=== PATIENT | male | born 1940 | race Caucasian/White ===

== ENCOUNTER 2017-02-27 08:29 | Emergency (ER) | payer OTHER ==
[~2017-02-27] VITALS: Ht 180.3 cm; Wt 74.8 kg
[~2017-02-27 08:29] MED LIST: MULT-658 PO; VIT1TABL34 PO
[2017-02-27 08:34] VITALS: BP 158/84
[2017-02-27] MEDS ORDERED: 0.9 % SODIUM CHLORIDE 10 ML DISP.SYRIN. IV PRN (08:45)
[2017-02-27] MEDS ORDERED: IV NORMAL SALINE 500ML BAG 500 ML IV ONE (08:45)
--- NOTE | 2017-02-27 08:53 | PHYS DOC ---
Adult General Chief Complaint Chief Complaint: ABDOMINAL PAIN HPI HPI Patient is a 77 year old white male presents emergency Department today with complaint of intermittent, ill-defined upper abdominal pain with episodes of nausea and vomiting that began approximately one week ago. Patient states that he saw his primary care doctor on Wednesday and diagnosed with diverticulitis. He states that he put him on a light diet including rice. Patient states that he threw up a Wednesday evening. Patient denies a history of diverticular disease. 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 He had a recent "cancer scanning "that showed metabolic lesions in his mesentery. This was done in October of this past year. Patient elected to try chemotherapy beginning in November. He states that he was not able to continue through the chemotherapy and elected to stop. Dr. Colvin is his oncologist. Other than his history of sigmoid cancer, he denies any other history of gastrointestinal problems. He denies any history of cardiac or pulmonary problems. He denies chest pain, palpitations, exertional dyspnea, orthopnea or PND. Patient states that the pain actually wakes him up often at various times. He states he is currently asymptomatic. He denies black, bloody or mucous-type stools. Review of Systems Review of Systems Constitutional: Denies fever or chills [] Eyes: Denies change in visual acuity, redness, or eye pain [] HENT: Denies nasal congestion or sore throat [] Respiratory: Denies cough or shortness of breath [] Cardiovascular: No additional information not addressed in HPI [] GI: Denies abdominal pain, nausea, vomiting, bloody stools or diarrhea [] : Denies dysuria or hematuria [] Musculoskeletal: Denies back pain or joint pain [] Integument: Denies rash or skin lesions [] Neurologic: Denies headache, focal weakness or sensory changes [] Endocrine: Denies polyuria or polydipsia [] Current Medications Current Medications Current Medications Medications (Trade) Dose Ordered Sig/Jovany Start Time Stop Time Status Last Admin Dose Admin Info (Do NOT chart on this entry -- for MONITORING) 1 each PRN DAILY PRN 02/27/17 09:00 03/01/17 08:59 Iohexol (Omnipaque 300 Mg/ml) 75 ml 1X ONCE 02/27/17 09:00 02/27/17 09:01 DC 02/27/17 09:39 75 ML Sodium Chloride (Iv Sodium Chloride 0.9% 500ml Bag) 500 ml @ 500 mls/hr 1X ONCE 02/27/17 08:45 02/27/17 09:44 DC 02/27/17 09:11 500 MLS/HR Sodium Chloride 10 ml 10 ml QSHIFT PRN 02/27/17 08:45 Allergies Allergies Allergies Coded Allergies Type Severity Reaction Last Updated Verified No Known Drug Allergies 03/03/16 No Physical Exam Physical Exam Constitutional: Well developed, well nourished, no acute distress, non-toxic appearance. Patient is lying comfortable in a low semi-Fowlers position no acute distress. HENT: Normocephalic, atraumatic, bilateral external ears normal, oropharynx moist, no oral exudates, nose normal. [] Eyes: PERRLA, EOMI, conjunctiva normal, no discharge. [] Neck: Normal range of motion, no tenderness, supple, no stridor. [] Cardiovascular:Heart rate regular rhythm, no murmur [] Lungs & Thorax: Bilateral breath sounds clear to auscultation Abdomen: Abdomen is soft and nondistended. There are normoactive bowel sounds in all 4 quadrants. There is no palpable defect to the abdominal wall or pulsatile mass. There is no rebound or guarding. Skin: Warm, dry, no erythema, no rash. [] Back: No tenderness, no CVA tenderness. [] Extremities: No tenderness, no cyanosis, no clubbing, ROM intact, no edema. [] Neurologic: Alert and oriented X 3, normal motor function, normal sensory function, no focal deficits noted. [] Psychologic: Affect normal, judgement normal, mood normal. [] Current Patient Data Vital Signs Vital Signs Date Time Temp Pulse Resp B/P Pulse Ox O2 Delivery O2 Flow Rate FiO2 02/27/17 08:34 97.8 78 18 158/84 98 Room Air 97.8 Lab Values Laboratory Tests Test 02/27/17 09:00 02/27/17 09:35 White Blood Count 8.4x10^3/uL (4.0-11.0) Red Blood Count 4.40x10^6/uL (4.30-5.70) Hemoglobin 13.0g/dL (13.0-17.5) Hematocrit 38.9% (39.0-53.0) L Mean Corpuscular Volume 88fL (79-100) Mean Corpuscular Hemoglobin 29pg (25-35) Mean Corpuscular Hemoglobin Concent 33g/dL (31-37) Red Cell Distribution Width 14.6% (11.5-14.5) H Platelet Count 290x10^3/uL (140-400) Neutrophils (%) (Auto) 56% (31-73) Lymphocytes (%) (Auto) 27% (24-48) Monocytes (%) (Auto) 12% (0-9) H Eosinophils (%) (Auto) 5% (0-3) H Basophils (%) (Auto) 1% (0-3) Neutrophils # (Auto) 4.7x10^3uL (1.8-7.7) Lymphocytes # (Auto) 2.3x10^3/uL (1.0-4.8) Monocytes # (Auto) 1.0x10^3/uL (0.0-1.1) Eosinophils # (Auto) 0.4x10^3/uL (0.0-0.7) Basophils # (Auto) 0.0x10^3/uL (0.0-0.2) Sodium Level 142mmol/L (136-145) Potassium Level 3.9mmol/L (3.5-5.1) Chloride Level 104mmol/L (98-107) Carbon Dioxide Level 27mmol/L (21-32) Anion Gap 11 (6-14) Blood Urea Nitrogen 16mg/dL (8-26) Creatinine 1.4mg/dL (0.7-1.3) H Estimated GFR (Cockcroft-Gault) 49.4 BUN/Creatinine Ratio 11 (6-20) Glucose Level 117mg/dL (70-99) H Calcium Level 9.1mg/dL (8.5-10.1) Total Bilirubin 0.4mg/dL (0.2-1.0) Aspartate Amino Transferase (AST) 47U/L (15-37) H Alanine Aminotransferase (ALT) 23U/L (16-63) Alkaline Phosphatase 98U/L (46-116) Troponin I Quantitative < 0.017ng/mL (0.000-0.055) Total Protein 6.7g/dL (6.4-8.2) Albumin 3.4g/dL (3.4-5.0) Albumin/Globulin Ratio 1.0 (1.0-1.7) Lipase 99U/L (73-393) Urine Collection Type Unknown Urine Color Yellow Urine Clarity Clear Urine pH 7.0 Urine Specific Josephine 1.015 Urine Protein Negativemg/dL (NEG-TRACE) Urine Glucose (UA) Negativemg/dL (NEG) Urine Ketones (Stick) Negativemg/dL (NEG) Urine Blood Moderate (NEG) Urine Nitrite Negative (NEG) Urine Bilirubin Negative (NEG) Urine Urobilinogen Dipstick 0.2mg/dL (0.2 mg/dL) Urine Leukocyte Esterase Small (NEG) Urine RBC 11-20/HPF (0-2) Urine WBC 11-20/HPF (0-4) Urine Squamous Epithelial Cells Few/LPF Urine Bacteria Few/HPF (0-FEW) Urine Mucus Slight/LPF Laboratory Tests 02/27/17 09:00 Laboratory Tests 02/27/17 09:00 EKG EKG Twelve-lead EKG was performed at [address] Berg. Patient has a sinus rhythm with a rate of 73 bpm.. I will was 204 ms with a QRS alevism of 70 ms and a QT duration of 470 ms. There is no evidence of pathologic ST elevation or depression suggestive of ischemia or infarction. Radiology/Procedures Radiology/Procedures [] [facility] [address] [place] [address] IMAGING REPORT Signed PATIENT: BERNIE DE LEON ACCOUNT: [id number] : 1940 LOCATION: ER AGE: 77 SEX: M EXAM STATUS: REG ER ORD. PHYSICIAN: ADI ROSE REASON: ill-defined, upper abdominal pain-hx of sigmoid Ca PROCEDURE: CT ABD PELV W/ IV CONTRST ONLY EXAM: CT abdomen and pelvis with contrast. HISTORY: Upper abdominal pain for one week, history of colon cancer status post resection one year ago. TECHNIQUE: Computed tomographic images of the abdomen and pelvis are obtained following the intravenous demonstration of 60 cc of Omni 300. Multiplanar reformatting was performed. One or more of the following individualized dose reduction techniques were utilized for this examination: 1. Automated exposure control 2. Adjustment of the mA and/or kV according to patient size 3. Use of iterative reconstruction technique COMPARISON: November 05, 2016 FINDINGS: Visualized lung bases appear clear. There has been interval development of multiple round, low attenuating masses within the liver, new from the previous exam. Portal vein appears patent. The spleen, pancreas and adrenal glands demonstrate no focal abnormality. A single small gallstone is present within the gallbladder, similar to the previous exam. There is redemonstration of calculi within the left kidney, overall nonobstructing. There is redemonstration of moderate right-sided hydronephrosis, mildly progressed from the previous exam and now with prominent right perinephric stranding present. Right hydroureter is present. A 5 mm calculus is present within the distal right ureter just proximal to the UVJ. This may correspond with the previously seen calculus within the more proximal ureter in October. A nonobstructing calculus is also seen within the distal left ureter, as seen on the previous exam. No dilated bowel loops are seen to suggest obstruction. The appendix remains normal in caliber in the right lower quadrant. Urinary bladder is decompressed and not well evaluated. Calcifications are present centrally within the prostate. Abdominal aorta remains normal in caliber with atherosclerotic calcifications present. Previously seen retroperitoneal adenopathy and mesenteric nodularity is redemonstrated, which appears progressed at the level of the kidneys. No significant intra-abdominal or pelvic free fluid or free air is seen. Overlying soft tissues and visualized osseous structures demonstrate no acute or suspicious interval change. Bilateral pars defects with mild anterolisthesis of L5 on S1 redemonstrated. IMPRESSION: 1. Interval development of liver masses, concerning for metastatic disease in this patient with history of colon cancer. 2. Obstructing distal right ureteral calculus measuring 5 mm, resulting in moderate hydronephrosis and hydroureter with perinephric stranding. Similar appearing, nonobstructing calculi are seen within the left kidney in distal left ureter. 3. Progression of retroperitoneal adenopathy, with redemonstration of mesenteric nodularity, concerning for metastatic carmen disease. 4. Other incidental findings appear stable. DICTATED and SIGNED BY: JESSIE HERNANDEZ MD DATE: 02/27/17 0955 CC: KAITLIN YO MD; ADI ROSE; NON,STAFF ~ Course & Med Decision Making Course & Med Decision Making Patient's had an uncomplicated stay here in the emergency department. He has not complained of pain, nausea or vomiting during his stay here. The CT scan does show an obstructing right stone in the distal ureter which is chronic and essentially unchanged from the CT scan in October. I spoke with Dr. Mckenna, Dr Colvin's partner and related CT scan findings. Dr. Mckenna states it is appropriate to call Wednesday to schedule follow-up appointment. I relayed this information to the patient and his family. He seemed to be satisfied with this plan and will call Wednesday for an appointment. Dragon Disclaimer Dragon Disclaimer This electronic medical record was generated, in whole or in part, using a voice recognition dictation system. 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 Be sure to call Dr. Colvin's office Wednesday morning for follow-up appointment. Dr Mckenna, Dr. Colvin's partner will be relaying information to him about today's visit. 2. Review the discharge instructions provided for self-care and reasons to return to the emergency department. 3. Take the medication as prescribed. Scripts Ondansetron (Zofran Odt)4 Mg Tab.rapdis4 Mg PO Q8HRS PRN NAUSEA/VOMITING #10 TAB Prov:ADI ROSE 02/27/17 Hydrocodone/Apap 5-325 (Preston 5-325 Tablet)1 Each Tablet1 Tab PO PRN Q6HRS PRN PAIN #15 TAB Prov:ADI ROSE 02/27/17 Problem Qualifiers ADI ROSE Feb 27, 2017 08:53
[2017-02-27] MEDS ORDERED: IOHEXOL 300 MG/ML 75 ML VIAL IV ONE (09:00)
[2017-02-27] MEDS ORDERED: CONTRAST GIVEN MC PRN (09:00)
[2017-02-27 09:21] LABS: BASO % 1 % (0-3); EOS % 5 % (0-3); HEMATOCRIT 38.9 % (39.0-53.0); LYMPH # 2.3 x10^3/uL (1.0-4.8); LYMPH % 27 % (24-48); MEAN CORPUSCULAR HEMOGLOBIN 29 pg (25-35); MEAN CORPUSCULAR HGB CONC 33 g/dL (31-37); MEAN CORPUSCULAR VOLUME 88 fL (79-100); MONO % 12 % (0-9); NEUT % 56 % (31-73); PLATELET COUNT 290 x10^3/uL (140-400); RED CELL DISTRIBUTION WIDTH 14.6 % (11.5-14.5); WHITE BLOOD COUNT 8.4 x10^3/uL (4.0-11.0)
[2017-02-27 09:24] LABS: CALCIUM 9.1 mg/dL (8.5-10.1); CREATININE 1.4 mg/dL (0.7-1.3); GFR 49.4; POTASSIUM 3.9 mmol/L (3.5-5.1)
[2017-02-27 09:30] LABS: ALBUMIN 3.4 g/dL (3.4-5.0); TOTAL BILIRUBIN 0.4 mg/dL (0.2-1.0); TOTAL PROTEIN 6.7 g/dL (6.4-8.2)
[2017-02-27 09:48] LABS: BILIRUBIN,URINE NEGATIVE (NEG); GLUCOSE,URINE NEGATIVE (NEG); NITRITE,URINE NEGATIVE (NEG); PROTEIN,URINE NEGATIVE (NEG-TRACE); UROBILINOGEN,URINE 0.2 mg/dL (0.2 mg/dL)
[2017-02-27 09:59] LABS: BACTERIA,URINE FEW /HPF (0-FEW); SQUAMOUS EPITHELIAL CELL,UR FEW /LPF
--- NOTE | 2017-02-27 10:21 | RAD ---
EXAM: CT abdomen and pelvis with contrast. HISTORY: Upper abdominal pain for one week, history of colon cancer status post resection one year ago. TECHNIQUE: Computed tomographic images of the abdomen and pelvis are obtained following the intravenous demonstration of 60 cc of Omni 300. Multiplanar reformatting was performed. One or more of the following individualized dose reduction techniques were utilized for this examination: 1. Automated exposure control 2. Adjustment of the mA and/or kV according to patient size 3. Use of iterative reconstruction technique COMPARISON: November 05, 2016 FINDINGS: Visualized lung bases appear clear. There has been interval development of multiple round, low attenuating masses within the liver, new from the previous exam. Portal vein appears patent. The spleen, pancreas and adrenal glands demonstrate no focal abnormality. A single small gallstone is present within the gallbladder, similar to the previous exam. There is redemonstration of calculi within the left kidney, overall nonobstructing. There is redemonstration of moderate right-sided hydronephrosis, mildly progressed from the previous exam and now with prominent right perinephric stranding present. Right hydroureter is present. A 5 mm calculus is present within the distal right ureter just proximal to the UVJ. This may correspond with the previously seen calculus within the more proximal ureter in October. A nonobstructing calculus is also seen within the distal left ureter, as seen on the previous exam. No dilated bowel loops are seen to suggest obstruction. The appendix remains normal in caliber in the right lower quadrant. Urinary bladder is decompressed and not well evaluated. Calcifications are present centrally within the prostate. Abdominal aorta remains normal in caliber with atherosclerotic calcifications present. Previously seen retroperitoneal adenopathy and mesenteric nodularity is redemonstrated, which appears progressed at the level of the kidneys. No significant intra-abdominal or pelvic free fluid or free air is seen. Overlying soft tissues and visualized osseous structures demonstrate no acute or suspicious interval change. Bilateral pars defects with mild anterolisthesis of L5 on S1 redemonstrated. IMPRESSION: 1. Interval development of liver masses, concerning for metastatic disease in this patient with history of colon cancer. 2. Obstructing distal right ureteral calculus measuring 5 mm, resulting in moderate hydronephrosis and hydroureter with perinephric stranding. Similar appearing, nonobstructing calculi are seen within the left kidney in distal left ureter. 3. Progression of retroperitoneal adenopathy, with redemonstration of mesenteric nodularity, concerning for metastatic carmen disease. 4. Other incidental findings appear stable.
[2017-02-27] MEDS ORDERED: HYDR-971 PO (11:02)
[2017-02-27] MEDS ORDERED: ONDA4TAB10 PO (11:02)
--- NOTE | 2017-02-27 12:02 | EKG ---
[facility] [address] [place] [address] Test Date: 2017-02-27 Test Time: 08:50:27 Pat Name: BERNIE DE LEON Department: Room: Gender: M Chief Analytics Officer: : 1940 Requested By: ADI ROSE Order Number: [id number] Reading MD: Measurements Intervals [place] Rate: 73 P: 52 NE: 204 QRS: 38 QRSD: 70 T: 31 QT: 366 QTc: 407 Interpretive Statements SINUS RHYTHM RI6.01 No previous ECG available for comparison
== END 2017-02-27 11:09 | disposition home or self-care (01) ==
LOC: ER 08:29
DX: C78.7 Secondary malignant neoplasm of liver and intrahepatic bile duct (principal); Z85.038 Personal history of other malignant neoplasm of large intestine; Z85.89 Personal history of malignant neoplasm of other organs and systems; N20.0 Calculus of kidney; N13.2 Hydronephrosis with renal and ureteral calculous obstruction
CPT/HCPCS: 36415; 74177; 80053; 81001; 83690; 84484; 85027; 87086; 93005; 99285; J7040; Q9967

== ENCOUNTER 2017-04-13 12:24 | Inpatient (IN) | payer OTHER ==
[~2017-04-13] VITALS: Ht 180.3 cm; Wt 64.4 kg
[~2017-04-13 12:24] MED LIST changes: +HYDR-971 PO; +ONDA4TAB10 PO
--- NOTE | 2017-04-13 12:46 | PHYS DOC ---
Past Medical History Past Medical History: Cancer, Kidney Stone Past Surgical History: Other Additional Past Surgical Histo: CANCER SX Alcohol Use: Rarely Drug Use: None Adult General Chief Complaint Chief Complaint: ABDOMINAL PAIN HPI HPI Patient is a 77 year old male who presents with who presents with abdominal pain that has worsened over the past couple days. Patient states he is unable to keep anything down and has had persistent nausea and vomiting. Patient has a history of colon cancer with metastases to the liver. Patient is currently not undergoing chemotherapy. Patient had an upper EGD done couple weeks ago that showed spots in the lining of the stomach. She complains of left lower quadrant pain. Patient denies any chest pain or shortness of breath. Patient denies any fevers. Patient denies any dysuria. Patient has no other complaints. Pertinent exam findings: Generalized tenderness to palpation of the abdomen with bowel sounds heard in all 4 quadrants and the abdomen was soft ED course: Patient was seen and evaluated upon arrival to emergency room CBC, CMP, lipase, lactic acid, UA, CT scan of the pelvis with contrast was ordered 1420: Discuss CT results with the patient and plan to admit for small bowel junction 1430: Paged hospitalist and surgeon 1434; Discussed CC/HP/PMH with Dr. Nrei and recommends admit and consult surgery 1444: Discussed CC/HP/PMH with Dr. Schaefer and recommends admit [] Pertinent findings: CT scan of abdomen and pelvis shows a high-grade small bowel obstruction with progression of the metastatic disease MDM: After reviewing the chart, CC/HPI/PMH, physical exam, [lab results], [ radiological results], the patient has a small bowel obstruction and will be admitted to the hospitalist with surgical consult and by mouth. An NG tube was not placed since the patient is not actively vomiting. Review of Systems Review of Systems GEN: Denies fevers, chills, sweats HEENT: Denies blurred vision, sore throat CV: Denies chest pain RESP: Denies shortness of air, cough GI: Howard pain with nausea and vomiting NEURO: Denies confusion, dizziness MSK: Denies weakness, joint pain/swelling Current Medications Current Medications Current Medications Medications (Trade) Dose Ordered Sig/Jovany Start Time Stop Time Status Last Admin Dose Admin Info (Do NOT chart on this entry -- for MONITORING) 1 each PRN DAILY PRN 04/13/17 13:15 04/15/17 13:14 Iohexol (Omnipaque 300 Mg/ml) 60 ml 1X ONCE 04/13/17 13:15 04/13/17 13:16 DC 04/13/17 13:20 60 ML Ondansetron HCl (Zofran) 4 mg 1X ONCE 04/13/17 13:00 04/13/17 13:01 DC 04/13/17 12:46 4 MG Sodium Chloride 1,000 ml @ 1,000 mls/hr 1X ONCE 04/13/17 13:00 04/13/17 13:59 DC 04/13/17 12:46 1,000 MLS/HR Allergies Allergies Allergies Coded Allergies Type Severity Reaction Last Updated Verified No Known Drug Allergies 03/03/16 No Physical Exam Physical Exam GEN.: No apparent distress. Alert and oriented. HEENT: Head is normocephalic, atraumatic NECK: Supple. LUNGS: CTAB. HEART: RRR, S1, S2 present. Peripheral pulses intact ABDOMEN: Soft, generalized abdominal tenderness with no rebound and no rigidity. Positive bowel sounds. EXTREMITIES: Without any cyanosis. NEUROLOGIC: Normal speech, normal tone PSYCHIATRIC: Normal affect, normal mood. SKIN: No ulcerations Current Patient Data Vital Signs Vital Signs Date Time Temp Pulse Resp B/P (MAP) Pulse Ox O2 Delivery O2 Flow Rate FiO2 04/13/17 13:05 68 20 134/72 (92) 99 04/13/17 12:41 98.1 Room Air 98.1 Lab Values Laboratory Tests Test 04/13/17 12:38 04/13/17 12:45 White Blood Count 11.6 x10^3/uL (4.0-11.0) H Red Blood Count 4.84 x10^6/uL (4.30-5.70) Hemoglobin 14.4 g/dL (13.0-17.5) Hematocrit 42.2 % (39.0-53.0) Mean Corpuscular Volume 87 fL (79-100) Mean Corpuscular Hemoglobin 30 pg (25-35) Mean Corpuscular Hemoglobin Concent 34 g/dL (31-37) Red Cell Distribution Width 12.9 % (11.5-14.5) Platelet Count 359 x10^3/uL (140-400) Neutrophils (%) (Auto) 70 % (31-73) Lymphocytes (%) (Auto) 21 % (24-48) L Monocytes (%) (Auto) 7 % (0-9) Eosinophils (%) (Auto) 1 % (0-3) Basophils (%) (Auto) 0 % (0-3) Neutrophils # (Auto) 8.2 x10^3uL (1.8-7.7) H Lymphocytes # (Auto) 2.5 x10^3/uL (1.0-4.8) Monocytes # (Auto) 0.9 x10^3/uL (0.0-1.1) Eosinophils # (Auto) 0.1 x10^3/uL (0.0-0.7) Basophils # (Auto) 0.0 x10^3/uL (0.0-0.2) Sodium Level 139 mmol/L (136-145) Potassium Level 4.0 mmol/L (3.5-5.1) Chloride Level 99 mmol/L (98-107) Carbon Dioxide Level 27 mmol/L (21-32) Anion Gap 13 (6-14) Blood Urea Nitrogen 22 mg/dL (8-26) Creatinine 1.2 mg/dL (0.7-1.3) Estimated GFR (Cockcroft-Gault) 59.0 BUN/Creatinine Ratio 18 (6-20) Glucose Level 116 mg/dL (70-99) H Calcium Level 10.3 mg/dL (8.5-10.1) H Total Bilirubin 0.6 mg/dL (0.2-1.0) Aspartate Amino Transferase (AST) 127 U/L (15-37) H Alanine Aminotransferase (ALT) 48 U/L (16-63) Alkaline Phosphatase 196 U/L (46-116) H Total Protein 8.3 g/dL (6.4-8.2) H Albumin 3.2 g/dL (3.4-5.0) L Albumin/Globulin Ratio 0.6 (1.0-1.7) L Lipase 108 U/L (73-393) Lactic Acid Level 2.0 mmol/L (0.4-2.0) Laboratory Tests 04/13/17 12:38 Laboratory Tests 04/13/17 12:38 EKG EKG [] Radiology/Procedures Radiology/Procedures CT abdomen and pelvis IMPRESSION: Progressive metastatic disease. Hepatic masses and retroperitoneal adenopathy are worse. Unchanged left renal calculi.. Calculi in both distal ureters persist but these calculi, on today's examination, are minimally or nonobstructing in nature. High-grade mechanical small bowel obstruction. The transition point is probably in the pelvis. The etiology is not clear[] Course & Med Decision Making Course & Med Decision Making Pertinent Labs and Imaging studies reviewed. (See chart for details) [] Dragon Disclaimer Dragon Disclaimer This electronic medical record was generated, in whole or in part, using a voice recognition dictation system. Departure Departure Impression: Primary Impression: Small bowel torsion Disposition: ADMITTED INPATIENT Admitting Physician: Monik Neri Condition: STABLE Referrals: KAITLIN YO MD (PCP) BRAD BACON DO April 13, 2017 12:46
[2017-04-13 12:50] LABS: BASO % 0 % (0-3); EOS % 1 % (0-3); HEMATOCRIT 42.2 % (39.0-53.0); HEMOGLOBIN 14.4 g/dL (13.0-17.5); LYMPH # 2.5 x10^3/uL (1.0-4.8); LYMPH % 21 % (24-48); MEAN CORPUSCULAR HEMOGLOBIN 30 pg (25-35); MEAN CORPUSCULAR HGB CONC 34 g/dL (31-37); MEAN CORPUSCULAR VOLUME 87 fL (79-100); MONO % 7 % (0-9); NEUT % 70 % (31-73); PLATELET COUNT 359 x10^3/uL (140-400); RED BLOOD COUNT 4.84 x10^6/uL (4.30-5.70); RED CELL DISTRIBUTION WIDTH 12.9 % (11.5-14.5); WHITE BLOOD COUNT 11.6 x10^3/uL (4.0-11.0)
[2017-04-13] MEDS ORDERED: OMEP20CA9 PO (12:51)
[2017-04-13] MEDS ORDERED: VIT1CAPS12 PO (12:52)
[2017-04-13] MEDS ORDERED: IV NORMAL SALINE 1000ML BAG 1,000 ML IV ONE (13:00)
[2017-04-13] MEDS ORDERED: ONDANSETRON PF 4 MG/2 ML VIAL. IV ONE (13:00)
[2017-04-13 13:04] LABS: CALCIUM 10.3 mg/dL (8.5-10.1); CREATININE 1.2 mg/dL (0.7-1.3)
[2017-04-13 13:11] LABS: ALBUMIN 3.2 g/dL (3.4-5.0); ALBUMIN/GLOBULIN RATIO 0.6 (1.0-1.7); TOTAL BILIRUBIN 0.6 mg/dL (0.2-1.0); TOTAL PROTEIN 8.3 g/dL (6.4-8.2)
[2017-04-13] MEDS ORDERED: CONTRAST GIVEN MC PRN (13:15)
[2017-04-13] MEDS ORDERED: IOHEXOL 300 MG/ML 75 ML VIAL IV ONE (13:15)
--- NOTE | 2017-04-13 13:51 | RAD ---
Indication abdominal pain. Axial images of the abdomen and pelvis were obtained. IV contrast, 60 cc of Omnipaque 300 was administered intravenously. No oral contrast was administered. Note is made of a previous examination 02/27/2017. The lung bases are clear. Numerous hepatic masses, compatible with metastatic disease, persist. Masses are larger compatible with progressive metastatic disease. Cholelithiasis is noted. The spleen appears unremarkable. No pancreatic abnormality is seen. Retroperitoneal adenopathy persists and has progressed relative to the previous study. This is likely on a metastatic basis. Calculus, seen previously, in the distal right ureter persists but the hydronephrosis and hydroureter, seen previously to level of the calculus has resolved. The calculus in the distal right ureter is now minimally or nonobstructing in nature. Left renal calculi are noted, similar. Nonobstructing calculus in the distal left ureter is again seen and unchanged in position. There are dilated loops of bowel. Dilated loops predominantly involve the jejunum. Distal small bowel loops are collapsed. The transition point appears to be in the right pelvis. The etiology is unclear. Degenerative changes are seen at L5-S1. There is mild spondylolisthesis at the same level. IMPRESSION: Progressive metastatic disease. Hepatic masses and retroperitoneal adenopathy are worse. Unchanged left renal calculi.. Calculi in both distal ureters persist but these calculi, on today's examination, are minimally or nonobstructing in nature. High-grade mechanical small bowel obstruction. The transition point is probably in the pelvis. The etiology is not clear
--- NOTE | 2017-04-13 14:18 | ACF ---
Admit Criteria Forms Admit Criteria Forms Admit Criteria Forms ABDOMINAL PAIN Clinical Indications for Admission to Inpatient Care (Place 'X' for any and all applicable criteria): Admission is indicated for ANY ONE of the following(1)(2)(3)(4)(5): [ ]I. Inpatient admission required rather than observation care (Also use Abdominal Pain: Observation Care, as appropriate) because of ANY ONE of the following: [ ]a) Severe pain requiring acute inpatient management [ ]b) Identification of etiology/finding that requires inpatient care (eg, aortic dissection, free air) [ ]c) Absent bowel sounds with complete ileus(6) [ ]d) Suspected toxic megacolon [ ]e) Severe electrolyte abnormalities requiring inpatient care [ ]f) High fever or infection requiring inpatient admission as indicated by ANY ONE of following(7)(8): [ ] i) Appropriate outpatient or observational care antimicrobial treatment unavailable, not effective, or not feasible [ ] ii) Documented bacteremia [ ] iii) Temperature > 104.9 degrees F (oral) [ ] iv) T >103.1 F (oral) or < 96.8 F(rectal) that does not respond to all emergency treatment measures [ ]g) Signs of intestinal obstruction [B] [ ]h) Hemodynamic instability [ ]i) IV fluid to replace significant ongoing losses (greater than 3 L/m2 per day) (12)(13) [ ]j) Percutaneous or open drainage (eg, abscess, biliary tract ) procedures [ ]k) Parenteral nutrition regimen that must be implemented on inpatient basis [ ]l) Other condition,treatment or monitoring requiring inpatient admission. [ ]II. Peritoneal signs present [ ]III. Surgery needed that cannot be performed on an ambulatory basis. [ ]IV. Evaluation requires patient to not eat or drink for extended period ( eg, more than 24 hours). []V. Contraindications and/or Inappropriate clinical situations for Observational Care in patients with abdominal pain, when ANY ONE of the following is required: [ ]a) Thorough evaluation is required to prevent catastrophic events due to delays in diagnosing (e.g.Mesenteric ischemia) 1,3 [ ]b) Patient with severe pathology or with chronic symptoms unlikely to improve in the ED stay (3) [X]. General contraindications and/or Inappropriate clinical situations for Observational Care in patients with abdominal pain, when ANY ONE of the following is required: [ ]a) Prediction of prolongation of LOS based on ANY ONE of the following may be considered as a contraindication for observational care 2, 3, 4, 5, 6, 7, 8, 9, 10, 11 [X]i) Age > 65 yrs. [ ]ii) Patient arriving by ambulance [ ]iii) Patient with high acuity [ ]iv) Patient requiring vital sign monitoring [ ]v) Patient on IV medication [ ]b) Systolic blood pressures 180mmHg 3,12 [ ]c) Patient with altered mental status including delirium and other alteration of consciousness, (3) [ ]d) Patient whose discharge disposition will be to a senior care home or rehabilitation home should not be managed in Emergency Department Observation Unit. CMS rule requires 3 days hospital stay before such placement.3,13 [ ]e) Patient with failure to thrive due to broad array of etiologies 3,16,17 [ ]f) Inability to ambulate 3,14 Extended stay beyond goal length of stay may be needed for(2)(3): [ ]a) Persistent abdominal pain with suspected intra-abdominal process [ ]b) Diagnosed condition requiring continued stay (e.g., pancreatitis, complicated diverticulitis) [ ]c) Surgery (e.g., colectomy) The original [facility] content created by [facility] has been revised. The portions of the content which have been revised are identified through the use of italic text or in bold, and [facility] has neither reviewed nor approved the modified material.All other unmodified content is copyright [employer]. Please see references footnoted in the original [employer] edition 2016 CHARITY DESAI April 13, 2017 14:18
[2017-04-13] MEDS ORDERED: ONDANSETRON PF 4 MG/2 ML VIAL. IV PRN (14:45)
[2017-04-13 15:05] VITALS: BP 149/87
[2017-04-13 15:27] LABS: BILIRUBIN,URINE MODERATE (NEG); GLUCOSE,URINE NEGATIVE (NEG); NITRITE,URINE NEGATIVE (NEG); PROTEIN,URINE 30 mg/dL (NEG-TRACE)
[2017-04-13] MEDS ORDERED: hydrALAZINE 20 MG/ML VIAL. IVP PRN (15:30)
[2017-04-13] MEDS ORDERED: DOCUSATE SODIUM 100 MG CAPSULE. PO PRN (15:30)
--- NOTE | 2017-04-13 15:30 | PDOC1 ---
History and Physical Date of Admission Date of Admission 04/13/17 Identification/Chief Complaint Chief Complaint abd pain, N/V Problems: Source Source: Chart review, Patient History of Present Illness History of Present Illness HPI Patient is a 77 year old male who presents with who presents with constant abdominal pain for 3 days. Pt did colostomy for colon Ca 02/2016, then was found liver mets in 10/2016, pt was on chemo for a short time, then could not tolerate it. Currently not on any treatment. Pt said he got a recent CT but i could not find it in the computer. Since last Oct, pt has been having low po intake, lost 10 pounds, has N/V sometimes, and intermittent abd pain. In the past 3 days, the abd pain has been constant, middle abd, 10/10, with Vomiting 2 times today wo blood. Pt still pass gas, last BM was 1 week ago, baseline BM every 4-5ds. CT today showed High level SBO, and advanced liver mets and abd adenopathy. no fever, chills, mild cough, no sob, dysuria. He said he got EGD by dr. Michael 2 weeks ago, but no result was informed yet, saying a bx was done. Past Medical History Cardiovascular: No pertinent hx Pulmonary: No pertinent hx GI: Hemorrhoids, Other Renal/: No pertinent hx Past Surgical History Past Surgical History: Tonsillectomy, Other Family History Family History: No Significant Social History Smoke: No ALCOHOL: occassional Current Problem List Problem List Problems Medical Problems: (1) Small bowel torsion Status: Acute Current Medications Current Medications Current Medications Medications (Trade) Dose Ordered Sig/Jovany Start Time Stop Time Status Last Admin Dose Admin Info (Do NOT chart on this entry -- for MONITORING) 1 each PRN DAILY PRN 04/13/17 13:15 04/15/17 13:14 Iohexol (Omnipaque 300 Mg/ml) 60 ml 1X ONCE 04/13/17 13:15 04/13/17 13:16 DC 04/13/17 13:20 60 ML Morphine Sulfate 4 mg PRN Q2HR PRN 04/13/17 14:45 04/14/17 14:44 Ondansetron HCl (Zofran) 4 mg PRN Q8HRS PRN 04/13/17 14:45 04/14/17 14:44 Sodium Chloride 1,000 ml @ 1,000 mls/hr 1X ONCE 04/13/17 13:00 04/13/17 13:59 DC 04/13/17 12:46 1,000 MLS/HR Allergies Allergies Allergies Coded Allergies Type Severity Reaction Last Updated Verified No Known Drug Allergies 03/03/16 No ROS Review of System CONSTITUTIONAL: No fever or chills EYES: No recent changes SKIN: No rash or itching CARDIOVASCULAR: No chest pain, syncope, palpitations, or edema RESPIRATORY: No SOB or cough GASTROINTESTINAL: No nausea, vomiting or abdominal pain NEUROLOGICAL: No headaches or weakness ENDOCRINE: No cold or heat intolerance GENITOURINARY: No urgency or frequency of urination MUSCULOSKELETAL: No back pain or joint pain LYMPHATICS: No enlarged lymph nodes PSYCHIATRIC: No anxiety or depression Physical Exam Physical Exam GEN.: No apparent distress. Alert and oriented. HEENT: Head is normocephalic, atraumatic NECK: Supple. LUNGS: Clear to auscultation. HEART: RRR, S1, S2 present. Peripheral pulses intact ABDOMEN: Soft, nontender. Positive bowel sounds. EXTREMITIES: Without any cyanosis. NEUROLOGIC: Normal speech, normal tone PSYCHIATRIC: Normal affect, normal mood. SKIN: No ulcerations Vitals Vitals Vital Signs Date Time Temp Pulse Resp B/P (MAP) Pulse Ox O2 Delivery O2 Flow Rate FiO2 04/13/17 15:00 72 20 145/68 (93) 98 04/13/17 12:41 98.1 Room Air 98.1 Labs Labs Laboratory Tests Test 04/13/17 12:38 04/13/17 12:45 White Blood Count 11.6 x10^3/uL (4.0-11.0) Red Blood Count 4.84 x10^6/uL (4.30-5.70) Hemoglobin 14.4 g/dL (13.0-17.5) Hematocrit 42.2 % (39.0-53.0) Mean Corpuscular Volume 87 fL (79-100) Mean Corpuscular Hemoglobin 30 pg (25-35) Mean Corpuscular Hemoglobin Concent 34 g/dL (31-37) Red Cell Distribution Width 12.9 % (11.5-14.5) Platelet Count 359 x10^3/uL (140-400) Neutrophils (%) (Auto) 70 % (31-73) Lymphocytes (%) (Auto) 21 % (24-48) Monocytes (%) (Auto) 7 % (0-9) Eosinophils (%) (Auto) 1 % (0-3) Basophils (%) (Auto) 0 % (0-3) Neutrophils # (Auto) 8.2 x10^3uL (1.8-7.7) Lymphocytes # (Auto) 2.5 x10^3/uL (1.0-4.8) Monocytes # (Auto) 0.9 x10^3/uL (0.0-1.1) Eosinophils # (Auto) 0.1 x10^3/uL (0.0-0.7) Basophils # (Auto) 0.0 x10^3/uL (0.0-0.2) Sodium Level 139 mmol/L (136-145) Potassium Level 4.0 mmol/L (3.5-5.1) Chloride Level 99 mmol/L (98-107) Carbon Dioxide Level 27 mmol/L (21-32) Anion Gap 13 (6-14) Blood Urea Nitrogen 22 mg/dL (8-26) Creatinine 1.2 mg/dL (0.7-1.3) Estimated GFR (Cockcroft-Gault) 59.0 BUN/Creatinine Ratio 18 (6-20) Glucose Level 116 mg/dL (70-99) Calcium Level 10.3 mg/dL (8.5-10.1) Total Bilirubin 0.6 mg/dL (0.2-1.0) Aspartate Amino Transf (AST/SGOT) 127 U/L (15-37) Alanine Aminotransferase (ALT/SGPT) 48 U/L (16-63) Alkaline Phosphatase 196 U/L (46-116) Total Protein 8.3 g/dL (6.4-8.2) Albumin 3.2 g/dL (3.4-5.0) Albumin/Globulin Ratio 0.6 (1.0-1.7) Lipase 108 U/L (73-393) Lactic Acid Level 2.0 mmol/L (0.4-2.0) Laboratory Tests Test 04/13/17 12:38 04/13/17 12:45 White Blood Count 11.6 x10^3/uL (4.0-11.0) Red Blood Count 4.84 x10^6/uL (4.30-5.70) Hemoglobin 14.4 g/dL (13.0-17.5) Hematocrit 42.2 % (39.0-53.0) Mean Corpuscular Volume 87 fL (79-100) Mean Corpuscular Hemoglobin 30 pg (25-35) Mean Corpuscular Hemoglobin Concent 34 g/dL (31-37) Red Cell Distribution Width 12.9 % (11.5-14.5) Platelet Count 359 x10^3/uL (140-400) Neutrophils (%) (Auto) 70 % (31-73) Lymphocytes (%) (Auto) 21 % (24-48) Monocytes (%) (Auto) 7 % (0-9) Eosinophils (%) (Auto) 1 % (0-3) Basophils (%) (Auto) 0 % (0-3) Neutrophils # (Auto) 8.2 x10^3uL (1.8-7.7) Lymphocytes # (Auto) 2.5 x10^3/uL (1.0-4.8) Monocytes # (Auto) 0.9 x10^3/uL (0.0-1.1) Eosinophils # (Auto) 0.1 x10^3/uL (0.0-0.7) Basophils # (Auto) 0.0 x10^3/uL (0.0-0.2) Sodium Level 139 mmol/L (136-145) Potassium Level 4.0 mmol/L (3.5-5.1) Chloride Level 99 mmol/L (98-107) Carbon Dioxide Level 27 mmol/L (21-32) Anion Gap 13 (6-14) Blood Urea Nitrogen 22 mg/dL (8-26) Creatinine 1.2 mg/dL (0.7-1.3) Estimated GFR (Cockcroft-Gault) 59.0 BUN/Creatinine Ratio 18 (6-20) Glucose Level 116 mg/dL (70-99) Calcium Level 10.3 mg/dL (8.5-10.1) Total Bilirubin 0.6 mg/dL (0.2-1.0) Aspartate Amino Transf (AST/SGOT) 127 U/L (15-37) Alanine Aminotransferase (ALT/SGPT) 48 U/L (16-63) Alkaline Phosphatase 196 U/L (46-116) Total Protein 8.3 g/dL (6.4-8.2) Albumin 3.2 g/dL (3.4-5.0) Albumin/Globulin Ratio 0.6 (1.0-1.7) Lipase 108 U/L (73-393) Lactic Acid Level 2.0 mmol/L (0.4-2.0) VTE Prophylaxis Ordered VTE Prophylaxis Devices: Yes VTE Pharmacological Prophylaxi: Yes Assessment/Plan Assessment/Plan 1. abd pain with N/V 2/2 SBO 2. metastatic colon Ca s/p sx, short term of chemo, mets to liver and retroperitoneal adenopathy 3. bl renal stones, non obstructive 4. 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 dvt, gi ppx number [phone] EVE LEACH MD April 13, 2017 15:30
[2017-04-13 15:34] LABS: BACTERIA,URINE 0 /HPF (0-FEW); RBC,URINE 0 /HPF (0-2); SQUAMOUS EPITHELIAL CELL,UR FEW /LPF
[2017-04-13] MEDS: AMINO AC 3%/ELECTROLYTE/GLYCER 1,000 ML IV SCH (15:38)
[2017-04-13] MEDS: MORPHINE SULFATE 4 MG/ML DISP.SYRIN. IV PRN ×2 (15:39→21:58)
[2017-04-13] MEDS: ENOXAPARIN 40 MG/0.4 ML SYRINGE. SQ SCH (15:39)
--- NOTE | 2017-04-13 16:15 | PDOC2 ---
GI CONSULT Reason For Consult: SBO, recent EGD w/ Dr. Michael HPI: HPI: 77 y/o male w/ metastatic colon cancer s/p sigmoidectomy 02/2016. Tried chemo previously but stopped, follows w/ Dr. Colvin about once monthly. Has had issues w/ abdominal pain and n/v for awhile, symptoms much worse for the past couple days (since eating dinner on Wednesday night). Pain is severe and constant (mid/ upper abdomen), can't keep anything down (tried a few sips of Ensure this morning). No BM x 5 days, has been passing gas today. believes has lost > 5 pounds over the past few days. Has also had issues w/ globus. Had an EGD w/ Dr. Michael on 04/02 visually w/ reflux esophagitis, chronic gastritis - pathology showed Hernandez's esophagus. Has been on PPI QD along w/ Zofran PRN and was scheduled for SBS as an outpt on 04/19. Surgery consult is pending. PMH: PMH: metastatic colon cancer, Hernandez's esophagus, skin cancer, right femur fracture , nephrolithiasis, sigmoidectomy, cystoscopy w/ left ureteral stent placement/ removal, lithotripsy, vasectomy, ORIF right femur FH: Family History: No pertinent hx Social History: Smoke: Quit ALCOHOL: occassional Drugs: None ROS: GEN: Denies fevers, chills, sweats HEENT: Denies blurred vision, sore throat CV: Denies chest pain RESP: Denies shortness of air, cough GI: Per HPI : Denies hematuria, dysuria ENDO: +weight loss NEURO: Denies confusion, dizziness MSK: +weakness SKIN: Denies jaundice, pruritus Vitals: Vitals: Vital Signs Date Time Temp Pulse Resp B/P (MAP) Pulse Ox O2 Delivery O2 Flow Rate FiO2 04/13/17 15:39 98 Room Air 04/13/17 15:00 72 20 145/68 (93) 04/13/17 12:41 98.1 98.1 Labs: Labs: Laboratory Tests Test 04/13/17 12:38 04/13/17 12:45 04/13/17 15:15 White Blood Count 11.6 x10^3/uL (4.0-11.0) Red Blood Count 4.84 x10^6/uL (4.30-5.70) Hemoglobin 14.4 g/dL (13.0-17.5) Hematocrit 42.2 % (39.0-53.0) Mean Corpuscular Volume 87 fL (79-100) Mean Corpuscular Hemoglobin 30 pg (25-35) Mean Corpuscular Hemoglobin Concent 34 g/dL (31-37) Red Cell Distribution Width 12.9 % (11.5-14.5) Platelet Count 359 x10^3/uL (140-400) Neutrophils (%) (Auto) 70 % (31-73) Lymphocytes (%) (Auto) 21 % (24-48) Monocytes (%) (Auto) 7 % (0-9) Eosinophils (%) (Auto) 1 % (0-3) Basophils (%) (Auto) 0 % (0-3) Neutrophils # (Auto) 8.2 x10^3uL (1.8-7.7) Lymphocytes # (Auto) 2.5 x10^3/uL (1.0-4.8) Monocytes # (Auto) 0.9 x10^3/uL (0.0-1.1) Eosinophils # (Auto) 0.1 x10^3/uL (0.0-0.7) Basophils # (Auto) 0.0 x10^3/uL (0.0-0.2) Sodium Level 139 mmol/L (136-145) Potassium Level 4.0 mmol/L (3.5-5.1) Chloride Level 99 mmol/L (98-107) Carbon Dioxide Level 27 mmol/L (21-32) Anion Gap 13 (6-14) Blood Urea Nitrogen 22 mg/dL (8-26) Creatinine 1.2 mg/dL (0.7-1.3) Estimated GFR (Cockcroft-Gault) 59.0 BUN/Creatinine Ratio 18 (6-20) Glucose Level 116 mg/dL (70-99) Calcium Level 10.3 mg/dL (8.5-10.1) Total Bilirubin 0.6 mg/dL (0.2-1.0) Aspartate Amino Transf (AST/SGOT) 127 U/L (15-37) Alanine Aminotransferase (ALT/SGPT) 48 U/L (16-63) Alkaline Phosphatase 196 U/L (46-116) Total Protein 8.3 g/dL (6.4-8.2) Albumin 3.2 g/dL (3.4-5.0) Albumin/Globulin Ratio 0.6 (1.0-1.7) Lipase 108 U/L (73-393) Lactic Acid Level 2.0 mmol/L (0.4-2.0) Urine Collection Type Unknown Urine Color Yellow Urine Clarity Clear Urine pH 6.0 Urine Specific [place] >=1.030 Urine Protein 30 mg/dL (NEG-TRACE) Urine Glucose (UA) Negative mg/dL (NEG) Urine Ketones (Stick) 40 mg/dL (NEG) Urine Blood Negative (NEG) Urine Nitrite Negative (NEG) Urine Bilirubin Moderate (NEG) Urine Urobilinogen Dipstick 1.0 mg/dL (0.2 mg/dL) Urine Leukocyte Esterase Trace (NEG) Urine RBC 0 /HPF (0-2) Urine WBC 11-20 /HPF (0-4) Urine Squamous Epithelial Cells Few /LPF Urine Bacteria 0 /HPF (0-FEW) Urine Hyaline Casts Few /HPF Urine Mucus Mod /LPF Allergies: Coded Allergies: No Known Drug Allergies (Unverified , 03/03/16) Medications: Current Medications Medications (Trade) Dose Ordered Sig/Jovany Route PRN Reason Start Time Stop Time Status Last Admin Dose Admin Sodium Chloride 1,000 ml @ 1,000 mls/hr 1X ONCE IV 04/13/17 13:00 04/13/17 13:59 DC 04/13/17 12:46 Ondansetron HCl (Zofran) 4 mg 1X ONCE IV 04/13/17 13:00 04/13/17 13:01 DC 04/13/17 12:46 Iohexol (Omnipaque 300 Mg/ml) 60 ml 1X ONCE IV 04/13/17 13:15 04/13/17 13:16 DC 04/13/17 13:20 Morphine Sulfate 4 mg PRN Q2HR PRN IV PAIN 04/13/17 14:45 04/14/17 14:44 04/13/17 15:39 Amino Acids/ Glycerin/ Electrolytes 1,000 ml @ 80 mls/hr [id number] IV 04/13/17 16:00 04/13/17 15:38 Enoxaparin Sodium (Lovenox 40mg Syringe) 40 mg Q24H SQ 04/13/17 16:00 04/13/17 15:39 Imaging: Imaging: CT A/P w/ IV contrast 04/13/17 The lung bases are clear. Numerous hepatic masses, compatible with metastatic disease, persist. Masses are larger compatible with progressive metastatic disease. Cholelithiasis is noted. The spleen appears unremarkable. No pancreatic abnormality is seen. Retroperitoneal adenopathy persists and has progressed relative to the previous study. This is likely on a metastatic basis. Calculus, seen previously, in the distal right ureter persists but the hydronephrosis and hydroureter, seen previously to level of the calculus has resolved. The calculus in the distal right ureter is now minimally or nonobstructing in nature. Left renal calculi are noted, similar. Nonobstructing calculus in the distal left ureter is again seen and unchanged in position. There are dilated loops of bowel. Dilated loops predominantly involve the jejunum. Distal small bowel loops are collapsed. The transition point appears to be in the right pelvis. The etiology is unclear. Degenerative changes are seen at L5-S1. There is mild spondylolisthesis at the same level. IMPRESSION: Progressive metastatic disease. Hepatic masses and retroperitoneal adenopathy are worse. Unchanged left renal calculi.. Calculi in both distal ureters persist but these calculi, on today's examination, are minimally or nonobstructing in nature. High-grade mechanical small bowel obstruction. The transition point is probably in the pelvis. The etiology is not clear. PE: GEN: occasionally winces with pain HEENT: Atraumatic, PERRL LUNGS: CTAB anteriorly HEART: RRR ABD: BS+, no guarding but diffuse discomfort EXTREMITY: No edema SKIN: No rashes, no jaundice NEURO/PSYCH: A & O 3 A/P: A/P: Metastatic colon cancer -stopped chemo, follows w/ Dr. Colvin -s/p sigmoidectomy 02/2016 SBO -CT as above Abd pain, n/v, weight loss -chronic, worse x 2 days Hernandez's esophagus/GERD, globus -EGD 04/02/17 -- Agree w/ NPO, NG tube, PPN. Surgery consulting as well. Continue PPI (already ordered IV). Poor prognosis. JOEY HURLEY April 13, 2017 16:15
--- NOTE | 2017-04-13 16:51 | RAD ---
Abdomen radiograph History: NG tube placement. Comparison: 05/12/2016. Findings: AP view of the abdomen. Esophagogastric tube is present with tip projecting at the proximal body of the stomach with the side port at the distal esophagus. Advancement is advised. Excreted intravenous contrast can be seen involving both renal collecting systems and ureters. A few dilated small bowel loops are seen. Impression: Esophagogastric tube tip projects the proximal body of the stomach with the side-port at the distal esophagus. Advancement is advised.
--- NOTE | 2017-04-13 17:43 | PDOC2 ---
CONSULT Date of Consult Date of Consult DATE: 04/13/17 TIME: 17:38 Reason for Consult Reason for Consult: small bowel obstruction Referring Physician Referring Physician: Dr Neri Identification/Chief Complaint Chief Complaint small bowel obstruction Source Source: Chart review, Patient History of Present Illness Reason for Visit: Mr Edwards is a 77 yo gentleman who I know from previous colon resection for carcinoma. He has metastatic disease and now has a SBO. We are asked to see for same Past Medical History Cardiovascular: No pertinent hx Pulmonary: No pertinent hx GI: Hemorrhoids, Other (sigmoid cancer s/p resection) Renal/: No pertinent hx Past Surgical History Past Surgical History: Tonsillectomy, Colon Resection, Other Family History Family History: No Significant Social History Quit ALCOHOL: occassional Drugs: None Current Problem List Problem List Problems Medical Problems: (1) Small bowel torsion Status: Acute Current Medications Current Medications Current Medications Sodium Chloride 1,000 ml @ 1,000 mls/hr 1X ONCE IV Last administered on 12:46; Start 04/13/17 at 13:00; Stop 04/13/17 at 13:59; Status DC Ondansetron HCl (Zofran) 4 mg 1X ONCE IV Last administered on 04/13/17 12:46 ; Start 04/13/17 at 13:00; Stop 04/13/17 at 13:01; Status DC Iohexol (Omnipaque 300 Mg/ml) 60 ml 1X ONCE IV Last administered on 04/13/17 13:20; Start 04/13/17 at 13:15; Stop 04/13/17 at 13:16; Status DC Info (Do NOT chart on this entry -- for MONITORING) 1 each PRN DAILY PRN MC SEE COMMENTS; Start 04/13/17 at 13:15; Stop 04/15/17 at 13:14 Ondansetron HCl (Zofran) 4 mg PRN Q8HRS PRN IV NAUSEA/VOMITING; Start 04/13/17 at 14:45; Stop 04/14/17 at 14:44 Morphine Sulfate 4 mg PRN Q2HR PRN IV PAIN Last administered on 04/13/17 15:39 ; Start 04/13/17 at 14:45; Stop 04/14/17 at 14:44 Acetaminophen (Tylenol) 650 mg PRN Q6HRS PRN PO FEVER; Start 04/13/17 at 15:30 Ondansetron HCl (Zofran) 4 mg PRN Q6HRS PRN IV NAUSEA/VOMITING; Start 04/13/17 at 15:30 Morphine Sulfate 2 mg PRN Q2HR PRN IV PAIN; Start 04/13/17 at 15:30 Tramadol HCl (Ultram) 50 mg PRN Q6HRS PRN PO PAIN; Start 04/13/17 at 15:30 Hydralazine HCl (Apresoline) 10 mg PRN Q4HRS PRN IVP ELEVATED BP, SEE COMMENTS ; Start 04/13/17 at 15:30 Docusate Sodium (Colace) 100 mg PRN DAILY PRN PO CONSTIPATION; Start 04/13/17 at 15:30 Amino Acids/ Glycerin/ Electrolytes 1,000 ml @ 80 mls/hr [id number] IV Last administered on 04/13/17t 15:38; Start 04/13/17 at 16:00 Morphine Sulfate 4 mg PRN Q2HR PRN IV PAIN; Start 04/13/17 at 15:30 Enoxaparin Sodium (Lovenox 40mg Syringe) 40 mg Q24H SQ Last administered on t 15:39; Start 04/13/17 at 16:00 Pantoprazole Sodium (Protonix Vial) 40 mg DAILYAC IVP ; Start 04/14/17 at 07:30 Active Scripts Active Zofran Odt (Ondansetron) 4 Mg Tab.rapdis 4 Mg PO Q8HRS PRN [place] 5-325 Tablet (Acetaminophen/Hydrocodone Bitart) 1 Each Tablet 1 Tab PO PRN Q6HRS PRN Reported Preservision Areds Softgel (Vit A/Vit C/Vit E/Zinc/Copper) 1 Each Capsule 2 Each PO DAILY Omeprazole 20 Mg Capsule.dr 1 Cap PO DAILY Centrum Silver Tablet (Multivits-Min/Fa/Lycopene/Lut) 1 Each Tablet 1 Each PO Preservision Areds Tablet (Vit A/Vit C/Vit E/Zinc/Copper) 1 Each Tablet 1 Each PO No Known Medications Prior To Admisstion (Info) Each 1 Each MC Allergies Allergies: Coded Allergies: No Known Drug Allergies (Unverified , 03/03/16) ROS General: YES: Other (weight loss) Gastrointestinal: Yes Nausea, Yes Vomiting, Yes Abdominal Pain Physical Exam General: Alert, Oriented X3, Cooperative, No acute distress, Other ( chronically ill appearing gentleman) HEENT: Atraumatic, Other (NG tube in place with bilious return) Lungs: Normal air movement Heart: Regular rate Abdomen: Soft, Other (slightly distended, well healed low midline incisional scar) Extremities: No clubbing Skin: No rashes Neuro: Normal speech Vitals VITALS Vital Signs Date Time Temp Pulse Resp B/P (MAP) Pulse Ox O2 Delivery O2 Flow Rate FiO2 04/13/17 16:10 98 04/13/17 15:39 Room Air 04/13/17 15:05 97.3 67 20 149/87 (107) 97.3 Labs Labs Laboratory Tests Test 04/13/17 12:38 04/13/17 12:45 04/13/17 15:15 White Blood Count 11.6 x10^3/uL (4.0-11.0) Red Blood Count 4.84 x10^6/uL (4.30-5.70) Hemoglobin 14.4 g/dL (13.0-17.5) Hematocrit 42.2 % (39.0-53.0) Mean Corpuscular Volume 87 fL (79-100) Mean Corpuscular Hemoglobin 30 pg (25-35) Mean Corpuscular Hemoglobin Concent 34 g/dL (31-37) Red Cell Distribution Width 12.9 % (11.5-14.5) Platelet Count 359 x10^3/uL (140-400) Neutrophils (%) (Auto) 70 % (31-73) Lymphocytes (%) (Auto) 21 % (24-48) Monocytes (%) (Auto) 7 % (0-9) Eosinophils (%) (Auto) 1 % (0-3) Basophils (%) (Auto) 0 % (0-3) Neutrophils # (Auto) 8.2 x10^3uL (1.8-7.7) Lymphocytes # (Auto) 2.5 x10^3/uL (1.0-4.8) Monocytes # (Auto) 0.9 x10^3/uL (0.0-1.1) Eosinophils # (Auto) 0.1 x10^3/uL (0.0-0.7) Basophils # (Auto) 0.0 x10^3/uL (0.0-0.2) Sodium Level 139 mmol/L (136-145) Potassium Level 4.0 mmol/L (3.5-5.1) Chloride Level 99 mmol/L (98-107) Carbon Dioxide Level 27 mmol/L (21-32) Anion Gap 13 (6-14) Blood Urea Nitrogen 22 mg/dL (8-26) Creatinine 1.2 mg/dL (0.7-1.3) Estimated GFR (Cockcroft-Gault) 59.0 BUN/Creatinine Ratio 18 (6-20) Glucose Level 116 mg/dL (70-99) Calcium Level 10.3 mg/dL (8.5-10.1) Total Bilirubin 0.6 mg/dL (0.2-1.0) Aspartate Amino Transf (AST/SGOT) 127 U/L (15-37) Alanine Aminotransferase (ALT/SGPT) 48 U/L (16-63) Alkaline Phosphatase 196 U/L (46-116) Total Protein 8.3 g/dL (6.4-8.2) Albumin 3.2 g/dL (3.4-5.0) Albumin/Globulin Ratio 0.6 (1.0-1.7) Lipase 108 U/L (73-393) Lactic Acid Level 2.0 mmol/L (0.4-2.0) Urine Collection Type Unknown Urine Color Yellow Urine Clarity Clear Urine pH 6.0 Urine Specific [place] >=1.030 Urine Protein 30 mg/dL (NEG-TRACE) Urine Glucose (UA) Negative mg/dL (NEG) Urine Ketones (Stick) 40 mg/dL (NEG) Urine Blood Negative (NEG) Urine Nitrite Negative (NEG) Urine Bilirubin Moderate (NEG) Urine Urobilinogen Dipstick 1.0 mg/dL (0.2 mg/dL) Urine Leukocyte Esterase Trace (NEG) Urine RBC 0 /HPF (0-2) Urine WBC 11-20 /HPF (0-4) Urine Squamous Epithelial Cells Few /LPF Urine Bacteria 0 /HPF (0-FEW) Urine Hyaline Casts Few /HPF Urine Mucus Mod /LPF Laboratory Tests Test 04/13/17 12:38 04/13/17 12:45 04/13/17 15:15 White Blood Count 11.6 x10^3/uL (4.0-11.0) Red Blood Count 4.84 x10^6/uL (4.30-5.70) Hemoglobin 14.4 g/dL (13.0-17.5) Hematocrit 42.2 % (39.0-53.0) Mean Corpuscular Volume 87 fL (79-100) Mean Corpuscular Hemoglobin 30 pg (25-35) Mean Corpuscular Hemoglobin Concent 34 g/dL (31-37) Red Cell Distribution Width 12.9 % (11.5-14.5) Platelet Count 359 x10^3/uL (140-400) Neutrophils (%) (Auto) 70 % (31-73) Lymphocytes (%) (Auto) 21 % (24-48) Monocytes (%) (Auto) 7 % (0-9) Eosinophils (%) (Auto) 1 % (0-3) Basophils (%) (Auto) 0 % (0-3) Neutrophils # (Auto) 8.2 x10^3uL (1.8-7.7) Lymphocytes # (Auto) 2.5 x10^3/uL (1.0-4.8) Monocytes # (Auto) 0.9 x10^3/uL (0.0-1.1) Eosinophils # (Auto) 0.1 x10^3/uL (0.0-0.7) Basophils # (Auto) 0.0 x10^3/uL (0.0-0.2) Sodium Level 139 mmol/L (136-145) Potassium Level 4.0 mmol/L (3.5-5.1) Chloride Level 99 mmol/L (98-107) Carbon Dioxide Level 27 mmol/L (21-32) Anion Gap 13 (6-14) Blood Urea Nitrogen 22 mg/dL (8-26) Creatinine 1.2 mg/dL (0.7-1.3) Estimated GFR (Cockcroft-Gault) 59.0 BUN/Creatinine Ratio 18 (6-20) Glucose Level 116 mg/dL (70-99) Calcium Level 10.3 mg/dL (8.5-10.1) Total Bilirubin 0.6 mg/dL (0.2-1.0) Aspartate Amino Transf (AST/SGOT) 127 U/L (15-37) Alanine Aminotransferase (ALT/SGPT) 48 U/L (16-63) Alkaline Phosphatase 196 U/L (46-116) Total Protein 8.3 g/dL (6.4-8.2) Albumin 3.2 g/dL (3.4-5.0) Albumin/Globulin Ratio 0.6 (1.0-1.7) Lipase 108 U/L (73-393) Lactic Acid Level 2.0 mmol/L (0.4-2.0) Urine Collection Type Unknown Urine Color Yellow Urine Clarity Clear Urine pH 6.0 Urine Specific [place] >=1.030 Urine Protein 30 mg/dL (NEG-TRACE) Urine Glucose (UA) Negative mg/dL (NEG) Urine Ketones (Stick) 40 mg/dL (NEG) Urine Blood Negative (NEG) Urine Nitrite Negative (NEG) Urine Bilirubin Moderate (NEG) Urine Urobilinogen Dipstick 1.0 mg/dL (0.2 mg/dL) Urine Leukocyte Esterase Trace (NEG) Urine RBC 0 /HPF (0-2) Urine WBC 11-20 /HPF (0-4) Urine Squamous Epithelial Cells Few /LPF Urine Bacteria 0 /HPF (0-FEW) Urine Hyaline Casts Few /HPF Urine Mucus Mod /LPF Images Images CT scan reviewed Assessment/Plan Assessment/Plan SBO hx of metastatic colon cancer weight loss NG, serial exams, hope to manage non operatively if possible Will follow with you. Thanks for consult CHELSY CADENA MD April 13, 2017 17:43
[2017-04-13] MEDS ORDERED: PHENOL ORAL SPRAY 177ML BOTTLE. PO PRN (17:45)
[2017-04-13] MEDS: BENZOCAINE/MENTHOL LOZENGE. PO PRN (18:47)
[2017-04-13 19:00] VITALS: BP 129/76
[2017-04-13 23:00] VITALS: BP 110/64
[2017-04-14 03:00] VITALS: BP 108/58
[2017-04-14] MEDS: MORPHINE SULFATE 4 MG/ML DISP.SYRIN. IV PRN ×5 (03:57→21:58)
[2017-04-14] MEDS: AMINO AC 3%/ELECTROLYTE/GLYCER 1,000 ML IV SCH ×2 (04:40→17:31)
[2017-04-14 06:57] LABS: BASO % 0 % (0-3); EOS % 3 % (0-3); HEMATOCRIT 36.7 % (39.0-53.0); LYMPH # 2.5 x10^3/uL (1.0-4.8); LYMPH % 28 % (24-48); MEAN CORPUSCULAR HEMOGLOBIN 29 pg (25-35); MEAN CORPUSCULAR HGB CONC 33 g/dL (31-37); MEAN CORPUSCULAR VOLUME 88 fL (79-100); MONO % 9 % (0-9); NEUT % 59 % (31-73); PLATELET COUNT 255 x10^3/uL (140-400); RED BLOOD COUNT 4.16 x10^6/uL (4.30-5.70); RED CELL DISTRIBUTION WIDTH 12.9 % (11.5-14.5); WHITE BLOOD COUNT 8.8 x10^3/uL (4.0-11.0)
[2017-04-14 07:00] VITALS: BP 113/62
[2017-04-14 07:14] LABS: CALCIUM 9.2 mg/dL (8.5-10.1); CREATININE 1.1 mg/dL (0.7-1.3); GFR 65.3; POTASSIUM 3.7 mmol/L (3.5-5.1)
[2017-04-14] MEDS: PANTOPRAZOLE IV PUSH 40 MG VIAL. IVP SCH (08:30)
--- NOTE | 2017-04-14 09:08 | ACF ---
Admission Forms Criteria INTESTINAL OBSTRUCTION Clinical Indications for Admission to Inpatient Care (Place 'X' for any and all applicable criteria): Admission is indicated for ANY ONE of the following (1)(2)(3)(4)(5): [X]I. Partial bowel obstruction [ ]II. Complete bowel obstruction Extended stay beyond goal length of stay may be needed for(1)(4)(12(: [ ]a) Identified etiology (eg, hernia, volvulus, cancer with obstruction) requiring intervention [ ]b) Gallstone ileus [ ]c) Surgical intervention [ ]d) Acute comorbid illness (eg, electrolyte imbalance, hypovolemia, renal failure) The original [employer] content created by [employer] has been revised. The portions of the content which have been revised are identified through the use of italic text or in bold, and [facility] [employer] has neither reviewed nor approved the modified material. All other unmodified content is copyright [employer]. Please see references footnoted in the original [employer] edition 2016 Admission Criteria Met?: Yes OLMAN FOLEY April 14, 2017 09:08
--- NOTE | 2017-04-14 09:19 | PDOC ---
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 0919: SURGICAL PROGRESS NOTE Subjective no flatus no pain Vital Signs Vital Signs Date Time Temp Pulse Resp B/P (MAP) Pulse Ox O2 Delivery O2 Flow Rate FiO2 04/14/17 07:00 98.1 71 18 113/62 (79) 98 Room Air 98.1 I&O Intake and Output 04/14/17 07:00 Output Total 1800 ml Balance -1800 ml Output Urine Total 500 ml Gastric Drainage Total 400 ml Drainage Total 900 ml # Voids 1 General: Alert, Oriented X3, Cooperative, No acute distress HEENT: Other (ng bilious ) Abdomen: Soft, Other (NT, mildly distended ) Labs Laboratory Tests Test 04/13/17 12:38 04/13/17 12:45 04/13/17 15:15 04/14/17 06:40 White Blood Count 11.6 x10^3/uL (4.0-11.0) 8.8 x10^3/uL (4.0-11.0) Red Blood Count 4.84 x10^6/uL (4.30-5.70) 4.16 x10^6/uL (4.30-5.70) Hemoglobin 14.4 g/dL (13.0-17.5) 12.0 g/dL (13.0-17.5) Hematocrit 42.2 % (39.0-53.0) 36.7 % (39.0-53.0) Mean Corpuscular Volume 87 fL (79-100) 88 fL (79-100) Mean Corpuscular Hemoglobin 30 pg (25-35) 29 pg (25-35) Mean Corpuscular Hemoglobin Concent 34 g/dL (31-37) 33 g/dL (31-37) Red Cell Distribution Width 12.9 % (11.5-14.5) 12.9 % (11.5-14.5) Platelet Count 359 x10^3/uL (140-400) 255 x10^3/uL (140-400) Neutrophils (%) (Auto) 70 % (31-73) 59 % (31-73) Lymphocytes (%) (Auto) 21 % (24-48) 28 % (24-48) Monocytes (%) (Auto) 7 % (0-9) 9 % (0-9) Eosinophils (%) (Auto) 1 % (0-3) 3 % (0-3) Basophils (%) (Auto) 0 % (0-3) 0 % (0-3) Neutrophils # (Auto) 8.2 x10^3uL (1.8-7.7) 5.2 x10^3uL (1.8-7.7) Lymphocytes # (Auto) 2.5 x10^3/uL (1.0-4.8) 2.5 x10^3/uL (1.0-4.8) Monocytes # (Auto) 0.9 x10^3/uL (0.0-1.1) 0.8 x10^3/uL (0.0-1.1) Eosinophils # (Auto) 0.1 x10^3/uL (0.0-0.7) 0.2 x10^3/uL (0.0-0.7) Basophils # (Auto) 0.0 x10^3/uL (0.0-0.2) 0.0 x10^3/uL (0.0-0.2) Sodium Level 139 mmol/L (136-145) 140 mmol/L (136-145) Potassium Level 4.0 mmol/L (3.5-5.1) 3.7 mmol/L (3.5-5.1) Chloride Level 99 mmol/L (98-107) 102 mmol/L (98-107) Carbon Dioxide Level 27 mmol/L (21-32) 30 mmol/L (21-32) Anion Gap 13 (6-14) 8 (6-14) Blood Urea Nitrogen 22 mg/dL (8-26) 19 mg/dL (8-26) Creatinine 1.2 mg/dL (0.7-1.3) 1.1 mg/dL (0.7-1.3) Estimated GFR (Cockcroft-Gault) 59.0 65.3 BUN/Creatinine Ratio 18 (6-20) Glucose Level 116 mg/dL (70-99) 107 mg/dL (70-99) Calcium Level 10.3 mg/dL (8.5-10.1) 9.2 mg/dL (8.5-10.1) Total Bilirubin 0.6 mg/dL (0.2-1.0) Aspartate Amino Transf (AST/SGOT) 127 U/L (15-37) Alanine Aminotransferase (ALT/SGPT) 48 U/L (16-63) Alkaline Phosphatase 196 U/L (46-116) Total Protein 8.3 g/dL (6.4-8.2) Albumin 3.2 g/dL (3.4-5.0) Albumin/Globulin Ratio 0.6 (1.0-1.7) Lipase 108 U/L (73-393) Lactic Acid Level 2.0 mmol/L (0.4-2.0) Urine Collection Type Unknown Urine Color Yellow Urine Clarity Clear Urine pH 6.0 Urine Specific [place] >=1.030 Urine Protein 30 mg/dL (NEG-TRACE) Urine Glucose (UA) Negative mg/dL (NEG) Urine Ketones (Stick) 40 mg/dL (NEG) Urine Blood Negative (NEG) Urine Nitrite Negative (NEG) Urine Bilirubin Moderate (NEG) Urine Urobilinogen Dipstick 1.0 mg/dL (0.2 mg/dL) Urine Leukocyte Esterase Trace (NEG) Urine RBC 0 /HPF (0-2) Urine WBC 11-20 /HPF (0-4) Urine Squamous Epithelial Cells Few /LPF Urine Bacteria 0 /HPF (0-FEW) Urine Hyaline Casts Few /HPF Urine Mucus Mod /LPF Laboratory Tests Test 04/13/17 12:38 04/13/17 12:45 04/13/17 15:15 04/14/17 06:40 White Blood Count 11.6 x10^3/uL (4.0-11.0) 8.8 x10^3/uL (4.0-11.0) Red Blood Count 4.84 x10^6/uL (4.30-5.70) 4.16 x10^6/uL (4.30-5.70) Hemoglobin 14.4 g/dL (13.0-17.5) 12.0 g/dL (13.0-17.5) Hematocrit 42.2 % (39.0-53.0) 36.7 % (39.0-53.0) Mean Corpuscular Volume 87 fL (79-100) 88 fL (79-100) Mean Corpuscular Hemoglobin 30 pg (25-35) 29 pg (25-35) Mean Corpuscular Hemoglobin Concent 34 g/dL (31-37) 33 g/dL (31-37) Red Cell Distribution Width 12.9 % (11.5-14.5) 12.9 % (11.5-14.5) Platelet Count 359 x10^3/uL (140-400) 255 x10^3/uL (140-400) Neutrophils (%) (Auto) 70 % (31-73) 59 % (31-73) Lymphocytes (%) (Auto) 21 % (24-48) 28 % (24-48) Monocytes (%) (Auto) 7 % (0-9) 9 % (0-9) Eosinophils (%) (Auto) 1 % (0-3) 3 % (0-3) Basophils (%) (Auto) 0 % (0-3) 0 % (0-3) Neutrophils # (Auto) 8.2 x10^3uL (1.8-7.7) 5.2 x10^3uL (1.8-7.7) Lymphocytes # (Auto) 2.5 x10^3/uL (1.0-4.8) 2.5 x10^3/uL (1.0-4.8) Monocytes # (Auto) 0.9 x10^3/uL (0.0-1.1) 0.8 x10^3/uL (0.0-1.1) Eosinophils # (Auto) 0.1 x10^3/uL (0.0-0.7) 0.2 x10^3/uL (0.0-0.7) Basophils # (Auto) 0.0 x10^3/uL (0.0-0.2) 0.0 x10^3/uL (0.0-0.2) Sodium Level 139 mmol/L (136-145) 140 mmol/L (136-145) Potassium Level 4.0 mmol/L (3.5-5.1) 3.7 mmol/L (3.5-5.1) Chloride Level 99 mmol/L (98-107) 102 mmol/L (98-107) Carbon Dioxide Level 27 mmol/L (21-32) 30 mmol/L (21-32) Anion Gap 13 (6-14) 8 (6-14) Blood Urea Nitrogen 22 mg/dL (8-26) 19 mg/dL (8-26) Creatinine 1.2 mg/dL (0.7-1.3) 1.1 mg/dL (0.7-1.3) Estimated GFR (Cockcroft-Gault) 59.0 65.3 BUN/Creatinine Ratio 18 (6-20) Glucose Level 116 mg/dL (70-99) 107 mg/dL (70-99) Calcium Level 10.3 mg/dL (8.5-10.1) 9.2 mg/dL (8.5-10.1) Total Bilirubin 0.6 mg/dL (0.2-1.0) Aspartate Amino Transf (AST/SGOT) 127 U/L (15-37) Alanine Aminotransferase (ALT/SGPT) 48 U/L (16-63) Alkaline Phosphatase 196 U/L (46-116) Total Protein 8.3 g/dL (6.4-8.2) Albumin 3.2 g/dL (3.4-5.0) Albumin/Globulin Ratio 0.6 (1.0-1.7) Lipase 108 U/L (73-393) Lactic Acid Level 2.0 mmol/L (0.4-2.0) Urine Collection Type Unknown Urine Color Yellow Urine Clarity Clear Urine pH 6.0 Urine Specific [place] >=1.030 Urine Protein 30 mg/dL (NEG-TRACE) Urine Glucose (UA) Negative mg/dL (NEG) Urine Ketones (Stick) 40 mg/dL (NEG) Urine Blood Negative (NEG) Urine Nitrite Negative (NEG) Urine Bilirubin Moderate (NEG) Urine Urobilinogen Dipstick 1.0 mg/dL (0.2 mg/dL) Urine Leukocyte Esterase Trace (NEG) Urine RBC 0 /HPF (0-2) Urine WBC 11-20 /HPF (0-4) Urine Squamous Epithelial Cells Few /LPF Urine Bacteria 0 /HPF (0-FEW) Urine Hyaline Casts Few /HPF Urine Mucus Mod /LPF Problem List Problems Medical Problems: (1) Small bowel torsion Status: Acute Assessment/Plan SBO continue NG, significant drainage Xrays pending Problems: CHELSY CADENA MD 04/14/17 1113: SURGICAL PROGRESS NOTE Assessment/Plan pt seen and examined appears slightly less distended pain controlled will try sesame seed oil per NG Problems: PIYUSH ECHEVERRIA [employer] C[employer] April 14, 2017 09:19 CHELSY CADENA MD April 14, 2017 11:13
[2017-04-14] MEDS: BENZOCAINE/MENTHOL LOZENGE. PO PRN (10:28)
[2017-04-14 11:00] VITALS: BP 109/58
--- NOTE | 2017-04-14 12:38 | PDOC ---
Subjective: Subjective: Feels about the same. Objective: Vital Signs: Vital Signs Date Time Temp Pulse Resp B/P (MAP) Pulse Ox O2 Delivery O2 Flow Rate FiO2 04/14/17 11:53 Room Air 04/14/17 11:00 98.3 62 18 109/58 (75) 96 98.3 PE: GEN: NAD LUNGS: CTAB HEART: RRR ABD: non-tender NEURO/PSYCH: A & O 3 NG canister w/ large output A/P: SBO -metastatic colon cancer s/p sigmoidectomy 02/2016 w/ chronic abd pain, n/v -significant NG output, surgery trying sesame oil Hernandez's esophagus/GERD, globus -s/p EGD 04/02/17, on IV PPI -- Continue same. JOEY HURLEY April 14, 2017 12:38
--- NOTE | 2017-04-14 12:42 | RAD ---
Abdomen radiograph History: Follow-up small bowel obstruction. Comparison: 04/13/2017. Findings: AP supine and upright views of the abdomen. Esophagogastric tube is present which has been advanced from previous study. Tip projects at the mid gastric body with side port projecting at the proximal gastric body. 2 large left nephroliths are seen measuring about 1.8 and 1.0 cm. No pneumoperitoneum is identified. There continues to be small bowel dilatation up to 4 cm in diameter. Overall bowel dilatation appears similar to previous study. Right femur demonstrates evidence of ORIF hardware. Impression: Persistent small bowel obstruction, likely with little interval change.
--- NOTE | 2017-04-14 12:50 | PDOC ---
PROGRESS NOTES Chief Complaint Chief Complaint 1. abd pain with N/V 2/2 SBO 2. metastatic colon Ca s/p sx, short term of chemo, mets to liver and retroperitoneal adenopathy 3. bl renal stones, non obstructive 4. leukocytosis, reactive History of Present Illness History of Present Illness discussed with gen surg. philip try sesame oil for catharsis NPO, cont the NGT ivf with procalamine hold home po meds pain control is good Vitals Vitals Vital Signs Date Time Temp Pulse Resp B/P (MAP) Pulse Ox O2 Delivery O2 Flow Rate FiO2 04/14/17 11:53 Room Air 04/14/17 11:00 98.3 62 18 109/58 (75) 96 98.3 Physical Exam General: Alert, Oriented X3, Cooperative, No acute distress Heart: Regular rate Abdomen: Soft, Other (NT, mildly distended ) Extremities: No clubbing Skin: No rashes Labs LABS Laboratory Tests Test 04/13/17 15:15 04/14/17 06:40 Urine Collection Type Unknown Urine Color Yellow Urine Clarity Clear Urine pH 6.0 Urine Specific [place] >=1.030 Urine Protein 30 mg/dL (NEG-TRACE) Urine Glucose (UA) Negative mg/dL (NEG) Urine Ketones (Stick) 40 mg/dL (NEG) Urine Blood Negative (NEG) Urine Nitrite Negative (NEG) Urine Bilirubin Moderate (NEG) Urine Urobilinogen Dipstick 1.0 mg/dL (0.2 mg/dL) Urine Leukocyte Esterase Trace (NEG) Urine RBC 0 /HPF (0-2) Urine WBC 11-20 /HPF (0-4) Urine Squamous Epithelial Cells Few /LPF Urine Bacteria 0 /HPF (0-FEW) Urine Hyaline Casts Few /HPF Urine Mucus Mod /LPF White Blood Count 8.8 x10^3/uL (4.0-11.0) Red Blood Count 4.16 x10^6/uL (4.30-5.70) Hemoglobin 12.0 g/dL (13.0-17.5) Hematocrit 36.7 % (39.0-53.0) Mean Corpuscular Volume 88 fL (79-100) Mean Corpuscular Hemoglobin 29 pg (25-35) Mean Corpuscular Hemoglobin Concent 33 g/dL (31-37) Red Cell Distribution Width 12.9 % (11.5-14.5) Platelet Count 255 x10^3/uL (140-400) Neutrophils (%) (Auto) 59 % (31-73) Lymphocytes (%) (Auto) 28 % (24-48) Monocytes (%) (Auto) 9 % (0-9) Eosinophils (%) (Auto) 3 % (0-3) Basophils (%) (Auto) 0 % (0-3) Neutrophils # (Auto) 5.2 x10^3uL (1.8-7.7) Lymphocytes # (Auto) 2.5 x10^3/uL (1.0-4.8) Monocytes # (Auto) 0.8 x10^3/uL (0.0-1.1) Eosinophils # (Auto) 0.2 x10^3/uL (0.0-0.7) Basophils # (Auto) 0.0 x10^3/uL (0.0-0.2) Sodium Level 140 mmol/L (136-145) Potassium Level 3.7 mmol/L (3.5-5.1) Chloride Level 102 mmol/L (98-107) Carbon Dioxide Level 30 mmol/L (21-32) Anion Gap 8 (6-14) Blood Urea Nitrogen 19 mg/dL (8-26) Creatinine 1.1 mg/dL (0.7-1.3) Estimated GFR (Cockcroft-Gault) 65.3 Glucose Level 107 mg/dL (70-99) Calcium Level 9.2 mg/dL (8.5-10.1) Review of Systems Review of Systems abd pain, better with morphine nausea, better with NG tube Assessment and Plan Assessmemt and Plan full code Problems Medical Problems: (1) Small bowel torsion Status: Acute Problems: Comment Review of Relevant I have reviewed the following items stephenie (where applicable) has been applied. Labs Laboratory Tests Test 04/13/17 12:38 04/13/17 12:45 04/13/17 15:15 04/14/17 06:40 White Blood Count 11.6 x10^3/uL (4.0-11.0) 8.8 x10^3/uL (4.0-11.0) Red Blood Count 4.84 x10^6/uL (4.30-5.70) 4.16 x10^6/uL (4.30-5.70) Hemoglobin 14.4 g/dL (13.0-17.5) 12.0 g/dL (13.0-17.5) Hematocrit 42.2 % (39.0-53.0) 36.7 % (39.0-53.0) Mean Corpuscular Volume 87 fL (79-100) 88 fL (79-100) Mean Corpuscular Hemoglobin 30 pg (25-35) 29 pg (25-35) Mean Corpuscular Hemoglobin Concent 34 g/dL (31-37) 33 g/dL (31-37) Red Cell Distribution Width 12.9 % (11.5-14.5) 12.9 % (11.5-14.5) Platelet Count 359 x10^3/uL (140-400) 255 x10^3/uL (140-400) Neutrophils (%) (Auto) 70 % (31-73) 59 % (31-73) Lymphocytes (%) (Auto) 21 % (24-48) 28 % (24-48) Monocytes (%) (Auto) 7 % (0-9) 9 % (0-9) Eosinophils (%) (Auto) 1 % (0-3) 3 % (0-3) Basophils (%) (Auto) 0 % (0-3) 0 % (0-3) Neutrophils # (Auto) 8.2 x10^3uL (1.8-7.7) 5.2 x10^3uL (1.8-7.7) Lymphocytes # (Auto) 2.5 x10^3/uL (1.0-4.8) 2.5 x10^3/uL (1.0-4.8) Monocytes # (Auto) 0.9 x10^3/uL (0.0-1.1) 0.8 x10^3/uL (0.0-1.1) Eosinophils # (Auto) 0.1 x10^3/uL (0.0-0.7) 0.2 x10^3/uL (0.0-0.7) Basophils # (Auto) 0.0 x10^3/uL (0.0-0.2) 0.0 x10^3/uL (0.0-0.2) Sodium Level 139 mmol/L (136-145) 140 mmol/L (136-145) Potassium Level 4.0 mmol/L (3.5-5.1) 3.7 mmol/L (3.5-5.1) Chloride Level 99 mmol/L (98-107) 102 mmol/L (98-107) Carbon Dioxide Level 27 mmol/L (21-32) 30 mmol/L (21-32) Anion Gap 13 (6-14) 8 (6-14) Blood Urea Nitrogen 22 mg/dL (8-26) 19 mg/dL (8-26) Creatinine 1.2 mg/dL (0.7-1.3) 1.1 mg/dL (0.7-1.3) Estimated GFR (Cockcroft-Gault) 59.0 65.3 BUN/Creatinine Ratio 18 (6-20) Glucose Level 116 mg/dL (70-99) 107 mg/dL (70-99) Calcium Level 10.3 mg/dL (8.5-10.1) 9.2 mg/dL (8.5-10.1) Total Bilirubin 0.6 mg/dL (0.2-1.0) Aspartate Amino Transf (AST/SGOT) 127 U/L (15-37) Alanine Aminotransferase (ALT/SGPT) 48 U/L (16-63) Alkaline Phosphatase 196 U/L (46-116) Total Protein 8.3 g/dL (6.4-8.2) Albumin 3.2 g/dL (3.4-5.0) Albumin/Globulin Ratio 0.6 (1.0-1.7) Lipase 108 U/L (73-393) Lactic Acid Level 2.0 mmol/L (0.4-2.0) Urine Collection Type Unknown Urine Color Yellow Urine Clarity Clear Urine pH 6.0 Urine Specific [place] >=1.030 Urine Protein 30 mg/dL (NEG-TRACE) Urine Glucose (UA) Negative mg/dL (NEG) Urine Ketones (Stick) 40 mg/dL (NEG) Urine Blood Negative (NEG) Urine Nitrite Negative (NEG) Urine Bilirubin Moderate (NEG) Urine Urobilinogen Dipstick 1.0 mg/dL (0.2 mg/dL) Urine Leukocyte Esterase Trace (NEG) Urine RBC 0 /HPF (0-2) Urine WBC 11-20 /HPF (0-4) Urine Squamous Epithelial Cells Few /LPF Urine Bacteria 0 /HPF (0-FEW) Urine Hyaline Casts Few /HPF Urine Mucus Mod /LPF Laboratory Tests Test 04/13/17 15:15 04/14/17 06:40 Urine Collection Type Unknown Urine Color Yellow Urine Clarity Clear Urine pH 6.0 Urine Specific [place] >=1.030 Urine Protein 30 mg/dL (NEG-TRACE) Urine Glucose (UA) Negative mg/dL (NEG) Urine Ketones (Stick) 40 mg/dL (NEG) Urine Blood Negative (NEG) Urine Nitrite Negative (NEG) Urine Bilirubin Moderate (NEG) Urine Urobilinogen Dipstick 1.0 mg/dL (0.2 mg/dL) Urine Leukocyte Esterase Trace (NEG) Urine RBC 0 /HPF (0-2) Urine WBC 11-20 /HPF (0-4) Urine Squamous Epithelial Cells Few /LPF Urine Bacteria 0 /HPF (0-FEW) Urine Hyaline Casts Few /HPF Urine Mucus Mod /LPF White Blood Count 8.8 x10^3/uL (4.0-11.0) Red Blood Count 4.16 x10^6/uL (4.30-5.70) Hemoglobin 12.0 g/dL (13.0-17.5) Hematocrit 36.7 % (39.0-53.0) Mean Corpuscular Volume 88 fL (79-100) Mean Corpuscular Hemoglobin 29 pg (25-35) Mean Corpuscular Hemoglobin Concent 33 g/dL (31-37) Red Cell Distribution Width 12.9 % (11.5-14.5) Platelet Count 255 x10^3/uL (140-400) Neutrophils (%) (Auto) 59 % (31-73) Lymphocytes (%) (Auto) 28 % (24-48) Monocytes (%) (Auto) 9 % (0-9) Eosinophils (%) (Auto) 3 % (0-3) Basophils (%) (Auto) 0 % (0-3) Neutrophils # (Auto) 5.2 x10^3uL (1.8-7.7) Lymphocytes # (Auto) 2.5 x10^3/uL (1.0-4.8) Monocytes # (Auto) 0.8 x10^3/uL (0.0-1.1) Eosinophils # (Auto) 0.2 x10^3/uL (0.0-0.7) Basophils # (Auto) 0.0 x10^3/uL (0.0-0.2) Sodium Level 140 mmol/L (136-145) Potassium Level 3.7 mmol/L (3.5-5.1) Chloride Level 102 mmol/L (98-107) Carbon Dioxide Level 30 mmol/L (21-32) Anion Gap 8 (6-14) Blood Urea Nitrogen 19 mg/dL (8-26) Creatinine 1.1 mg/dL (0.7-1.3) Estimated GFR (Cockcroft-Gault) 65.3 Glucose Level 107 mg/dL (70-99) Calcium Level 9.2 mg/dL (8.5-10.1) Medications Current Medications Sodium Chloride 1,000 ml @ 1,000 mls/hr 1X ONCE IV Last administered on 12:46; Start 04/13/17 at 13:00; Stop 04/13/17 at 13:59; Status DC Ondansetron HCl (Zofran) 4 mg 1X ONCE IV Last administered on 04/13/17 12:46 ; Start 04/13/17 at 13:00; Stop 04/13/17 at 13:01; Status DC Iohexol (Omnipaque 300 Mg/ml) 60 ml 1X ONCE IV Last administered on 04/13/17 13:20; Start 04/13/17 at 13:15; Stop 04/13/17 at 13:16; Status DC Info (Do NOT chart on this entry -- for MONITORING) 1 each PRN DAILY PRN MC SEE COMMENTS; Start 04/13/17 at 13:15; Stop 04/15/17 at 13:14 Ondansetron HCl (Zofran) 4 mg PRN Q8HRS PRN IV NAUSEA/VOMITING; Start 04/13/17 at 14:45; Stop 04/14/17 at 10:50; Status DC Morphine Sulfate 4 mg PRN Q2HR PRN IV PAIN Last administered on 04/14/17 03:57 ; Start 04/13/17 at 14:45; Stop 04/14/17 at 10:49; Status DC Acetaminophen (Tylenol) 650 mg PRN Q6HRS PRN PO FEVER; Start 04/13/17 at 15:30 Ondansetron HCl (Zofran) 4 mg PRN Q6HRS PRN IV NAUSEA/VOMITING; Start 04/13/17 at 15:30 Morphine Sulfate 2 mg PRN Q2HR PRN IV PAIN; Start 04/13/17 at 15:30 Tramadol HCl (Ultram) 50 mg PRN Q6HRS PRN PO PAIN; Start 04/13/17 at 15:30 Hydralazine HCl (Apresoline) 10 mg PRN Q4HRS PRN IVP ELEVATED BP, SEE COMMENTS ; Start 04/13/17 at 15:30 Docusate Sodium (Colace) 100 mg PRN DAILY PRN PO CONSTIPATION; Start 04/13/17 at 15:30 Amino Acids/ Glycerin/ Electrolytes 1,000 ml @ 80 mls/hr [id number] IV Last administered on 04/14/17 04:40; Start 04/13/17 at 16:00 Morphine Sulfate 4 mg PRN Q2HR PRN IV PAIN Last administered on 04/14/17 11:14 ; Start 04/13/17 at 15:30 Enoxaparin Sodium (Lovenox 40mg Syringe) 40 mg Q24H SQ Last administered on 15:39; Start 04/13/17 at 16:00 Pantoprazole Sodium (Protonix Vial) 40 mg DAILYAC IVP Last administered on 04/14 08:30; Start 04/14/17 at 07:30 Throat Lozenges (Chloraseptic) 1 spray PRN Q2HR PRN PO SORE THROAT; Start 04/13 at 17:45 Throat Lozenges (Cepacol Sore Throat Lozenge) 1 sheron PRN Q2HRS PRN PO SORE THROAT Last administered on 04/14/17 10:28; Start 04/13/17 at 17:45 Active Scripts Active Zofran Odt (Ondansetron) 4 Mg Tab.rapdis 4 Mg PO Q8HRS PRN [place] 5-325 Tablet (Acetaminophen/Hydrocodone Bitart) 1 Each Tablet 1 Tab PO PRN Q6HRS PRN Reported Preservision Areds Softgel (Vit A/Vit C/Vit E/Zinc/Copper) 1 Each Capsule 2 Each PO DAILY Omeprazole 20 Mg Capsule.dr 1 Cap PO DAILY Centrum Silver Tablet (Multivits-Min/Fa/Lycopene/Lut) 1 Each Tablet 1 Each PO Preservision Areds Tablet (Vit A/Vit C/Vit E/Zinc/Copper) 1 Each Tablet 1 Each PO No Known Medications Prior To Admisstion (Info) Each 1 Each Vitals/I & O Vital Sign - Last 24 Hours 04/13/17 04/13/17 04/13/17 04/13/17 13:05 15:00 15:05 15:05 Temp 97.3 97.3 97.3 97.3 Pulse 68 72 67 67 Resp 20 20 20 20 B/P (MAP) 134/72 (92) 145/68 (93) 149/87 (107) 149/87 (107) Pulse Ox 99 98 99 99 O2 Delivery Room Air Room Air 04/13/17 04/13/17 04/13/17 04/13/17 15:39 16:10 19:00 20:00 Temp 98.6 98.6 Pulse 62 Resp 16 B/P (MAP) 129/76 (93) Pulse Ox 98 96 O2 Delivery Room Air Room Air Room Air Room Air 04/13/17 04/13/17 04/14/17 04/14/17 21:58 23:00 03:00 03:57 Temp 97.9 97.9 97.9 97.9 Pulse 70 68 Resp 16 16 16 16 B/P (MAP) 110/64 (79) 108/58 (75) Pulse Ox 96 99 97 97 O2 Delivery Room Air Room Air Room Air Room Air 04/14/17 04/14/17 04/14/17 04/14/17 04:27 07:00 11:00 11:14 Temp 98.1 98.3 98.1 98.3 Pulse 71 62 Resp 16 18 18 B/P (MAP) 113/62 (79) 109/58 (75) Pulse Ox 97 98 96 O2 Delivery Room Air Room Air Room Air Room Air 04/14/17 11:53 O2 Delivery Room Air Intake and Output 04/13/17 04/13/17 04/14/17 15:00 23:00 07:00 Output Total 525 ml 1275 ml Balance -525 ml -1275 ml CIELO LEIGH MD April 14, 2017 12:50
[2017-04-14 15:00] VITALS: BP 109/65
[2017-04-14] MEDS: ENOXAPARIN 40 MG/0.4 ML SYRINGE. SQ SCH (17:33)
[2017-04-14] MEDS: ONDANSETRON PF 4 MG/2 ML VIAL. IV PRN (18:25)
[2017-04-14 19:00] VITALS: BP 101/54
[2017-04-14 23:10] VITALS: BP 114/62
[2017-04-15] MEDS: MORPHINE SULFATE 4 MG/ML DISP.SYRIN. IV PRN ×5 (02:56→20:56)
[2017-04-15 03:00] VITALS: BP 113/68
[2017-04-15] MEDS: AMINO AC 3%/ELECTROLYTE/GLYCER 1,000 ML IV SCH ×2 (06:15→19:56)
[2017-04-15 07:00] VITALS: BP 104/56
[2017-04-15] MEDS: PANTOPRAZOLE IV PUSH 40 MG VIAL. IVP SCH (08:01)
--- NOTE | 2017-04-15 09:03 | PDOC ---
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 OBSERVER 04/15/17 0903: SURGICAL PROGRESS NOTE Subjective last dose of sesame seed oil at 630 am no flatus did burp and have sharp RLQ pain x 1 Vital Signs Vital Signs Date Time Temp Pulse Resp B/P (MAP) Pulse Ox O2 Delivery O2 Flow Rate FiO2 04/15/17 07:00 97.5 78 22 104/56 (72) 98 Room Air 97.5 I&O Intake and Output 04/15/17 07:00 Output Total 975 ml Balance -975 ml Output Urine Total 975 ml General: Alert, Oriented X3, Cooperative, No acute distress HEENT: Other (ng bilious ) Abdomen: Soft, No tenderness Labs Laboratory Tests Test 04/13/17 12:38 04/13/17 12:45 04/13/17 15:15 04/14/17 06:40 White Blood Count 11.6 x10^3/uL (4.0-11.0) 8.8 x10^3/uL (4.0-11.0) Red Blood Count 4.84 x10^6/uL (4.30-5.70) 4.16 x10^6/uL (4.30-5.70) Hemoglobin 14.4 g/dL (13.0-17.5) 12.0 g/dL (13.0-17.5) Hematocrit 42.2 % (39.0-53.0) 36.7 % (39.0-53.0) Mean Corpuscular Volume 87 fL (79-100) 88 fL (79-100) Mean Corpuscular Hemoglobin 30 pg (25-35) 29 pg (25-35) Mean Corpuscular Hemoglobin Concent 34 g/dL (31-37) 33 g/dL (31-37) Red Cell Distribution Width 12.9 % (11.5-14.5) 12.9 % (11.5-14.5) Platelet Count 359 x10^3/uL (140-400) 255 x10^3/uL (140-400) Neutrophils (%) (Auto) 70 % (31-73) 59 % (31-73) Lymphocytes (%) (Auto) 21 % (24-48) 28 % (24-48) Monocytes (%) (Auto) 7 % (0-9) 9 % (0-9) Eosinophils (%) (Auto) 1 % (0-3) 3 % (0-3) Basophils (%) (Auto) 0 % (0-3) 0 % (0-3) Neutrophils # (Auto) 8.2 x10^3uL (1.8-7.7) 5.2 x10^3uL (1.8-7.7) Lymphocytes # (Auto) 2.5 x10^3/uL (1.0-4.8) 2.5 x10^3/uL (1.0-4.8) Monocytes # (Auto) 0.9 x10^3/uL (0.0-1.1) 0.8 x10^3/uL (0.0-1.1) Eosinophils # (Auto) 0.1 x10^3/uL (0.0-0.7) 0.2 x10^3/uL (0.0-0.7) Basophils # (Auto) 0.0 x10^3/uL (0.0-0.2) 0.0 x10^3/uL (0.0-0.2) Sodium Level 139 mmol/L (136-145) 140 mmol/L (136-145) Potassium Level 4.0 mmol/L (3.5-5.1) 3.7 mmol/L (3.5-5.1) Chloride Level 99 mmol/L (98-107) 102 mmol/L (98-107) Carbon Dioxide Level 27 mmol/L (21-32) 30 mmol/L (21-32) Anion Gap 13 (6-14) 8 (6-14) Blood Urea Nitrogen 22 mg/dL (8-26) 19 mg/dL (8-26) Creatinine 1.2 mg/dL (0.7-1.3) 1.1 mg/dL (0.7-1.3) Estimated GFR (Cockcroft-Gault) 59.0 65.3 BUN/Creatinine Ratio 18 (6-20) Glucose Level 116 mg/dL (70-99) 107 mg/dL (70-99) Calcium Level 10.3 mg/dL (8.5-10.1) 9.2 mg/dL (8.5-10.1) Total Bilirubin 0.6 mg/dL (0.2-1.0) Aspartate Amino Transf (AST/SGOT) 127 U/L (15-37) Alanine Aminotransferase (ALT/SGPT) 48 U/L (16-63) Alkaline Phosphatase 196 U/L (46-116) Total Protein 8.3 g/dL (6.4-8.2) Albumin 3.2 g/dL (3.4-5.0) Albumin/Globulin Ratio 0.6 (1.0-1.7) Lipase 108 U/L (73-393) Lactic Acid Level 2.0 mmol/L (0.4-2.0) Urine Collection Type Unknown Urine Color Yellow Urine Clarity Clear Urine pH 6.0 Urine Specific [place] >=1.030 Urine Protein 30 mg/dL (NEG-TRACE) Urine Glucose (UA) Negative mg/dL (NEG) Urine Ketones (Stick) 40 mg/dL (NEG) Urine Blood Negative (NEG) Urine Nitrite Negative (NEG) Urine Bilirubin Moderate (NEG) Urine Urobilinogen Dipstick 1.0 mg/dL (0.2 mg/dL) Urine Leukocyte Esterase Trace (NEG) Urine RBC 0 /HPF (0-2) Urine WBC 11-20 /HPF (0-4) Urine Squamous Epithelial Cells Few /LPF Urine Bacteria 0 /HPF (0-FEW) Urine Hyaline Casts Few /HPF Urine Mucus Mod /LPF Problem List Problems Medical Problems: (1) Small bowel torsion Status: Acute Assessment/Plan sbo will check xrays this Afternoon Problems: CHELSY CADENA MD 04/15/17 1114: SURGICAL PROGRESS NOTE Assessment/Plan pt seen and examined agree with above check plain films this afternoon Problems: PIYUSH ECHEVERRIA APRN Apr 15, 2017 09:03 CHELSY CADENA MD Apr 15, 2017 11:14
[2017-04-15 11:00] VITALS: BP 100/54
--- NOTE | 2017-04-15 11:52 | PDOC ---
Subjective: Subjective: Right-sided pain. Had a significant burp earlier. No flatus. Objective: Objective: Reviewed surg note - x-ray this afternoon. Per RN - has been up walking. Vital Signs: Vital Signs Date Time Temp Pulse Resp B/P (MAP) Pulse Ox O2 Delivery O2 Flow Rate FiO2 04/15/17 11:00 98.1 79 20 100/54 (69) 95 Room Air 98.1 PE: GEN: NAD LUNGS: CTAB HEART: RRR ABD: RUQ pain below ribs NEURO/PSYCH: A & O 3 OTHER: NG canister with ~100-200cc A/P: SBO -metastatic colon cancer s/p sigmoidectomy 02/2016 -NG output slowing, ongoing pain Hernandez's esophagus/GERD, globus -s/p EGD 04/02/17, on IV PPI -- Follow surgical recs, await x-rays. JOEY HURLEY Apr 15, 2017 11:52
[2017-04-15] MEDS ORDERED: SALIVA STIMULANT AGENT 44ML SPRAY BOTTLE. PO PRN (13:15)
--- NOTE | 2017-04-15 13:16 | PDOC ---
PROGRESS NOTES Chief Complaint Chief Complaint 1. abd pain with N/V 2/2 SBO 2. metastatic colon Ca s/p sx, short term of chemo, mets to liver and retroperitoneal adenopathy 3. bl renal stones, non obstructive 4. leukocytosis, reactive History of Present Illness History of Present Illness s/p sesame oil; pt feels improved, NPO, cont the NGT ivf with procalamine hold home po meds pain control is OK, 5/10 Vitals Vitals Vital Signs Date Time Temp Pulse Resp B/P (MAP) Pulse Ox O2 Delivery O2 Flow Rate FiO2 04/15/17 11:00 98.1 79 20 100/54 (69) 95 Room Air 98.1 Physical Exam General: Alert, Oriented X3, Cooperative, No acute distress Heart: Regular rate Abdomen: Soft, No tenderness Extremities: No clubbing Skin: No rashes Assessment and Plan Assessmemt and Plan cont NG tube pain control, pain 5/10 at rest start Biotene he has been getting PPI iv daily Problems Medical Problems: (1) Small bowel torsion Status: Acute Problems: Comment Review of Relevant I have reviewed the following items stephenie (where applicable) has been applied. Labs Laboratory Tests Test 04/13/17 15:15 04/14/17 06:40 Urine Collection Type Unknown Urine Color Yellow Urine Clarity Clear Urine pH 6.0 Urine Specific [place] >=1.030 Urine Protein 30 mg/dL (NEG-TRACE) Urine Glucose (UA) Negative mg/dL (NEG) Urine Ketones (Stick) 40 mg/dL (NEG) Urine Blood Negative (NEG) Urine Nitrite Negative (NEG) Urine Bilirubin Moderate (NEG) Urine Urobilinogen Dipstick 1.0 mg/dL (0.2 mg/dL) Urine Leukocyte Esterase Trace (NEG) Urine RBC 0 /HPF (0-2) Urine WBC 11-20 /HPF (0-4) Urine Squamous Epithelial Cells Few /LPF Urine Bacteria 0 /HPF (0-FEW) Urine Hyaline Casts Few /HPF Urine Mucus Mod /LPF White Blood Count 8.8 x10^3/uL (4.0-11.0) Red Blood Count 4.16 x10^6/uL (4.30-5.70) Hemoglobin 12.0 g/dL (13.0-17.5) Hematocrit 36.7 % (39.0-53.0) Mean Corpuscular Volume 88 fL (79-100) Mean Corpuscular Hemoglobin 29 pg (25-35) Mean Corpuscular Hemoglobin Concent 33 g/dL (31-37) Red Cell Distribution Width 12.9 % (11.5-14.5) Platelet Count 255 x10^3/uL (140-400) Neutrophils (%) (Auto) 59 % (31-73) Lymphocytes (%) (Auto) 28 % (24-48) Monocytes (%) (Auto) 9 % (0-9) Eosinophils (%) (Auto) 3 % (0-3) Basophils (%) (Auto) 0 % (0-3) Neutrophils # (Auto) 5.2 x10^3uL (1.8-7.7) Lymphocytes # (Auto) 2.5 x10^3/uL (1.0-4.8) Monocytes # (Auto) 0.8 x10^3/uL (0.0-1.1) Eosinophils # (Auto) 0.2 x10^3/uL (0.0-0.7) Basophils # (Auto) 0.0 x10^3/uL (0.0-0.2) Sodium Level 140 mmol/L (136-145) Potassium Level 3.7 mmol/L (3.5-5.1) Chloride Level 102 mmol/L (98-107) Carbon Dioxide Level 30 mmol/L (21-32) Anion Gap 8 (6-14) Blood Urea Nitrogen 19 mg/dL (8-26) Creatinine 1.1 mg/dL (0.7-1.3) Estimated GFR (Cockcroft-Gault) 65.3 Glucose Level 107 mg/dL (70-99) Calcium Level 9.2 mg/dL (8.5-10.1) Microbiology 04/13/17 Urine Culture - Preliminary, Resulted 04/13/17 Urine Culture Result 1 (RASHAWN) - Preliminary, Resulted Medications Current Medications Sodium Chloride 1,000 ml @ 1,000 mls/hr 1X ONCE IV Last administered on 12:46; Start 04/13/17 at 13:00; Stop 04/13/17 at 13:59; Status DC Ondansetron HCl (Zofran) 4 mg 1X ONCE IV Last administered on 04/13/17 12:46 ; Start 04/13/17 at 13:00; Stop 04/13/17 at 13:01; Status DC Iohexol (Omnipaque 300 Mg/ml) 60 ml 1X ONCE IV Last administered on 04/13/17 13:20; Start 04/13/17 at 13:15; Stop 04/13/17 at 13:16; Status DC Info (Do NOT chart on this entry -- for MONITORING) 1 each PRN DAILY PRN MC SEE COMMENTS; Start 04/13/17 at 13:15; Stop 04/15/17 at 13:14; Status DC Ondansetron HCl (Zofran) 4 mg PRN Q8HRS PRN IV NAUSEA/VOMITING; Start 04/13/17 at 14:45; Stop 04/14/17 at 10:50; Status DC Morphine Sulfate 4 mg PRN Q2HR PRN IV PAIN Last administered on 04/14/17 03:57 ; Start 04/13/17 at 14:45; Stop 04/14/17 at 10:49; Status DC Acetaminophen (Tylenol) 650 mg PRN Q6HRS PRN PO FEVER; Start 04/13/17 at 15:30 Ondansetron HCl (Zofran) 4 mg PRN Q6HRS PRN IV NAUSEA/VOMITING Last administered on 04/14/17 18:25; Start 04/13/17 at 15:30 Morphine Sulfate 2 mg PRN Q2HR PRN IV PAIN; Start 04/13/17 at 15:30 Tramadol HCl (Ultram) 50 mg PRN Q6HRS PRN PO PAIN; Start 04/13/17 at 15:30 Hydralazine HCl (Apresoline) 10 mg PRN Q4HRS PRN IVP ELEVATED BP, SEE COMMENTS ; Start 04/13/17 at 15:30 Docusate Sodium (Colace) 100 mg PRN DAILY PRN PO CONSTIPATION; Start 04/13/17 at 15:30 Amino Acids/ Glycerin/ Electrolytes 1,000 ml @ 80 mls/hr [id number] IV Last administered on 04/15/17 06:15; Start 04/13/17 at 16:00 Morphine Sulfate 4 mg PRN Q2HR PRN IV PAIN Last administered on 04/15/17 12:18 ; Start 04/13/17 at 15:30 Enoxaparin Sodium (Lovenox 40mg Syringe) 40 mg Q24H SQ Last administered on 17:33; Start 04/13/17 at 16:00 Pantoprazole Sodium (Protonix Vial) 40 mg DAILYAC IVP Last administered on 08:01; Start 04/14/17 at 07:30 Throat Lozenges (Chloraseptic) 1 spray PRN Q2HR PRN PO SORE THROAT; Start 04/13 at 17:45 Throat Lozenges (Cepacol Sore Throat Lozenge) 1 sheron PRN Q2HRS PRN PO SORE THROAT Last administered on 04/14/17 10:28; Start 04/13/17 at 17:45 Saliva Substitute (Biotene Moisturizing Mouth) 2 spray PRN Q15MIN PRN PO DRY MOUTH; Start 04/15/17 at 13:15; Status UNV Active Scripts Active Zofran Odt (Ondansetron) 4 Mg Tab.rapdis 4 Mg PO Q8HRS PRN [place] 5-325 Tablet (Acetaminophen/Hydrocodone Bitart) 1 Each Tablet 1 Tab PO PRN Q6HRS PRN Reported Preservision Areds Softgel (Vit A/Vit C/Vit E/Zinc/Copper) 1 Each Capsule 2 Each PO DAILY Omeprazole 20 Mg Capsule. 1 Cap PO DAILY Centrum Silver Tablet (Multivits-Min/Fa/Lycopene/Lut) 1 Each Tablet 1 Each PO Preservision Areds Tablet (Vit A/Vit C/Vit E/Zinc/Copper) 1 Each Tablet 1 Each PO No Known Medications Prior To Admisstion (Info) Each 1 Each Vitals/I & O Vital Sign - Last 24 Hours 04/14/17 04/14/17 04/14/17 04/14/17 15:00 15:09 18:18 19:00 Temp 98.2 97.6 98.2 97.6 Pulse 64 72 Resp 20 16 B/P (MAP) 109/65 (80) 101/54 (70) Pulse Ox 96 96 O2 Delivery Room Air Room Air Room Air Room Air 04/14/17 04/14/17 04/14/17 04/15/17 20:45 21:58 23:10 02:56 Temp 98.2 98.2 Pulse 70 Resp 16 16 B/P (MAP) 114/62 (79) Pulse Ox 96 97 97 O2 Delivery Room Air Room Air Room Air Room Air 04/15/17 04/15/17 04/15/17 04/15/17 03:00 06:14 06:44 07:00 Temp 98.5 97.5 98.5 97.5 Pulse 71 78 Resp 18 16 16 22 B/P (MAP) 113/68 (83) 104/56 (72) Pulse Ox 96 96 96 98 O2 Delivery Room Air Room Air Room Air Room Air 04/15/17 11:00 Temp 98.1 98.1 Pulse 79 Resp 20 B/P (MAP) 100/54 (69) Pulse Ox 95 O2 Delivery Room Air Intake and Output 04/14/17 04/14/17 04/15/17 15:00 23:00 07:00 Output Total 500 ml 475 ml Balance -500 ml -475 ml CIELO LEIGH MD Apr 15, 2017 13:16
[2017-04-15 15:00] VITALS: BP 111/62
[2017-04-15] MEDS: ENOXAPARIN 40 MG/0.4 ML SYRINGE. SQ SCH (15:42)
--- NOTE | 2017-04-15 15:43 | RAD ---
Indication small bowel obstruction. Abdominal pain. Single view of the chest was obtained as well as upright and supine films of the abdomen. The chest is compared to a study 03/06/2016. Imaging of the abdomen is compared to films obtained yesterday. There are probable chronic changes in the chest. The heart and pulmonary vessels are normal. An acute finding is not apparent. There is no pleural fluid or pneumothorax. Nasogastric tube has its tip in the distal body of the stomach. There is considerably less dilatation of small bowel loops than on the previous exam. Scattered air-fluid levels persist in small bowel loops on the upright film. No free air is seen. Known left renal calculi are reproduced. IMPRESSION: No acute finding in the chest. Significant interval improvement in dilatation of small bowel loops seen previously.
[2017-04-15] MEDS: MORPHINE SULFATE 2 MG/ML DISP.SYRIN. IV PRN (18:36)
[2017-04-15 19:00] VITALS: BP 135/63
[2017-04-15 23:00] VITALS: BP 108/61
[2017-04-16] MEDS: ONDANSETRON PF 4 MG/2 ML VIAL. IV PRN ×3 (01:33→21:02)
[2017-04-16] MEDS: MORPHINE SULFATE 4 MG/ML DISP.SYRIN. IV PRN ×2 (01:34→22:49)
[2017-04-16 03:00] VITALS: BP 103/60
[2017-04-16 05:10] LABS: BASO % 0 % (0-3); EOS % 2 % (0-3); HEMATOCRIT 35.4 % (39.0-53.0); HEMOGLOBIN 11.7 g/dL (13.0-17.5); LYMPH # 2.2 x10^3/uL (1.0-4.8); LYMPH % 26 % (24-48); MEAN CORPUSCULAR HEMOGLOBIN 29 pg (25-35); MEAN CORPUSCULAR HGB CONC 33 g/dL (31-37); MEAN CORPUSCULAR VOLUME 88 fL (79-100); MONO % 11 % (0-9); NEUT % 61 % (31-73); PLATELET COUNT 203 x10^3/uL (140-400); RED BLOOD COUNT 4.01 x10^6/uL (4.30-5.70); RED CELL DISTRIBUTION WIDTH 12.6 % (11.5-14.5); WHITE BLOOD COUNT 8.3 x10^3/uL (4.0-11.0)
[2017-04-16 05:30] LABS: ALBUMIN 2.2 g/dL (3.4-5.0); ALBUMIN/GLOBULIN RATIO 0.5 (1.0-1.7); CALCIUM 8.8 mg/dL (8.5-10.1); CREATININE 0.9 mg/dL (0.7-1.3); GFR 82.3; MAGNESIUM 1.8 mg/dL (1.8-2.4); PHOSPHORUS 2.8 mg/dL (2.6-4.7); POTASSIUM 4.3 mmol/L (3.5-5.1); TOTAL BILIRUBIN 0.4 mg/dL (0.2-1.0); TOTAL PROTEIN 6.5 g/dL (6.4-8.2)
[2017-04-16 07:00] VITALS: BP 110/82
[2017-04-16] MEDS: MORPHINE SULFATE 2 MG/ML DISP.SYRIN. IV PRN ×3 (08:28→20:34)
[2017-04-16] MEDS: PANTOPRAZOLE IV PUSH 40 MG VIAL. IVP SCH (08:28)
[2017-04-16] MEDS: AMINO AC 3%/ELECTROLYTE/GLYCER 1,000 ML IV SCH ×2 (08:36→21:02)
--- NOTE | 2017-04-16 09:10 | PDOC ---
PIYUSH ECHEVERRIA SYNCHRONIZER 04/16/17 0910: SURGICAL PROGRESS NOTE Subjective ng clamped no n/v some RLQ pain no flatus Vital Signs Vital Signs Date Time Temp Pulse Resp B/P (MAP) Pulse Ox O2 Delivery O2 Flow Rate FiO2 04/16/17 07:00 97.6 78 18 110/82 (91) 96 Room Air 97.6 I&O Intake and Output 04/16/17 07:00 Intake Total 300 ml Output Total 925 ml Balance -625 ml Intake Oral 300 ml Output Urine Total 225 ml Drainage Total 700 ml # Voids 1 General: Alert, Oriented X3, Cooperative, No acute distress Abdomen: Soft, No tenderness Labs Laboratory Tests Test 04/16/17 04:56 White Blood Count 8.3 x10^3/uL (4.0-11.0) Red Blood Count 4.01 x10^6/uL (4.30-5.70) Hemoglobin 11.7 g/dL (13.0-17.5) Hematocrit 35.4 % (39.0-53.0) Mean Corpuscular Volume 88 fL (79-100) Mean Corpuscular Hemoglobin 29 pg (25-35) Mean Corpuscular Hemoglobin Concent 33 g/dL (31-37) Red Cell Distribution Width 12.6 % (11.5-14.5) Platelet Count 203 x10^3/uL (140-400) Neutrophils (%) (Auto) 61 % (31-73) Lymphocytes (%) (Auto) 26 % (24-48) Monocytes (%) (Auto) 11 % (0-9) Eosinophils (%) (Auto) 2 % (0-3) Basophils (%) (Auto) 0 % (0-3) Neutrophils # (Auto) 5.0 x10^3uL (1.8-7.7) Lymphocytes # (Auto) 2.2 x10^3/uL (1.0-4.8) Monocytes # (Auto) 0.9 x10^3/uL (0.0-1.1) Eosinophils # (Auto) 0.2 x10^3/uL (0.0-0.7) Basophils # (Auto) 0.0 x10^3/uL (0.0-0.2) Sodium Level 136 mmol/L (136-145) Potassium Level 4.3 mmol/L (3.5-5.1) Chloride Level 99 mmol/L (98-107) Carbon Dioxide Level 30 mmol/L (21-32) Anion Gap 7 (6-14) Blood Urea Nitrogen 18 mg/dL (8-26) Creatinine 0.9 mg/dL (0.7-1.3) Estimated GFR (Cockcroft-Gault) 82.3 BUN/Creatinine Ratio 20 (6-20) Glucose Level 111 mg/dL (70-99) Calcium Level 8.8 mg/dL (8.5-10.1) Phosphorus Level 2.8 mg/dL (2.6-4.7) Magnesium Level 1.8 mg/dL (1.8-2.4) Total Bilirubin 0.4 mg/dL (0.2-1.0) Aspartate Amino Transf (AST/SGOT) 111 U/L (15-37) Alanine Aminotransferase (ALT/SGPT) 25 U/L (16-63) Alkaline Phosphatase 113 U/L (46-116) Total Protein 6.5 g/dL (6.4-8.2) Albumin 2.2 g/dL (3.4-5.0) Albumin/Globulin Ratio 0.5 (1.0-1.7) Laboratory Tests Test 04/16/17 04:56 White Blood Count 8.3 x10^3/uL (4.0-11.0) Red Blood Count 4.01 x10^6/uL (4.30-5.70) Hemoglobin 11.7 g/dL (13.0-17.5) Hematocrit 35.4 % (39.0-53.0) Mean Corpuscular Volume 88 fL (79-100) Mean Corpuscular Hemoglobin 29 pg (25-35) Mean Corpuscular Hemoglobin Concent 33 g/dL (31-37) Red Cell Distribution Width 12.6 % (11.5-14.5) Platelet Count 203 x10^3/uL (140-400) Neutrophils (%) (Auto) 61 % (31-73) Lymphocytes (%) (Auto) 26 % (24-48) Monocytes (%) (Auto) 11 % (0-9) Eosinophils (%) (Auto) 2 % (0-3) Basophils (%) (Auto) 0 % (0-3) Neutrophils # (Auto) 5.0 x10^3uL (1.8-7.7) Lymphocytes # (Auto) 2.2 x10^3/uL (1.0-4.8) Monocytes # (Auto) 0.9 x10^3/uL (0.0-1.1) Eosinophils # (Auto) 0.2 x10^3/uL (0.0-0.7) Basophils # (Auto) 0.0 x10^3/uL (0.0-0.2) Sodium Level 136 mmol/L (136-145) Potassium Level 4.3 mmol/L (3.5-5.1) Chloride Level 99 mmol/L (98-107) Carbon Dioxide Level 30 mmol/L (21-32) Anion Gap 7 (6-14) Blood Urea Nitrogen 18 mg/dL (8-26) Creatinine 0.9 mg/dL (0.7-1.3) Estimated GFR (Cockcroft-Gault) 82.3 BUN/Creatinine Ratio 20 (6-20) Glucose Level 111 mg/dL (70-99) Calcium Level 8.8 mg/dL (8.5-10.1) Phosphorus Level 2.8 mg/dL (2.6-4.7) Magnesium Level 1.8 mg/dL (1.8-2.4) Total Bilirubin 0.4 mg/dL (0.2-1.0) Aspartate Amino Transf (AST/SGOT) 111 U/L (15-37) Alanine Aminotransferase (ALT/SGPT) 25 U/L (16-63) Alkaline Phosphatase 113 U/L (46-116) Total Protein 6.5 g/dL (6.4-8.2) Albumin 2.2 g/dL (3.4-5.0) Albumin/Globulin Ratio 0.5 (1.0-1.7) Problem List Problems Medical Problems: (1) Small bowel torsion Status: Acute Assessment/Plan xrays improved yesterday ng clamped since 0600, will leave clamped until 12pm, if residual <200cc dc ng and start clears Problems: CHELSY CADENA MD 04/16/17 1155: SURGICAL PROGRESS NOTE Assessment/Plan pt seen and examined would like to get some sleep NG checked, some residual will leave off suction limit visitors in an attempt to make it easier for him to rest. Problems: PIYUSH ECHEVERRIA APRN Apr 16, 2017 09:10 CHELSY CADENA MD Apr 16, 2017 11:55
--- NOTE | 2017-04-16 10:41 | PDOC ---
Subjective: Subjective: Feels about the same. Still has pain, no flatus. Objective: Objective: Reviewed surg note. Vital Signs: Vital Signs Date Time Temp Pulse Resp B/P (MAP) Pulse Ox O2 Delivery O2 Flow Rate FiO2 04/16/17 07:00 97.6 78 18 110/82 (91) 96 Room Air 97.6 Labs: Laboratory Tests Test 04/16/17 04:56 White Blood Count 8.3 x10^3/uL Red Blood Count 4.01 x10^6/uL Hemoglobin 11.7 g/dL Hematocrit 35.4 % Mean Corpuscular Volume 88 fL Mean Corpuscular Hemoglobin 29 pg Mean Corpuscular Hemoglobin Concent 33 g/dL Red Cell Distribution Width 12.6 % Platelet Count 203 x10^3/uL Neutrophils (%) (Auto) 61 % Lymphocytes (%) (Auto) 26 % Monocytes (%) (Auto) 11 % Eosinophils (%) (Auto) 2 % Basophils (%) (Auto) 0 % Neutrophils # (Auto) 5.0 x10^3uL Lymphocytes # (Auto) 2.2 x10^3/uL Monocytes # (Auto) 0.9 x10^3/uL Eosinophils # (Auto) 0.2 x10^3/uL Basophils # (Auto) 0.0 x10^3/uL Sodium Level 136 mmol/L Potassium Level 4.3 mmol/L Chloride Level 99 mmol/L Carbon Dioxide Level 30 mmol/L Anion Gap 7 Blood Urea Nitrogen 18 mg/dL Creatinine 0.9 mg/dL Estimated GFR (Cockcroft-Gault) 82.3 BUN/Creatinine Ratio 20 Glucose Level 111 mg/dL Calcium Level 8.8 mg/dL Phosphorus Level 2.8 mg/dL Magnesium Level 1.8 mg/dL Total Bilirubin 0.4 mg/dL Aspartate Amino Transf (AST/SGOT) 111 U/L Alanine Aminotransferase (ALT/SGPT) 25 U/L Alkaline Phosphatase 113 U/L Total Protein 6.5 g/dL Albumin 2.2 g/dL Albumin/Globulin Ratio 0.5 Imaging: Acute Abd Series 04/15/17 IMPRESSION: No acute finding in the chest. Significant interval improvement in dilatation of small bowel loops seen previously. PE: GEN: NAD LUNGS: CTAB HEART: RRR ABD: mid/right tenderness NEURO/PSYCH: A & O 3, quiet today A/P: SBO -metastatic colon cancer s/p sigmoidectomy 02/2016 -abd films w/ improvement yesterday, NG clamped -- Possibly to try clears later per surgery. Once tolerating PO, can change to PO PPI. JOEY HURLEY Apr 16, 2017 10:41
[2017-04-16 11:00] VITALS: BP 104/62
[2017-04-16] MEDS: ENOXAPARIN 40 MG/0.4 ML SYRINGE. SQ SCH (14:44)
[2017-04-16 15:00] VITALS: BP 122/63
--- NOTE | 2017-04-16 17:14 | PDOC ---
PROGRESS NOTES Chief Complaint Chief Complaint 1. abd pain with N/V 2/2 SBO 2. metastatic colon Ca s/p sx, short term of chemo, mets to liver and retroperitoneal adenopathy 3. bl renal stones, non obstructive 4. leukocytosis, reactive History of Present Illness History of Present Illness Resting with NAD Has NG IV with procalamine pain control is OK Vitals Vitals Vital Signs Date Time Temp Pulse Resp B/P (MAP) Pulse Ox O2 Delivery O2 Flow Rate FiO2 04/16/17 15:00 98.2 77 18 122/63 (82) 97 Room Air 98.2 Physical Exam General: Alert, Oriented X3, Cooperative, No acute distress Heart: Regular rate Abdomen: Soft, No tenderness Extremities: No clubbing Skin: No rashes Labs LABS Laboratory Tests Test 04/16/17 04:56 White Blood Count 8.3 x10^3/uL (4.0-11.0) Red Blood Count 4.01 x10^6/uL (4.30-5.70) Hemoglobin 11.7 g/dL (13.0-17.5) Hematocrit 35.4 % (39.0-53.0) Mean Corpuscular Volume 88 fL (79-100) Mean Corpuscular Hemoglobin 29 pg (25-35) Mean Corpuscular Hemoglobin Concent 33 g/dL (31-37) Red Cell Distribution Width 12.6 % (11.5-14.5) Platelet Count 203 x10^3/uL (140-400) Neutrophils (%) (Auto) 61 % (31-73) Lymphocytes (%) (Auto) 26 % (24-48) Monocytes (%) (Auto) 11 % (0-9) Eosinophils (%) (Auto) 2 % (0-3) Basophils (%) (Auto) 0 % (0-3) Neutrophils # (Auto) 5.0 x10^3uL (1.8-7.7) Lymphocytes # (Auto) 2.2 x10^3/uL (1.0-4.8) Monocytes # (Auto) 0.9 x10^3/uL (0.0-1.1) Eosinophils # (Auto) 0.2 x10^3/uL (0.0-0.7) Basophils # (Auto) 0.0 x10^3/uL (0.0-0.2) Sodium Level 136 mmol/L (136-145) Potassium Level 4.3 mmol/L (3.5-5.1) Chloride Level 99 mmol/L (98-107) Carbon Dioxide Level 30 mmol/L (21-32) Anion Gap 7 (6-14) Blood Urea Nitrogen 18 mg/dL (8-26) Creatinine 0.9 mg/dL (0.7-1.3) Estimated GFR (Cockcroft-Gault) 82.3 BUN/Creatinine Ratio 20 (6-20) Glucose Level 111 mg/dL (70-99) Calcium Level 8.8 mg/dL (8.5-10.1) Phosphorus Level 2.8 mg/dL (2.6-4.7) Magnesium Level 1.8 mg/dL (1.8-2.4) Total Bilirubin 0.4 mg/dL (0.2-1.0) Aspartate Amino Transf (AST/SGOT) 111 U/L (15-37) Alanine Aminotransferase (ALT/SGPT) 25 U/L (16-63) Alkaline Phosphatase 113 U/L (46-116) Total Protein 6.5 g/dL (6.4-8.2) Albumin 2.2 g/dL (3.4-5.0) Albumin/Globulin Ratio 0.5 (1.0-1.7) Review of Systems Review of Systems Co weakness co pain Assessment and Plan Assessmemt and Plan Problems Medical Problems: (1) Small bowel torsion Status: Acute 1. abd pain with N/V 2/2 SBO 2. metastatic colon Ca s/p sx, short term of chemo, mets to liver and retroperitoneal adenopathy 3. bl renal stones, non obstructive 4. leukocytosis, reactive Plan NG suctioning Recheck labs Hold po meds PRN narcotics Appreciate subspecialist input Problems: Comment Review of Relevant I have reviewed the following items stephenie (where applicable) has been applied. Labs Laboratory Tests Test 04/16/17 04:56 White Blood Count 8.3 x10^3/uL (4.0-11.0) Red Blood Count 4.01 x10^6/uL (4.30-5.70) Hemoglobin 11.7 g/dL (13.0-17.5) Hematocrit 35.4 % (39.0-53.0) Mean Corpuscular Volume 88 fL (79-100) Mean Corpuscular Hemoglobin 29 pg (25-35) Mean Corpuscular Hemoglobin Concent 33 g/dL (31-37) Red Cell Distribution Width 12.6 % (11.5-14.5) Platelet Count 203 x10^3/uL (140-400) Neutrophils (%) (Auto) 61 % (31-73) Lymphocytes (%) (Auto) 26 % (24-48) Monocytes (%) (Auto) 11 % (0-9) Eosinophils (%) (Auto) 2 % (0-3) Basophils (%) (Auto) 0 % (0-3) Neutrophils # (Auto) 5.0 x10^3uL (1.8-7.7) Lymphocytes # (Auto) 2.2 x10^3/uL (1.0-4.8) Monocytes # (Auto) 0.9 x10^3/uL (0.0-1.1) Eosinophils # (Auto) 0.2 x10^3/uL (0.0-0.7) Basophils # (Auto) 0.0 x10^3/uL (0.0-0.2) Sodium Level 136 mmol/L (136-145) Potassium Level 4.3 mmol/L (3.5-5.1) Chloride Level 99 mmol/L (98-107) Carbon Dioxide Level 30 mmol/L (21-32) Anion Gap 7 (6-14) Blood Urea Nitrogen 18 mg/dL (8-26) Creatinine 0.9 mg/dL (0.7-1.3) Estimated GFR (Cockcroft-Gault) 82.3 BUN/Creatinine Ratio 20 (6-20) Glucose Level 111 mg/dL (70-99) Calcium Level 8.8 mg/dL (8.5-10.1) Phosphorus Level 2.8 mg/dL (2.6-4.7) Magnesium Level 1.8 mg/dL (1.8-2.4) Total Bilirubin 0.4 mg/dL (0.2-1.0) Aspartate Amino Transf (AST/SGOT) 111 U/L (15-37) Alanine Aminotransferase (ALT/SGPT) 25 U/L (16-63) Alkaline Phosphatase 113 U/L (46-116) Total Protein 6.5 g/dL (6.4-8.2) Albumin 2.2 g/dL (3.4-5.0) Albumin/Globulin Ratio 0.5 (1.0-1.7) Laboratory Tests Test 04/16/17 04:56 White Blood Count 8.3 x10^3/uL (4.0-11.0) Red Blood Count 4.01 x10^6/uL (4.30-5.70) Hemoglobin 11.7 g/dL (13.0-17.5) Hematocrit 35.4 % (39.0-53.0) Mean Corpuscular Volume 88 fL (79-100) Mean Corpuscular Hemoglobin 29 pg (25-35) Mean Corpuscular Hemoglobin Concent 33 g/dL (31-37) Red Cell Distribution Width 12.6 % (11.5-14.5) Platelet Count 203 x10^3/uL (140-400) Neutrophils (%) (Auto) 61 % (31-73) Lymphocytes (%) (Auto) 26 % (24-48) Monocytes (%) (Auto) 11 % (0-9) Eosinophils (%) (Auto) 2 % (0-3) Basophils (%) (Auto) 0 % (0-3) Neutrophils # (Auto) 5.0 x10^3uL (1.8-7.7) Lymphocytes # (Auto) 2.2 x10^3/uL (1.0-4.8) Monocytes # (Auto) 0.9 x10^3/uL (0.0-1.1) Eosinophils # (Auto) 0.2 x10^3/uL (0.0-0.7) Basophils # (Auto) 0.0 x10^3/uL (0.0-0.2) Sodium Level 136 mmol/L (136-145) Potassium Level 4.3 mmol/L (3.5-5.1) Chloride Level 99 mmol/L (98-107) Carbon Dioxide Level 30 mmol/L (21-32) Anion Gap 7 (6-14) Blood Urea Nitrogen 18 mg/dL (8-26) Creatinine 0.9 mg/dL (0.7-1.3) Estimated GFR (Cockcroft-Gault) 82.3 BUN/Creatinine Ratio 20 (6-20) Glucose Level 111 mg/dL (70-99) Calcium Level 8.8 mg/dL (8.5-10.1) Phosphorus Level 2.8 mg/dL (2.6-4.7) Magnesium Level 1.8 mg/dL (1.8-2.4) Total Bilirubin 0.4 mg/dL (0.2-1.0) Aspartate Amino Transf (AST/SGOT) 111 U/L (15-37) Alanine Aminotransferase (ALT/SGPT) 25 U/L (16-63) Alkaline Phosphatase 113 U/L (46-116) Total Protein 6.5 g/dL (6.4-8.2) Albumin 2.2 g/dL (3.4-5.0) Albumin/Globulin Ratio 0.5 (1.0-1.7) Microbiology 04/13/17 Urine Culture - Final, Complete 04/13/17 Urine Culture Result 1 (RASHAWN) - Final, Complete Medications Current Medications Sodium Chloride 1,000 ml @ 1,000 mls/hr 1X ONCE IV Last administered on 12:46; Start 04/13/17 at 13:00; Stop 04/13/17 at 13:59; Status DC Ondansetron HCl (Zofran) 4 mg 1X ONCE IV Last administered on 04/13/17 12:46 ; Start 04/13/17 at 13:00; Stop 04/13/17 at 13:01; Status DC Iohexol (Omnipaque 300 Mg/ml) 60 ml 1X ONCE IV Last administered on 04/13/17 13:20; Start 04/13/17 at 13:15; Stop 04/13/17 at 13:16; Status DC Info (Do NOT chart on this entry -- for MONITORING) 1 each PRN DAILY PRN MC SEE COMMENTS; Start 04/13/17 at 13:15; Stop 04/15/17 at 13:14; Status DC Ondansetron HCl (Zofran) 4 mg PRN Q8HRS PRN IV NAUSEA/VOMITING; Start 04/13/17 at 14:45; Stop 04/14/17 at 10:50; Status DC Morphine Sulfate 4 mg PRN Q2HR PRN IV PAIN Last administered on 04/14/17 03:57 ; Start 04/13/17 at 14:45; Stop 04/14/17 at 10:49; Status DC Acetaminophen (Tylenol) 650 mg PRN Q6HRS PRN PO FEVER; Start 04/13/17 at 15:30 Ondansetron HCl (Zofran) 4 mg PRN Q6HRS PRN IV NAUSEA/VOMITING Last administered on 04/16/17 14:45; Start 04/13/17 at 15:30 Morphine Sulfate 2 mg PRN Q2HR PRN IV PAIN Last administered on 04/16/17 14:45 ; Start 04/13/17 at 15:30 Tramadol HCl (Ultram) 50 mg PRN Q6HRS PRN PO PAIN; Start 04/13/17 at 15:30 Hydralazine HCl (Apresoline) 10 mg PRN Q4HRS PRN IVP ELEVATED BP, SEE COMMENTS ; Start 04/13/17 at 15:30 Docusate Sodium (Colace) 100 mg PRN DAILY PRN PO CONSTIPATION; Start 04/13/17 at 15:30 Amino Acids/ Glycerin/ Electrolytes 1,000 ml @ 80 mls/hr [id number] IV Last administered on 04/16/17 08:36; Start 04/13/17 at 16:00 Morphine Sulfate 4 mg PRN Q2HR PRN IV PAIN Last administered on 04/16/17 01:34 ; Start 04/13/17 at 15:30 Enoxaparin Sodium (Lovenox 40mg Syringe) 40 mg Q24H SQ Last administered on 04/16 14:44; Start 04/13/17 at 16:00 Pantoprazole Sodium (Protonix Vial) 40 mg DAILYAC IVP Last administered on 08:28; Start 04/14/17 at 07:30 Throat Lozenges (Chloraseptic) 1 spray PRN Q2HR PRN PO SORE THROAT; Start 04/13 at 17:45 Throat Lozenges (Cepacol Sore Throat Lozenge) 1 sheron PRN Q2HRS PRN PO SORE THROAT Last administered on 04/14/17 10:28; Start 04/13/17 at 17:45 Saliva Substitute (Biotene Moisturizing Mouth) 2 spray PRN Q15MIN PRN PO DRY MOUTH Last administered on 04/15/17 15:42; Start 04/15/17 at 13:15 Active Scripts Active Zofran Odt (Ondansetron) 4 Mg Tab.rapdis 4 Mg PO Q8HRS PRN [place] 5-325 Tablet (Acetaminophen/Hydrocodone Bitart) 1 Each Tablet 1 Tab PO PRN Q6HRS PRN Reported Preservision Areds Softgel (Vit A/Vit C/Vit E/Zinc/Copper) 1 Each Capsule 2 Each PO DAILY Omeprazole 20 Mg Capsule. 1 Cap PO DAILY Centrum Silver Tablet (Multivits-Min/Fa/Lycopene/Lut) 1 Each Tablet 1 Each PO Preservision Areds Tablet (Vit A/Vit C/Vit E/Zinc/Copper) 1 Each Tablet 1 Each PO No Known Medications Prior To Admisstion (Info) Each 1 Each Vitals/I & O Vital Sign - Last 24 Hours 04/15/17 04/15/17 04/15/17 04/15/17 18:36 19:00 19:06 20:00 Temp 98.0 98.0 Pulse 84 Resp 20 18 B/P (MAP) 135/63 (87) Pulse Ox 96 96 O2 Delivery Room Air Room Air Room Air Room Air 04/15/17 04/15/17 04/16/17 04/16/17 20:56 23:00 01:34 02:04 Temp 98.1 98.1 Pulse 79 Resp 18 20 20 B/P (MAP) 108/61 (77) Pulse Ox 96 96 96 96 O2 Delivery Room Air Room Air Room Air Room Air 04/16/17 04/16/17 04/16/17 04/16/17 03:00 07:00 11:00 15:00 Temp 97.9 97.6 97.9 98.2 97.9 97.6 97.9 98.2 Pulse 75 78 84 77 Resp 18 18 18 18 B/P (MAP) 103/60 (74) 110/82 (91) 104/62 (76) 122/63 (82) Pulse Ox 95 96 95 97 O2 Delivery Room Air Room Air Room Air Room Air Intake and Output 04/15/17 04/15/17 04/16/17 15:00 23:00 07:00 Intake Total 300 ml Output Total 700 ml 100 ml 125 ml Balance -400 ml -100 ml -125 ml DORA ALBA III DO Apr 16, 2017 17:13
[2017-04-16 19:00] VITALS: BP 114/68
[2017-04-16 23:00] VITALS: BP 103/66
[2017-04-17] VITALS (13 sets, daily range): BP systolic 83–133; BP diastolic 48–76
[2017-04-17] MEDS: MORPHINE SULFATE 2 MG/ML DISP.SYRIN. IV PRN ×3 (06:13→16:44)
[2017-04-17] MEDS: AMINO AC 3%/ELECTROLYTE/GLYCER 1,000 ML IV SCH (09:00)
[2017-04-17] MEDS: ONDANSETRON PF 4 MG/2 ML VIAL. IV PRN (09:00)
[2017-04-17] MEDS: PANTOPRAZOLE IV PUSH 40 MG VIAL. IVP SCH (09:00)
[2017-04-17] MEDS: MORPHINE SULFATE 4 MG/ML DISP.SYRIN. IV PRN (09:01)
[2017-04-17] MEDS ORDERED: VANCOMYCIN 1 GM in IV NORMAL SALINE 250ML 250 ML IV SCH (10:45)
--- NOTE | 2017-04-17 10:57 | PDOC ---
SURGICAL PROGRESS NOTE Subjective doesn't feel well belly pain Vital Signs Vital Signs Date Time Temp Pulse Resp B/P (MAP) Pulse Ox O2 Delivery O2 Flow Rate FiO2 04/17/17 10:44 97.6 84 20 83/48 (60) 91 Room Air 97.6 Tmax 99.8 I&O Intake and Output 04/17/17 07:00 Output Total 345 ml Balance -345 ml Output Urine Total 150 ml Gastric Drainage Total 195 ml # Voids 5 PATIENT HAS A CHAVEZ: No General: Other (lethargic, responds) Abdomen: Soft, Other (TTP right side) Labs Laboratory Tests Test 04/16/17 04:56 White Blood Count 8.3 x10^3/uL (4.0-11.0) Red Blood Count 4.01 x10^6/uL (4.30-5.70) Hemoglobin 11.7 g/dL (13.0-17.5) Hematocrit 35.4 % (39.0-53.0) Mean Corpuscular Volume 88 fL (79-100) Mean Corpuscular Hemoglobin 29 pg (25-35) Mean Corpuscular Hemoglobin Concent 33 g/dL (31-37) Red Cell Distribution Width 12.6 % (11.5-14.5) Platelet Count 203 x10^3/uL (140-400) Neutrophils (%) (Auto) 61 % (31-73) Lymphocytes (%) (Auto) 26 % (24-48) Monocytes (%) (Auto) 11 % (0-9) Eosinophils (%) (Auto) 2 % (0-3) Basophils (%) (Auto) 0 % (0-3) Neutrophils # (Auto) 5.0 x10^3uL (1.8-7.7) Lymphocytes # (Auto) 2.2 x10^3/uL (1.0-4.8) Monocytes # (Auto) 0.9 x10^3/uL (0.0-1.1) Eosinophils # (Auto) 0.2 x10^3/uL (0.0-0.7) Basophils # (Auto) 0.0 x10^3/uL (0.0-0.2) Sodium Level 136 mmol/L (136-145) Potassium Level 4.3 mmol/L (3.5-5.1) Chloride Level 99 mmol/L (98-107) Carbon Dioxide Level 30 mmol/L (21-32) Anion Gap 7 (6-14) Blood Urea Nitrogen 18 mg/dL (8-26) Creatinine 0.9 mg/dL (0.7-1.3) Estimated GFR (Cockcroft-Gault) 82.3 BUN/Creatinine Ratio 20 (6-20) Glucose Level 111 mg/dL (70-99) Calcium Level 8.8 mg/dL (8.5-10.1) Phosphorus Level 2.8 mg/dL (2.6-4.7) Magnesium Level 1.8 mg/dL (1.8-2.4) Total Bilirubin 0.4 mg/dL (0.2-1.0) Aspartate Amino Transf (AST/SGOT) 111 U/L (15-37) Alanine Aminotransferase (ALT/SGPT) 25 U/L (16-63) Alkaline Phosphatase 113 U/L (46-116) Total Protein 6.5 g/dL (6.4-8.2) Albumin 2.2 g/dL (3.4-5.0) Albumin/Globulin Ratio 0.5 (1.0-1.7) Problem List Problems Medical Problems: (1) Small bowel torsion Status: Acute Assessment/Plan SBO persistent sx despite NG and improved plain films will check lab repeat CT may need exploration Problems: CHELSY CADENA MD Apr 17, 2017 10:57
[2017-04-17] MEDS ORDERED: CONTRAST GIVEN MC PRN (11:00)
[2017-04-17] MEDS ORDERED: IV NORMAL SALINE 500ML BAG 500 ML IV ONE (11:00)
[2017-04-17] MEDS ORDERED: IOHEXOL 300 MG/ML 75 ML VIAL IV ONE (11:00)
[2017-04-17] MEDS ORDERED: VANCOMYCIN 1.5 GM in IV NORMAL SALINE 500ML BAG 500 ML IV ONE (11:30)
[2017-04-17 11:34] LABS: BASO % 0 % (0-3); EOS % 0 % (0-3); HEMATOCRIT 38.2 % (39.0-53.0); HEMOGLOBIN 12.6 g/dL (13.0-17.5); LYMPH # 1.1 x10^3/uL (1.0-4.8); LYMPH % 13 % (24-48); MEAN CORPUSCULAR HEMOGLOBIN 29 pg (25-35); MEAN CORPUSCULAR HGB CONC 33 g/dL (31-37); MEAN CORPUSCULAR VOLUME 88 fL (79-100); MONO % 9 % (0-9); NEUT % 78 % (31-73); PLATELET COUNT 232 x10^3/uL (140-400); RED BLOOD COUNT 4.37 x10^6/uL (4.30-5.70); RED CELL DISTRIBUTION WIDTH 12.6 % (11.5-14.5); WHITE BLOOD COUNT 8.3 x10^3/uL (4.0-11.0)
--- NOTE | 2017-04-17 12:17 | PDOC ---
PROGRESS NOTES Chief Complaint Chief Complaint 1. abd pain with N/V 2/2 SBO 2. metastatic colon Ca s/p sx, short term of chemo, mets to liver and retroperitoneal adenopathy 3. bl renal stones, non obstructive 4. leukocytosis, reactive History of Present Illness History of Present Illness Seems septic this am, fevers last pm BP down into the 80s DW RN extensively Also dw Started IV bolus and Zosyn and Jason Has NG back to suction IV with procalamine pain control is OK as long as he gets morphine Vitals Vitals Vital Signs Date Time Temp Pulse Resp B/P (MAP) Pulse Ox O2 Delivery O2 Flow Rate FiO2 04/17/17 10:44 97.6 84 20 83/48 (60) 91 Room Air 97.6 Physical Exam General: Other (lethargic, responds, co nausea) Heart: Regular rate Lungs: Clear Abdomen: Soft, Other (TTP right side) Extremities: No clubbing Skin: No rashes Labs LABS Laboratory Tests Test 04/17/17 11:21 White Blood Count 8.3 x10^3/uL (4.0-11.0) Red Blood Count 4.37 x10^6/uL (4.30-5.70) Hemoglobin 12.6 g/dL (13.0-17.5) Hematocrit 38.2 % (39.0-53.0) Mean Corpuscular Volume 88 fL (79-100) Mean Corpuscular Hemoglobin 29 pg (25-35) Mean Corpuscular Hemoglobin Concent 33 g/dL (31-37) Red Cell Distribution Width 12.6 % (11.5-14.5) Platelet Count 232 x10^3/uL (140-400) Neutrophils (%) (Auto) 78 % (31-73) Lymphocytes (%) (Auto) 13 % (24-48) Monocytes (%) (Auto) 9 % (0-9) Eosinophils (%) (Auto) 0 % (0-3) Basophils (%) (Auto) 0 % (0-3) Neutrophils # (Auto) 6.5 x10^3uL (1.8-7.7) Lymphocytes # (Auto) 1.1 x10^3/uL (1.0-4.8) Monocytes # (Auto) 0.7 x10^3/uL (0.0-1.1) Eosinophils # (Auto) 0.0 x10^3/uL (0.0-0.7) Basophils # (Auto) 0.0 x10^3/uL (0.0-0.2) Sodium Level 134 mmol/L (136-145) Potassium Level 4.7 mmol/L (3.5-5.1) Chloride Level 98 mmol/L (98-107) Carbon Dioxide Level 29 mmol/L (21-32) Anion Gap 7 (6-14) Blood Urea Nitrogen 21 mg/dL (8-26) Creatinine 1.1 mg/dL (0.7-1.3) Estimated GFR (Cockcroft-Gault) 65.3 Glucose Level 138 mg/dL (70-99) Lactic Acid Level 1.6 mmol/L (0.4-2.0) Calcium Level 8.7 mg/dL (8.5-10.1) Review of Systems Review of Systems co pain but morphine helps co severe nausea Assessment and Plan Assessmemt and Plan Problems Medical Problems: (1) Small bowel torsion Status: Acute 0. Early Sepsis? 1. abd pain with N/V 2/2 SBO 2. metastatic colon Ca s/p sx, short term of chemo, mets to liver and retroperitoneal adenopathy 3. bl renal stones, non obstructive 4. leukocytosis, reactive plan Added Zosyn and Vanco CBC BMP NG suctioning Agressive IV fluids May need surgery? Await Dr Schaefer further input Prog guarded Total time 32 minutes Problems: Comment Review of Relevant I have reviewed the following items stephenie (where applicable) has been applied. Labs Laboratory Tests Test 04/16/17 04:56 04/17/17 11:21 White Blood Count 8.3 x10^3/uL (4.0-11.0) 8.3 x10^3/uL (4.0-11.0) Red Blood Count 4.01 x10^6/uL (4.30-5.70) 4.37 x10^6/uL (4.30-5.70) Hemoglobin 11.7 g/dL (13.0-17.5) 12.6 g/dL (13.0-17.5) Hematocrit 35.4 % (39.0-53.0) 38.2 % (39.0-53.0) Mean Corpuscular Volume 88 fL (79-100) 88 fL (79-100) Mean Corpuscular Hemoglobin 29 pg (25-35) 29 pg (25-35) Mean Corpuscular Hemoglobin Concent 33 g/dL (31-37) 33 g/dL (31-37) Red Cell Distribution Width 12.6 % (11.5-14.5) 12.6 % (11.5-14.5) Platelet Count 203 x10^3/uL (140-400) 232 x10^3/uL (140-400) Neutrophils (%) (Auto) 61 % (31-73) 78 % (31-73) Lymphocytes (%) (Auto) 26 % (24-48) 13 % (24-48) Monocytes (%) (Auto) 11 % (0-9) 9 % (0-9) Eosinophils (%) (Auto) 2 % (0-3) 0 % (0-3) Basophils (%) (Auto) 0 % (0-3) 0 % (0-3) Neutrophils # (Auto) 5.0 x10^3uL (1.8-7.7) 6.5 x10^3uL (1.8-7.7) Lymphocytes # (Auto) 2.2 x10^3/uL (1.0-4.8) 1.1 x10^3/uL (1.0-4.8) Monocytes # (Auto) 0.9 x10^3/uL (0.0-1.1) 0.7 x10^3/uL (0.0-1.1) Eosinophils # (Auto) 0.2 x10^3/uL (0.0-0.7) 0.0 x10^3/uL (0.0-0.7) Basophils # (Auto) 0.0 x10^3/uL (0.0-0.2) 0.0 x10^3/uL (0.0-0.2) Sodium Level 136 mmol/L (136-145) 134 mmol/L (136-145) Potassium Level 4.3 mmol/L (3.5-5.1) 4.7 mmol/L (3.5-5.1) Chloride Level 99 mmol/L (98-107) 98 mmol/L (98-107) Carbon Dioxide Level 30 mmol/L (21-32) 29 mmol/L (21-32) Anion Gap 7 (6-14) 7 (6-14) Blood Urea Nitrogen 18 mg/dL (8-26) 21 mg/dL (8-26) Creatinine 0.9 mg/dL (0.7-1.3) 1.1 mg/dL (0.7-1.3) Estimated GFR (Cockcroft-Gault) 82.3 65.3 BUN/Creatinine Ratio 20 (6-20) Glucose Level 111 mg/dL (70-99) 138 mg/dL (70-99) Calcium Level 8.8 mg/dL (8.5-10.1) 8.7 mg/dL (8.5-10.1) Phosphorus Level 2.8 mg/dL (2.6-4.7) Magnesium Level 1.8 mg/dL (1.8-2.4) Total Bilirubin 0.4 mg/dL (0.2-1.0) Aspartate Amino Transf (AST/SGOT) 111 U/L (15-37) Alanine Aminotransferase (ALT/SGPT) 25 U/L (16-63) Alkaline Phosphatase 113 U/L (46-116) Total Protein 6.5 g/dL (6.4-8.2) Albumin 2.2 g/dL (3.4-5.0) Albumin/Globulin Ratio 0.5 (1.0-1.7) Lactic Acid Level 1.6 mmol/L (0.4-2.0) Laboratory Tests Test 04/17/17 11:21 White Blood Count 8.3 x10^3/uL (4.0-11.0) Red Blood Count 4.37 x10^6/uL (4.30-5.70) Hemoglobin 12.6 g/dL (13.0-17.5) Hematocrit 38.2 % (39.0-53.0) Mean Corpuscular Volume 88 fL (79-100) Mean Corpuscular Hemoglobin 29 pg (25-35) Mean Corpuscular Hemoglobin Concent 33 g/dL (31-37) Red Cell Distribution Width 12.6 % (11.5-14.5) Platelet Count 232 x10^3/uL (140-400) Neutrophils (%) (Auto) 78 % (31-73) Lymphocytes (%) (Auto) 13 % (24-48) Monocytes (%) (Auto) 9 % (0-9) Eosinophils (%) (Auto) 0 % (0-3) Basophils (%) (Auto) 0 % (0-3) Neutrophils # (Auto) 6.5 x10^3uL (1.8-7.7) Lymphocytes # (Auto) 1.1 x10^3/uL (1.0-4.8) Monocytes # (Auto) 0.7 x10^3/uL (0.0-1.1) Eosinophils # (Auto) 0.0 x10^3/uL (0.0-0.7) Basophils # (Auto) 0.0 x10^3/uL (0.0-0.2) Sodium Level 134 mmol/L (136-145) Potassium Level 4.7 mmol/L (3.5-5.1) Chloride Level 98 mmol/L (98-107) Carbon Dioxide Level 29 mmol/L (21-32) Anion Gap 7 (6-14) Blood Urea Nitrogen 21 mg/dL (8-26) Creatinine 1.1 mg/dL (0.7-1.3) Estimated GFR (Cockcroft-Gault) 65.3 Glucose Level 138 mg/dL (70-99) Lactic Acid Level 1.6 mmol/L (0.4-2.0) Calcium Level 8.7 mg/dL (8.5-10.1) Microbiology 04/13/17 Urine Culture - Final, Complete 04/13/17 Urine Culture Result 1 (RASHAWN) - Final, Complete Medications Current Medications Sodium Chloride 1,000 ml @ 1,000 mls/hr 1X ONCE IV Last administered on 12:46; Start 04/13/17 at 13:00; Stop 04/13/17 at 13:59; Status DC Ondansetron HCl (Zofran) 4 mg 1X ONCE IV Last administered on 04/13/17 12:46 ; Start 04/13/17 at 13:00; Stop 04/13/17 at 13:01; Status DC Iohexol (Omnipaque 300 Mg/ml) 60 ml 1X ONCE IV Last administered on 04/13/17 13:20; Start 04/13/17 at 13:15; Stop 04/13/17 at 13:16; Status DC Info (Do NOT chart on this entry -- for MONITORING) 1 each PRN DAILY PRN MC SEE COMMENTS; Start 04/13/17 at 13:15; Stop 04/15/17 at 13:14; Status DC Ondansetron HCl (Zofran) 4 mg PRN Q8HRS PRN IV NAUSEA/VOMITING; Start 04/13/17 at 14:45; Stop 04/14/17 at 10:50; Status DC Morphine Sulfate 4 mg PRN Q2HR PRN IV PAIN Last administered on 04/14/17 03:57 ; Start 04/13/17 at 14:45; Stop 04/14/17 at 10:49; Status DC Acetaminophen (Tylenol) 650 mg PRN Q6HRS PRN PO FEVER; Start 04/13/17 at 15:30 Ondansetron HCl (Zofran) 4 mg PRN Q6HRS PRN IV NAUSEA/VOMITING Last administered on 04/17/17 09:00; Start 04/13/17 at 15:30 Morphine Sulfate 2 mg PRN Q2HR PRN IV PAIN Last administered on 04/17/17 06:13 ; Start 04/13/17 at 15:30 Tramadol HCl (Ultram) 50 mg PRN Q6HRS PRN PO PAIN; Start 04/13/17 at 15:30 Hydralazine HCl (Apresoline) 10 mg PRN Q4HRS PRN IVP ELEVATED BP, SEE COMMENTS ; Start 04/13/17 at 15:30 Docusate Sodium (Colace) 100 mg PRN DAILY PRN PO CONSTIPATION; Start 04/13/17 at 15:30 Amino Acids/ Glycerin/ Electrolytes 1,000 ml @ 80 mls/hr [id number] IV Last administered on 04/17/17 09:00; Start 04/13/17 at 16:00 Morphine Sulfate 4 mg PRN Q2HR PRN IV PAIN Last administered on 04/17/17 09:01 ; Start 04/13/17 at 15:30 Enoxaparin Sodium (Lovenox 40mg Syringe) 40 mg Q24H SQ Last administered on 04/16 14:44; Start 04/13/17 at 16:00 Pantoprazole Sodium (Protonix Vial) 40 mg DAILYAC IVP Last administered on 09:00; Start 04/14/17 at 07:30 Throat Lozenges (Chloraseptic) 1 spray PRN Q2HR PRN PO SORE THROAT; Start 04/13 at 17:45 Throat Lozenges (Cepacol Sore Throat Lozenge) 1 sheron PRN Q2HRS PRN PO SORE THROAT Last administered on 04/14/17 10:28; Start 04/13/17 at 17:45 Saliva Substitute (Biotene Moisturizing Mouth) 2 spray PRN Q15MIN PRN PO DRY MOUTH Last administered on 04/15/17 15:42; Start 04/15/17 at 13:15 Sodium Chloride 500 ml @ 500 mls/hr 1X ONCE IV Last administered on 04/17/17 10:50; Start 04/17/17 at 11:00; Stop 04/17/17 at 11:59; Status DC Piperacillin Sod/ Tazobactam Sod 3.375 gm/Sodium Chloride 50 ml @ 100 mls/hr Q6HRS IV ; Start 04/17/17 at 11:30 Vancomycin HCl 1 gm/Sodium Chloride 250 ml @ 250 mls/hr Q12H IV ; Start at 10:45; Status UNV Vancomycin HCl 1.5 gm/Sodium Chloride 500 ml @ 250 mls/hr 1X ONCE IV ; Start 04/17/17 at 11:30; Stop 04/17/17 at 13:29 Vancomycin HCl (Vanco Per Pharmacy) 1 each PRN DAILY PRN MC SEE COMMENTS; Start 04/17/17 at 11:00 Iohexol (Omnipaque 300 Mg/ml) 75 ml 1X ONCE IV Last administered on 04/17/17 12:01; Start 04/17/17 at 11:00; Stop 04/17/17 at 11:01; Status DC Info (Do NOT chart on this entry -- for MONITORING) 1 each PRN DAILY PRN MC SEE COMMENTS; Start 04/17/17 at 11:00; Stop 04/19/17 at 10:59 Active Scripts Active Zofran Odt (Ondansetron) 4 Mg Tab.rapdis 4 Mg PO Q8HRS PRN [facility] 5-325 Tablet (Acetaminophen/Hydrocodone Bitart) 1 Each Tablet 1 Tab PO PRN Q6HRS PRN Reported Preservision Areds Softgel (Vit A/Vit C/Vit E/Zinc/Copper) 1 Each Capsule 2 Each PO DAILY Omeprazole 20 Mg Capsule. 1 Cap PO DAILY Centrum Silver Tablet (Multivits-Min/Fa/Lycopene/Lut) 1 Each Tablet 1 Each PO Preservision Areds Tablet (Vit A/Vit C/Vit E/Zinc/Copper) 1 Each Tablet 1 Each PO No Known Medications Prior To Admisstion (Info) Each 1 Each Vitals/I & O Vital Sign - Last 24 Hours 04/16/17 04/16/17 04/16/17 04/16/17 15:00 19:00 20:00 20:34 Temp 98.2 98.8 98.2 98.8 Pulse 77 80 Resp 18 20 20 B/P (MAP) 122/63 (82) 114/68 (83) Pulse Ox 97 97 97 O2 Delivery Room Air Room Air Room Air Room Air 04/16/17 04/16/17 04/16/17 04/17/17 22:49 23:00 23:30 03:00 Temp 98.1 99.6 98.1 99.6 Pulse 88 122 Resp 20 20 18 20 B/P (MAP) 103/66 (78) 120/76 (91) Pulse Ox 91 89 O2 Delivery Room Air Room Air Room Air 04/17/17 04/17/17 04/17/17 04/17/17 06:13 07:00 07:00 10:44 Temp 98.2 97.6 98.2 97.6 Pulse 89 84 Resp 20 20 20 B/P (MAP) 97/52 (67) 83/48 (60) Pulse Ox 89 92 91 O2 Delivery Room Air Room Air Room Air Room Air Intake and Output 04/16/17 04/16/17 04/17/17 15:00 23:00 07:00 Output Total 45 ml 150 ml 150 ml Balance -45 ml -150 ml -150 ml DORA ALBA III DO Apr 17, 2017 12:17
--- NOTE | 2017-04-17 12:55 | PDOC ---
Provider Note Provider Note SURG reviewed CT with radiologist SBO persists recommend exploration d/w Mr Edwards and his , including risks of bleeding, infection, possible need for bowel resection. They will proceed. CHELSY CADENA MD Apr 17, 2017 12:55
[2017-04-17 12:57] LABS: ALBUMIN 2.1 g/dL (3.4-5.0); ALBUMIN/GLOBULIN RATIO 0.5 (1.0-1.7); CALCIUM 8.9 mg/dL (8.5-10.1); CREATININE 1.1 mg/dL (0.7-1.3); GFR 65.3; POTASSIUM 4.7 mmol/L (3.5-5.1); TOTAL BILIRUBIN 0.8 mg/dL (0.2-1.0); TOTAL PROTEIN 6.6 g/dL (6.4-8.2)
--- NOTE | 2017-04-17 13:04 | RAD ---
Indication: Small bowel obstruction. Patient history of colon cancer and liver metastases. Axial imaging through the abdomen and pelvis was performed after the administration of intravenous contrast. Correlation is made with recent CT from 04/13/2017. Imaging through the lung bases do show areas of airspace infiltrate in bilateral lower lobes, new since the recent exam and consistent with pneumonia. There may be a small amount of pleural fluid on the right as well. Numerous hepatic low densities are again noted consistent with metastatic disease. Cholelithiasis is noted. The pancreas and spleen are unremarkable. No adrenal mass is identified. Large calculi in the lower pole left kidney and mid left kidney appears stable. The aorta is nonaneurysmal. Central retroperitoneal lymphadenopathy persists. Dilated and fluid-filled small bowel loops are again noted. There are normal caliber small bowel loops distally and findings are consistent with obstruction. This is likely at the level of the mid jejunum. There is a conglomerate of soft tissue in the left abdomen at the level of the aortic bifurcation which may represent site of the obstruction. The colon is decompressed. The bladder is unremarkable. Impression: 1. Dilated and fluid-filled small bowel loops with transition consistent with small bowel obstruction. Origin may be located in the left abdomen. No free air, pneumatosis or abscess formation is identified. 2. Development of bibasilar infiltrates and right pleural effusion.
[2017-04-17] MEDS: VANCOMYCIN PER PHARMACY MC PRN (13:12)
[2017-04-17] MEDS ORDERED: IV RINGERS,LACTATED 1000ML 1,000 ML IV SCH (13:47)
[2017-04-17] MEDS ORDERED: fentaNYL PF VIAL 250 MCG/5 ML VIAL ONE (13:49)
[2017-04-17] MEDS ORDERED: SUCCINYLCHOLINE 200 MG/10 ML VIAL. ONE (13:50)
[2017-04-17] MEDS ORDERED: ONDANSETRON PF 4 MG/2 ML VIAL. ONE (13:50)
[2017-04-17] MEDS ORDERED: DEXAMETHASONE SOD PHOS 20 MG/5 ML VIAL. ONE (13:50)
[2017-04-17] MEDS ORDERED: PROPOFOL 20 ML IV ONE (13:50)
[2017-04-17] MEDS ORDERED: ROCURONIUM 50 MG/5 ML VIAL. ONE (13:50)
[2017-04-17] MEDS ORDERED: DESFLURANE 61 TO 120 MINUTES IH ONE (13:50)
[2017-04-17] MEDS ORDERED: PHENYLEPHRINE in 0.9% NACL PF 1 MG/10 ML DISP.SYRIN. IV ONE (13:51)
[2017-04-17] MEDS ORDERED: LIDOCAINE 2% PF Vial for OR 5 ML VIAL. ONE (13:51)
[2017-04-17] MEDS ORDERED: ALBUMIN HUMAN 5% 500 ML IV ONE (13:57)
[2017-04-17] MEDS ORDERED: LIDOCAINE 1% 1 ML SYRINGE. ID PRN (14:00)
[2017-04-17] MEDS ORDERED: ONDANSETRON PF 4 MG/2 ML VIAL. IV PRN ×2 (14:00→16:15)
[2017-04-17] MEDS ORDERED: HYDROmorphone 2 MG/ML VIAL IV PRN (14:00)
[2017-04-17] MEDS ORDERED: fentaNYL PF VIAL 100 MCG/2 ML VIAL IV PRN (14:00)
[2017-04-17] MEDS ORDERED: PROCHLORPERAZINE 10 MG/2 ML VIAL. IV PRN (14:00)
[2017-04-17] MEDS: PIPERACILLIN/TAZOBACTAM 3.375 GM in IV NORMAL SALINE 50ML 50 ML IV SCH ×3 (14:05→23:34)
[2017-04-17] MEDS ORDERED: ESMOLOL 100 MG/10 ML VIAL. IV ONE (14:40)
[2017-04-17] MEDS: ENOXAPARIN 40 MG/0.4 ML SYRINGE. SQ SCH (14:54)
[2017-04-17] MEDS ORDERED: GLYCOPYRROLATE 1 MG/5 ML VIAL. ONE (15:12)
[2017-04-17] MEDS ORDERED: NEOSTIGMINE 10 MG/10 ML VIAL. ONE ×2 (15:12→15:14)
[2017-04-17] MEDS ORDERED: diphenhydrAMINE 50 MG/ML VIAL IV PRN (16:15)
[2017-04-17] MEDS ORDERED: 0.9 % SODIUM CHLORIDE 10 ML DISP.SYRIN. IV PRN (16:15)
--- NOTE | 2017-04-17 16:19 | PDOC ---
BRIEF OPERATIVE NOTE Date: Apr 17, 2017 Pre-Op Diagnosis SBO Post-Op Diagnosis same 2/2 tumor implant at base of small bowel mesentery Procedure Performed exploratory laparotomy, SBR with primary anastomosis Surgeon Silvano SANTOS Anesthesia Type: General Blood Loss 350cc IV Fluid 1700cc crystalloid 500cc albumin Urine Output 240cc Specimens Obtained mesenteric implant, segment of jejeunum Findings tumor in mesentery gnarling down the small bowel Complications none CHELSY CADENA MD Apr 17, 2017 16:19
[2017-04-17] MEDS: fentaNYL PF VIAL 100 MCG/2 ML VIAL IV PRN ×2 (16:41→16:59)
[2017-04-17] MEDS: IV 1/2 NORMAL SALINE 1,000 ML IV SCH (17:00)
--- NOTE | 2017-04-17 22:21 | OP ---
DATE OF SURGERY: 04/17/2017 PREOPERATIVE DIAGNOSIS: Small bowel obstruction. POSTOPERATIVE DIAGNOSIS: Small-bowel obstruction secondary to tumor implant at the base of the small bowel mesentery. PROCEDURE: Exploratory laparotomy, small bowel resection with primary anastomosis. SURGEON: Oleksandr Cadena MD [employer]ACHIN[employer] HELPER: TOM Shi ANESTHESIA: General endotracheal. ESTIMATED BLOOD LOSS: 350 mL. INTRAVENOUS FLUIDS: 1700 and 500 mL of albumin. URINE OUTPUT: 240 mL. INDICATIONS: The patient is a 77-year-old, little over a year out sigmoid resection for locally advanced carcinoma of the sigmoid. He now has liver metastasis and some peritoneal implants. He was admitted with a small-bowel obstruction, treated with gut rest, IV fluids, and NG decompression; however, the obstruction persisted and he is brought for exploration. OPERATIVE FINDINGS: There was extensive replacement of the liver with metastatic tumor, stomach was unremarkable with an NG tube in place. The proximal small bowel to mid jejunum was markedly dilated and bleeding down to a point of obstruction created by tumor implant at the base of the small bowel mesentery. The small bowel distal to the process was decompressed as was the colon. The appendix was unremarkable. DESCRIPTION OF PROCEDURE: The patient brought to the operating suite, given general endotracheal anesthetic. Tan catheter placement and drainage and the abdomen prepped and draped in usual sterile fashion. A midline incision from just above the umbilicus to just below it was made through the skin and subcutaneous tissue down the anterior sheath. Bleeders were cauterized or tied as identified. The fascia was opened in the midline. Peritoneum scored with cautery and we gained access into the abdominal cavity by taking the omentum off the abdominal wall. Abdomen explored with results as noted above. With the Omni self-retaining retractor for exposure we traced the area of obstruction and freed the bowel and adjacent tumor from the small bowel mesentery, taking care to avoid injury to the vessels. The bowel proximal and distal to the process was skeletonized and divided with a JESS stapler. The small bowel mesentery was serially clamped, divided and ligated with Vicryl ties and the specimen passed off. An end-to-end anastomosis was created with a posterior row of interrupted 3-0 Vicryl sutures. Bowel was occluded proximally and distally. Prior to resection an NG tube was passed retrograde into the proximal small bowel and approximately 600 mL of succus was evacuated to decompress the bowel prior to anastomosis. Staple lines excised. Mucosal anastomosis was created with a posterior row running lock stitch of 3-0 chromic. Anterior mucosal anastomosis was created in the same fashion. Anastomosis completed with an anterior row of interrupted 3-0 Vicryl pop offs. There was competency and patency of the anastomosis at completion. The mesenteric rent was carefully approximated with 2-0 chromic avoiding compromise of blood supply to the anastomosis. Gloves were changed and the abdomen was irrigated and evacuated and checked for adequate hemostasis. When present and a correct sponge count was obtained the incision was closed by running the posterior sheath peritoneum with 0 Vicryl. The anterior sheath was closed in a running fashion with looped 0 PDS tied in the middle. Subq was irrigated and checked for hemostasis. When present and a second sponge count was correct skin incision was closed loosely with michelle. Sterile dressing applied. Postop foreign body film was negative for unexplained foreign body. The patient was awakened from his anesthetic and taken to the recovery room in satisfactory condition. OLEKSANDR CADENA MD DR: CATHY/cr JOB#: [id number] / [id number]
[2017-04-17] MEDS: VANCOMYCIN 1 GM in IV NORMAL SALINE 250ML 250 ML IV SCH (23:37)
[2017-04-18] MEDS: AMINO AC 3%/ELECTROLYTE/GLYCER 1,000 ML IV SCH ×3 (01:52→23:53)
[2017-04-18 03:00] VITALS: BP 108/70
[2017-04-18] MEDS: PIPERACILLIN/TAZOBACTAM 3.375 GM in IV NORMAL SALINE 50ML 50 ML IV SCH ×4 (05:27→22:07)
[2017-04-18 07:00] VITALS: BP 110/63
--- NOTE | 2017-04-18 08:13 | RAD ---
Indication: Postop small bowel resection. Time of exam 1558 hours. An NG tube has the tip in the gastric body. Bowel gas pattern is nonobstructive. There is contrast within both renal collecting systems from recent CT. No unexpected radiopaque foreign objects are seen. Impression: Postop changes to the abdomen. No unexpected radiopaque foreign object identified.
[2017-04-18] MEDS: PANTOPRAZOLE IV PUSH 40 MG VIAL. IVP SCH (08:22)
[2017-04-18] MEDS ORDERED: ENOXAPARIN 40 MG/0.4 ML SYRINGE. SQ SCH (09:00)
--- NOTE | 2017-04-18 10:13 | PDOC ---
SURGICAL PROGRESS NOTE Subjective awake oriented after being a little confused post op last noc adequate pain control Vital Signs Vital Signs Date Time Temp Pulse Resp B/P (MAP) Pulse Ox O2 Delivery O2 Flow Rate FiO2 04/18/17 08:00 Nasal Cannula 2.0 04/18/17 07:00 97.7 98 20 110/63 (79) 96 97.7 I&O Intake and Output 04/18/17 07:00 Intake Total 1410 ml Output Total 1635 ml Balance -225 ml Intake Oral 100 ml IV Total 1310 ml Output Urine Total 1275 ml Gastric Drainage Total 10 ml Estimated Blood Loss 350 ml PATIENT HAS A CHAVEZ: Yes General: Alert, No acute distress Abdomen: Soft, Other (dressing intact) Labs Laboratory Tests Test 04/17/17 11:21 White Blood Count 8.3 x10^3/uL (4.0-11.0) Red Blood Count 4.37 x10^6/uL (4.30-5.70) Hemoglobin 12.6 g/dL (13.0-17.5) Hematocrit 38.2 % (39.0-53.0) Mean Corpuscular Volume 88 fL (79-100) Mean Corpuscular Hemoglobin 29 pg (25-35) Mean Corpuscular Hemoglobin Concent 33 g/dL (31-37) Red Cell Distribution Width 12.6 % (11.5-14.5) Platelet Count 232 x10^3/uL (140-400) Neutrophils (%) (Auto) 78 % (31-73) Lymphocytes (%) (Auto) 13 % (24-48) Monocytes (%) (Auto) 9 % (0-9) Eosinophils (%) (Auto) 0 % (0-3) Basophils (%) (Auto) 0 % (0-3) Neutrophils # (Auto) 6.5 x10^3uL (1.8-7.7) Lymphocytes # (Auto) 1.1 x10^3/uL (1.0-4.8) Monocytes # (Auto) 0.7 x10^3/uL (0.0-1.1) Eosinophils # (Auto) 0.0 x10^3/uL (0.0-0.7) Basophils # (Auto) 0.0 x10^3/uL (0.0-0.2) Sodium Level 133 mmol/L (136-145) Potassium Level 4.7 mmol/L (3.5-5.1) Chloride Level 97 mmol/L (98-107) Carbon Dioxide Level 28 mmol/L (21-32) Anion Gap 8 (6-14) Blood Urea Nitrogen 20 mg/dL (8-26) Creatinine 1.1 mg/dL (0.7-1.3) Estimated GFR (Cockcroft-Gault) 65.3 BUN/Creatinine Ratio 18 (6-20) Glucose Level 134 mg/dL (70-99) Lactic Acid Level 1.6 mmol/L (0.4-2.0) Calcium Level 8.9 mg/dL (8.5-10.1) Total Bilirubin 0.8 mg/dL (0.2-1.0) Aspartate Amino Transf (AST/SGOT) 94 U/L (15-37) Alanine Aminotransferase (ALT/SGPT) 24 U/L (16-63) Alkaline Phosphatase 146 U/L (46-116) Total Protein 6.6 g/dL (6.4-8.2) Albumin 2.1 g/dL (3.4-5.0) Albumin/Globulin Ratio 0.5 (1.0-1.7) Laboratory Tests Test 04/17/17 11:21 White Blood Count 8.3 x10^3/uL (4.0-11.0) Red Blood Count 4.37 x10^6/uL (4.30-5.70) Hemoglobin 12.6 g/dL (13.0-17.5) Hematocrit 38.2 % (39.0-53.0) Mean Corpuscular Volume 88 fL (79-100) Mean Corpuscular Hemoglobin 29 pg (25-35) Mean Corpuscular Hemoglobin Concent 33 g/dL (31-37) Red Cell Distribution Width 12.6 % (11.5-14.5) Platelet Count 232 x10^3/uL (140-400) Neutrophils (%) (Auto) 78 % (31-73) Lymphocytes (%) (Auto) 13 % (24-48) Monocytes (%) (Auto) 9 % (0-9) Eosinophils (%) (Auto) 0 % (0-3) Basophils (%) (Auto) 0 % (0-3) Neutrophils # (Auto) 6.5 x10^3uL (1.8-7.7) Lymphocytes # (Auto) 1.1 x10^3/uL (1.0-4.8) Monocytes # (Auto) 0.7 x10^3/uL (0.0-1.1) Eosinophils # (Auto) 0.0 x10^3/uL (0.0-0.7) Basophils # (Auto) 0.0 x10^3/uL (0.0-0.2) Sodium Level 133 mmol/L (136-145) Potassium Level 4.7 mmol/L (3.5-5.1) Chloride Level 97 mmol/L (98-107) Carbon Dioxide Level 28 mmol/L (21-32) Anion Gap 8 (6-14) Blood Urea Nitrogen 20 mg/dL (8-26) Creatinine 1.1 mg/dL (0.7-1.3) Estimated GFR (Cockcroft-Gault) 65.3 BUN/Creatinine Ratio 18 (6-20) Glucose Level 134 mg/dL (70-99) Lactic Acid Level 1.6 mmol/L (0.4-2.0) Calcium Level 8.9 mg/dL (8.5-10.1) Total Bilirubin 0.8 mg/dL (0.2-1.0) Aspartate Amino Transf (AST/SGOT) 94 U/L (15-37) Alanine Aminotransferase (ALT/SGPT) 24 U/L (16-63) Alkaline Phosphatase 146 U/L (46-116) Total Protein 6.6 g/dL (6.4-8.2) Albumin 2.1 g/dL (3.4-5.0) Albumin/Globulin Ratio 0.5 (1.0-1.7) Problem List Problems Medical Problems: (1) Small bowel torsion Status: Acute Assessment/Plan POD 1 SBR check labs in AM continue supportive care out of bed Problems: CHELSY CADENA MD Apr 18, 2017 10:13
[2017-04-18] MEDS ORDERED: ALBUMIN HUMAN 5% 500 ML IV ONE (10:30)
--- NOTE | 2017-04-18 10:40 | PDOC ---
Infectious Disease Note Vital Sign Vital Signs Vital Signs Date Time Temp Pulse Resp B/P (MAP) Pulse Ox O2 Delivery O2 Flow Rate FiO2 04/18/17 07:00 97.7 98 20 110/63 (79) 96 Nasal Cannula 3.0 97.7 Labs Lab Laboratory Tests Test 04/17/17 11:21 White Blood Count 8.3 x10^3/uL (4.0-11.0) Red Blood Count 4.37 x10^6/uL (4.30-5.70) Hemoglobin 12.6 g/dL (13.0-17.5) Hematocrit 38.2 % (39.0-53.0) Mean Corpuscular Volume 88 fL (79-100) Mean Corpuscular Hemoglobin 29 pg (25-35) Mean Corpuscular Hemoglobin Concent 33 g/dL (31-37) Red Cell Distribution Width 12.6 % (11.5-14.5) Platelet Count 232 x10^3/uL (140-400) Neutrophils (%) (Auto) 78 % (31-73) Lymphocytes (%) (Auto) 13 % (24-48) Monocytes (%) (Auto) 9 % (0-9) Eosinophils (%) (Auto) 0 % (0-3) Basophils (%) (Auto) 0 % (0-3) Neutrophils # (Auto) 6.5 x10^3uL (1.8-7.7) Lymphocytes # (Auto) 1.1 x10^3/uL (1.0-4.8) Monocytes # (Auto) 0.7 x10^3/uL (0.0-1.1) Eosinophils # (Auto) 0.0 x10^3/uL (0.0-0.7) Basophils # (Auto) 0.0 x10^3/uL (0.0-0.2) Sodium Level 133 mmol/L (136-145) Potassium Level 4.7 mmol/L (3.5-5.1) Chloride Level 97 mmol/L (98-107) Carbon Dioxide Level 28 mmol/L (21-32) Anion Gap 8 (6-14) Blood Urea Nitrogen 20 mg/dL (8-26) Creatinine 1.1 mg/dL (0.7-1.3) Estimated GFR (Cockcroft-Gault) 65.3 BUN/Creatinine Ratio 18 (6-20) Glucose Level 134 mg/dL (70-99) Lactic Acid Level 1.6 mmol/L (0.4-2.0) Calcium Level 8.9 mg/dL (8.5-10.1) Total Bilirubin 0.8 mg/dL (0.2-1.0) Aspartate Amino Transf (AST/SGOT) 94 U/L (15-37) Alanine Aminotransferase (ALT/SGPT) 24 U/L (16-63) Alkaline Phosphatase 146 U/L (46-116) Total Protein 6.6 g/dL (6.4-8.2) Albumin 2.1 g/dL (3.4-5.0) Albumin/Globulin Ratio 0.5 (1.0-1.7) Objective Assessment Fever Acute encephalopathy- improving Hypotension, responsive to IVF bolus. stable New pulmonary infiltrates with right pleural effusion SBO s/p exp lap, small bowel resection with primary anastomosis, 6/3 Metastatic colon cancer Plan Plan of Care vanc and zosyn f/u today's labs Incentive spirometry PT/OT Thank you [id number] Attending Co-Sign The patient was seen and interviewed as well as examined at the bedside. The chart was reviewed. The case was discussed. Agree with the plan of care. HARRIET YU APRN Apr 18, 2017 10:40 KELSY FATIMA MD Apr 18, 2017 14:18
[2017-04-18 11:00] VITALS: BP 106/63
[2017-04-18] MEDS: VANCOMYCIN 1 GM in IV NORMAL SALINE 250ML 250 ML IV SCH (12:00)
[2017-04-18 12:07] LABS: BASO % 0 % (0-3); EOS % 0 % (0-3); HEMATOCRIT 30.6 % (39.0-53.0); HEMOGLOBIN 10.3 g/dL (13.0-17.5); LYMPH # 1.2 x10^3/uL (1.0-4.8); LYMPH % 18 % (24-48); MEAN CORPUSCULAR HEMOGLOBIN 29 pg (25-35); MEAN CORPUSCULAR HGB CONC 34 g/dL (31-37); MEAN CORPUSCULAR VOLUME 87 fL (79-100); MONO % 7 % (0-9); NEUT % 75 % (31-73); PLATELET COUNT 219 x10^3/uL (140-400); RED BLOOD COUNT 3.52 x10^6/uL (4.30-5.70); RED CELL DISTRIBUTION WIDTH 12.6 % (11.5-14.5); WHITE BLOOD COUNT 6.7 x10^3/uL (4.0-11.0)
[2017-04-18] MEDS: VANCOMYCIN PER PHARMACY MC PRN ×2 (13:09→13:16)
[2017-04-18] MEDS: VANCOMYCIN 1.25 GM in IV NORMAL SALINE 250ML 250 ML IV SCH ×2 (14:43→23:51)
[2017-04-18 15:00] VITALS: BP 115/62
--- NOTE | 2017-04-18 15:48 | PDOC ---
PROGRESS NOTES Chief Complaint Chief Complaint 1. abd pain with N/V 2/2 SBO 2. metastatic colon Ca s/p sx, short term of chemo, mets to liver and retroperitoneal adenopathy 3. bl renal stones, non obstructive 4. 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 pain control is OK as long as he gets morphine Vitals Vitals Vital Signs Date Time Temp Pulse Resp B/P (MAP) Pulse Ox O2 Delivery O2 Flow Rate FiO2 04/18/17 11:00 97.9 94 20 106/63 (77) 92 Nasal Cannula 3.0 97.9 Physical Exam General: Alert, No acute distress Heart: Regular rate Lungs: Clear Abdomen: Soft, Other (dressing intact) Extremities: No clubbing Skin: No rashes Labs LABS Laboratory Tests Test 04/18/17 11:33 04/18/17 11:35 White Blood Count 6.7 x10^3/uL (4.0-11.0) Red Blood Count 3.52 x10^6/uL (4.30-5.70) Hemoglobin 10.3 g/dL (13.0-17.5) Hematocrit 30.6 % (39.0-53.0) Mean Corpuscular Volume 87 fL (79-100) Mean Corpuscular Hemoglobin 29 pg (25-35) Mean Corpuscular Hemoglobin Concent 34 g/dL (31-37) Red Cell Distribution Width 12.6 % (11.5-14.5) Platelet Count 219 x10^3/uL (140-400) Neutrophils (%) (Auto) 75 % (31-73) Lymphocytes (%) (Auto) 18 % (24-48) Monocytes (%) (Auto) 7 % (0-9) Eosinophils (%) (Auto) 0 % (0-3) Basophils (%) (Auto) 0 % (0-3) Neutrophils # (Auto) 5.1 x10^3uL (1.8-7.7) Lymphocytes # (Auto) 1.2 x10^3/uL (1.0-4.8) Monocytes # (Auto) 0.5 x10^3/uL (0.0-1.1) Eosinophils # (Auto) 0.0 x10^3/uL (0.0-0.7) Basophils # (Auto) 0.0 x10^3/uL (0.0-0.2) Vancomycin Level Trough 10.5 mcg/mL (10.0-20.0) Vancomycin Last Dose Date 04/17/17 Vancomycin Last Dose Time 7372 Review of Systems Review of Systems co weakness co nausea Assessment and Plan Assessmemt and Plan Problems Medical Problems: (1) Small bowel torsion Status: Acute 0. Probable sepsis 1. abd pain with N/V 2/2 SBO 2. metastatic colon Ca s/p sx, short term of chemo, mets to liver and retroperitoneal adenopathy 3. bl renal stones, non obstructive 4. leukocytosis, reactive Plan NG suctioning Recheck labs IV antibx Sepsis protocol Prog guarded Problems: Comment Review of Relevant I have reviewed the following items stephenie (where applicable) has been applied. Labs Laboratory Tests Test 04/17/17 11:21 04/18/17 11:33 04/18/17 11:35 White Blood Count 8.3 x10^3/uL (4.0-11.0) 6.7 x10^3/uL (4.0-11.0) Red Blood Count 4.37 x10^6/uL (4.30-5.70) 3.52 x10^6/uL (4.30-5.70) Hemoglobin 12.6 g/dL (13.0-17.5) 10.3 g/dL (13.0-17.5) Hematocrit 38.2 % (39.0-53.0) 30.6 % (39.0-53.0) Mean Corpuscular Volume 88 fL (79-100) 87 fL (79-100) Mean Corpuscular Hemoglobin 29 pg (25-35) 29 pg (25-35) Mean Corpuscular Hemoglobin Concent 33 g/dL (31-37) 34 g/dL (31-37) Red Cell Distribution Width 12.6 % (11.5-14.5) 12.6 % (11.5-14.5) Platelet Count 232 x10^3/uL (140-400) 219 x10^3/uL (140-400) Neutrophils (%) (Auto) 78 % (31-73) 75 % (31-73) Lymphocytes (%) (Auto) 13 % (24-48) 18 % (24-48) Monocytes (%) (Auto) 9 % (0-9) 7 % (0-9) Eosinophils (%) (Auto) 0 % (0-3) 0 % (0-3) Basophils (%) (Auto) 0 % (0-3) 0 % (0-3) Neutrophils # (Auto) 6.5 x10^3uL (1.8-7.7) 5.1 x10^3uL (1.8-7.7) Lymphocytes # (Auto) 1.1 x10^3/uL (1.0-4.8) 1.2 x10^3/uL (1.0-4.8) Monocytes # (Auto) 0.7 x10^3/uL (0.0-1.1) 0.5 x10^3/uL (0.0-1.1) Eosinophils # (Auto) 0.0 x10^3/uL (0.0-0.7) 0.0 x10^3/uL (0.0-0.7) Basophils # (Auto) 0.0 x10^3/uL (0.0-0.2) 0.0 x10^3/uL (0.0-0.2) Sodium Level 133 mmol/L (136-145) Potassium Level 4.7 mmol/L (3.5-5.1) Chloride Level 97 mmol/L (98-107) Carbon Dioxide Level 28 mmol/L (21-32) Anion Gap 8 (6-14) Blood Urea Nitrogen 20 mg/dL (8-26) Creatinine 1.1 mg/dL (0.7-1.3) Estimated GFR (Cockcroft-Gault) 65.3 BUN/Creatinine Ratio 18 (6-20) Glucose Level 134 mg/dL (70-99) Lactic Acid Level 1.6 mmol/L (0.4-2.0) Calcium Level 8.9 mg/dL (8.5-10.1) Total Bilirubin 0.8 mg/dL (0.2-1.0) Aspartate Amino Transf (AST/SGOT) 94 U/L (15-37) Alanine Aminotransferase (ALT/SGPT) 24 U/L (16-63) Alkaline Phosphatase 146 U/L (46-116) Total Protein 6.6 g/dL (6.4-8.2) Albumin 2.1 g/dL (3.4-5.0) Albumin/Globulin Ratio 0.5 (1.0-1.7) Vancomycin Level Trough 10.5 mcg/mL (10.0-20.0) Vancomycin Last Dose Date 04/17/17 Vancomycin Last Dose Time 2336 Laboratory Tests Test 04/18/17 11:33 04/18/17 11:35 White Blood Count 6.7 x10^3/uL (4.0-11.0) Red Blood Count 3.52 x10^6/uL (4.30-5.70) Hemoglobin 10.3 g/dL (13.0-17.5) Hematocrit 30.6 % (39.0-53.0) Mean Corpuscular Volume 87 fL (79-100) Mean Corpuscular Hemoglobin 29 pg (25-35) Mean Corpuscular Hemoglobin Concent 34 g/dL (31-37) Red Cell Distribution Width 12.6 % (11.5-14.5) Platelet Count 219 x10^3/uL (140-400) Neutrophils (%) (Auto) 75 % (31-73) Lymphocytes (%) (Auto) 18 % (24-48) Monocytes (%) (Auto) 7 % (0-9) Eosinophils (%) (Auto) 0 % (0-3) Basophils (%) (Auto) 0 % (0-3) Neutrophils # (Auto) 5.1 x10^3uL (1.8-7.7) Lymphocytes # (Auto) 1.2 x10^3/uL (1.0-4.8) Monocytes # (Auto) 0.5 x10^3/uL (0.0-1.1) Eosinophils # (Auto) 0.0 x10^3/uL (0.0-0.7) Basophils # (Auto) 0.0 x10^3/uL (0.0-0.2) Vancomycin Level Trough 10.5 mcg/mL (10.0-20.0) Vancomycin Last Dose Date 04/17/17 Vancomycin Last Dose Time 2336 Microbiology 04/13/17 Urine Culture - Final, Complete 04/13/17 Urine Culture Result 1 (RASHAWN) - Final, Complete Medications Current Medications Sodium Chloride 1,000 ml @ 1,000 mls/hr 1X ONCE IV Last administered on 12:46; Start 04/13/17 at 13:00; Stop 04/13/17 at 13:59; Status DC Ondansetron HCl (Zofran) 4 mg 1X ONCE IV Last administered on 04/13/17 12:46 ; Start 04/13/17 at 13:00; Stop 04/13/17 at 13:01; Status DC Iohexol (Omnipaque 300 Mg/ml) 60 ml 1X ONCE IV Last administered on 04/13/17 13:20; Start 04/13/17 at 13:15; Stop 04/13/17 at 13:16; Status DC Info (Do NOT chart on this entry -- for MONITORING) 1 each PRN DAILY PRN MC SEE COMMENTS; Start 04/13/17 at 13:15; Stop 04/15/17 at 13:14; Status DC Ondansetron HCl (Zofran) 4 mg PRN Q8HRS PRN IV NAUSEA/VOMITING; Start 04/13/17 at 14:45; Stop 04/14/17 at 10:50; Status DC Morphine Sulfate 4 mg PRN Q2HR PRN IV PAIN Last administered on 04/14/17 03:57 ; Start 04/13/17 at 14:45; Stop 04/14/17 at 10:49; Status DC Acetaminophen (Tylenol) 650 mg PRN Q6HRS PRN PO FEVER; Start 04/13/17 at 15:30 Ondansetron HCl (Zofran) 4 mg PRN Q6HRS PRN IV NAUSEA/VOMITING Last administered on 04/17/17 09:00; Start 04/13/17 at 15:30 Morphine Sulfate 2 mg PRN Q2HR PRN IV MILD PAIN Last administered on 04/17/17 06:13; Start 04/13/17 at 15:30 Tramadol HCl (Ultram) 50 mg PRN Q6HRS PRN PO PAIN; Start 04/13/17 at 15:30 Hydralazine HCl (Apresoline) 10 mg PRN Q4HRS PRN IVP ELEVATED BP, SEE COMMENTS ; Start 04/13/17 at 15:30 Docusate Sodium (Colace) 100 mg PRN DAILY PRN PO CONSTIPATION; Start 04/13/17 at 15:30 Amino Acids/ Glycerin/ Electrolytes 1,000 ml @ 80 mls/hr [id number] IV Last administered on 04/18/17 08:23; Start 04/13/17 at 16:00 Morphine Sulfate 4 mg PRN Q2HR PRN IV MOD - SEVERE PAIN Last administered on 09:01; Start 04/13/17 at 15:30 Enoxaparin Sodium (Lovenox 40mg Syringe) 40 mg Q24H SQ Last administered on 04/16 14:44; Start 04/13/17 at 16:00 Pantoprazole Sodium (Protonix Vial) 40 mg DAILYAC IVP Last administered on 08:22; Start 04/14/17 at 07:30 Throat Lozenges (Chloraseptic) 1 spray PRN Q2HR PRN PO SORE THROAT; Start 04/13 at 17:45 Throat Lozenges (Cepacol Sore Throat Lozenge) 1 sheron PRN Q2HRS PRN PO SORE THROAT Last administered on 04/14/17 10:28; Start 04/13/17 at 17:45 Saliva Substitute (Biotene Moisturizing Mouth) 2 spray PRN Q15MIN PRN PO DRY MOUTH Last administered on 04/15/17 15:42; Start 04/15/17 at 13:15 Sodium Chloride 500 ml @ 500 mls/hr 1X ONCE IV Last administered on 04/17/17 10:50; Start 04/17/17 at 11:00; Stop 04/17/17 at 11:59; Status DC Piperacillin Sod/ Tazobactam Sod 3.375 gm/Sodium Chloride 50 ml @ 100 mls/hr Q6HRS IV Last administered on 04/18/17 12:01; Start 04/17/17 at 11:30 Vancomycin HCl 1 gm/Sodium Chloride 250 ml @ 250 mls/hr Q12H IV ; Start at 10:45; Status UNV Vancomycin HCl 1.5 gm/Sodium Chloride 500 ml @ 250 mls/hr 1X ONCE IV Last administered on 04/17/17 12:26; Start 04/17/17 at 11:30; Stop 04/17/17 at 13:29; Status DC Vancomycin HCl (Vanco Per Pharmacy) 1 each PRN DAILY PRN MC SEE COMMENTS Last administered on 04/18/17 13:16; Start 04/17/17 at 11:00 Iohexol (Omnipaque 300 Mg/ml) 75 ml 1X ONCE IV Last administered on 04/17/17 12:01; Start 04/17/17 at 11:00; Stop 04/17/17 at 11:01; Status DC Info (Do NOT chart on this entry -- for MONITORING) 1 each PRN DAILY PRN MC SEE COMMENTS; Start 04/17/17 at 11:00; Stop 04/19/17 at 10:59 Metronidazole 100 ml @ 100 mls/hr 1X PREOP PRN IV prophylaxis; Start 04/18/17 at 06:00; Stop 04/18/17 at 18:00 Vancomycin HCl 1 gm/Sodium Chloride 250 ml @ 250 mls/hr Q12H IV Last administered on 04/17/17 23:37; Start 04/18/17 at 00:00; Stop 04/18/17 at 12:47; Status DC Vancomycin HCl 1 each 1X ONCE MC ; Start 04/20/17 at 00:30; Stop 04/20/17 at 00: 31 Ondansetron HCl (Zofran) 4 mg PRN Q6HRS PRN IV NAUSEA/VOMITING; Start 04/17/17 at 14:00; Stop 04/18/17 at 13:59; Status DC Fentanyl Citrate (Fentanyl 2ml Vial) 25 mcg PRN Q5MIN PRN IV MILD PAIN; Start 04/17/17 at 14:00; Stop 04/18/17 at 13:59; Status DC Fentanyl Citrate (Fentanyl 2ml Vial) 50 mcg PRN Q5MIN PRN IV MODERATE PAIN Last administered on 04/17/17 16:59; Start 04/17/17 at 14:00; Stop 04/18/17 at 13: 59; Status DC Morphine Sulfate 1 mg PRN Q10MIN PRN IV SEVERE PAIN Last administered on 16:44; Start 04/17/17 at 14:00; Stop 04/18/17 at 13:59; Status DC Ringer's Solution 1,000 ml @ 30 mls/hr Q24H IV ; Start 04/17/17 at 13:47; Stop 04/18/17 at 01:46; Status DC Lidocaine HCl 2 ml PRN 1X PRN ID PRIOR TO IV START; Start 04/17/17 at 14:00; Stop 04/18/17 at 13:59; Status DC Hydromorphone HCl (Dilaudid) 0.5 mg PRN Q10MIN PRN IV SEV PAIN, Second choice; Start 04/17/17 at 14:00; Stop 04/18/17 at 13:59; Status DC Prochlorperazine Edisylate (Compazine) 5 mg PACU PRN PRN IV NAUSEA, MRX1; Start 04/17/17 at 14:00; Stop 04/18/17 at 13:59; Status DC Fentanyl Citrate (Fentanyl 5ml Vial) 250 mcg STK-MED ONCE .ROUTE ; Start at 13:49; Stop 04/17/17 at 13:50; Status DC Succinylcholine Chloride (Anectine) 200 mg STK-MED ONCE .ROUTE ; Start 04/17/17 at 13:50; Stop 04/17/17 at 13:51; Status DC Rocuronium [place] (Zemuron) 50 mg STK-MED ONCE .ROUTE ; Start 04/17/17 at 13:50 ; Stop 04/17/17 at 13:51; Status DC Desflurane (Suprane) 60 ml STK-MED ONCE IH ; Start 04/17/17 at 13:50; Stop at 13:51; Status DC Dexamethasone Sodium Phosphate (Decadron) 20 mg STK-MED ONCE .ROUTE ; Start 04/17 at 13:50; Stop 04/17/17 at 13:51; Status DC Propofol 20 ml @ As Directed STK-MED ONCE IV ; Start 04/17/17 at 13:50; Stop 04/17 at 13:51; Status DC Ondansetron HCl (Zofran) 4 mg STK-MED ONCE .ROUTE ; Start 04/17/17 at 13:50; Stop 04/17/17 at 13:51; Status DC Phenylephrine HCl 1 mg STK-MED ONCE IV ; Start 04/17/17 at 13:51; Stop 04/17/17 at 13:52; Status DC Lidocaine HCl (Lidocaine Pf 2% Vial) 5 ml STK-MED ONCE .ROUTE ; Start 04/17/17 at 13:51; Stop 04/17/17 at 13:52; Status DC Albumin Human 500 ml @ As Directed STK-MED ONCE IV ; Start 04/17/17 at 13:57; Stop 04/17/17 at 13:58; Status DC Esmolol HCl (Brevibloc) 100 mg STK-MED ONCE IV ; Start 04/17/17 at 14:40; Stop at 14:41; Status DC Neostigmine Methylsulfate (Bloxiverz) 10 mg STK-MED ONCE .ROUTE ; Start 04/17/17 at 15:12; Stop 04/17/17 at 15:13; Status DC Glycopyrrolate (Robinul) 1 mg STK-MED ONCE .ROUTE ; Start 04/17/17 at 15:12; Stop 04/17/17 at 15:13; Status DC Neostigmine Methylsulfate (Bloxiverz) 10 mg STK-MED ONCE .ROUTE ; Start 04/17/17 at 15:14; Stop 04/17/17 at 15:15; Status DC Diphenhydramine HCl (Benadryl) 25 mg PRN Q6HRS PRN IV ITCHING; Start 04/17/17 at 16:15 Enoxaparin Sodium (Lovenox 40mg Syringe) 40 mg Q24H SQ ; Start 04/18/17 at 09:00 ; Status UNV Sodium Chloride (Normal Saline Flush) 3 ml QSHIFT PRN IV AFTER MEDS AND BLOOD DRAWS; Start 04/17/17 at 16:15 Sodium Chloride 1,000 ml @ 30 mls/hr Q24H IV ; Start 04/17/17 at 17:00 Hydromorphone HCl 30 ml @ 0 mls/hr CONT PRN PRN IV PROTOCOL Last administered on 04/17/17 16:51; Start 04/17/17 at 16:15 Ondansetron HCl (Zofran) 4 mg PRN Q6HRS PRN IV NAUESA, 1ST CHOICE; Start at 16:15; Status UNV Albumin Human 500 ml @ 50 mls/hr 1X ONCE IV Last administered on 04/18/17 10: 40; Start 04/18/17 at 10:30; Stop 04/18/17 at 20:29 Vancomycin HCl 1.25 gm/Sodium Chloride 250 ml @ 167 mls/hr Q12H IV Last administered on 04/18/17t 14:43; Start 04/18/17 at 13:00 Active Scripts Active Zofran Odt (Ondansetron) 4 Mg Tab.rapdis 4 Mg PO Q8HRS PRN [place] 5-325 Tablet (Acetaminophen/Hydrocodone Bitart) 1 Each Tablet 1 Tab PO PRN Q6HRS PRN Reported Preservision Areds Softgel (Vit A/Vit C/Vit E/Zinc/Copper) 1 Each Capsule 2 Each PO DAILY Omeprazole 20 Mg Capsule.dr 1 Cap PO DAILY Centrum Silver Tablet (Multivits-Min/Fa/Lycopene/Lut) 1 Each Tablet 1 Each PO Preservision Areds Tablet (Vit A/Vit C/Vit E/Zinc/Copper) 1 Each Tablet 1 Each PO No Known Medications Prior To Admisstion (Info) Each 1 Each Vitals/I & O Vital Sign - Last 24 Hours 04/17/17 04/17/17 04/17/17 04/17/17 16:15 16:15 16:26 16:30 Temp 100.6 100.6 Pulse 132 118 Resp 22 22 22 B/P (MAP) 160/78 148/76 Pulse Ox 97 91 92 O2 Delivery Simple Mask Mask Room Air Simple Mask O2 Flow Rate 10 10 10 04/17/17 04/17/17 04/17/17 04/17/17 16:41 16:44 16:45 16:51 Pulse 110 Resp 22 20 20 B/P (MAP) 133/66 Pulse Ox 91 91 93 94 O2 Delivery Simple Mask Nasal Cannula Simple Mask O2 Flow Rate 10.0 10.0 2 10.0 04/17/17 04/17/17 04/17/17 04/17/17 16:59 17:00 17:06 17:15 Temp 99.1 99.1 99.1 99.1 Pulse 110 104 Resp 21 18 B/P (MAP) 125/65 119/63 Pulse Ox 94 93 94 O2 Delivery Nasal Cannula Nasal Cannula Nasal Cannula O2 Flow Rate 10.0 4 4 3 04/17/17 04/17/17 04/17/17 04/17/17 17:30 17:45 18:00 18:15 Temp 97.9 98.2 97.9 98.2 Pulse 103 113 112 111 Resp 18 24 B/P (MAP) 119/66 133/73 (93) 114/66 (82) 124/73 (90) Pulse Ox 94 93 91 93 O2 Delivery Nasal Cannula Nasal Cannula Nasal Cannula Nasal Cannula O2 Flow Rate 3 3.0 3.0 3.0 04/17/17 04/17/17 04/17/17 04/17/17 18:30 18:45 19:15 19:45 Temp 97.8 97.8 Pulse 110 106 107 101 Resp 20 18 20 B/P (MAP) 117/65 (82) 110/67 (81) 133/75 (94) 110/67 (81) Pulse Ox 93 96 95 94 O2 Delivery Nasal Cannula Nasal Cannula Nasal Cannula Nasal Cannula O2 Flow Rate 3.0 3.0 3.0 3.0 04/17/17 04/17/17 04/17/17 04/17/17 20:00 20:24 21:45 23:00 Temp 98.1 98.1 Pulse 109 101 99 Resp 20 20 B/P (MAP) 114/68 (83) 110/63 (79) 105/65 (78) Pulse Ox 96 94 95 O2 Delivery Nasal Cannula Nasal Cannula Nasal Cannula Nasal Cannula O2 Flow Rate 3.0 3.0 3.0 3.0 04/18/17 04/18/17 04/18/17 04/18/17 03:00 07:00 08:00 11:00 Temp 97.8 97.7 97.9 97.8 97.7 97.9 Pulse 95 98 94 Resp 20 20 B/P (MAP) 108/70 (83) 110/63 (79) 106/63 (77) Pulse Ox 96 96 92 O2 Delivery Nasal Cannula Nasal Cannula Nasal Cannula Nasal Cannula O2 Flow Rate 3.0 3.0 2.0 3.0 Intake and Output 04/17/17 04/17/17 04/18/17 15:00 23:00 07:00 Intake Total 1410 ml Output Total 10 ml 900 ml 725 ml Balance -10 ml -900 ml 685 ml DIXON ALBAL K III DO Apr 18, 2017 15:48
[2017-04-18] MEDS: IV 1/2 NORMAL SALINE 1,000 ML IV SCH (17:00)
[2017-04-18] MEDS: ENOXAPARIN 40 MG/0.4 ML SYRINGE. SQ SCH (18:07)
[2017-04-18 19:00] VITALS: BP 139/64
[2017-04-18 23:00] VITALS: BP 153/66
--- NOTE | 2017-04-19 00:19 | CONS ---
DATE OF CONSULTATION: 04/17/2017 REQUESTING PHYSICIAN: Dr. Pressley. REASON FOR CONSULTATION: Possible early sepsis. HISTORY OF PRESENT ILLNESS: This patient is a pleasant 77-year-old male with a past medical history of locally advanced colon cancer, status post resection on 03/04/2016. He was on chemotherapy for a short period of time, but now off due to intolerance. He presented on April 13 with worsening abdominal pain, nausea and vomiting. A CT abdomen/pelvis revealed progressive metastatic disease, retroperitoneal adenopathy and a high-grade mechanical small-bowel obstruction. He was initially on conservative treatment consisting of bowel rest, IV fluids, and NG decompression. However, he later became confused, and hypotensive, responsive to IV fluid bolus. His white blood cell count remained normal. A repeat CT abdomen/pelvis showed persistent small-bowel obstruction as well as development of bibasilar infiltrates and right pleural effusion. On April 17, Dr. Schaefer performed an exploratory laparotomy, small bowel resection with primary anastomosis. . The patient is resting comfortably at the moment. He says his pain is controlled with PRACTICAL NURSE. Denies nausea or vomiting. He has not had a bowel movement yet. Denies cough, shortness of air or chest discomfort. He has a postop indwelling Tan still in place. PAST MEDICAL HISTORY: Colon cancer, gastroesophageal reflux disease, Hernandez's esophagus. PAST SURGICAL HISTORY: Previous bowel resection in 2016, cataract extraction, vasectomy, open reduction and internal fixation of right femur. SOCIAL HISTORY: The patient is . He lives at home. Nonsmoker. Drinks a glass of wine on occasion. 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 FAMILY HISTORY: His father had lymphoma. His sister had colon cancer. Paternal grandmother had diabetes. ALLERGIES: No known drug allergies. MEDICATIONS: Vancomycin, piperacillin/tazobactam, one-time dose of Decadron and metronidazole preop. Other medications are available and have been reviewed on the MAR. REVIEW OF SYSTEMS: Per HPI, otherwise all other review of systems are negative. PHYSICAL EXAMINATION: GENERAL: Pleasant male, propped up in bed, in no apparent distress. VITAL SIGNS: Temperature 97.7, T-max is 100.6, blood pressure 110/63, heart rate 98, respiratory rate 20, pulse oximetry is 96% on 3 liters nasal cannula. Weight is 142 pounds. BMI of 19.8. HEENT: Pupils equally round. Normal conjunctivae. Oral mucosa is pink and dry. No lesions seen. NG tube in place. LUNGS: Clear to auscultation. Nonlabored. HEART: Normal S1 and S2. ABDOMEN: Mildly distended. Bowel sounds are present, soft, nontender to light palpation. Midline dressing dry and intact. GENITOURINARY: Indwelling Tan in place. EXTREMITIES: Bilateral lower extremity trace edema. BHUPINDER hose and compression stockings on. No cyanosis. SKIN: Without rash. Warm to touch. Peripheral IV looks okay. NEUROLOGIC: Alert, somewhat confused, follows commands appropriately. Moves all extremities. LABORATORY DATA: Today's CBC is pending. Most recent WBC 8.3, hemoglobin 12.6, platelet count of 232,000. Sodium 133, potassium 4.7, creatinine 1.1, BUN 20, lactic acid 1.6. Total bilirubin 0.8, AST 94, ALT 24, albumin 2.1, lipase 108. Urinalysis for infection. Urine culture negative. Blood cultures pending. Abdominal/pelvis CT per HPI. IMPRESSION: 1. Fever. 2. Acute encephalopathy, slowly improving. 3. Hypotensive, responsive to IV fluid bolus, now stable. 4. New pulmonary infiltrates with right pleural effusion. 5. Small-bowel obstruction, status post exploratory laparotomy, small bowel resection with primary anastomosis on 04/17/2017. 6. Metastatic colon cancer. PLAN: Continue the vancomycin and Zosyn for now. We will follow up on today's labs. I expect WBCs to increase due to recent steroids. Encourage incentive spirometry and mobility. PT and OT. Thank you, Dr. Pressley, for asking us to participate in this patient's care. Should you have further questions or concerns, please call. KELSY FATIMA MD DR: OCTAVIO/cr JOB#: [id number] / [id number]
[2017-04-19 03:00] VITALS: BP 138/94
[2017-04-19] MEDS: PIPERACILLIN/TAZOBACTAM 3.375 GM in IV NORMAL SALINE 50ML 50 ML IV SCH ×3 (05:20→17:42)
[2017-04-19 05:41] LABS: BASO % 0 % (0-3); EOS % 0 % (0-3); HEMATOCRIT 29.8 % (39.0-53.0); HEMOGLOBIN 10.3 g/dL (13.0-17.5); LYMPH % 14 % (24-48); MEAN CORPUSCULAR HEMOGLOBIN 30 pg (25-35); MEAN CORPUSCULAR HGB CONC 34 g/dL (31-37); MEAN CORPUSCULAR VOLUME 86 fL (79-100); MONO % 7 % (0-9); NEUT % 80 % (31-73); PLATELET COUNT 236 x10^3/uL (140-400); RED BLOOD COUNT 3.48 x10^6/uL (4.30-5.70); RED CELL DISTRIBUTION WIDTH 12.5 % (11.5-14.5); WHITE BLOOD COUNT 7.3 x10^3/uL (4.0-11.0)
[2017-04-19 05:57] LABS: ALBUMIN 2.2 g/dL (3.4-5.0); CALCIUM 8.5 mg/dL (8.5-10.1); CREATININE 0.8 mg/dL (0.7-1.3); GFR 94.2; POTASSIUM 3.8 mmol/L (3.5-5.1)
[2017-04-19 07:00] VITALS: BP 137/69
--- NOTE | 2017-04-19 08:30 | PDOC ---
Infectious Disease Note Subjective Subjective feeling ok, NG in place ROS ROS GEN: Denies fevers, chills, sweats HEENT: Denies blurred vision, sore throat CV: Denies chest pain RESP: Denies shortness of air, cough GI: Denies n/v/d NEURO: Denies confusion, dizziness Vital Sign Vital Signs Vital Signs Date Time Temp Pulse Resp B/P (MAP) Pulse Ox O2 Delivery O2 Flow Rate FiO2 04/19/17 07:00 97.8 96 22 137/69 (91) 96 Nasal Cannula 2.0 97.8 Physical Exam PHYSICAL EXAM GENERAL: NAD, Alert NG in place HEENT: PERRL, OC/OP NECK: Supple, no JVD, no LN LUNGS: Clear HEART: S1S2, no gallop, no murmur ABD: Soft, NT, no organomegaly, no rebound,, incision good EXT: No edema, no cyanosis RUG SAMPLE BEVELER: Alert, oriented x 3, no focal neurologic deficit SKIN: No rash IV: ok Labs Lab Laboratory Tests Test 04/18/17 11:33 04/18/17 11:35 04/19/17 05:15 White Blood Count 6.7 x10^3/uL (4.0-11.0) 7.3 x10^3/uL (4.0-11.0) Red Blood Count 3.52 x10^6/uL (4.30-5.70) 3.48 x10^6/uL (4.30-5.70) Hemoglobin 10.3 g/dL (13.0-17.5) 10.3 g/dL (13.0-17.5) Hematocrit 30.6 % (39.0-53.0) 29.8 % (39.0-53.0) Mean Corpuscular Volume 87 fL (79-100) 86 fL (79-100) Mean Corpuscular Hemoglobin 29 pg (25-35) 30 pg (25-35) Mean Corpuscular Hemoglobin Concent 34 g/dL (31-37) 34 g/dL (31-37) Red Cell Distribution Width 12.6 % (11.5-14.5) 12.5 % (11.5-14.5) Platelet Count 219 x10^3/uL (140-400) 236 x10^3/uL (140-400) Neutrophils (%) (Auto) 75 % (31-73) 80 % (31-73) Lymphocytes (%) (Auto) 18 % (24-48) 14 % (24-48) Monocytes (%) (Auto) 7 % (0-9) 7 % (0-9) Eosinophils (%) (Auto) 0 % (0-3) 0 % (0-3) Basophils (%) (Auto) 0 % (0-3) 0 % (0-3) Neutrophils # (Auto) 5.1 x10^3uL (1.8-7.7) 5.8 x10^3uL (1.8-7.7) Lymphocytes # (Auto) 1.2 x10^3/uL (1.0-4.8) 1.0 x10^3/uL (1.0-4.8) Monocytes # (Auto) 0.5 x10^3/uL (0.0-1.1) 0.5 x10^3/uL (0.0-1.1) Eosinophils # (Auto) 0.0 x10^3/uL (0.0-0.7) 0.0 x10^3/uL (0.0-0.7) Basophils # (Auto) 0.0 x10^3/uL (0.0-0.2) 0.0 x10^3/uL (0.0-0.2) Vancomycin Level Trough 10.5 mcg/mL (10.0-20.0) Vancomycin Last Dose Date 04/17/17 Vancomycin Last Dose Time 2337 Sodium Level 135 mmol/L (136-145) Potassium Level 3.8 mmol/L (3.5-5.1) Chloride Level 100 mmol/L (98-107) Carbon Dioxide Level 29 mmol/L (21-32) Anion Gap 6 (6-14) Blood Urea Nitrogen 14 mg/dL (8-26) Creatinine 0.8 mg/dL (0.7-1.3) Estimated GFR (Cockcroft-Gault) 94.2 Glucose Level 100 mg/dL (70-99) Calcium Level 8.5 mg/dL (8.5-10.1) Albumin 2.2 g/dL (3.4-5.0) Objective Assessment Fever Acute encephalopathy- improving Hypotension, responsive to IVF bolus. stable New pulmonary infiltrates with right pleural effusion SBO s/p exp lap, small bowel resection with primary anastomosis, 6 Metastatic colon cancer Plan Plan of Care fina,, d/c vanc f/u today's labs Incentive spirometry PT/OT KELSY FATIMA MD Apr 19, 2017 08:30
[2017-04-19] MEDS: PANTOPRAZOLE IV PUSH 40 MG VIAL. IVP SCH (09:18)
--- NOTE | 2017-04-19 09:26 | PDOC ---
PIYUSH ECHEVERRIA MACHINE FANCY STITCHER 04/19/17 0926: SURGICAL PROGRESS NOTE Subjective feeling better, had a bed bath + flatus Vital Signs Vital Signs Date Time Temp Pulse Resp B/P (MAP) Pulse Ox O2 Delivery O2 Flow Rate FiO2 04/19/17 07:00 97.8 96 22 137/69 (91) 96 Nasal Cannula 2.0 97.8 I&O Intake and Output 04/19/17 07:00 Intake Total 50 ml Output Total 1555 ml Balance -1505 ml Intake Oral 50 ml Output Urine Total 1475 ml Gastric Drainage Total 80 ml General: Alert, Cooperative HEENT: Other (NG bilious ) Abdomen: Soft, Other (dressing dry ) Labs Laboratory Tests Test 04/17/17 11:21 04/18/17 11:33 04/18/17 11:35 04/19/17 05:15 White Blood Count 8.3 x10^3/uL (4.0-11.0) 6.7 x10^3/uL (4.0-11.0) 7.3 x10^3/uL (4.0-11.0) Red Blood Count 4.37 x10^6/uL (4.30-5.70) 3.52 x10^6/uL (4.30-5.70) 3.48 x10^6/uL (4.30-5.70) Hemoglobin 12.6 g/dL (13.0-17.5) 10.3 g/dL (13.0-17.5) 10.3 g/dL (13.0-17.5) Hematocrit 38.2 % (39.0-53.0) 30.6 % (39.0-53.0) 29.8 % (39.0-53.0) Mean Corpuscular Volume 88 fL (79-100) 87 fL (79-100) 86 fL (79-100) Mean Corpuscular Hemoglobin 29 pg (25-35) 29 pg (25-35) 30 pg (25-35) Mean Corpuscular Hemoglobin Concent 33 g/dL (31-37) 34 g/dL (31-37) 34 g/dL (31-37) Red Cell Distribution Width 12.6 % (11.5-14.5) 12.6 % (11.5-14.5) 12.5 % (11.5-14.5) Platelet Count 232 x10^3/uL (140-400) 219 x10^3/uL (140-400) 236 x10^3/uL (140-400) Neutrophils (%) (Auto) 78 % (31-73) 75 % (31-73) 80 % (31-73) Lymphocytes (%) (Auto) 13 % (24-48) 18 % (24-48) 14 % (24-48) Monocytes (%) (Auto) 9 % (0-9) 7 % (0-9) 7 % (0-9) Eosinophils (%) (Auto) 0 % (0-3) 0 % (0-3) 0 % (0-3) Basophils (%) (Auto) 0 % (0-3) 0 % (0-3) 0 % (0-3) Neutrophils # (Auto) 6.5 x10^3uL (1.8-7.7) 5.1 x10^3uL (1.8-7.7) 5.8 x10^3uL (1.8-7.7) Lymphocytes # (Auto) 1.1 x10^3/uL (1.0-4.8) 1.2 x10^3/uL (1.0-4.8) 1.0 x10^3/uL (1.0-4.8) Monocytes # (Auto) 0.7 x10^3/uL (0.0-1.1) 0.5 x10^3/uL (0.0-1.1) 0.5 x10^3/uL (0.0-1.1) Eosinophils # (Auto) 0.0 x10^3/uL (0.0-0.7) 0.0 x10^3/uL (0.0-0.7) 0.0 x10^3/uL (0.0-0.7) Basophils # (Auto) 0.0 x10^3/uL (0.0-0.2) 0.0 x10^3/uL (0.0-0.2) 0.0 x10^3/uL (0.0-0.2) Sodium Level 133 mmol/L (136-145) 135 mmol/L (136-145) Potassium Level 4.7 mmol/L (3.5-5.1) 3.8 mmol/L (3.5-5.1) Chloride Level 97 mmol/L (98-107) 100 mmol/L (98-107) Carbon Dioxide Level 28 mmol/L (21-32) 29 mmol/L (21-32) Anion Gap 8 (6-14) 6 (6-14) Blood Urea Nitrogen 20 mg/dL (8-26) 14 mg/dL (8-26) Creatinine 1.1 mg/dL (0.7-1.3) 0.8 mg/dL (0.7-1.3) Estimated GFR (Cockcroft-Gault) 65.3 94.2 BUN/Creatinine Ratio 18 (6-20) Glucose Level 134 mg/dL (70-99) 100 mg/dL (70-99) Lactic Acid Level 1.6 mmol/L (0.4-2.0) Calcium Level 8.9 mg/dL (8.5-10.1) 8.5 mg/dL (8.5-10.1) Total Bilirubin 0.8 mg/dL (0.2-1.0) Aspartate Amino Transf (AST/SGOT) 94 U/L (15-37) Alanine Aminotransferase (ALT/SGPT) 24 U/L (16-63) Alkaline Phosphatase 146 U/L (46-116) Total Protein 6.6 g/dL (6.4-8.2) Albumin 2.1 g/dL (3.4-5.0) 2.2 g/dL (3.4-5.0) Albumin/Globulin Ratio 0.5 (1.0-1.7) Vancomycin Level Trough 10.5 mcg/mL (10.0-20.0) Vancomycin Last Dose Date 04/17/17 Vancomycin Last Dose Time 2336 Laboratory Tests Test 04/18/17 11:33 04/18/17 11:35 04/19/17 05:15 White Blood Count 6.7 x10^3/uL (4.0-11.0) 7.3 x10^3/uL (4.0-11.0) Red Blood Count 3.52 x10^6/uL (4.30-5.70) 3.48 x10^6/uL (4.30-5.70) Hemoglobin 10.3 g/dL (13.0-17.5) 10.3 g/dL (13.0-17.5) Hematocrit 30.6 % (39.0-53.0) 29.8 % (39.0-53.0) Mean Corpuscular Volume 87 fL (79-100) 86 fL (79-100) Mean Corpuscular Hemoglobin 29 pg (25-35) 30 pg (25-35) Mean Corpuscular Hemoglobin Concent 34 g/dL (31-37) 34 g/dL (31-37) Red Cell Distribution Width 12.6 % (11.5-14.5) 12.5 % (11.5-14.5) Platelet Count 219 x10^3/uL (140-400) 236 x10^3/uL (140-400) Neutrophils (%) (Auto) 75 % (31-73) 80 % (31-73) Lymphocytes (%) (Auto) 18 % (24-48) 14 % (24-48) Monocytes (%) (Auto) 7 % (0-9) 7 % (0-9) Eosinophils (%) (Auto) 0 % (0-3) 0 % (0-3) Basophils (%) (Auto) 0 % (0-3) 0 % (0-3) Neutrophils # (Auto) 5.1 x10^3uL (1.8-7.7) 5.8 x10^3uL (1.8-7.7) Lymphocytes # (Auto) 1.2 x10^3/uL (1.0-4.8) 1.0 x10^3/uL (1.0-4.8) Monocytes # (Auto) 0.5 x10^3/uL (0.0-1.1) 0.5 x10^3/uL (0.0-1.1) Eosinophils # (Auto) 0.0 x10^3/uL (0.0-0.7) 0.0 x10^3/uL (0.0-0.7) Basophils # (Auto) 0.0 x10^3/uL (0.0-0.2) 0.0 x10^3/uL (0.0-0.2) Vancomycin Level Trough 10.5 mcg/mL (10.0-20.0) Vancomycin Last Dose Date 04/17/17 Vancomycin Last Dose Time 7810 Sodium Level 135 mmol/L (136-145) Potassium Level 3.8 mmol/L (3.5-5.1) Chloride Level 100 mmol/L (98-107) Carbon Dioxide Level 29 mmol/L (21-32) Anion Gap 6 (6-14) Blood Urea Nitrogen 14 mg/dL (8-26) Creatinine 0.8 mg/dL (0.7-1.3) Estimated GFR (Cockcroft-Gault) 94.2 Glucose Level 100 mg/dL (70-99) Calcium Level 8.5 mg/dL (8.5-10.1) Albumin 2.2 g/dL (3.4-5.0) Problem List Problems Medical Problems: (1) Small bowel torsion Status: Acute Assessment/Plan POD#2 xlap, sbr ng in place, lis today, trial clamp in AM if output low Problems: CHELSY CADENA MD 04/19/17 1409: SURGICAL PROGRESS NOTE Assessment/Plan pt seen and examined at bedside he is a little confused will keep NG today, trial in AM keep pen[place] for now Problems: PIYUSH ECHEVERRIA APRN Apr 19, 2017 09:26 CHELSY CADENA MD Apr 19, 2017 14:09
[2017-04-19 10:46] VITALS: BP 125/68
--- NOTE | 2017-04-19 11:18 | PDOC ---
Subjective: Subjective: Pain managed. +flatus +BM has concerns re: weakness, worried he hasn't eaten in so long. Also asks about removing catheter. Objective: Vital Signs: Vital Signs Date Time Temp Pulse Resp B/P (MAP) Pulse Ox O2 Delivery O2 Flow Rate FiO2 04/19/17 10:46 97.6 110 20 125/68 (87) 95 Nasal Cannula 2.0 97.6 Labs: Laboratory Tests Test 04/18/17 11:33 04/18/17 11:35 04/19/17 05:15 White Blood Count 6.7 x10^3/uL 7.3 x10^3/uL Red Blood Count 3.52 x10^6/uL 3.48 x10^6/uL Hemoglobin 10.3 g/dL 10.3 g/dL Hematocrit 30.6 % 29.8 % Mean Corpuscular Volume 87 fL 86 fL Mean Corpuscular Hemoglobin 29 pg 30 pg Mean Corpuscular Hemoglobin Concent 34 g/dL 34 g/dL Red Cell Distribution Width 12.6 % 12.5 % Platelet Count 219 x10^3/uL 236 x10^3/uL Neutrophils (%) (Auto) 75 % 80 % Lymphocytes (%) (Auto) 18 % 14 % Monocytes (%) (Auto) 7 % 7 % Eosinophils (%) (Auto) 0 % 0 % Basophils (%) (Auto) 0 % 0 % Neutrophils # (Auto) 5.1 x10^3uL 5.8 x10^3uL Lymphocytes # (Auto) 1.2 x10^3/uL 1.0 x10^3/uL Monocytes # (Auto) 0.5 x10^3/uL 0.5 x10^3/uL Eosinophils # (Auto) 0.0 x10^3/uL 0.0 x10^3/uL Basophils # (Auto) 0.0 x10^3/uL 0.0 x10^3/uL Vancomycin Level Trough 10.5 mcg/mL Vancomycin Last Dose Date 04/17/17 Vancomycin Last Dose Time 2337 Sodium Level 135 mmol/L Potassium Level 3.8 mmol/L Chloride Level 100 mmol/L Carbon Dioxide Level 29 mmol/L Anion Gap 6 Blood Urea Nitrogen 14 mg/dL Creatinine 0.8 mg/dL Estimated GFR (Cockcroft-Gault) 94.2 Glucose Level 100 mg/dL Calcium Level 8.5 mg/dL Albumin 2.2 g/dL PE: GEN: NAD LUNGS: clear anteriorly HEART: RRR ABD: some tenderness, NG NEURO/PSYCH: A & O 3, drowsy OTHER: present A/P: SBO s/p resection 04/17/17 -metastatic colon cancer -on PPN -- NG/diet per surgery. JOEY HURLEY Apr 19, 2017 11:18
[2017-04-19 14:52] VITALS: BP 112/58
[2017-04-19] MEDS: AMINO AC 3%/ELECTROLYTE/GLYCER 1,000 ML IV SCH (17:42)
[2017-04-19] MEDS: ENOXAPARIN 40 MG/0.4 ML SYRINGE. SQ SCH (17:43)
--- NOTE | 2017-04-19 18:06 | PDOC ---
PROGRESS NOTES Chief Complaint Chief Complaint malignant SBO ASSESSMENT AND PLAN: 1. SBO: s/p ex lap with tumor resection and end-to-end SB anastomosis on 04/[address] Schaefer. recovering appropriately. NGT remains in place, management as per surg service 2. Colon CA: mets to liver and retroperitoneal adenopathy 3. B renal stones: non obstructive 4. Leukocytosis: reactive History of Present Illness History of Present Illness resting, responding to verbal input. abd painful. increasing confusion as per tax staff accountant Vitals Vitals Vital Signs Date Time Temp Pulse Resp B/P (MAP) Pulse Ox O2 Delivery O2 Flow Rate FiO2 04/19/17 14:52 98.8 103 20 112/58 (76) 91 Nasal Cannula 2.0 98.8 Physical Exam General: Cooperative, Other (resting with eyes closed, responding appropriately) Heart: Regular rate Lungs: Clear Abdomen: Other (abd tender, anticipatory flinching with exam. sl distended. dressing dry) Extremities: No clubbing, No edema Skin: No rashes Labs LABS Laboratory Tests Test 04/19/17 05:15 White Blood Count 7.3 x10^3/uL (4.0-11.0) Red Blood Count 3.48 x10^6/uL (4.30-5.70) Hemoglobin 10.3 g/dL (13.0-17.5) Hematocrit 29.8 % (39.0-53.0) Mean Corpuscular Volume 86 fL (79-100) Mean Corpuscular Hemoglobin 30 pg (25-35) Mean Corpuscular Hemoglobin Concent 34 g/dL (31-37) Red Cell Distribution Width 12.5 % (11.5-14.5) Platelet Count 236 x10^3/uL (140-400) Neutrophils (%) (Auto) 80 % (31-73) Lymphocytes (%) (Auto) 14 % (24-48) Monocytes (%) (Auto) 7 % (0-9) Eosinophils (%) (Auto) 0 % (0-3) Basophils (%) (Auto) 0 % (0-3) Neutrophils # (Auto) 5.8 x10^3uL (1.8-7.7) Lymphocytes # (Auto) 1.0 x10^3/uL (1.0-4.8) Monocytes # (Auto) 0.5 x10^3/uL (0.0-1.1) Eosinophils # (Auto) 0.0 x10^3/uL (0.0-0.7) Basophils # (Auto) 0.0 x10^3/uL (0.0-0.2) Sodium Level 135 mmol/L (136-145) Potassium Level 3.8 mmol/L (3.5-5.1) Chloride Level 100 mmol/L (98-107) Carbon Dioxide Level 29 mmol/L (21-32) Anion Gap 6 (6-14) Blood Urea Nitrogen 14 mg/dL (8-26) Creatinine 0.8 mg/dL (0.7-1.3) Estimated GFR (Cockcroft-Gault) 94.2 Glucose Level 100 mg/dL (70-99) Calcium Level 8.5 mg/dL (8.5-10.1) Albumin 2.2 g/dL (3.4-5.0) SHANT VILLAREAL MD Apr 19, 2017 18:06
[2017-04-19 19:12] VITALS: BP 121/64
[2017-04-19 23:12] VITALS: BP 123/63
[2017-04-20] MEDS: PIPERACILLIN/TAZOBACTAM 3.375 GM in IV NORMAL SALINE 50ML 50 ML IV SCH ×4 (00:32→17:36)
[2017-04-20 03:15] VITALS: BP 91/64
[2017-04-20 04:09] LABS: BASO % 0 % (0-3); EOS % 0 % (0-3); HEMATOCRIT 29.6 % (39.0-53.0); HEMOGLOBIN 9.8 g/dL (13.0-17.5); LYMPH % 10 % (24-48); MEAN CORPUSCULAR HEMOGLOBIN 29 pg (25-35); MEAN CORPUSCULAR HGB CONC 33 g/dL (31-37); MEAN CORPUSCULAR VOLUME 87 fL (79-100); MONO % 7 % (0-9); NEUT % 83 % (31-73); PLATELET COUNT 252 x10^3/uL (140-400); RED BLOOD COUNT 3.41 x10^6/uL (4.30-5.70); RED CELL DISTRIBUTION WIDTH 12.5 % (11.5-14.5); WHITE BLOOD COUNT 10.3 x10^3/uL (4.0-11.0)
[2017-04-20 07:00] VITALS: BP 140/74
[2017-04-20] MEDS: AMINO AC 3%/ELECTROLYTE/GLYCER 1,000 ML IV SCH ×3 (07:09→21:06)
[2017-04-20] MEDS: PANTOPRAZOLE IV PUSH 40 MG VIAL. IVP SCH (07:49)
[2017-04-20] MEDS: BENZOCAINE/MENTHOL LOZENGE. PO PRN (07:55)
--- NOTE | 2017-04-20 08:34 | PDOC ---
Infectious Disease Note Subjective Subjective feeling ok, NG in place ROS ROS GEN: Denies fevers, chills, sweats HEENT: Denies blurred vision, sore throat CV: Denies chest pain RESP: Denies shortness of air, cough GI: Denies n/v/d NEURO: Denies confusion, dizziness MSK: Denies weakness, joint pain/swelling Vital Sign Vital Signs Vital Signs Date Time Temp Pulse Resp B/P (MAP) Pulse Ox O2 Delivery O2 Flow Rate FiO2 04/20/17 07:00 98.0 98 20 140/74 (96) 94 Nasal Cannula 2.0 98.0 Physical Exam PHYSICAL EXAM GENERAL: NAD, Alert HEENT: PERRL, OC/OP NECK: Supple, no JVD, no LN LUNGS: Clear HEART: S1S2, no gallop, no murmur ABD: Soft, NT, no organomegaly, no rebound EXT: No edema, no cyanosis FIRE CONTROLMAN: Alert, oriented x 3, no focal neurologic deficit SKIN: No rash,, incision good, IV: ok Labs Lab Laboratory Tests Test 04/20/17 03:40 White Blood Count 10.3 x10^3/uL (4.0-11.0) Red Blood Count 3.41 x10^6/uL (4.30-5.70) Hemoglobin 9.8 g/dL (13.0-17.5) Hematocrit 29.6 % (39.0-53.0) Mean Corpuscular Volume 87 fL (79-100) Mean Corpuscular Hemoglobin 29 pg (25-35) Mean Corpuscular Hemoglobin Concent 33 g/dL (31-37) Red Cell Distribution Width 12.5 % (11.5-14.5) Platelet Count 252 x10^3/uL (140-400) Neutrophils (%) (Auto) 83 % (31-73) Lymphocytes (%) (Auto) 10 % (24-48) Monocytes (%) (Auto) 7 % (0-9) Eosinophils (%) (Auto) 0 % (0-3) Basophils (%) (Auto) 0 % (0-3) Neutrophils # (Auto) 8.5 x10^3uL (1.8-7.7) Lymphocytes # (Auto) 1.0 x10^3/uL (1.0-4.8) Monocytes # (Auto) 0.7 x10^3/uL (0.0-1.1) Eosinophils # (Auto) 0.0 x10^3/uL (0.0-0.7) Basophils # (Auto) 0.0 x10^3/uL (0.0-0.2) Objective Assessment Fever improved Acute encephalopathy- improving Hypotension, responsive to IVF bolus. stable New pulmonary infiltrates with right pleural effusion SBO s/p exp lap, small bowel resection with primary anastomosis, 6/ Metastatic colon cancer Plan Plan of Care maryamn,, soon to d/c , once NG goes out f/u today's labs Incentive spirometry PT/OT KELSY FATIMA MD Apr 20, 2017 08:33
--- NOTE | 2017-04-20 09:44 | PDOC ---
SURGICAL PROGRESS NOTE Subjective feeling better no flatus d/w nursing appears not accurate I&O on NG output in computer--250cc already this AM Vital Signs Vital Signs Date Time Temp Pulse Resp B/P (MAP) Pulse Ox O2 Delivery O2 Flow Rate FiO2 04/20/17 07:00 98.0 98 20 140/74 (96) 94 Nasal Cannula 2.0 98.0 I&O Intake and Output 04/20/17 07:00 Intake Total 4786 ml Output Total 2500 ml Balance 2286 ml Intake Oral 0 ml IV Total 4786 ml Output Urine Total 2150 ml Gastric Drainage Total 350 ml General: Alert, Oriented X3, Cooperative, No acute distress HEENT: Other (ng bilious) Abdomen: Soft, Other (dressing dry ) Labs Laboratory Tests Test 04/18/17 11:33 04/18/17 11:35 04/19/17 05:15 04/20/17 03:40 White Blood Count 6.7 x10^3/uL (4.0-11.0) 7.3 x10^3/uL (4.0-11.0) 10.3 x10^3/uL (4.0-11.0) Red Blood Count 3.52 x10^6/uL (4.30-5.70) 3.48 x10^6/uL (4.30-5.70) 3.41 x10^6/uL (4.30-5.70) Hemoglobin 10.3 g/dL (13.0-17.5) 10.3 g/dL (13.0-17.5) 9.8 g/dL (13.0-17.5) Hematocrit 30.6 % (39.0-53.0) 29.8 % (39.0-53.0) 29.6 % (39.0-53.0) Mean Corpuscular Volume 87 fL (79-100) 86 fL (79-100) 87 fL (79-100) Mean Corpuscular Hemoglobin 29 pg (25-35) 30 pg (25-35) 29 pg (25-35) Mean Corpuscular Hemoglobin Concent 34 g/dL (31-37) 34 g/dL (31-37) 33 g/dL (31-37) Red Cell Distribution Width 12.6 % (11.5-14.5) 12.5 % (11.5-14.5) 12.5 % (11.5-14.5) Platelet Count 219 x10^3/uL (140-400) 236 x10^3/uL (140-400) 252 x10^3/uL (140-400) Neutrophils (%) (Auto) 75 % (31-73) 80 % (31-73) 83 % (31-73) Lymphocytes (%) (Auto) 18 % (24-48) 14 % (24-48) 10 % (24-48) Monocytes (%) (Auto) 7 % (0-9) 7 % (0-9) 7 % (0-9) Eosinophils (%) (Auto) 0 % (0-3) 0 % (0-3) 0 % (0-3) Basophils (%) (Auto) 0 % (0-3) 0 % (0-3) 0 % (0-3) Neutrophils # (Auto) 5.1 x10^3uL (1.8-7.7) 5.8 x10^3uL (1.8-7.7) 8.5 x10^3uL (1.8-7.7) Lymphocytes # (Auto) 1.2 x10^3/uL (1.0-4.8) 1.0 x10^3/uL (1.0-4.8) 1.0 x10^3/uL (1.0-4.8) Monocytes # (Auto) 0.5 x10^3/uL (0.0-1.1) 0.5 x10^3/uL (0.0-1.1) 0.7 x10^3/uL (0.0-1.1) Eosinophils # (Auto) 0.0 x10^3/uL (0.0-0.7) 0.0 x10^3/uL (0.0-0.7) 0.0 x10^3/uL (0.0-0.7) Basophils # (Auto) 0.0 x10^3/uL (0.0-0.2) 0.0 x10^3/uL (0.0-0.2) 0.0 x10^3/uL (0.0-0.2) Vancomycin Level Trough 10.5 mcg/mL (10.0-20.0) Vancomycin Last Dose Date 04/17/17 Vancomycin Last Dose Time 2337 Sodium Level 135 mmol/L (136-145) Potassium Level 3.8 mmol/L (3.5-5.1) Chloride Level 100 mmol/L (98-107) Carbon Dioxide Level 29 mmol/L (21-32) Anion Gap 6 (6-14) Blood Urea Nitrogen 14 mg/dL (8-26) Creatinine 0.8 mg/dL (0.7-1.3) Estimated GFR (Cockcroft-Gault) 94.2 Glucose Level 100 mg/dL (70-99) Calcium Level 8.5 mg/dL (8.5-10.1) Albumin 2.2 g/dL (3.4-5.0) Laboratory Tests Test 04/20/17 03:40 White Blood Count 10.3 x10^3/uL (4.0-11.0) Red Blood Count 3.41 x10^6/uL (4.30-5.70) Hemoglobin 9.8 g/dL (13.0-17.5) Hematocrit 29.6 % (39.0-53.0) Mean Corpuscular Volume 87 fL (79-100) Mean Corpuscular Hemoglobin 29 pg (25-35) Mean Corpuscular Hemoglobin Concent 33 g/dL (31-37) Red Cell Distribution Width 12.5 % (11.5-14.5) Platelet Count 252 x10^3/uL (140-400) Neutrophils (%) (Auto) 83 % (31-73) Lymphocytes (%) (Auto) 10 % (24-48) Monocytes (%) (Auto) 7 % (0-9) Eosinophils (%) (Auto) 0 % (0-3) Basophils (%) (Auto) 0 % (0-3) Neutrophils # (Auto) 8.5 x10^3uL (1.8-7.7) Lymphocytes # (Auto) 1.0 x10^3/uL (1.0-4.8) Monocytes # (Auto) 0.7 x10^3/uL (0.0-1.1) Eosinophils # (Auto) 0.0 x10^3/uL (0.0-0.7) Basophils # (Auto) 0.0 x10^3/uL (0.0-0.2) Problem List Problems Medical Problems: (1) Small bowel torsion Status: Acute Assessment/Plan s/p xlap dc penning[place] will leave ng in place in to LIS today--accurate I&O ambulate more with PT Problems: PIYUSH ECHEVERRIA APRN Apr 20, 2017 09:43
[2017-04-20 11:00] VITALS: BP 100/58
--- NOTE | 2017-04-20 11:11 | PDOC ---
Subjective: Subjective: Abd pain. No flatus. Objective: Objective: Reviewed surgery note. Vital Signs: Vital Signs Date Time Temp Pulse Resp B/P (MAP) Pulse Ox O2 Delivery O2 Flow Rate FiO2 04/20/17 07:00 98.0 98 20 140/74 (96) 94 Nasal Cannula 2.0 98.0 Labs: Laboratory Tests Test 04/20/17 03:40 White Blood Count 10.3 x10^3/uL Red Blood Count 3.41 x10^6/uL Hemoglobin 9.8 g/dL Hematocrit 29.6 % Mean Corpuscular Volume 87 fL Mean Corpuscular Hemoglobin 29 pg Mean Corpuscular Hemoglobin Concent 33 g/dL Red Cell Distribution Width 12.5 % Platelet Count 252 x10^3/uL Neutrophils (%) (Auto) 83 % Lymphocytes (%) (Auto) 10 % Monocytes (%) (Auto) 7 % Eosinophils (%) (Auto) 0 % Basophils (%) (Auto) 0 % Neutrophils # (Auto) 8.5 x10^3uL Lymphocytes # (Auto) 1.0 x10^3/uL Monocytes # (Auto) 0.7 x10^3/uL Eosinophils # (Auto) 0.0 x10^3/uL Basophils # (Auto) 0.0 x10^3/uL PE: GEN: NAD, sitting on edge of bed, working w/ PT, moves slowly and requires help , NG NEURO/PSYCH: A & O 3 A/P: SBO s/p resection 04/17/17 -metastatic colon cancer -on PPN, still w/ NG -- Plans for NG one more day, continue per surgery. JOEY HURLEY Apr 20, 2017 11:11
--- NOTE | 2017-04-20 13:27 | PDOC ---
PROGRESS NOTES Chief Complaint Chief Complaint malignant SBO ASSESSMENT AND PLAN: 1. SBO: s/p ex lap with tumor resection and end-to-end SB anastomosis on 04/[address] Schaefer. NGT remains in place with copious drainage persisting. management as per surg service 2. Pain control: not optimal. has LUMBER CARRIER OPERATOR with low dose dilaudid. increase to 0.1 q15 min (had been decreased due to increasing confusion) 3. Encephalopathy: toxic (2/2 narcotics); tolerate to some degree in favor of better pain control 4. Colon CA: mets to liver and retroperitoneal adenopathy. F/U with onc post D/C 5. B renal stones: non obstructive 6. Leukocytosis: reactive borderline high; monitor 7. Anemia: chronic dz and inflammation, min component of acute blood loss. stable, monitor 8. Prognosis: poor History of Present Illness History of Present Illness resting, responding to verbal input. abd painful. increasing confusion as per engineer technical staff Vitals Vitals Vital Signs Date Time Temp Pulse Resp B/P (MAP) Pulse Ox O2 Delivery O2 Flow Rate FiO2 04/20/17 11:00 97.4 99 20 100/58 (72) 89 Nasal Cannula 2.0 97.4 Physical Exam General: Alert, Oriented X3, Cooperative, No acute distress Heart: Regular rate Lungs: Clear Abdomen: Soft, Other (dressing dry ) Extremities: No clubbing, No edema Skin: No rashes Labs LABS Laboratory Tests Test 04/20/17 03:40 White Blood Count 10.3 x10^3/uL (4.0-11.0) Red Blood Count 3.41 x10^6/uL (4.30-5.70) Hemoglobin 9.8 g/dL (13.0-17.5) Hematocrit 29.6 % (39.0-53.0) Mean Corpuscular Volume 87 fL (79-100) Mean Corpuscular Hemoglobin 29 pg (25-35) Mean Corpuscular Hemoglobin Concent 33 g/dL (31-37) Red Cell Distribution Width 12.5 % (11.5-14.5) Platelet Count 252 x10^3/uL (140-400) Neutrophils (%) (Auto) 83 % (31-73) Lymphocytes (%) (Auto) 10 % (24-48) Monocytes (%) (Auto) 7 % (0-9) Eosinophils (%) (Auto) 0 % (0-3) Basophils (%) (Auto) 0 % (0-3) Neutrophils # (Auto) 8.5 x10^3uL (1.8-7.7) Lymphocytes # (Auto) 1.0 x10^3/uL (1.0-4.8) Monocytes # (Auto) 0.7 x10^3/uL (0.0-1.1) Eosinophils # (Auto) 0.0 x10^3/uL (0.0-0.7) Basophils # (Auto) 0.0 x10^3/uL (0.0-0.2) SHANT VILLAREAL MD Apr 20, 2017 13:27
[2017-04-20 14:43] VITALS: BP 120/69
[2017-04-20] MEDS: ENOXAPARIN 40 MG/0.4 ML SYRINGE. SQ SCH (17:37)
[2017-04-20 19:15] VITALS: BP 120/63
[2017-04-20 23:32] VITALS: BP_SYST 46
[2017-04-21] MEDS: PIPERACILLIN/TAZOBACTAM 3.375 GM in IV NORMAL SALINE 50ML 50 ML IV SCH ×2 (00:09→06:11)
[2017-04-21 03:12] VITALS: BP 129/78
[2017-04-21 06:22] LABS: BASO % 0 % (0-3); EOS % 1 % (0-3); HEMATOCRIT 31.6 % (39.0-53.0); HEMOGLOBIN 10.5 g/dL (13.0-17.5); LYMPH # 0.8 x10^3/uL (1.0-4.8); LYMPH % 7 % (24-48); MEAN CORPUSCULAR HEMOGLOBIN 29 pg (25-35); MEAN CORPUSCULAR HGB CONC 33 g/dL (31-37); MEAN CORPUSCULAR VOLUME 87 fL (79-100); MONO % 8 % (0-9); NEUT % 83 % (31-73); PLATELET COUNT 336 x10^3/uL (140-400); RED BLOOD COUNT 3.63 x10^6/uL (4.30-5.70); RED CELL DISTRIBUTION WIDTH 12.6 % (11.5-14.5); WHITE BLOOD COUNT 10.3 x10^3/uL (4.0-11.0)
[2017-04-21 06:48] LABS: ALBUMIN/GLOBULIN RATIO 0.6 (1.0-1.7); CREATININE 0.8 mg/dL (0.7-1.3); GFR 94.2; POTASSIUM 3.4 mmol/L (3.5-5.1); TOTAL BILIRUBIN 1.1 mg/dL (0.2-1.0); TOTAL PROTEIN 5.4 g/dL (6.4-8.2)
[2017-04-21 07:00] VITALS: BP 116/71
--- NOTE | 2017-04-21 08:12 | PDOC ---
Infectious Disease Note Subjective Subjective feeling good, NG was pulled out by pt LE LUJAN GEN: Denies fevers, chills, sweats HEENT: Denies blurred vision, sore throat CV: Denies chest pain RESP: Denies shortness of air, cough GI: Denies n/v/d NEURO: Denies confusion, dizziness MSK: Denies weakness, joint pain/swelling Vital Sign Vital Signs Vital Signs Date Time Temp Pulse Resp B/P (MAP) Pulse Ox O2 Delivery O2 Flow Rate FiO2 04/21/17 03:12 98.6 100 18 129/78 (95) 95 Room Air 98.6 04/20/17 14:43 2.0 Physical Exam PHYSICAL EXAM GENERAL: NAD, Alert HEENT: PERRL, OC/OP NECK: Supple, no JVD, no LN LUNGS: Clear HEART: S1S2, no gallop, no murmur ABD: Soft, NT, no organomegaly, no rebound EXT: No edema, no cyanosis SOAKER HIDES: Alert, oriented x 3, no focal neurologic deficit SKIN: No rash IV: ok Labs Lab Laboratory Tests Test 04/21/17 05:40 White Blood Count 10.3 x10^3/uL (4.0-11.0) Red Blood Count 3.63 x10^6/uL (4.30-5.70) Hemoglobin 10.5 g/dL (13.0-17.5) Hematocrit 31.6 % (39.0-53.0) Mean Corpuscular Volume 87 fL (79-100) Mean Corpuscular Hemoglobin 29 pg (25-35) Mean Corpuscular Hemoglobin Concent 33 g/dL (31-37) Red Cell Distribution Width 12.6 % (11.5-14.5) Platelet Count 336 x10^3/uL (140-400) Neutrophils (%) (Auto) 83 % (31-73) Lymphocytes (%) (Auto) 7 % (24-48) Monocytes (%) (Auto) 8 % (0-9) Eosinophils (%) (Auto) 1 % (0-3) Basophils (%) (Auto) 0 % (0-3) Neutrophils # (Auto) 8.6 x10^3uL (1.8-7.7) Lymphocytes # (Auto) 0.8 x10^3/uL (1.0-4.8) Monocytes # (Auto) 0.9 x10^3/uL (0.0-1.1) Eosinophils # (Auto) 0.1 x10^3/uL (0.0-0.7) Basophils # (Auto) 0.0 x10^3/uL (0.0-0.2) Sodium Level 135 mmol/L (136-145) Potassium Level 3.4 mmol/L (3.5-5.1) Chloride Level 97 mmol/L (98-107) Carbon Dioxide Level 26 mmol/L (21-32) Anion Gap 12 (6-14) Blood Urea Nitrogen 16 mg/dL (8-26) Creatinine 0.8 mg/dL (0.7-1.3) Estimated GFR (Cockcroft-Gault) 94.2 BUN/Creatinine Ratio 20 (6-20) Glucose Level 106 mg/dL (70-99) Calcium Level 8.0 mg/dL (8.5-10.1) Total Bilirubin 1.1 mg/dL (0.2-1.0) Aspartate Amino Transf (AST/SGOT) 57 U/L (15-37) Alanine Aminotransferase (ALT/SGPT) 20 U/L (16-63) Alkaline Phosphatase 107 U/L (46-116) Total Protein 5.4 g/dL (6.4-8.2) Albumin 2.0 g/dL (3.4-5.0) Albumin/Globulin Ratio 0.6 (1.0-1.7) Objective Assessment Fever improved Acute encephalopathy- improving Hypotension, responsive to IVF bolus. stable pulmonary infiltrates with right pleural effusion SBO s/p exp lap, small bowel resection with primary anastomosis, 6/ Metastatic colon cancer Plan Plan of Care d/c zosyn f/u today's labs Incentive spirometry PT/OT diet soon KELSY FATIMA MD Apr 21, 2017 08:12
[2017-04-21] MEDS: PANTOPRAZOLE IV PUSH 40 MG VIAL. IVP SCH (08:16)
[2017-04-21] MEDS: AMINO AC 3%/ELECTROLYTE/GLYCER 1,000 ML IV SCH ×2 (08:17→21:03)
--- NOTE | 2017-04-21 09:52 | PDOC ---
Subjective: Subjective: No pain, +flatus. Objective: Objective: Per RN - pt pulled NG yesterday afternoon. Vital Signs: Vital Signs Date Time Temp Pulse Resp B/P (MAP) Pulse Ox O2 Delivery O2 Flow Rate FiO2 04/21/17 07:00 98.0 88 22 116/71 (86) 92 Room Air 98.0 04/20/17 14:43 2.0 Labs: Laboratory Tests Test 04/21/17 05:40 White Blood Count 10.3 x10^3/uL Red Blood Count 3.63 x10^6/uL Hemoglobin 10.5 g/dL Hematocrit 31.6 % Mean Corpuscular Volume 87 fL Mean Corpuscular Hemoglobin 29 pg Mean Corpuscular Hemoglobin Concent 33 g/dL Red Cell Distribution Width 12.6 % Platelet Count 336 x10^3/uL Neutrophils (%) (Auto) 83 % Lymphocytes (%) (Auto) 7 % Monocytes (%) (Auto) 8 % Eosinophils (%) (Auto) 1 % Basophils (%) (Auto) 0 % Neutrophils # (Auto) 8.6 x10^3uL Lymphocytes # (Auto) 0.8 x10^3/uL Monocytes # (Auto) 0.9 x10^3/uL Eosinophils # (Auto) 0.1 x10^3/uL Basophils # (Auto) 0.0 x10^3/uL Sodium Level 135 mmol/L Potassium Level 3.4 mmol/L Chloride Level 97 mmol/L Carbon Dioxide Level 26 mmol/L Anion Gap 12 Blood Urea Nitrogen 16 mg/dL Creatinine 0.8 mg/dL Estimated GFR (Cockcroft-Gault) 94.2 BUN/Creatinine Ratio 20 Glucose Level 106 mg/dL Calcium Level 8.0 mg/dL Total Bilirubin 1.1 mg/dL Aspartate Amino Transf (AST/SGOT) 57 U/L Alanine Aminotransferase (ALT/SGPT) 20 U/L Alkaline Phosphatase 107 U/L Total Protein 5.4 g/dL Albumin 2.0 g/dL Albumin/Globulin Ratio 0.6 PE: GEN: NAD, up to chair LUNGS: clear HEART: RRR ABD: non-tender NEURO/PSYCH: A & O 3 A/P: SBO s/p resection 04/17/17 -metastatic colon cancer -on PPN, removed NG yesterday -- Diet per surgery. JOEY HURLEY Apr 21, 2017 09:52
[2017-04-21 11:00] VITALS: BP 116/76
--- NOTE | 2017-04-21 13:00 | PDOC ---
SURGICAL PROGRESS NOTE Subjective pleasantly confused states his bowels are working Vital Signs Vital Signs Date Time Temp Pulse Resp B/P (MAP) Pulse Ox O2 Delivery O2 Flow Rate FiO2 04/21/17 11:00 97.9 91 22 116/76 (89) 93 Room Air 97.9 04/20/17 14:43 2.0 I&O Intake and Output 04/21/17 07:00 Intake Total 1871.53 ml Output Total 1600 ml Balance 271.53 ml IV Total 1871.53 ml Output Urine Total 875 ml Gastric Drainage Total 725 ml # Voids 8 PATIENT HAS A CHAVEZ: No General: Alert, No acute distress Abdomen: Soft Labs Laboratory Tests Test 04/20/17 03:40 04/21/17 05:40 White Blood Count 10.3 x10^3/uL (4.0-11.0) 10.3 x10^3/uL (4.0-11.0) Red Blood Count 3.41 x10^6/uL (4.30-5.70) 3.63 x10^6/uL (4.30-5.70) Hemoglobin 9.8 g/dL (13.0-17.5) 10.5 g/dL (13.0-17.5) Hematocrit 29.6 % (39.0-53.0) 31.6 % (39.0-53.0) Mean Corpuscular Volume 87 fL (79-100) 87 fL (79-100) Mean Corpuscular Hemoglobin 29 pg (25-35) 29 pg (25-35) Mean Corpuscular Hemoglobin Concent 33 g/dL (31-37) 33 g/dL (31-37) Red Cell Distribution Width 12.5 % (11.5-14.5) 12.6 % (11.5-14.5) Platelet Count 252 x10^3/uL (140-400) 336 x10^3/uL (140-400) Neutrophils (%) (Auto) 83 % (31-73) 83 % (31-73) Lymphocytes (%) (Auto) 10 % (24-48) 7 % (24-48) Monocytes (%) (Auto) 7 % (0-9) 8 % (0-9) Eosinophils (%) (Auto) 0 % (0-3) 1 % (0-3) Basophils (%) (Auto) 0 % (0-3) 0 % (0-3) Neutrophils # (Auto) 8.5 x10^3uL (1.8-7.7) 8.6 x10^3uL (1.8-7.7) Lymphocytes # (Auto) 1.0 x10^3/uL (1.0-4.8) 0.8 x10^3/uL (1.0-4.8) Monocytes # (Auto) 0.7 x10^3/uL (0.0-1.1) 0.9 x10^3/uL (0.0-1.1) Eosinophils # (Auto) 0.0 x10^3/uL (0.0-0.7) 0.1 x10^3/uL (0.0-0.7) Basophils # (Auto) 0.0 x10^3/uL (0.0-0.2) 0.0 x10^3/uL (0.0-0.2) Sodium Level 135 mmol/L (136-145) Potassium Level 3.4 mmol/L (3.5-5.1) Chloride Level 97 mmol/L (98-107) Carbon Dioxide Level 26 mmol/L (21-32) Anion Gap 12 (6-14) Blood Urea Nitrogen 16 mg/dL (8-26) Creatinine 0.8 mg/dL (0.7-1.3) Estimated GFR (Cockcroft-Gault) 94.2 BUN/Creatinine Ratio 20 (6-20) Glucose Level 106 mg/dL (70-99) Calcium Level 8.0 mg/dL (8.5-10.1) Total Bilirubin 1.1 mg/dL (0.2-1.0) Aspartate Amino Transf (AST/SGOT) 57 U/L (15-37) Alanine Aminotransferase (ALT/SGPT) 20 U/L (16-63) Alkaline Phosphatase 107 U/L (46-116) Total Protein 5.4 g/dL (6.4-8.2) Albumin 2.0 g/dL (3.4-5.0) Albumin/Globulin Ratio 0.6 (1.0-1.7) Laboratory Tests Test 04/21/17 05:40 White Blood Count 10.3 x10^3/uL (4.0-11.0) Red Blood Count 3.63 x10^6/uL (4.30-5.70) Hemoglobin 10.5 g/dL (13.0-17.5) Hematocrit 31.6 % (39.0-53.0) Mean Corpuscular Volume 87 fL (79-100) Mean Corpuscular Hemoglobin 29 pg (25-35) Mean Corpuscular Hemoglobin Concent 33 g/dL (31-37) Red Cell Distribution Width 12.6 % (11.5-14.5) Platelet Count 336 x10^3/uL (140-400) Neutrophils (%) (Auto) 83 % (31-73) Lymphocytes (%) (Auto) 7 % (24-48) Monocytes (%) (Auto) 8 % (0-9) Eosinophils (%) (Auto) 1 % (0-3) Basophils (%) (Auto) 0 % (0-3) Neutrophils # (Auto) 8.6 x10^3uL (1.8-7.7) Lymphocytes # (Auto) 0.8 x10^3/uL (1.0-4.8) Monocytes # (Auto) 0.9 x10^3/uL (0.0-1.1) Eosinophils # (Auto) 0.1 x10^3/uL (0.0-0.7) Basophils # (Auto) 0.0 x10^3/uL (0.0-0.2) Sodium Level 135 mmol/L (136-145) Potassium Level 3.4 mmol/L (3.5-5.1) Chloride Level 97 mmol/L (98-107) Carbon Dioxide Level 26 mmol/L (21-32) Anion Gap 12 (6-14) Blood Urea Nitrogen 16 mg/dL (8-26) Creatinine 0.8 mg/dL (0.7-1.3) Estimated GFR (Cockcroft-Gault) 94.2 BUN/Creatinine Ratio 20 (6-20) Glucose Level 106 mg/dL (70-99) Calcium Level 8.0 mg/dL (8.5-10.1) Total Bilirubin 1.1 mg/dL (0.2-1.0) Aspartate Amino Transf (AST/SGOT) 57 U/L (15-37) Alanine Aminotransferase (ALT/SGPT) 20 U/L (16-63) Alkaline Phosphatase 107 U/L (46-116) Total Protein 5.4 g/dL (6.4-8.2) Albumin 2.0 g/dL (3.4-5.0) Albumin/Globulin Ratio 0.6 (1.0-1.7) Problem List Problems Medical Problems: (1) Small bowel torsion Status: Acute Assessment/Plan s/p SBR start clears stop PRINT JOURNALIST Problems: CHELSY CADENA MD Apr 21, 2017 13:00
--- NOTE | 2017-04-21 14:43 | PDOC ---
PROGRESS NOTES Chief Complaint Chief Complaint malignant SBO ASSESSMENT AND PLAN: 1. SBO: s/p ex lap with tumor resection and end-to-end SB anastomosis on 04/[address] Schaefer. NGT removed by pt; no resultant N/V. + flatus! 2. Pain control: much improved. d/c Dilaudid gtt, PRN morphine 3. Encephalopathy: toxic (2/2 narcotics): improving, but still needs close obs 4. Nutrition: start clear liquids. cont PPN for now 5. Colon CA: mets to liver and retroperitoneal adenopathy. F/U with onc post D/C 6. B renal stones: non obstructive 7. Leukocytosis: reactive borderline high, but stable. monitor 8. Anemia: chronic dz and inflammation, min component of acute blood loss. stable, monitor 9. Prophylaxis: PPI, lovenox History of Present Illness History of Present Illness responding to verbal input, albeit not consistently sensical. pain improved Vitals Vitals Vital Signs Date Time Temp Pulse Resp B/P (MAP) Pulse Ox O2 Delivery O2 Flow Rate FiO2 04/21/17 11:00 97.9 91 22 116/76 (89) 93 Room Air 97.9 04/20/17 14:43 2.0 Physical Exam General: Alert, No acute distress Heart: Regular rate Lungs: Clear Abdomen: Soft, Other (TTP, although more anticipatory than actual. incision covered w/gauze) Extremities: No clubbing, No edema Skin: No rashes Labs LABS Laboratory Tests Test 04/21/17 05:40 White Blood Count 10.3 x10^3/uL (4.0-11.0) Red Blood Count 3.63 x10^6/uL (4.30-5.70) Hemoglobin 10.5 g/dL (13.0-17.5) Hematocrit 31.6 % (39.0-53.0) Mean Corpuscular Volume 87 fL (79-100) Mean Corpuscular Hemoglobin 29 pg (25-35) Mean Corpuscular Hemoglobin Concent 33 g/dL (31-37) Red Cell Distribution Width 12.6 % (11.5-14.5) Platelet Count 336 x10^3/uL (140-400) Neutrophils (%) (Auto) 83 % (31-73) Lymphocytes (%) (Auto) 7 % (24-48) Monocytes (%) (Auto) 8 % (0-9) Eosinophils (%) (Auto) 1 % (0-3) Basophils (%) (Auto) 0 % (0-3) Neutrophils # (Auto) 8.6 x10^3uL (1.8-7.7) Lymphocytes # (Auto) 0.8 x10^3/uL (1.0-4.8) Monocytes # (Auto) 0.9 x10^3/uL (0.0-1.1) Eosinophils # (Auto) 0.1 x10^3/uL (0.0-0.7) Basophils # (Auto) 0.0 x10^3/uL (0.0-0.2) Sodium Level 135 mmol/L (136-145) Potassium Level 3.4 mmol/L (3.5-5.1) Chloride Level 97 mmol/L (98-107) Carbon Dioxide Level 26 mmol/L (21-32) Anion Gap 12 (6-14) Blood Urea Nitrogen 16 mg/dL (8-26) Creatinine 0.8 mg/dL (0.7-1.3) Estimated GFR (Cockcroft-Gault) 94.2 BUN/Creatinine Ratio 20 (6-20) Glucose Level 106 mg/dL (70-99) Calcium Level 8.0 mg/dL (8.5-10.1) Total Bilirubin 1.1 mg/dL (0.2-1.0) Aspartate Amino Transf (AST/SGOT) 57 U/L (15-37) Alanine Aminotransferase (ALT/SGPT) 20 U/L (16-63) Alkaline Phosphatase 107 U/L (46-116) Total Protein 5.4 g/dL (6.4-8.2) Albumin 2.0 g/dL (3.4-5.0) Albumin/Globulin Ratio 0.6 (1.0-1.7) SHANT VILLAREAL MD Apr 21, 2017 14:43
[2017-04-21 15:00] VITALS: BP 117/58
[2017-04-21] MEDS: ENOXAPARIN 40 MG/0.4 ML SYRINGE. SQ SCH (17:28)
[2017-04-21 19:00] VITALS: BP 108/58
[2017-04-21] MEDS: MORPHINE SULFATE 2 MG/ML DISP.SYRIN. IV PRN (20:59)
[2017-04-21 23:00] VITALS: BP 117/65
[2017-04-22 03:22] VITALS: BP 118/65
[2017-04-22 07:00] VITALS: BP 126/70
--- NOTE | 2017-04-22 08:11 | PDOC ---
Infectious Disease Note Subjective Subjective feeling ok, a bit confused, had BM no fever, ROS ROS GEN: Denies fevers, chills, sweats HEENT: Denies blurred vision, sore throat CV: Denies chest pain RESP: Denies shortness of air, cough GI: Denies n/v/d MSK: Denies weakness, joint pain/swelling Vital Sign Vital Signs Vital Signs Date Time Temp Pulse Resp B/P (MAP) Pulse Ox O2 Delivery O2 Flow Rate FiO2 04/22/17 07:00 97.7 78 26 126/70 (88) 95 Room Air 97.7 Physical Exam PHYSICAL EXAM GENERAL: NAD, Alert HEENT: PERRL, OC/OP NECK: Supple, no JVD, no LN LUNGS: Clear HEART: S1S2, no gallop, no murmur ABD: Soft, NT, no organomegaly, no rebound EXT: No edema, no cyanosis 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 stable pulmonary infiltrates with right pleural effusion SBO s/p exp lap, small bowel resection with primary anastomosis, 6/ Metastatic colon cancer Plan Plan of Care f/u today's labs Incentive spirometry PT/OT KELSY FATIMA MD Apr 22, 2017 08:11
[2017-04-22 08:21] LABS: BASO % 0 % (0-3); EOS % 2 % (0-3); HEMATOCRIT 30.9 % (39.0-53.0); HEMOGLOBIN 10.6 g/dL (13.0-17.5); LYMPH # 0.9 x10^3/uL (1.0-4.8); LYMPH % 9 % (24-48); MEAN CORPUSCULAR HEMOGLOBIN 29 pg (25-35); MEAN CORPUSCULAR HGB CONC 34 g/dL (31-37); MEAN CORPUSCULAR VOLUME 85 fL (79-100); MONO % 10 % (0-9); NEUT % 79 % (31-73); PLATELET COUNT 455 x10^3/uL (140-400); RED BLOOD COUNT 3.63 x10^6/uL (4.30-5.70); RED CELL DISTRIBUTION WIDTH 12.9 % (11.5-14.5); WHITE BLOOD COUNT 10.3 x10^3/uL (4.0-11.0)
[2017-04-22] MEDS: PANTOPRAZOLE IV PUSH 40 MG VIAL. IVP SCH (08:52)
[2017-04-22] MEDS: AMINO AC 3%/ELECTROLYTE/GLYCER 1,000 ML IV SCH (08:52)
[2017-04-22 08:58] LABS: % EOS 4 % (0-5)
[2017-04-22 09:00] LABS: PLT ESTIMATE ADEQUATE (ADEQUATE)
[2017-04-22 11:00] VITALS: BP 100/63
--- NOTE | 2017-04-22 12:01 | PDOC ---
Subjective: Subjective: Asks me for vinegar and stamps. Objective: Objective: Per RN - confused, advancing to full liquids. Vital Signs: Vital Signs Date Time Temp Pulse Resp B/P (MAP) Pulse Ox O2 Delivery O2 Flow Rate FiO2 04/22/17 08:30 Room Air 04/22/17 07:00 97.7 78 26 126/70 (88) 95 97.7 Labs: Laboratory Tests Test 04/22/17 07:40 White Blood Count 10.3 x10^3/uL Red Blood Count 3.63 x10^6/uL Hemoglobin 10.6 g/dL Hematocrit 30.9 % Mean Corpuscular Volume 85 fL Mean Corpuscular Hemoglobin 29 pg Mean Corpuscular Hemoglobin Concent 34 g/dL Red Cell Distribution Width 12.9 % Platelet Count 455 x10^3/uL Neutrophils (%) (Auto) 79 % Lymphocytes (%) (Auto) 9 % Monocytes (%) (Auto) 10 % Eosinophils (%) (Auto) 2 % Basophils (%) (Auto) 0 % Neutrophils # (Auto) 8.1 x10^3uL Lymphocytes # (Auto) 0.9 x10^3/uL Monocytes # (Auto) 1.0 x10^3/uL Eosinophils # (Auto) 0.2 x10^3/uL Basophils # (Auto) 0.0 x10^3/uL Segmented Neutrophils % 75 % Band Neutrophils % 8 % Lymphocytes % 6 % Monocytes % 7 % Eosinophils % 4 % Platelet Estimate Adequate PE: GEN: NAD ABD: non-tender, BS+ NEURO/PSYCH: confused A/P: SBO s/p resection 04/17/17 -metastatic colon cancer -tolerating PO Confusion -- Diet per surgery. JOEY HURLEY Apr 22, 2017 12:01
--- NOTE | 2017-04-22 13:39 | PDOC ---
PROGRESS NOTES Chief Complaint Chief Complaint malignant SBO ASSESSMENT AND PLAN: 1. SBO: s/p ex lap with tumor resection and end-to-end SB anastomosis on 04/[address] Schaefer. NGT removed by pt; no resultant N/V. + flatus! 2. Pain control: adequate. PRN morphine 3. Encephalopathy: toxic (2/2 narcotics): improving, but still needs close obs. 4. Nutrition: start clear liquids. cont PPN for now 5. Colon CA: mets to liver and retroperitoneal adenopathy. F/U with onc post D/C 6. B renal stones: non obstructive 7. Leukocytosis: reactive borderline high, but stable. monitor 8. Anemia: chronic dz and inflammation, min component of acute blood loss. stable, monitor 9. Transaminitis: mild; suspect 2/2 liver mets. monitor 10. Hypokalemia: borderline. monitor, replete as indicated 11. Prophylaxis: PPI, lovenox History of Present Illness History of Present Illness wake alert, but confusion persisting. walking w/ PT w/o difficulties Vitals Vitals Vital Signs Date Time Temp Pulse Resp B/P (MAP) Pulse Ox O2 Delivery O2 Flow Rate FiO2 04/22/17 11:00 97.5 75 28 100/63 (75) 86 Room Air 97.5 Physical Exam General: Alert, No acute distress Heart: Regular rate Lungs: Clear Abdomen: Soft, Other (TTP, although more anticipatory than actual. incision covered w/gauze) Extremities: No clubbing, No edema Skin: No rashes Labs LABS Laboratory Tests Test 04/22/17 07:40 White Blood Count 10.3 x10^3/uL (4.0-11.0) Red Blood Count 3.63 x10^6/uL (4.30-5.70) Hemoglobin 10.6 g/dL (13.0-17.5) Hematocrit 30.9 % (39.0-53.0) Mean Corpuscular Volume 85 fL (79-100) Mean Corpuscular Hemoglobin 29 pg (25-35) Mean Corpuscular Hemoglobin Concent 34 g/dL (31-37) Red Cell Distribution Width 12.9 % (11.5-14.5) Platelet Count 455 x10^3/uL (140-400) Neutrophils (%) (Auto) 79 % (31-73) Lymphocytes (%) (Auto) 9 % (24-48) Monocytes (%) (Auto) 10 % (0-9) Eosinophils (%) (Auto) 2 % (0-3) Basophils (%) (Auto) 0 % (0-3) Neutrophils # (Auto) 8.1 x10^3uL (1.8-7.7) Lymphocytes # (Auto) 0.9 x10^3/uL (1.0-4.8) Monocytes # (Auto) 1.0 x10^3/uL (0.0-1.1) Eosinophils # (Auto) 0.2 x10^3/uL (0.0-0.7) Basophils # (Auto) 0.0 x10^3/uL (0.0-0.2) Segmented Neutrophils % 75 % (35-66) Band Neutrophils % 8 % (0-9) Lymphocytes % 6 % (24-48) Monocytes % 7 % (0-10) Eosinophils % 4 % (0-5) Platelet Estimate Adequate (ADEQUATE) SHANT VILLAREAL MD Apr 22, 2017 13:39
--- NOTE | 2017-04-22 13:46 | PATHOLOGY ---
PATHOLOGY REPORT * * * * * * * * FINAL DIAGNOSIS: A. Fibroadipose tissue, mesenteric implant: - METASTATIC ADENOCARCINOMA, MODERATELY DIFFERENTIATED. B. Segment of small bowel and attached mesentery, jejunum segmental resection: - METASTATIC ADENOCARCINOMA, MODERATELY DIFFERENTIATED, INVOLVING SEROSA/MESENTERY AND FULL THICKNESS OF SMALL BOWEL WALL, PRODUCING FOCAL STRICTURE AND OBSTRUCTION OF JEJUNUM. - FOCAL PERINEURAL AND LARGE VESSEL TUMOR INVASION IN AREA OF TUMOR STRICTURE AND OBSTRUCTION. - METASTATIC ADENOCARCINOMA INVOLVING NINE OF ELEVEN MESENTERIC LYMPH NODES (9/11). - MESENTERIC TUMOR IMPLANTS, MULTIPLE, WITH- FOCAL LARGE VESSEL TUMOR INVASION AND PERINEURAL TUMOR INVASION OF MESENTERY. - Proximal and distal margins of resection negative for tumor. - Dilatation of jejunum proximal to tumor obstruction with focal mucosal ischemic changes. C. Segment of small bowel and attached mesentery: - Serosal fibrosis-negative for tumor. - Three mesenteric lymph nodes negative for tumor (0/3). COMMENT: Sections of the mesenteric implant and jejunum reveal a metastatic moderately differentiated colorectal adenocarcinoma appearing similar to the invasive colorectal adenocarcinoma originally identified in the sigmoid colon resection ([id number]). (JPM:; d/t: 04/22/17) REPORT ELECTRONICALLY SIGNED BY: oCrby Villalta M.D. DATE/TIME: 04/22/2017 13:45 * * * * * * * * GROSS PATHOLOGY: A. Received in formalin, labeled "Nadeem Edwards-mesenteric implant" is a 1.6 x 0.9 x 0.9 cm brown-yellow rubbery tissue fragment. The specimen is sectioned to reveal a pale yellow, firm cut surface. The specimen is submitted entirely in cassette A1. B. Received in formalin, labeled "Nadeem Edwards-segment of jejunum" is a 20.5 cm segment of apparent small bowel, ranging in diameter from approximately 1.7 cm up to approximately 4.5 cm. The specimen displays an area of transmural disruption with associated adhesions and stricture, located approximately 6 cm from the closest resection margin. The specimen is opened along the antimesenteric aspect and sectioned to reveal a firm, white-ornelas cut surface adjacent to the aforementioned area of perforation, grossly suggestive of tumor. The apparent tumor does not grossly appear to originate in the mucosa or submucosa. The remaining mucosa is green-brown, glistening, undulating and grossly unremarkable. The attached mesenteric tissue is palpated to reveal multiple possible lymph nodes, most of which appear grossly involved by tumor. Director Of Occupational Health sections are submitted as follows: [id number]-notevpey resection margins [id number]-[id number] sections of area of transmural perforation and apparent tumor described above B7-1 possible lymph node (inked green) and member service representative section of 2 additional possible lymph nodes B8-member service representative sections of 4 possible lymph nodes B9-member service representative sections of 5 possible lymph nodes D34-usflivsfqimemw sections of multiple apparent matted lymph nodes W50-nupkbofbbuhowl section of 2 apparent lymph nodes C46-lsmjhumnzj member service representative section of apparent mesenteric tumor C. Received in formalin, labeled "Nadeem Edwards-jejunum proximal" is a 23 cm segment of apparent small bowel, measuring 3.1 cm in average diameter. The specimen displays areas of indurated serosa and a slight stricture. The specimen is opened along the antimesenteric aspect to reveal a glistening, undulating brown-green mucosa. No discrete masses are grossly identified. The attached mesenteric tissue is palpated to reveal 3 possible lymph nodes. Director Of Occupational Health sections are submitted as follows: [id number]-bbyomcmu resection margins C3-member service representative section of aforementioned strictured area H1-V4-xnvwzitoia member service representative sections of the specimen C6-3 possible lymph nodes (KRISTIN; 04/21/2017) INITIAL CPT CODE(S): B; 33489, 57581, 64702 Professional services performed by [facility] at [address] [address] Technical services performed by [facility] at [address] [place] [address], [facility] [address] [address]. SPECIMEN(S) RECEIVED: A.Mesenteric implant B.Segment of jejunum C.Jejunum proximal CLINICAL HISTORY: Small bowel obstruction PATIENT: NADEEM EDWARDS /AGE: 2 1940 (Age: 77) PATIENT #: [id number] ALT CASE #: SPECIMEN COLLECTION DATE: 04/17/2017 SPECIMEN RECEIVED DATE: 04/19/2017 [facility] - [id number] [place] [address] - PHONE: [phone] * * * END OF REPORT * * *
[2017-04-22 15:08] VITALS: BP 122/73
[2017-04-22 15:38] LABS: ALBUMIN 2.1 g/dL (3.4-5.0); ALBUMIN/GLOBULIN RATIO 0.6 (1.0-1.7); CALCIUM 8.5 mg/dL (8.5-10.1); CREATININE 0.8 mg/dL (0.7-1.3); GFR 94.2; POTASSIUM 3.2 mmol/L (3.5-5.1); TOTAL BILIRUBIN 0.8 mg/dL (0.2-1.0); TOTAL PROTEIN 5.8 g/dL (6.4-8.2)
[2017-04-22] MEDS: ENOXAPARIN 40 MG/0.4 ML SYRINGE. SQ SCH (16:21)
--- NOTE | 2017-04-22 16:25 | PDOC ---
SURGICAL PROGRESS NOTE Subjective pt seen earlier this AM still pleasantly confused, perhaps a little less reports having a bowel movement Vital Signs Vital Signs Date Time Temp Pulse Resp B/P (MAP) Pulse Ox O2 Delivery O2 Flow Rate FiO2 04/22/17 15:08 97.9 81 18 122/73 (89) 93 Room Air 97.9 I&O Intake and Output 04/22/17 07:00 Intake Total 1921 ml Output Total 850 ml Balance 1071 ml IV Total 1921 ml Output Urine Total 850 ml # Bowel Movements 2 PATIENT HAS A CHAVEZ: No General: No acute distress HEENT: Atraumatic Abdomen: Soft Labs Laboratory Tests Test 04/21/17 05:40 04/22/17 07:40 White Blood Count 10.3 x10^3/uL (4.0-11.0) 10.3 x10^3/uL (4.0-11.0) Red Blood Count 3.63 x10^6/uL (4.30-5.70) 3.63 x10^6/uL (4.30-5.70) Hemoglobin 10.5 g/dL (13.0-17.5) 10.6 g/dL (13.0-17.5) Hematocrit 31.6 % (39.0-53.0) 30.9 % (39.0-53.0) Mean Corpuscular Volume 87 fL (79-100) 85 fL (79-100) Mean Corpuscular Hemoglobin 29 pg (25-35) 29 pg (25-35) Mean Corpuscular Hemoglobin Concent 33 g/dL (31-37) 34 g/dL (31-37) Red Cell Distribution Width 12.6 % (11.5-14.5) 12.9 % (11.5-14.5) Platelet Count 336 x10^3/uL (140-400) 455 x10^3/uL (140-400) Neutrophils (%) (Auto) 83 % (31-73) 79 % (31-73) Lymphocytes (%) (Auto) 7 % (24-48) 9 % (24-48) Monocytes (%) (Auto) 8 % (0-9) 10 % (0-9) Eosinophils (%) (Auto) 1 % (0-3) 2 % (0-3) Basophils (%) (Auto) 0 % (0-3) 0 % (0-3) Neutrophils # (Auto) 8.6 x10^3uL (1.8-7.7) 8.1 x10^3uL (1.8-7.7) Lymphocytes # (Auto) 0.8 x10^3/uL (1.0-4.8) 0.9 x10^3/uL (1.0-4.8) Monocytes # (Auto) 0.9 x10^3/uL (0.0-1.1) 1.0 x10^3/uL (0.0-1.1) Eosinophils # (Auto) 0.1 x10^3/uL (0.0-0.7) 0.2 x10^3/uL (0.0-0.7) Basophils # (Auto) 0.0 x10^3/uL (0.0-0.2) 0.0 x10^3/uL (0.0-0.2) Sodium Level 135 mmol/L (136-145) 135 mmol/L (136-145) Potassium Level 3.4 mmol/L (3.5-5.1) 3.2 mmol/L (3.5-5.1) Chloride Level 97 mmol/L (98-107) 98 mmol/L (98-107) Carbon Dioxide Level 26 mmol/L (21-32) 28 mmol/L (21-32) Anion Gap 12 (6-14) 9 (6-14) Blood Urea Nitrogen 16 mg/dL (8-26) 15 mg/dL (8-26) Creatinine 0.8 mg/dL (0.7-1.3) 0.8 mg/dL (0.7-1.3) Estimated GFR (Cockcroft-Gault) 94.2 94.2 BUN/Creatinine Ratio 20 (6-20) 19 (6-20) Glucose Level 106 mg/dL (70-99) 108 mg/dL (70-99) Calcium Level 8.0 mg/dL (8.5-10.1) 8.5 mg/dL (8.5-10.1) Total Bilirubin 1.1 mg/dL (0.2-1.0) 0.8 mg/dL (0.2-1.0) Aspartate Amino Transf (AST/SGOT) 57 U/L (15-37) 60 U/L (15-37) Alanine Aminotransferase (ALT/SGPT) 20 U/L (16-63) 28 U/L (16-63) Alkaline Phosphatase 107 U/L (46-116) 143 U/L (46-116) Total Protein 5.4 g/dL (6.4-8.2) 5.8 g/dL (6.4-8.2) Albumin 2.0 g/dL (3.4-5.0) 2.1 g/dL (3.4-5.0) Albumin/Globulin Ratio 0.6 (1.0-1.7) 0.6 (1.0-1.7) Segmented Neutrophils % 75 % (35-66) Band Neutrophils % 8 % (0-9) Lymphocytes % 6 % (24-48) Monocytes % 7 % (0-10) Eosinophils % 4 % (0-5) Platelet Estimate Adequate (ADEQUATE) Laboratory Tests Test 04/22/17 07:40 White Blood Count 10.3 x10^3/uL (4.0-11.0) Red Blood Count 3.63 x10^6/uL (4.30-5.70) Hemoglobin 10.6 g/dL (13.0-17.5) Hematocrit 30.9 % (39.0-53.0) Mean Corpuscular Volume 85 fL (79-100) Mean Corpuscular Hemoglobin 29 pg (25-35) Mean Corpuscular Hemoglobin Concent 34 g/dL (31-37) Red Cell Distribution Width 12.9 % (11.5-14.5) Platelet Count 455 x10^3/uL (140-400) Neutrophils (%) (Auto) 79 % (31-73) Lymphocytes (%) (Auto) 9 % (24-48) Monocytes (%) (Auto) 10 % (0-9) Eosinophils (%) (Auto) 2 % (0-3) Basophils (%) (Auto) 0 % (0-3) Neutrophils # (Auto) 8.1 x10^3uL (1.8-7.7) Lymphocytes # (Auto) 0.9 x10^3/uL (1.0-4.8) Monocytes # (Auto) 1.0 x10^3/uL (0.0-1.1) Eosinophils # (Auto) 0.2 x10^3/uL (0.0-0.7) Basophils # (Auto) 0.0 x10^3/uL (0.0-0.2) Segmented Neutrophils % 75 % (35-66) Band Neutrophils % 8 % (0-9) Lymphocytes % 6 % (24-48) Monocytes % 7 % (0-10) Eosinophils % 4 % (0-5) Platelet Estimate Adequate (ADEQUATE) Sodium Level 135 mmol/L (136-145) Potassium Level 3.2 mmol/L (3.5-5.1) Chloride Level 98 mmol/L (98-107) Carbon Dioxide Level 28 mmol/L (21-32) Anion Gap 9 (6-14) Blood Urea Nitrogen 15 mg/dL (8-26) Creatinine 0.8 mg/dL (0.7-1.3) Estimated GFR (Cockcroft-Gault) 94.2 BUN/Creatinine Ratio 19 (6-20) Glucose Level 108 mg/dL (70-99) Calcium Level 8.5 mg/dL (8.5-10.1) Total Bilirubin 0.8 mg/dL (0.2-1.0) Aspartate Amino Transf (AST/SGOT) 60 U/L (15-37) Alanine Aminotransferase (ALT/SGPT) 28 U/L (16-63) Alkaline Phosphatase 143 U/L (46-116) Total Protein 5.8 g/dL (6.4-8.2) Albumin 2.1 g/dL (3.4-5.0) Albumin/Globulin Ratio 0.6 (1.0-1.7) Problem List Problems Medical Problems: (1) Small bowel torsion Status: Acute Assessment/Plan POD 5, SBR advance diet, continue to gradually increase activities Problems: CHELSY CADENA MD Apr 22, 2017 16:25
[2017-04-22 19:00] VITALS: BP 122/66
[2017-04-22 23:00] VITALS: BP 130/57
[2017-04-23] MEDS: AMINO AC 3%/ELECTROLYTE/GLYCER 1,000 ML IV SCH ×2 (01:00→14:00)
[2017-04-23 03:00] VITALS: BP 123/73
[2017-04-23 05:04] LABS: BASO % 0 % (0-3); EOS % 3 % (0-3); HEMATOCRIT 29.7 % (39.0-53.0); HEMOGLOBIN 9.9 g/dL (13.0-17.5); LYMPH % 9 % (24-48); MEAN CORPUSCULAR HEMOGLOBIN 29 pg (25-35); MEAN CORPUSCULAR HGB CONC 33 g/dL (31-37); MEAN CORPUSCULAR VOLUME 86 fL (79-100); MONO % 8 % (0-9); NEUT % 79 % (31-73); PLATELET COUNT 450 x10^3/uL (140-400); RED BLOOD COUNT 3.46 x10^6/uL (4.30-5.70); RED CELL DISTRIBUTION WIDTH 12.9 % (11.5-14.5); WHITE BLOOD COUNT 11.3 x10^3/uL (4.0-11.0)
[2017-04-23 07:00] VITALS: BP 135/62
--- NOTE | 2017-04-23 07:18 | PDOC ---
Infectious Disease Note Subjective Subjective feeling ok, a bit confused, had BM no fever, ROS ROS GEN: Denies fevers, chills, sweats HEENT: Denies blurred vision, sore throat CV: Denies chest pain RESP: Denies shortness of air, cough GI: Denies n/v/d NEURO: Denies confusion, dizziness MSK: Denies weakness, joint pain/swelling Vital Sign Vital Signs Vital Signs Date Time Temp Pulse Resp B/P (MAP) Pulse Ox O2 Delivery O2 Flow Rate FiO2 04/23/17 03:00 97.5 79 18 123/73 (90) 92 Room Air 97.5 Physical Exam PHYSICAL EXAM GENERAL: NAD, Alert HEENT: PERRL, OC/OP NECK: Supple, no JVD, no LN LUNGS: Clear HEART: S1S2, no gallop, no murmur ABD: Soft, NT, no organomegaly, no rebound EXT: No edema, no cyanosis CORPORATE FINANCIAL ANALYST: Alert, oriented x 3, no focal neurologic deficit SKIN: No rash IV: ok Labs Lab Laboratory Tests Test 04/22/17 07:40 04/23/17 04:45 White Blood Count 10.3 x10^3/uL (4.0-11.0) 11.3 x10^3/uL (4.0-11.0) Red Blood Count 3.63 x10^6/uL (4.30-5.70) 3.46 x10^6/uL (4.30-5.70) Hemoglobin 10.6 g/dL (13.0-17.5) 9.9 g/dL (13.0-17.5) Hematocrit 30.9 % (39.0-53.0) 29.7 % (39.0-53.0) Mean Corpuscular Volume 85 fL (79-100) 86 fL (79-100) Mean Corpuscular Hemoglobin 29 pg (25-35) 29 pg (25-35) Mean Corpuscular Hemoglobin Concent 34 g/dL (31-37) 33 g/dL (31-37) Red Cell Distribution Width 12.9 % (11.5-14.5) 12.9 % (11.5-14.5) Platelet Count 455 x10^3/uL (140-400) 450 x10^3/uL (140-400) Neutrophils (%) (Auto) 79 % (31-73) 79 % (31-73) Lymphocytes (%) (Auto) 9 % (24-48) 9 % (24-48) Monocytes (%) (Auto) 10 % (0-9) 8 % (0-9) Eosinophils (%) (Auto) 2 % (0-3) 3 % (0-3) Basophils (%) (Auto) 0 % (0-3) 0 % (0-3) Neutrophils # (Auto) 8.1 x10^3uL (1.8-7.7) 8.9 x10^3uL (1.8-7.7) Lymphocytes # (Auto) 0.9 x10^3/uL (1.0-4.8) 1.0 x10^3/uL (1.0-4.8) Monocytes # (Auto) 1.0 x10^3/uL (0.0-1.1) 0.9 x10^3/uL (0.0-1.1) Eosinophils # (Auto) 0.2 x10^3/uL (0.0-0.7) 0.4 x10^3/uL (0.0-0.7) Basophils # (Auto) 0.0 x10^3/uL (0.0-0.2) 0.0 x10^3/uL (0.0-0.2) Segmented Neutrophils % 75 % (35-66) Band Neutrophils % 8 % (0-9) Lymphocytes % 6 % (24-48) Monocytes % 7 % (0-10) Eosinophils % 4 % (0-5) Platelet Estimate Adequate (ADEQUATE) Sodium Level 135 mmol/L (136-145) Potassium Level 3.2 mmol/L (3.5-5.1) Chloride Level 98 mmol/L (98-107) Carbon Dioxide Level 28 mmol/L (21-32) Anion Gap 9 (6-14) Blood Urea Nitrogen 15 mg/dL (8-26) Creatinine 0.8 mg/dL (0.7-1.3) Estimated GFR (Cockcroft-Gault) 94.2 BUN/Creatinine Ratio 19 (6-20) Glucose Level 108 mg/dL (70-99) Calcium Level 8.5 mg/dL (8.5-10.1) Total Bilirubin 0.8 mg/dL (0.2-1.0) Aspartate Amino Transf (AST/SGOT) 60 U/L (15-37) Alanine Aminotransferase (ALT/SGPT) 28 U/L (16-63) Alkaline Phosphatase 143 U/L (46-116) Total Protein 5.8 g/dL (6.4-8.2) Albumin 2.1 g/dL (3.4-5.0) Albumin/Globulin Ratio 0.6 (1.0-1.7) Objective Assessment Fever improved Acute encephalopathy- improving Hypotension, responsive to IVF bolus. stable pulmonary infiltrates with right pleural effusion SBO s/p exp lap, small bowel resection with primary anastomosis, 6/ Metastatic colon cancer Plan Plan of Care f/u today's labs Incentive spirometry PT/OT KELSY FATIMA MD Apr 23, 2017 07:18
[2017-04-23] MEDS: PANTOPRAZOLE IV PUSH 40 MG VIAL. IVP SCH (08:10)
--- NOTE | 2017-04-23 09:54 | PDOC ---
PIYUSH ECHEVERRIA TRAFFIC SIGNAL MECHANIC 04/23/17 0954: SURGICAL PROGRESS NOTE Subjective confusion persists not present appears not eating much Vital Signs Vital Signs Date Time Temp Pulse Resp B/P (MAP) Pulse Ox O2 Delivery O2 Flow Rate FiO2 04/23/17 07:00 97.9 79 20 135/62 (86) 93 Room Air 97.9 I&O Intake and Output 04/23/17 07:00 Intake Total 300 ml Output Total 571 ml Balance -271 ml Intake Oral 300 ml Output Urine Total 571 ml # Voids 2 # Bowel Movements 2 General: Cooperative, No acute distress Abdomen: Soft, Other (ND, incision c/d/i, no erythema ) Labs Laboratory Tests Test 04/22/17 07:40 04/23/17 04:45 White Blood Count 10.3 x10^3/uL (4.0-11.0) 11.3 x10^3/uL (4.0-11.0) Red Blood Count 3.63 x10^6/uL (4.30-5.70) 3.46 x10^6/uL (4.30-5.70) Hemoglobin 10.6 g/dL (13.0-17.5) 9.9 g/dL (13.0-17.5) Hematocrit 30.9 % (39.0-53.0) 29.7 % (39.0-53.0) Mean Corpuscular Volume 85 fL (79-100) 86 fL (79-100) Mean Corpuscular Hemoglobin 29 pg (25-35) 29 pg (25-35) Mean Corpuscular Hemoglobin Concent 34 g/dL (31-37) 33 g/dL (31-37) Red Cell Distribution Width 12.9 % (11.5-14.5) 12.9 % (11.5-14.5) Platelet Count 455 x10^3/uL (140-400) 450 x10^3/uL (140-400) Neutrophils (%) (Auto) 79 % (31-73) 79 % (31-73) Lymphocytes (%) (Auto) 9 % (24-48) 9 % (24-48) Monocytes (%) (Auto) 10 % (0-9) 8 % (0-9) Eosinophils (%) (Auto) 2 % (0-3) 3 % (0-3) Basophils (%) (Auto) 0 % (0-3) 0 % (0-3) Neutrophils # (Auto) 8.1 x10^3uL (1.8-7.7) 8.9 x10^3uL (1.8-7.7) Lymphocytes # (Auto) 0.9 x10^3/uL (1.0-4.8) 1.0 x10^3/uL (1.0-4.8) Monocytes # (Auto) 1.0 x10^3/uL (0.0-1.1) 0.9 x10^3/uL (0.0-1.1) Eosinophils # (Auto) 0.2 x10^3/uL (0.0-0.7) 0.4 x10^3/uL (0.0-0.7) Basophils # (Auto) 0.0 x10^3/uL (0.0-0.2) 0.0 x10^3/uL (0.0-0.2) Segmented Neutrophils % 75 % (35-66) Band Neutrophils % 8 % (0-9) Lymphocytes % 6 % (24-48) Monocytes % 7 % (0-10) Eosinophils % 4 % (0-5) Platelet Estimate Adequate (ADEQUATE) Sodium Level 135 mmol/L (136-145) Potassium Level 3.2 mmol/L (3.5-5.1) Chloride Level 98 mmol/L (98-107) Carbon Dioxide Level 28 mmol/L (21-32) Anion Gap 9 (6-14) Blood Urea Nitrogen 15 mg/dL (8-26) Creatinine 0.8 mg/dL (0.7-1.3) Estimated GFR (Cockcroft-Gault) 94.2 BUN/Creatinine Ratio 19 (6-20) Glucose Level 108 mg/dL (70-99) Calcium Level 8.5 mg/dL (8.5-10.1) Total Bilirubin 0.8 mg/dL (0.2-1.0) Aspartate Amino Transf (AST/SGOT) 60 U/L (15-37) Alanine Aminotransferase (ALT/SGPT) 28 U/L (16-63) Alkaline Phosphatase 143 U/L (46-116) Total Protein 5.8 g/dL (6.4-8.2) Albumin 2.1 g/dL (3.4-5.0) Albumin/Globulin Ratio 0.6 (1.0-1.7) Laboratory Tests Test 04/23/17 04:45 White Blood Count 11.3 x10^3/uL (4.0-11.0) Red Blood Count 3.46 x10^6/uL (4.30-5.70) Hemoglobin 9.9 g/dL (13.0-17.5) Hematocrit 29.7 % (39.0-53.0) Mean Corpuscular Volume 86 fL (79-100) Mean Corpuscular Hemoglobin 29 pg (25-35) Mean Corpuscular Hemoglobin Concent 33 g/dL (31-37) Red Cell Distribution Width 12.9 % (11.5-14.5) Platelet Count 450 x10^3/uL (140-400) Neutrophils (%) (Auto) 79 % (31-73) Lymphocytes (%) (Auto) 9 % (24-48) Monocytes (%) (Auto) 8 % (0-9) Eosinophils (%) (Auto) 3 % (0-3) Basophils (%) (Auto) 0 % (0-3) Neutrophils # (Auto) 8.9 x10^3uL (1.8-7.7) Lymphocytes # (Auto) 1.0 x10^3/uL (1.0-4.8) Monocytes # (Auto) 0.9 x10^3/uL (0.0-1.1) Eosinophils # (Auto) 0.4 x10^3/uL (0.0-0.7) Basophils # (Auto) 0.0 x10^3/uL (0.0-0.2) Problem List Problems Medical Problems: (1) Small bowel torsion Status: Acute Assessment/Plan s/p xlap supportive care increase activity confusion ongoing Problems: CHELSY CADENA MD 04/23/17 1225: SURGICAL PROGRESS NOTE Assessment/Plan pt seen and examined as above to SNF soon Problems: PIYUSH ECHEVERRIA APRN Apr 23, 2017 09:54 CHELSY CADENA MD Apr 23, 2017 12:25
[2017-04-23 11:47] VITALS: BP 127/64
--- NOTE | 2017-04-23 12:30 | PDOC ---
Subjective: Subjective: Denies pain. Objective: Objective: Per RN - small stools, not eating much, still confused. Also d/w PT - concern that although activity is better (walking today), cognitive status continues to decline. Used to be able to say he was at [facility] in [place], [place], also knew year, etc - no longer can answer these questions... ?image head Vital Signs: Vital Signs Date Time Temp Pulse Resp B/P (MAP) Pulse Ox O2 Delivery O2 Flow Rate FiO2 04/23/17 11:47 99.1 83 20 127/64 (85) 96 Room Air 99.1 Labs: Laboratory Tests Test 04/23/17 04:45 White Blood Count 11.3 x10^3/uL Red Blood Count 3.46 x10^6/uL Hemoglobin 9.9 g/dL Hematocrit 29.7 % Mean Corpuscular Volume 86 fL Mean Corpuscular Hemoglobin 29 pg Mean Corpuscular Hemoglobin Concent 33 g/dL Red Cell Distribution Width 12.9 % Platelet Count 450 x10^3/uL Neutrophils (%) (Auto) 79 % Lymphocytes (%) (Auto) 9 % Monocytes (%) (Auto) 8 % Eosinophils (%) (Auto) 3 % Basophils (%) (Auto) 0 % Neutrophils # (Auto) 8.9 x10^3uL Lymphocytes # (Auto) 1.0 x10^3/uL Monocytes # (Auto) 0.9 x10^3/uL Eosinophils # (Auto) 0.4 x10^3/uL Basophils # (Auto) 0.0 x10^3/uL PE: GEN: NAD, walking halls w/ PT ABD: soft, non-tender NEURO/PSYCH: probably confused A/P: SBO s/p resection 04/17/17 -metastatic colon cancer Confusion -- Doing better activity-[place]; however, still significant confusion as d/w PT above. JOEY HURLEY Apr 23, 2017 12:30
--- NOTE | 2017-04-23 13:41 | PDOC ---
PROGRESS NOTES Chief Complaint Chief Complaint malignant SBO ASSESSMENT AND PLAN: 1. SBO: s/p ex lap with tumor resection and end-to-end SB anastomosis on 04/[address] Schaefer. recovering fairly well physically 2. Pain control: adequate. PRN morphine 3. Encephalopathy: toxic (2/2 narcotics): improving, but still needs close obs. 4. Nutrition: tolerating clear liquids, but poor PO intake. advance to soft mechanical. cont PPN for now 5. Hypokalemia: borderline. monitor, replete as indicated 6. Leukocytosis: reactive borderline high, but stable. monitor 7. Anemia: chronic dz and inflammation, min component of acute blood loss. stable, monitor 8. Transaminitis: mild; suspect 2/2 liver mets. monitor 9. Protein malnutrition: moderate. supplements 10. Colon CA: mets to liver and retroperitoneal adenopathy. F/U with onc post D/C 11. B renal stones: non obstructive 12. Prophylaxis: PPI, lovenox History of Present Illness History of Present Illness awake alert, but confusion persisting. po intake poor Vitals Vitals Vital Signs Date Time Temp Pulse Resp B/P (MAP) Pulse Ox O2 Delivery O2 Flow Rate FiO2 04/23/17 11:47 99.1 83 20 127/64 (85) 96 Room Air 99.1 Physical Exam General: Alert, Cooperative, No acute distress Heart: Regular rate Lungs: Clear Abdomen: Soft, Other (midline incision well healing) Extremities: No clubbing, No edema Skin: No rashes Labs LABS Laboratory Tests Test 04/23/17 04:45 White Blood Count 11.3 x10^3/uL (4.0-11.0) Red Blood Count 3.46 x10^6/uL (4.30-5.70) Hemoglobin 9.9 g/dL (13.0-17.5) Hematocrit 29.7 % (39.0-53.0) Mean Corpuscular Volume 86 fL (79-100) Mean Corpuscular Hemoglobin 29 pg (25-35) Mean Corpuscular Hemoglobin Concent 33 g/dL (31-37) Red Cell Distribution Width 12.9 % (11.5-14.5) Platelet Count 450 x10^3/uL (140-400) Neutrophils (%) (Auto) 79 % (31-73) Lymphocytes (%) (Auto) 9 % (24-48) Monocytes (%) (Auto) 8 % (0-9) Eosinophils (%) (Auto) 3 % (0-3) Basophils (%) (Auto) 0 % (0-3) Neutrophils # (Auto) 8.9 x10^3uL (1.8-7.7) Lymphocytes # (Auto) 1.0 x10^3/uL (1.0-4.8) Monocytes # (Auto) 0.9 x10^3/uL (0.0-1.1) Eosinophils # (Auto) 0.4 x10^3/uL (0.0-0.7) Basophils # (Auto) 0.0 x10^3/uL (0.0-0.2) SHANT VILLAREAL MD Apr 23, 2017 13:41
[2017-04-23] MEDS: POTASSIUM CHLORIDE 10MEQ 100 ML IV SCH ×4 (14:01→17:33)
[2017-04-23 15:47] VITALS: BP 115/63
[2017-04-23] MEDS: ENOXAPARIN 40 MG/0.4 ML SYRINGE. SQ SCH (16:27)
[2017-04-23 19:20] VITALS: BP 130/68
[2017-04-23 23:20] VITALS: BP 127/66
[2017-04-24] MEDS: HYDROcodone/APAP 5/325MG 1 TAB TABLET PO PRN ×3 (00:22→13:24)
[2017-04-24] MEDS: AMINO AC 3%/ELECTROLYTE/GLYCER 1,000 ML IV SCH ×2 (01:38→13:49)
[2017-04-24 03:15] VITALS: BP 125/57
[2017-04-24 04:49] LABS: BASO % 0 % (0-3); EOS % 6 % (0-3); HEMATOCRIT 27.8 % (39.0-53.0); HEMOGLOBIN 9.4 g/dL (13.0-17.5); LYMPH # 1.3 x10^3/uL (1.0-4.8); LYMPH % 11 % (24-48); MEAN CORPUSCULAR HEMOGLOBIN 29 pg (25-35); MEAN CORPUSCULAR HGB CONC 34 g/dL (31-37); MEAN CORPUSCULAR VOLUME 86 fL (79-100); MONO % 8 % (0-9); NEUT % 76 % (31-73); PLATELET COUNT 441 x10^3/uL (140-400); RED BLOOD COUNT 3.24 x10^6/uL (4.30-5.70); RED CELL DISTRIBUTION WIDTH 12.8 % (11.5-14.5); WHITE BLOOD COUNT 11.7 x10^3/uL (4.0-11.0)
[2017-04-24 07:00] VITALS: BP 134/71
[2017-04-24] MEDS: PANTOPRAZOLE IV PUSH 40 MG VIAL. IVP SCH (08:43)
--- NOTE | 2017-04-24 09:36 | PDOC ---
PIYUSH ECHEVERRIA BENCH MECHANIC 04/24/17 0936: SURGICAL PROGRESS NOTE Subjective some incisional/lower abdomen pain not eating present confusion continues + stools Vital Signs Vital Signs Date Time Temp Pulse Resp B/P (MAP) Pulse Ox O2 Delivery O2 Flow Rate FiO2 04/24/17 08:44 95 Room Air 2.0 04/24/17 07:00 98.1 92 20 134/71 (92) 98.1 I&O Intake and Output 04/24/17 07:00 Intake Total 50 ml Output Total 975 ml Balance -925 ml Intake Oral 50 ml Output Urine Total 975 ml # Voids 1 # Bowel Movements 3 General: Cooperative, No acute distress Abdomen: Soft, Other (incision c/d/i, no erythema, mild tenderness to incision ) Labs Laboratory Tests Test 04/23/17 04:45 04/24/17 04:10 White Blood Count 11.3 x10^3/uL (4.0-11.0) 11.7 x10^3/uL (4.0-11.0) Red Blood Count 3.46 x10^6/uL (4.30-5.70) 3.24 x10^6/uL (4.30-5.70) Hemoglobin 9.9 g/dL (13.0-17.5) 9.4 g/dL (13.0-17.5) Hematocrit 29.7 % (39.0-53.0) 27.8 % (39.0-53.0) Mean Corpuscular Volume 86 fL (79-100) 86 fL (79-100) Mean Corpuscular Hemoglobin 29 pg (25-35) 29 pg (25-35) Mean Corpuscular Hemoglobin Concent 33 g/dL (31-37) 34 g/dL (31-37) Red Cell Distribution Width 12.9 % (11.5-14.5) 12.8 % (11.5-14.5) Platelet Count 450 x10^3/uL (140-400) 441 x10^3/uL (140-400) Neutrophils (%) (Auto) 79 % (31-73) 76 % (31-73) Lymphocytes (%) (Auto) 9 % (24-48) 11 % (24-48) Monocytes (%) (Auto) 8 % (0-9) 8 % (0-9) Eosinophils (%) (Auto) 3 % (0-3) 6 % (0-3) Basophils (%) (Auto) 0 % (0-3) 0 % (0-3) Neutrophils # (Auto) 8.9 x10^3uL (1.8-7.7) 8.8 x10^3uL (1.8-7.7) Lymphocytes # (Auto) 1.0 x10^3/uL (1.0-4.8) 1.3 x10^3/uL (1.0-4.8) Monocytes # (Auto) 0.9 x10^3/uL (0.0-1.1) 0.9 x10^3/uL (0.0-1.1) Eosinophils # (Auto) 0.4 x10^3/uL (0.0-0.7) 0.7 x10^3/uL (0.0-0.7) Basophils # (Auto) 0.0 x10^3/uL (0.0-0.2) 0.0 x10^3/uL (0.0-0.2) Laboratory Tests Test 04/24/17 04:10 White Blood Count 11.7 x10^3/uL (4.0-11.0) Red Blood Count 3.24 x10^6/uL (4.30-5.70) Hemoglobin 9.4 g/dL (13.0-17.5) Hematocrit 27.8 % (39.0-53.0) Mean Corpuscular Volume 86 fL (79-100) Mean Corpuscular Hemoglobin 29 pg (25-35) Mean Corpuscular Hemoglobin Concent 34 g/dL (31-37) Red Cell Distribution Width 12.8 % (11.5-14.5) Platelet Count 441 x10^3/uL (140-400) Neutrophils (%) (Auto) 76 % (31-73) Lymphocytes (%) (Auto) 11 % (24-48) Monocytes (%) (Auto) 8 % (0-9) Eosinophils (%) (Auto) 6 % (0-3) Basophils (%) (Auto) 0 % (0-3) Neutrophils # (Auto) 8.8 x10^3uL (1.8-7.7) Lymphocytes # (Auto) 1.3 x10^3/uL (1.0-4.8) Monocytes # (Auto) 0.9 x10^3/uL (0.0-1.1) Eosinophils # (Auto) 0.7 x10^3/uL (0.0-0.7) Basophils # (Auto) 0.0 x10^3/uL (0.0-0.2) Problem List Problems Medical Problems: (1) Small bowel torsion Status: Acute Assessment/Plan s/p xlap supportive care SNU when medically ready Problems: DONALD FELTON MD 04/24/17 1422: SURGICAL PROGRESS NOTE Assessment/Plan Agree with above Problems: PIYUSH ECHEVERRIA APRN Apr 24, 2017 09:36 DONALD FELTON MD Apr 24, 2017 14:22
[2017-04-24 11:00] VITALS: BP 117/52
--- NOTE | 2017-04-24 13:29 | PDOC ---
G I PROGRESS NOTE Reason for Follow-up Abd pain/SBO Subjective Tolerating liquids Physical Exam Lungs clear CV S1 S2 ABD incision intact, +BS, soft Review of Relevant I have reviewed the following items stephenie (where applicable) has been applied. Labs Laboratory Tests Test 04/23/17 04:45 04/24/17 04:10 White Blood Count 11.3 x10^3/uL (4.0-11.0) 11.7 x10^3/uL (4.0-11.0) Red Blood Count 3.46 x10^6/uL (4.30-5.70) 3.24 x10^6/uL (4.30-5.70) Hemoglobin 9.9 g/dL (13.0-17.5) 9.4 g/dL (13.0-17.5) Hematocrit 29.7 % (39.0-53.0) 27.8 % (39.0-53.0) Mean Corpuscular Volume 86 fL (79-100) 86 fL (79-100) Mean Corpuscular Hemoglobin 29 pg (25-35) 29 pg (25-35) Mean Corpuscular Hemoglobin Concent 33 g/dL (31-37) 34 g/dL (31-37) Red Cell Distribution Width 12.9 % (11.5-14.5) 12.8 % (11.5-14.5) Platelet Count 450 x10^3/uL (140-400) 441 x10^3/uL (140-400) Neutrophils (%) (Auto) 79 % (31-73) 76 % (31-73) Lymphocytes (%) (Auto) 9 % (24-48) 11 % (24-48) Monocytes (%) (Auto) 8 % (0-9) 8 % (0-9) Eosinophils (%) (Auto) 3 % (0-3) 6 % (0-3) Basophils (%) (Auto) 0 % (0-3) 0 % (0-3) Neutrophils # (Auto) 8.9 x10^3uL (1.8-7.7) 8.8 x10^3uL (1.8-7.7) Lymphocytes # (Auto) 1.0 x10^3/uL (1.0-4.8) 1.3 x10^3/uL (1.0-4.8) Monocytes # (Auto) 0.9 x10^3/uL (0.0-1.1) 0.9 x10^3/uL (0.0-1.1) Eosinophils # (Auto) 0.4 x10^3/uL (0.0-0.7) 0.7 x10^3/uL (0.0-0.7) Basophils # (Auto) 0.0 x10^3/uL (0.0-0.2) 0.0 x10^3/uL (0.0-0.2) Laboratory Tests Test 04/24/17 04:10 White Blood Count 11.7 x10^3/uL (4.0-11.0) Red Blood Count 3.24 x10^6/uL (4.30-5.70) Hemoglobin 9.4 g/dL (13.0-17.5) Hematocrit 27.8 % (39.0-53.0) Mean Corpuscular Volume 86 fL (79-100) Mean Corpuscular Hemoglobin 29 pg (25-35) Mean Corpuscular Hemoglobin Concent 34 g/dL (31-37) Red Cell Distribution Width 12.8 % (11.5-14.5) Platelet Count 441 x10^3/uL (140-400) Neutrophils (%) (Auto) 76 % (31-73) Lymphocytes (%) (Auto) 11 % (24-48) Monocytes (%) (Auto) 8 % (0-9) Eosinophils (%) (Auto) 6 % (0-3) Basophils (%) (Auto) 0 % (0-3) Neutrophils # (Auto) 8.8 x10^3uL (1.8-7.7) Lymphocytes # (Auto) 1.3 x10^3/uL (1.0-4.8) Monocytes # (Auto) 0.9 x10^3/uL (0.0-1.1) Eosinophils # (Auto) 0.7 x10^3/uL (0.0-0.7) Basophils # (Auto) 0.0 x10^3/uL (0.0-0.2) Microbiology 04/13/17 Urine Culture - Final, Complete 04/13/17 Urine Culture Result 1 (RASHAWN) - Final, Complete Medications Current Medications Sodium Chloride 1,000 ml @ 1,000 mls/hr 1X ONCE IV Last administered on 12:46; Start 04/13/17 at 13:00; Stop 04/13/17 at 13:59; Status DC Ondansetron HCl (Zofran) 4 mg 1X ONCE IV Last administered on 04/13/17 12:46 ; Start 04/13/17 at 13:00; Stop 04/13/17 at 13:01; Status DC Iohexol (Omnipaque 300 Mg/ml) 60 ml 1X ONCE IV Last administered on 04/13/17 13:20; Start 04/13/17 at 13:15; Stop 04/13/17 at 13:16; Status DC Info (Do NOT chart on this entry -- for MONITORING) 1 each PRN DAILY PRN MC SEE COMMENTS; Start 04/13/17 at 13:15; Stop 04/15/17 at 13:14; Status DC Ondansetron HCl (Zofran) 4 mg PRN Q8HRS PRN IV NAUSEA/VOMITING; Start 04/13/17 at 14:45; Stop 04/14/17 at 10:50; Status DC Morphine Sulfate 4 mg PRN Q2HR PRN IV PAIN Last administered on 04/14/17 03:57 ; Start 04/13/17 at 14:45; Stop 04/14/17 at 10:49; Status DC Acetaminophen (Tylenol) 650 mg PRN Q6HRS PRN PO FEVER; Start 04/13/17 at 15:30 Ondansetron HCl (Zofran) 4 mg PRN Q6HRS PRN IV NAUSEA/VOMITING Last administered on 04/17/17 09:00; Start 04/13/17 at 15:30 Morphine Sulfate 2 mg PRN Q2HR PRN IV MILD PAIN Last administered on 04/21/17 20:59; Start 04/13/17 at 15:30; Stop 04/23/17 at 13:39; Status DC Tramadol HCl (Ultram) 50 mg PRN Q6HRS PRN PO PAIN; Start 04/13/17 at 15:30 Hydralazine HCl (Apresoline) 10 mg PRN Q4HRS PRN IVP ELEVATED BP, SEE COMMENTS ; Start 04/13/17 at 15:30 Docusate Sodium (Colace) 100 mg PRN DAILY PRN PO CONSTIPATION; Start 04/13/17 at 15:30 Amino Acids/ Glycerin/ Electrolytes 1,000 ml @ 80 mls/hr [id number] IV Last administered on 04/24/17 01:38; Start 04/13/17 at 16:00 Morphine Sulfate 4 mg PRN Q2HR PRN IV MOD - SEVERE PAIN Last administered on 09:01; Start 04/13/17 at 15:30; Stop 04/21/17 at 14:41; Status DC Enoxaparin Sodium (Lovenox 40mg Syringe) 40 mg Q24H SQ Last administered on 04/23 16:27; Start 04/13/17 at 16:00 Pantoprazole Sodium (Protonix Vial) 40 mg DAILYAC IVP Last administered on 04/24 08:43; Start 04/14/17 at 07:30 Throat Lozenges (Chloraseptic) 1 spray PRN Q2HR PRN PO SORE THROAT Last administered on 04/19/17 17:41; Start 04/13/17 at 17:45 Throat Lozenges (Cepacol Sore Throat Lozenge) 1 sheron PRN Q2HRS PRN PO SORE THROAT Last administered on 04/20/17 07:55; Start 04/13/17 at 17:45 Saliva Substitute (Biotene Moisturizing Mouth) 2 spray PRN Q15MIN PRN PO DRY MOUTH Last administered on 04/15/17 15:42; Start 04/15/17 at 13:15 Sodium Chloride 500 ml @ 500 mls/hr 1X ONCE IV Last administered on 04/17/17 10:50; Start 04/17/17 at 11:00; Stop 04/17/17 at 11:59; Status DC Piperacillin Sod/ Tazobactam Sod 3.375 gm/Sodium Chloride 50 ml @ 100 mls/hr Q6HRS IV Last administered on 04/21/17 06:11; Start 04/17/17 at 11:30; Stop 04/21 at 08:12; Status DC Vancomycin HCl 1 gm/Sodium Chloride 250 ml @ 250 mls/hr Q12H IV ; Start at 10:45; Status UNV Vancomycin HCl 1.5 gm/Sodium Chloride 500 ml @ 250 mls/hr 1X ONCE IV Last administered on 04/17/17 12:26; Start 04/17/17 at 11:30; Stop 04/17/17 at 13:29; Status DC Vancomycin HCl (Vanco Per Pharmacy) 1 each PRN DAILY PRN MC SEE COMMENTS Last administered on 04/18/17 13:16; Start 04/17/17 at 11:00; Stop 04/19/17 at 08:32; Status DC Iohexol (Omnipaque 300 Mg/ml) 75 ml 1X ONCE IV Last administered on 04/17/17 12:01; Start 04/17/17 at 11:00; Stop 04/17/17 at 11:01; Status DC Info (Do NOT chart on this entry -- for MONITORING) 1 each PRN DAILY PRN MC SEE COMMENTS; Start 04/17/17 at 11:00; Stop 04/19/17 at 10:59; Status DC Metronidazole 100 ml @ 100 mls/hr 1X PREOP PRN IV prophylaxis; Start 04/18/17 at 06:00; Stop 04/18/17 at 18:00; Status DC Vancomycin HCl 1 gm/Sodium Chloride 250 ml @ 250 mls/hr Q12H IV Last administered on 04/17/17 23:37; Start 04/18/17 at 00:00; Stop 04/18/17 at 12:47; Status DC Vancomycin HCl 1 each 1X ONCE MC ; Start 04/20/17 at 00:30; Stop 04/20/17 at 00: 31; Status Cancel Ondansetron HCl (Zofran) 4 mg PRN Q6HRS PRN IV NAUSEA/VOMITING; Start 04/17/17 at 14:00; Stop 04/18/17 at 13:59; Status DC Fentanyl Citrate (Fentanyl 2ml Vial) 25 mcg PRN Q5MIN PRN IV MILD PAIN; Start 04/17/17 at 14:00; Stop 04/18/17 at 13:59; Status DC Fentanyl Citrate (Fentanyl 2ml Vial) 50 mcg PRN Q5MIN PRN IV MODERATE PAIN Last administered on 04/17/17 16:59; Start 04/17/17 at 14:00; Stop 04/18/17 at 13: 59; Status DC Morphine Sulfate 1 mg PRN Q10MIN PRN IV SEVERE PAIN Last administered on t 16:44; Start 04/17/17 at 14:00; Stop 04/18/17 at 13:59; Status DC Ringer's Solution 1,000 ml @ 30 mls/hr Q24H IV ; Start 04/17/17 at 13:47; Stop 04/18/17 at 01:46; Status DC Lidocaine HCl 2 ml PRN 1X PRN ID PRIOR TO IV START; Start 04/17/17 at 14:00; Stop 04/18/17 at 13:59; Status DC Hydromorphone HCl (Dilaudid) 0.5 mg PRN Q10MIN PRN IV SEV PAIN, Second choice; Start 04/17/17 at 14:00; Stop 04/18/17 at 13:59; Status DC Prochlorperazine Edisylate (Compazine) 5 mg PACU PRN PRN IV NAUSEA, MRX1; Start 04/17/17 at 14:00; Stop 04/18/17 at 13:59; Status DC Fentanyl Citrate (Fentanyl 5ml Vial) 250 mcg STK-MED ONCE .ROUTE ; Start at 13:49; Stop 04/17/17 at 13:50; Status DC Succinylcholine Chloride (Anectine) 200 mg STK-MED ONCE .ROUTE ; Start 04/17/17 at 13:50; Stop 04/17/17 at 13:51; Status DC Rocuronium Clint (Zemuron) 50 mg STK-MED ONCE .ROUTE ; Start 04/17/17 at 13:50 ; Stop 04/17/17 at 13:51; Status DC Desflurane (Suprane) 60 ml STK-MED ONCE IH ; Start 04/17/17 at 13:50; Stop at 13:51; Status DC Dexamethasone Sodium Phosphate (Decadron) 20 mg STK-MED ONCE .ROUTE ; Start 04/17 at 13:50; Stop 04/17/17 at 13:51; Status DC Propofol 20 ml @ As Directed STK-MED ONCE IV ; Start 04/17/17 at 13:50; Stop 04/17 at 13:51; Status DC Ondansetron HCl (Zofran) 4 mg STK-MED ONCE .ROUTE ; Start 04/17/17 at 13:50; Stop 04/17/17 at 13:51; Status DC Phenylephrine HCl 1 mg STK-MED ONCE IV ; Start 04/17/17 at 13:51; Stop 04/17/17 at 13:52; Status DC Lidocaine HCl (Lidocaine Pf 2% Vial) 5 ml STK-MED ONCE .ROUTE ; Start 04/17/17 at 13:51; Stop 04/17/17 at 13:52; Status DC Albumin Human 500 ml @ As Directed STK-MED ONCE IV ; Start 04/17/17 at 13:57; Stop 04/17/17 at 13:58; Status DC Esmolol HCl (Brevibloc) 100 mg STK-MED ONCE IV ; Start 04/17/17 at 14:40; Stop at 14:41; Status DC Neostigmine Methylsulfate (Bloxiverz) 10 mg STK-MED ONCE .ROUTE ; Start 04/17/17 at 15:12; Stop 04/17/17 at 15:13; Status DC Glycopyrrolate (Robinul) 1 mg STK-MED ONCE .ROUTE ; Start 04/17/17 at 15:12; Stop 04/17/17 at 15:13; Status DC Neostigmine Methylsulfate (Bloxiverz) 10 mg STK-MED ONCE .ROUTE ; Start 04/17/17 at 15:14; Stop 04/17/17 at 15:15; Status DC Diphenhydramine HCl (Benadryl) 25 mg PRN Q6HRS PRN IV ITCHING Last administered on 04/23/17 00:37; Start 04/17/17 at 16:15 Enoxaparin Sodium (Lovenox 40mg Syringe) 40 mg Q24H SQ ; Start 04/18/17 at 09:00 ; Status UNV Sodium Chloride (Normal Saline Flush) 3 ml QSHIFT PRN IV AFTER MEDS AND BLOOD DRAWS; Start 04/17/17 at 16:15 Sodium Chloride 1,000 ml @ 30 mls/hr Q24H IV ; Start 04/17/17 at 17:00; Stop 04/18/17 at 17:35; Status DC Hydromorphone HCl 30 ml @ 0 mls/hr CONT PRN PRN IV PROTOCOL Last administered on 04/19/17 06:17; Start 04/17/17 at 16:15; Stop 04/19/17 at 19:13; Status DC Ondansetron HCl (Zofran) 4 mg PRN Q6HRS PRN IV NAUESA, 1ST CHOICE; Start at 16:15; Status UNV Albumin Human 500 ml @ 50 mls/hr 1X ONCE IV Last administered on 04/18/17 10: 40; Start 04/18/17 at 10:30; Stop 04/18/17 at 20:29; Status DC Vancomycin HCl 1.25 gm/Sodium Chloride 250 ml @ 167 mls/hr Q12H IV Last administered on 04/18/17 23:51; Start 04/18/17 at 13:00; Stop 04/19/17 at 08:31; Status DC Hydromorphone HCl 30 ml @ 0 mls/hr CONT PRN PRN IV PROTOCOL; Start 04/19/17 at 19:15; Stop 04/21/17 at 14:41; Status DC Potassium Chloride 100 ml @ 100 mls/hr Q1H IV Last administered on 04/23/17 17 :33; Start 04/23/17 at 14:00; Stop 04/23/17 at 17:59; Status DC Acetaminophen/ Hydrocodone Bitart (Lortab 5/325) 1 tab PRN Q4HRS PRN PO PAIN Last administered on 04/24/17 13:24; Start 04/23/17 at 13:45 Active Scripts Active Zofran Odt (Ondansetron) 4 Mg Tab.rapdis 4 Mg PO Q8HRS PRN [place] 5-325 Tablet (Acetaminophen/Hydrocodone Bitart) 1 Each Tablet 1 Tab PO PRN Q6HRS PRN Reported Preservision Areds Softgel (Vit A/Vit C/Vit E/Zinc/Copper) 1 Each Capsule 2 Each PO DAILY Omeprazole 20 Mg Capsule.dr 1 Cap PO DAILY Centrum Silver Tablet (Multivits-Min/Fa/Lycopene/Lut) 1 Each Tablet 1 Each PO Preservision Areds Tablet (Vit A/Vit C/Vit E/Zinc/Copper) 1 Each Tablet 1 Each PO No Known Medications Prior To Admisstion (Info) Each 1 Each Vitals/I & O Vital Sign - Last 24 Hours 04/23/17 04/23/17 04/23/17 04/23/17 15:47 19:20 20:00 23:20 Temp 99.9 97.9 97.7 99.9 97.9 97.7 Pulse 77 81 71 Resp 20 16 16 B/P (MAP) 115/63 (80) 130/68 (88) 127/66 (86) Pulse Ox 93 95 95 O2 Delivery Room Air Room Air Room Air Room Air 04/24/17 04/24/17 04/24/17 04/24/17 00:22 01:20 03:15 07:00 Temp 97.7 98.1 97.7 98.1 Pulse 78 92 Resp 16 17 16 20 B/P (MAP) 125/57 (79) 134/71 (92) Pulse Ox 95 93 O2 Delivery Room Air Room Air Room Air 04/24/17 04/24/17 04/24/17 04/24/17 08:00 08:44 09:48 11:00 Temp 97.9 97.9 Pulse 84 Resp 20 B/P (MAP) 117/52 (73) Pulse Ox 95 93 O2 Delivery Room Air Room Air Room Air Room Air O2 Flow Rate 2.0 2.0 04/24/17 13:24 Pulse Ox 93 O2 Delivery Room Air Intake and Output 04/23/17 04/23/17 04/24/17 15:00 23:00 07:00 Intake Total 50 ml Output Total 400 ml 450 ml 125 ml Balance -400 ml -400 ml -125 ml Problem List Problems Medical Problems: (1) Small bowel torsion Status: Acute Assessment SBO- s/p lysis of adhesions/resection, post-op confusion persists, cpm DONALD PAN MD Apr 24, 2017 13:29
[2017-04-24 15:00] VITALS: BP 115/61
--- NOTE | 2017-04-24 16:15 | PDOC ---
PROGRESS NOTES Chief Complaint Chief Complaint malignant SBO ASSESSMENT AND PLAN: 1. SBO: s/p ex lap with tumor resection and end-to-end SB anastomosis on 04/[address] Schaefer. recovering fairly well physically 2. Pain control: adequate. avoid narcotics 3. Encephalopathy: toxic (2/2 narcotics): improving, but still needs close obs; some visual hallucinations. unlikely to be met dz, but obtain CT to assuage family 4. Nutrition: advanced to soft mechanical. cont PPN for now, stop when PO intake sufficient 5. Hypokalemia: borderline. monitor, replete as indicated 6. Leukocytosis: reactive borderline high, but stable. monitor 7. Anemia: chronic dz and inflammation, min component of acute blood loss. stable, monitor 8. Transaminitis: mild; suspect 2/2 liver mets. monitor 9. Protein malnutrition: moderate. supplements 10. Colon CA: mets to liver and retroperitoneal adenopathy. F/U with onc post D/C 11. B renal stones: non obstructive 12. Prophylaxis: PPI, lovenox History of Present Illness History of Present Illness awake alert. feels ok confusion, visual hallucinations per RN Vitals Vitals Vital Signs Date Time Temp Pulse Resp B/P (MAP) Pulse Ox O2 Delivery O2 Flow Rate FiO2 04/24/17 14:20 93 Room Air 04/24/17 11:00 97.9 84 20 117/52 (73) 97.9 04/24/17 08:44 2.0 Physical Exam General: Cooperative, No acute distress Heart: Regular rate Lungs: Clear Abdomen: Normal bowel sounds, Soft, Other (incision c/d/i, no erythema, mild tenderness to incision ) Extremities: No clubbing, No edema Skin: No rashes Labs LABS Laboratory Tests Test 04/24/17 04:10 White Blood Count 11.7 x10^3/uL (4.0-11.0) Red Blood Count 3.24 x10^6/uL (4.30-5.70) Hemoglobin 9.4 g/dL (13.0-17.5) Hematocrit 27.8 % (39.0-53.0) Mean Corpuscular Volume 86 fL (79-100) Mean Corpuscular Hemoglobin 29 pg (25-35) Mean Corpuscular Hemoglobin Concent 34 g/dL (31-37) Red Cell Distribution Width 12.8 % (11.5-14.5) Platelet Count 441 x10^3/uL (140-400) Neutrophils (%) (Auto) 76 % (31-73) Lymphocytes (%) (Auto) 11 % (24-48) Monocytes (%) (Auto) 8 % (0-9) Eosinophils (%) (Auto) 6 % (0-3) Basophils (%) (Auto) 0 % (0-3) Neutrophils # (Auto) 8.8 x10^3uL (1.8-7.7) Lymphocytes # (Auto) 1.3 x10^3/uL (1.0-4.8) Monocytes # (Auto) 0.9 x10^3/uL (0.0-1.1) Eosinophils # (Auto) 0.7 x10^3/uL (0.0-0.7) Basophils # (Auto) 0.0 x10^3/uL (0.0-0.2) SHANT VILLAREAL MD Apr 24, 2017 16:14
[2017-04-24] MEDS: ENOXAPARIN 40 MG/0.4 ML SYRINGE. SQ SCH (16:36)
[2017-04-24] MEDS: POTASSIUM CHLORIDE 20 MEQ TABLET.ER. PO SCH ×2 (16:37→16:38)
[2017-04-24] MEDS: SENNOSIDES/DOCUSATE 8.6/50MG TABLET. PO SCH (16:37)
[2017-04-24 19:47] VITALS: BP 117/64
[2017-04-24] MEDS: traMADol 50 MG TABLET PO PRN (22:57)
[2017-04-24 23:07] VITALS: BP 137/69
[2017-04-25] MEDS: ACETAMINOPHEN 325 MG TABLET. PO PRN ×2 (01:43→09:24)
[2017-04-25] MEDS: AMINO AC 3%/ELECTROLYTE/GLYCER 1,000 ML IV SCH ×2 (01:48→16:04)
[2017-04-25 03:59] VITALS: BP 128/69
[2017-04-25 05:58] LABS: BASO % 0 % (0-3); EOS % 2 % (0-3); HEMATOCRIT 30.1 % (39.0-53.0); HEMOGLOBIN 10.2 g/dL (13.0-17.5); LYMPH # 1.1 x10^3/uL (1.0-4.8); LYMPH % 8 % (24-48); MEAN CORPUSCULAR HEMOGLOBIN 29 pg (25-35); MEAN CORPUSCULAR HGB CONC 34 g/dL (31-37); MEAN CORPUSCULAR VOLUME 85 fL (79-100); MONO % 7 % (0-9); NEUT % 82 % (31-73); PLATELET COUNT 541 x10^3/uL (140-400); RED BLOOD COUNT 3.56 x10^6/uL (4.30-5.70); RED CELL DISTRIBUTION WIDTH 13.3 % (11.5-14.5); WHITE BLOOD COUNT 12.9 x10^3/uL (4.0-11.0)
[2017-04-25] MEDS: traMADol 50 MG TABLET PO PRN (06:06)
[2017-04-25] MEDS: PANTOPRAZOLE IV PUSH 40 MG VIAL. IVP SCH ×3 (06:09→09:23)
[2017-04-25 06:33] LABS: ALBUMIN 2.1 g/dL (3.4-5.0); ALBUMIN/GLOBULIN RATIO 0.5 (1.0-1.7); CREATININE 1.4 mg/dL (0.7-1.3); GFR 49.4; TOTAL BILIRUBIN 0.6 mg/dL (0.2-1.0); TOTAL PROTEIN 6.4 g/dL (6.4-8.2)
[2017-04-25 07:00] VITALS: BP 139/77
[2017-04-25] MEDS ORDERED: IBUPROFEN 400 MG TABLET. PO PRN (09:15)
[2017-04-25] MEDS ORDERED: IV NORMAL SALINE 1000ML BAG 1,000 ML IV ONE (09:15)
--- NOTE | 2017-04-25 09:17 | PDOC ---
PIYUSH ECHEVERRIA TELECOMMUNICATIONS MANAGER 04/25/17 0917: SURGICAL PROGRESS NOTE Subjective continued confusion poor intake family not present Vital Signs Vital Signs Date Time Temp Pulse Resp B/P (MAP) Pulse Ox O2 Delivery O2 Flow Rate FiO2 04/25/17 07:00 97.3 77 16 139/77 (97) 96 Room Air 97.3 04/24/17 08:44 2.0 I&O Intake and Output 04/25/17 07:00 Intake Total 1872 ml Output Total 300 ml Balance 1572 ml Intake Oral 40 ml IV Total 920 ml Other 912 ml Output Urine Total 300 ml # Voids 4 # Bowel Movements 3 General: Alert, Oriented X3, Cooperative, No acute distress Abdomen: Soft, Other (incision c/d/i, no erythema ) Labs Laboratory Tests Test 04/24/17 04:10 04/25/17 05:45 White Blood Count 11.7 x10^3/uL (4.0-11.0) 12.9 x10^3/uL (4.0-11.0) Red Blood Count 3.24 x10^6/uL (4.30-5.70) 3.56 x10^6/uL (4.30-5.70) Hemoglobin 9.4 g/dL (13.0-17.5) 10.2 g/dL (13.0-17.5) Hematocrit 27.8 % (39.0-53.0) 30.1 % (39.0-53.0) Mean Corpuscular Volume 86 fL (79-100) 85 fL (79-100) Mean Corpuscular Hemoglobin 29 pg (25-35) 29 pg (25-35) Mean Corpuscular Hemoglobin Concent 34 g/dL (31-37) 34 g/dL (31-37) Red Cell Distribution Width 12.8 % (11.5-14.5) 13.3 % (11.5-14.5) Platelet Count 441 x10^3/uL (140-400) 541 x10^3/uL (140-400) Neutrophils (%) (Auto) 76 % (31-73) 82 % (31-73) Lymphocytes (%) (Auto) 11 % (24-48) 8 % (24-48) Monocytes (%) (Auto) 8 % (0-9) 7 % (0-9) Eosinophils (%) (Auto) 6 % (0-3) 2 % (0-3) Basophils (%) (Auto) 0 % (0-3) 0 % (0-3) Neutrophils # (Auto) 8.8 x10^3uL (1.8-7.7) 10.6 x10^3uL (1.8-7.7) Lymphocytes # (Auto) 1.3 x10^3/uL (1.0-4.8) 1.1 x10^3/uL (1.0-4.8) Monocytes # (Auto) 0.9 x10^3/uL (0.0-1.1) 0.9 x10^3/uL (0.0-1.1) Eosinophils # (Auto) 0.7 x10^3/uL (0.0-0.7) 0.3 x10^3/uL (0.0-0.7) Basophils # (Auto) 0.0 x10^3/uL (0.0-0.2) 0.0 x10^3/uL (0.0-0.2) Sodium Level 136 mmol/L (136-145) Potassium Level 4.0 mmol/L (3.5-5.1) Chloride Level 102 mmol/L (98-107) Carbon Dioxide Level 25 mmol/L (21-32) Anion Gap 9 (6-14) Blood Urea Nitrogen 24 mg/dL (8-26) Creatinine 1.4 mg/dL (0.7-1.3) Estimated GFR (Cockcroft-Gault) 49.4 BUN/Creatinine Ratio 17 (6-20) Glucose Level 116 mg/dL (70-99) Calcium Level 9.0 mg/dL (8.5-10.1) Total Bilirubin 0.6 mg/dL (0.2-1.0) Aspartate Amino Transf (AST/SGOT) 63 U/L (15-37) Alanine Aminotransferase (ALT/SGPT) 40 U/L (16-63) Alkaline Phosphatase 172 U/L (46-116) Total Protein 6.4 g/dL (6.4-8.2) Albumin 2.1 g/dL (3.4-5.0) Albumin/Globulin Ratio 0.5 (1.0-1.7) Laboratory Tests Test 6/11/17 05:45 White Blood Count 12.9 x10^3/uL (4.0-11.0) Red Blood Count 3.56 x10^6/uL (4.30-5.70) Hemoglobin 10.2 g/dL (13.0-17.5) Hematocrit 30.1 % (39.0-53.0) Mean Corpuscular Volume 85 fL (79-100) Mean Corpuscular Hemoglobin 29 pg (25-35) Mean Corpuscular Hemoglobin Concent 34 g/dL (31-37) Red Cell Distribution Width 13.3 % (11.5-14.5) Platelet Count 541 x10^3/uL (140-400) Neutrophils (%) (Auto) 82 % (31-73) Lymphocytes (%) (Auto) 8 % (24-48) Monocytes (%) (Auto) 7 % (0-9) Eosinophils (%) (Auto) 2 % (0-3) Basophils (%) (Auto) 0 % (0-3) Neutrophils # (Auto) 10.6 x10^3uL (1.8-7.7) Lymphocytes # (Auto) 1.1 x10^3/uL (1.0-4.8) Monocytes # (Auto) 0.9 x10^3/uL (0.0-1.1) Eosinophils # (Auto) 0.3 x10^3/uL (0.0-0.7) Basophils # (Auto) 0.0 x10^3/uL (0.0-0.2) Sodium Level 136 mmol/L (136-145) Potassium Level 4.0 mmol/L (3.5-5.1) Chloride Level 102 mmol/L (98-107) Carbon Dioxide Level 25 mmol/L (21-32) Anion Gap 9 (6-14) Blood Urea Nitrogen 24 mg/dL (8-26) Creatinine 1.4 mg/dL (0.7-1.3) Estimated GFR (Cockcroft-Gault) 49.4 BUN/Creatinine Ratio 17 (6-20) Glucose Level 116 mg/dL (70-99) Calcium Level 9.0 mg/dL (8.5-10.1) Total Bilirubin 0.6 mg/dL (0.2-1.0) Aspartate Amino Transf (AST/SGOT) 63 U/L (15-37) Alanine Aminotransferase (ALT/SGPT) 40 U/L (16-63) Alkaline Phosphatase 172 U/L (46-116) Total Protein 6.4 g/dL (6.4-8.2) Albumin 2.1 g/dL (3.4-5.0) Albumin/Globulin Ratio 0.5 (1.0-1.7) Problem List Problems Medical Problems: (1) Small bowel torsion Status: Acute Assessment/Plan s/p xlap supportive care Problems: DONALD FELTON MD 04/26/17 0708: SURGICAL PROGRESS NOTE Assessment/Plan Agree with above Problems: PIYUSH ECHEVERRIA APRN Apr 25, 2017 09:17 DONALD FELTON MD Apr 26, 2017 07:08
--- NOTE | 2017-04-25 09:21 | PDOC ---
PROGRESS NOTES Chief Complaint Chief Complaint malignant SBO ASSESSMENT AND PLAN: 1. SBO: s/p ex lap with tumor resection and end-to-end SB anastomosis on 04/[address] Schaefer. recovering fairly well physically 2. Pain control: good. tylenol PRN. stop narcotics 3. Encephalopathy: toxic (2/2 narcotics): persisting with some visual hallucinations. redirectable, frustrating him. unlikely to be met dz, but obtain CT to assuage family. check NH3 4. Nutrition: advanced to soft mechanical. cont PPN for now, stop when PO intake sufficient 5. JUNO: new. poss 2/2 dehydration. NS bolus 6. Hypokalemia: borderline. monitor, replete as indicated 7. Leukocytosis: reactive borderline high, but stable. monitor 8. Anemia: chronic dz and inflammation, min component of acute blood loss. PO iron daily. stable, monitor 9. Transaminitis: mild; suspect 2/2 liver mets. monitor 10. Protein malnutrition: moderate. supplements 11. Colon CA: mets to liver and retroperitoneal adenopathy. F/U with onc post D/C 12. B renal stones: non obstructive 13. Prophylaxis: PPI, lovenox 14. Dispo: awaiting OT/PT notes, anticipate rehab placement History of Present Illness History of Present Illness awake alert. feels ok confusion, visual hallucinations per RN Vitals Vitals Vital Signs Date Time Temp Pulse Resp B/P (MAP) Pulse Ox O2 Delivery O2 Flow Rate FiO2 04/25/17 07:00 97.3 77 16 139/77 (97) 96 Room Air 97.3 04/24/17 08:44 2.0 Physical Exam General: Cooperative, No acute distress, Other (confused to time and place) Heart: Regular rate Lungs: Clear Abdomen: Normal bowel sounds, Soft, Other (incision well healing. no TTP) Extremities: No clubbing, No edema Skin: No rashes Labs LABS Laboratory Tests Test 04/25/17 05:45 White Blood Count 12.9 x10^3/uL (4.0-11.0) Red Blood Count 3.56 x10^6/uL (4.30-5.70) Hemoglobin 10.2 g/dL (13.0-17.5) Hematocrit 30.1 % (39.0-53.0) Mean Corpuscular Volume 85 fL (79-100) Mean Corpuscular Hemoglobin 29 pg (25-35) Mean Corpuscular Hemoglobin Concent 34 g/dL (31-37) Red Cell Distribution Width 13.3 % (11.5-14.5) Platelet Count 541 x10^3/uL (140-400) Neutrophils (%) (Auto) 82 % (31-73) Lymphocytes (%) (Auto) 8 % (24-48) Monocytes (%) (Auto) 7 % (0-9) Eosinophils (%) (Auto) 2 % (0-3) Basophils (%) (Auto) 0 % (0-3) Neutrophils # (Auto) 10.6 x10^3uL (1.8-7.7) Lymphocytes # (Auto) 1.1 x10^3/uL (1.0-4.8) Monocytes # (Auto) 0.9 x10^3/uL (0.0-1.1) Eosinophils # (Auto) 0.3 x10^3/uL (0.0-0.7) Basophils # (Auto) 0.0 x10^3/uL (0.0-0.2) Sodium Level 136 mmol/L (136-145) Potassium Level 4.0 mmol/L (3.5-5.1) Chloride Level 102 mmol/L (98-107) Carbon Dioxide Level 25 mmol/L (21-32) Anion Gap 9 (6-14) Blood Urea Nitrogen 24 mg/dL (8-26) Creatinine 1.4 mg/dL (0.7-1.3) Estimated GFR (Cockcroft-Gault) 49.4 BUN/Creatinine Ratio 17 (6-20) Glucose Level 116 mg/dL (70-99) Calcium Level 9.0 mg/dL (8.5-10.1) Total Bilirubin 0.6 mg/dL (0.2-1.0) Aspartate Amino Transf (AST/SGOT) 63 U/L (15-37) Alanine Aminotransferase (ALT/SGPT) 40 U/L (16-63) Alkaline Phosphatase 172 U/L (46-116) Total Protein 6.4 g/dL (6.4-8.2) Albumin 2.1 g/dL (3.4-5.0) Albumin/Globulin Ratio 0.5 (1.0-1.7) SHANT VILLAREAL MD Apr 25, 2017 09:20
[2017-04-25] MEDS: SENNOSIDES/DOCUSATE 8.6/50MG TABLET. PO SCH (09:24)
[2017-04-25] MEDS: POTASSIUM CHLORIDE 20 MEQ TABLET.ER. PO SCH ×2 (09:25→17:17)
[2017-04-25 11:00] VITALS: BP 137/68
--- NOTE | 2017-04-25 13:23 | PDOC ---
G I PROGRESS NOTE Reason for Follow-up SBO/hx colon cancer Subjective Delirium persists Physical Exam Lungs clear CV S1 S2 ABD +BS, soft, nontender Review of Relevant I have reviewed the following items stephenie (where applicable) has been applied. Labs Laboratory Tests Test 04/24/17 04:10 04/25/17 05:45 White Blood Count 11.7 x10^3/uL (4.0-11.0) 12.9 x10^3/uL (4.0-11.0) Red Blood Count 3.24 x10^6/uL (4.30-5.70) 3.56 x10^6/uL (4.30-5.70) Hemoglobin 9.4 g/dL (13.0-17.5) 10.2 g/dL (13.0-17.5) Hematocrit 27.8 % (39.0-53.0) 30.1 % (39.0-53.0) Mean Corpuscular Volume 86 fL (79-100) 85 fL (79-100) Mean Corpuscular Hemoglobin 29 pg (25-35) 29 pg (25-35) Mean Corpuscular Hemoglobin Concent 34 g/dL (31-37) 34 g/dL (31-37) Red Cell Distribution Width 12.8 % (11.5-14.5) 13.3 % (11.5-14.5) Platelet Count 441 x10^3/uL (140-400) 541 x10^3/uL (140-400) Neutrophils (%) (Auto) 76 % (31-73) 82 % (31-73) Lymphocytes (%) (Auto) 11 % (24-48) 8 % (24-48) Monocytes (%) (Auto) 8 % (0-9) 7 % (0-9) Eosinophils (%) (Auto) 6 % (0-3) 2 % (0-3) Basophils (%) (Auto) 0 % (0-3) 0 % (0-3) Neutrophils # (Auto) 8.8 x10^3uL (1.8-7.7) 10.6 x10^3uL (1.8-7.7) Lymphocytes # (Auto) 1.3 x10^3/uL (1.0-4.8) 1.1 x10^3/uL (1.0-4.8) Monocytes # (Auto) 0.9 x10^3/uL (0.0-1.1) 0.9 x10^3/uL (0.0-1.1) Eosinophils # (Auto) 0.7 x10^3/uL (0.0-0.7) 0.3 x10^3/uL (0.0-0.7) Basophils # (Auto) 0.0 x10^3/uL (0.0-0.2) 0.0 x10^3/uL (0.0-0.2) Sodium Level 136 mmol/L (136-145) Potassium Level 4.0 mmol/L (3.5-5.1) Chloride Level 102 mmol/L (98-107) Carbon Dioxide Level 25 mmol/L (21-32) Anion Gap 9 (6-14) Blood Urea Nitrogen 24 mg/dL (8-26) Creatinine 1.4 mg/dL (0.7-1.3) Estimated GFR (Cockcroft-Gault) 49.4 BUN/Creatinine Ratio 17 (6-20) Glucose Level 116 mg/dL (70-99) Calcium Level 9.0 mg/dL (8.5-10.1) Total Bilirubin 0.6 mg/dL (0.2-1.0) Aspartate Amino Transf (AST/SGOT) 63 U/L (15-37) Alanine Aminotransferase (ALT/SGPT) 40 U/L (16-63) Alkaline Phosphatase 172 U/L (46-116) Total Protein 6.4 g/dL (6.4-8.2) Albumin 2.1 g/dL (3.4-5.0) Albumin/Globulin Ratio 0.5 (1.0-1.7) Laboratory Tests Test 04/25/17 05:45 White Blood Count 12.9 x10^3/uL (4.0-11.0) Red Blood Count 3.56 x10^6/uL (4.30-5.70) Hemoglobin 10.2 g/dL (13.0-17.5) Hematocrit 30.1 % (39.0-53.0) Mean Corpuscular Volume 85 fL (79-100) Mean Corpuscular Hemoglobin 29 pg (25-35) Mean Corpuscular Hemoglobin Concent 34 g/dL (31-37) Red Cell Distribution Width 13.3 % (11.5-14.5) Platelet Count 541 x10^3/uL (140-400) Neutrophils (%) (Auto) 82 % (31-73) Lymphocytes (%) (Auto) 8 % (24-48) Monocytes (%) (Auto) 7 % (0-9) Eosinophils (%) (Auto) 2 % (0-3) Basophils (%) (Auto) 0 % (0-3) Neutrophils # (Auto) 10.6 x10^3uL (1.8-7.7) Lymphocytes # (Auto) 1.1 x10^3/uL (1.0-4.8) Monocytes # (Auto) 0.9 x10^3/uL (0.0-1.1) Eosinophils # (Auto) 0.3 x10^3/uL (0.0-0.7) Basophils # (Auto) 0.0 x10^3/uL (0.0-0.2) Sodium Level 136 mmol/L (136-145) Potassium Level 4.0 mmol/L (3.5-5.1) Chloride Level 102 mmol/L (98-107) Carbon Dioxide Level 25 mmol/L (21-32) Anion Gap 9 (6-14) Blood Urea Nitrogen 24 mg/dL (8-26) Creatinine 1.4 mg/dL (0.7-1.3) Estimated GFR (Cockcroft-Gault) 49.4 BUN/Creatinine Ratio 17 (6-20) Glucose Level 116 mg/dL (70-99) Calcium Level 9.0 mg/dL (8.5-10.1) Total Bilirubin 0.6 mg/dL (0.2-1.0) Aspartate Amino Transf (AST/SGOT) 63 U/L (15-37) Alanine Aminotransferase (ALT/SGPT) 40 U/L (16-63) Alkaline Phosphatase 172 U/L (46-116) Total Protein 6.4 g/dL (6.4-8.2) Albumin 2.1 g/dL (3.4-5.0) Albumin/Globulin Ratio 0.5 (1.0-1.7) Microbiology 04/13/17 Urine Culture - Final, Complete 04/13/17 Urine Culture Result 1 (RASHAWN) - Final, Complete Medications Current Medications Sodium Chloride 1,000 ml @ 1,000 mls/hr 1X ONCE IV Last administered on 12:46; Start 04/13/17 at 13:00; Stop 04/13/17 at 13:59; Status DC Ondansetron HCl (Zofran) 4 mg 1X ONCE IV Last administered on 04/13/17 12:46 ; Start 04/13/17 at 13:00; Stop 04/13/17 at 13:01; Status DC Iohexol (Omnipaque 300 Mg/ml) 60 ml 1X ONCE IV Last administered on 04/13/17 13:20; Start 04/13/17 at 13:15; Stop 04/13/17 at 13:16; Status DC Info (Do NOT chart on this entry -- for MONITORING) 1 each PRN DAILY PRN MC SEE COMMENTS; Start 04/13/17 at 13:15; Stop 04/15/17 at 13:14; Status DC Ondansetron HCl (Zofran) 4 mg PRN Q8HRS PRN IV NAUSEA/VOMITING; Start 04/13/17 at 14:45; Stop 04/14/17 at 10:50; Status DC Morphine Sulfate 4 mg PRN Q2HR PRN IV PAIN Last administered on 04/14/17 03:57 ; Start 04/13/17 at 14:45; Stop 04/14/17 at 10:49; Status DC Acetaminophen (Tylenol) 650 mg PRN Q6HRS PRN PO FEVER, pain Last administered on 04/25/17 09:24; Start 04/13/17 at 15:30 Ondansetron HCl (Zofran) 4 mg PRN Q6HRS PRN IV NAUSEA/VOMITING Last administered on 04/17/17 09:00; Start 04/13/17 at 15:30 Morphine Sulfate 2 mg PRN Q2HR PRN IV MILD PAIN Last administered on 04/21/17 20:59; Start 04/13/17 at 15:30; Stop 04/23/17 at 13:39; Status DC Tramadol HCl (Ultram) 50 mg PRN Q6HRS PRN PO PAIN Last administered on 06:06; Start 04/13/17 at 15:30; Stop 04/25/17 at 09:03; Status DC Hydralazine HCl (Apresoline) 10 mg PRN Q4HRS PRN IVP ELEVATED BP, SEE COMMENTS ; Start 04/13/17 at 15:30 Docusate Sodium (Colace) 100 mg PRN DAILY PRN PO CONSTIPATION; Start 04/13/17 at 15:30; Stop 04/24/17 at 16:11; Status DC Amino Acids/ Glycerin/ Electrolytes 1,000 ml @ 80 mls/hr [id number] IV Last administered on 04/25/17 01:48; Start 04/13/17 at 16:00 Morphine Sulfate 4 mg PRN Q2HR PRN IV MOD - SEVERE PAIN Last administered on 09:01; Start 04/13/17 at 15:30; Stop 04/21/17 at 14:41; Status DC Enoxaparin Sodium (Lovenox 40mg Syringe) 40 mg Q24H SQ Last administered on 16:36; Start 04/13/17 at 16:00 Pantoprazole Sodium (Protonix Vial) 40 mg DAILYAC IVP Last administered on 04/25 09:23; Start 04/14/17 at 07:30 Throat Lozenges (Chloraseptic) 1 spray PRN Q2HR PRN PO SORE THROAT Last administered on 04/19/17 17:41; Start 04/13/17 at 17:45 Throat Lozenges (Cepacol Sore Throat Lozenge) 1 sheron PRN Q2HRS PRN PO SORE THROAT Last administered on 04/20/17 07:55; Start 04/13/17 at 17:45 Saliva Substitute (Biotene Moisturizing Mouth) 2 spray PRN Q15MIN PRN PO DRY MOUTH Last administered on 04/15/17 15:42; Start 04/15/17 at 13:15 Sodium Chloride 500 ml @ 500 mls/hr 1X ONCE IV Last administered on 04/17/17 10:50; Start 04/17/17 at 11:00; Stop 04/17/17 at 11:59; Status DC Piperacillin Sod/ Tazobactam Sod 3.375 gm/Sodium Chloride 50 ml @ 100 mls/hr Q6HRS IV Last administered on 6/7/17at 06:11; Start 04/17/17 at 11:30; Stop 04/21 at 08:12; Status DC Vancomycin HCl 1 gm/Sodium Chloride 250 ml @ 250 mls/hr Q12H IV ; Start at 10:45; Status UNV Vancomycin HCl 1.5 gm/Sodium Chloride 500 ml @ 250 mls/hr 1X ONCE IV Last administered on 04/17/17 12:26; Start 04/17/17 at 11:30; Stop 04/17/17 at 13:29; Status DC Vancomycin HCl (Vanco Per Pharmacy) 1 each PRN DAILY PRN MC SEE COMMENTS Last administered on 04/18/17 13:16; Start 04/17/17 at 11:00; Stop 04/19/17 at 08:32; Status DC Iohexol (Omnipaque 300 Mg/ml) 75 ml 1X ONCE IV Last administered on 04/17/17 12:01; Start 04/17/17 at 11:00; Stop 04/17/17 at 11:01; Status DC Info (Do NOT chart on this entry -- for MONITORING) 1 each PRN DAILY PRN MC SEE COMMENTS; Start 04/17/17 at 11:00; Stop 04/19/17 at 10:59; Status DC Metronidazole 100 ml @ 100 mls/hr 1X PREOP PRN IV prophylaxis; Start 04/18/17 at 06:00; Stop 04/18/17 at 18:00; Status DC Vancomycin HCl 1 gm/Sodium Chloride 250 ml @ 250 mls/hr Q12H IV Last administered on 04/17/17 23:37; Start 04/18/17 at 00:00; Stop 04/18/17 at 12:47; Status DC Vancomycin HCl 1 each 1X ONCE MC ; Start 04/20/17 at 00:30; Stop 04/20/17 at 00: 31; Status Cancel Ondansetron HCl (Zofran) 4 mg PRN Q6HRS PRN IV NAUSEA/VOMITING; Start 04/17/17 at 14:00; Stop 04/18/17 at 13:59; Status DC Fentanyl Citrate (Fentanyl 2ml Vial) 25 mcg PRN Q5MIN PRN IV MILD PAIN; Start 04/17/17 at 14:00; Stop 04/18/17 at 13:59; Status DC Fentanyl Citrate (Fentanyl 2ml Vial) 50 mcg PRN Q5MIN PRN IV MODERATE PAIN Last administered on 04/17/17 16:59; Start 04/17/17 at 14:00; Stop 04/18/17 at 13: 59; Status DC Morphine Sulfate 1 mg PRN Q10MIN PRN IV SEVERE PAIN Last administered on 16:44; Start 04/17/17 at 14:00; Stop 04/18/17 at 13:59; Status DC Ringer's Solution 1,000 ml @ 30 mls/hr Q24H IV ; Start 04/17/17 at 13:47; Stop 04/18/17 at 01:46; Status DC Lidocaine HCl 2 ml PRN 1X PRN ID PRIOR TO IV START; Start 04/17/17 at 14:00; Stop 04/18/17 at 13:59; Status DC Hydromorphone HCl (Dilaudid) 0.5 mg PRN Q10MIN PRN IV SEV PAIN, Second choice; Start 04/17/17 at 14:00; Stop 04/18/17 at 13:59; Status DC Prochlorperazine Edisylate (Compazine) 5 mg PACU PRN PRN IV NAUSEA, MRX1; Start 04/17/17 at 14:00; Stop 04/18/17 at 13:59; Status DC Fentanyl Citrate (Fentanyl 5ml Vial) 250 mcg STK-MED ONCE .ROUTE ; Start at 13:49; Stop 04/17/17 at 13:50; Status DC Succinylcholine Chloride (Anectine) 200 mg STK-MED ONCE .ROUTE ; Start 04/17/17 at 13:50; Stop 04/17/17 at 13:51; Status DC Rocuronium [place] (Zemuron) 50 mg STK-MED ONCE .ROUTE ; Start 04/17/17 at 13:50 ; Stop 04/17/17 at 13:51; Status DC Desflurane (Suprane) 60 ml STK-MED ONCE IH ; Start 04/17/17 at 13:50; Stop at 13:51; Status DC Dexamethasone Sodium Phosphate (Decadron) 20 mg STK-MED ONCE .ROUTE ; Start 04/17 at 13:50; Stop 04/17/17 at 13:51; Status DC Propofol 20 ml @ As Directed STK-MED ONCE IV ; Start 04/17/17 at 13:50; Stop 04/17 at 13:51; Status DC Ondansetron HCl (Zofran) 4 mg STK-MED ONCE .ROUTE ; Start 04/17/17 at 13:50; Stop 04/17/17 at 13:51; Status DC Phenylephrine HCl 1 mg STK-MED ONCE IV ; Start 04/17/17 at 13:51; Stop 04/17/17 at 13:52; Status DC Lidocaine HCl (Lidocaine Pf 2% Vial) 5 ml STK-MED ONCE .ROUTE ; Start 04/17/17 at 13:51; Stop 04/17/17 at 13:52; Status DC Albumin Human 500 ml @ As Directed STK-MED ONCE IV ; Start 04/17/17 at 13:57; Stop 04/17/17 at 13:58; Status DC Esmolol HCl (Brevibloc) 100 mg STK-MED ONCE IV ; Start 04/17/17 at 14:40; Stop at 14:41; Status DC Neostigmine Methylsulfate (Bloxiverz) 10 mg STK-MED ONCE .ROUTE ; Start 04/17/17 at 15:12; Stop 04/17/17 at 15:13; Status DC Glycopyrrolate (Robinul) 1 mg STK-MED ONCE .ROUTE ; Start 04/17/17 at 15:12; Stop 04/17/17 at 15:13; Status DC Neostigmine Methylsulfate (Bloxiverz) 10 mg STK-MED ONCE .ROUTE ; Start 04/17/17 at 15:14; Stop 04/17/17 at 15:15; Status DC Diphenhydramine HCl (Benadryl) 25 mg PRN Q6HRS PRN IV ITCHING Last administered on 04/23/17t 00:37; Start 04/17/17 at 16:15; Stop 04/24/17 at 16:11; Status DC Enoxaparin Sodium (Lovenox 40mg Syringe) 40 mg Q24H SQ ; Start 04/18/17 at 09:00 ; Status UNV Sodium Chloride (Normal Saline Flush) 3 ml QSHIFT PRN IV AFTER MEDS AND BLOOD DRAWS; Start 04/17/17 at 16:15 Sodium Chloride 1,000 ml @ 30 mls/hr Q24H IV ; Start 04/17/17 at 17:00; Stop 04/18/17 at 17:35; Status DC Hydromorphone HCl 30 ml @ 0 mls/hr CONT PRN PRN IV PROTOCOL Last administered on 04/19/17 06:17; Start 04/17/17 at 16:15; Stop 04/19/17 at 19:13; Status DC Ondansetron HCl (Zofran) 4 mg PRN Q6HRS PRN IV NAUESA, 1ST CHOICE; Start at 16:15; Status UNV Albumin Human 500 ml @ 50 mls/hr 1X ONCE IV Last administered on 04/18/17 10: 40; Start 04/18/17 at 10:30; Stop 04/18/17 at 20:29; Status DC Vancomycin HCl 1.25 gm/Sodium Chloride 250 ml @ 167 mls/hr Q12H IV Last administered on 04/18/17 23:51; Start 04/18/17 at 13:00; Stop 04/19/17 at 08:31; Status DC Hydromorphone HCl 30 ml @ 0 mls/hr CONT PRN PRN IV PROTOCOL; Start 04/19/17 at 19:15; Stop 04/21/17 at 14:41; Status DC Potassium Chloride 100 ml @ 100 mls/hr Q1H IV Last administered on 04/23/17 17 :33; Start 04/23/17 at 14:00; Stop 04/23/17 at 17:59; Status DC Acetaminophen/ Hydrocodone Bitart (Lortab 5/325) 1 tab PRN Q4HRS PRN PO PAIN Last administered on 04/24/17 13:24; Start 04/23/17 at 13:45; Stop 04/24/17 at 16:11; Status DC Senna/Docusate Sodium (Senna Plus) 1 tab DAILY PO Last administered on 09:24; Start 04/24/17 at 16:30 Potassium Chloride (Klor-Con) 40 meq BIDWMEALS PO Last administered on 09:25; Start 04/24/17 at 16:30 Ibuprofen (Motrin) 400 mg PRN Q8HRS PRN PO INFLAMMATION; Start 04/25/17 at 09: 15; Stop 04/25/17 at 09:15; Status DC Sodium Chloride 1,000 ml @ 1,000 mls/hr 1X ONCE IV Last administered on t 09:23; Start 04/25/17 at 09:15; Stop 04/25/17 at 10:14; Status DC Ferrous Sulfate (Feosol) 325 mg QHS PO ; Start 04/25/17 at 21:00 Active Scripts Active Zofran Odt (Ondansetron) 4 Mg Tab.rapdis 4 Mg PO Q8HRS PRN [place] 5-325 Tablet (Acetaminophen/Hydrocodone Bitart) 1 Each Tablet 1 Tab PO PRN Q6HRS PRN Reported Preservision Areds Softgel (Vit A/Vit C/Vit E/Zinc/Copper) 1 Each Capsule 2 Each PO DAILY Omeprazole 20 Mg Capsule.dr 1 Cap PO DAILY Centrum Silver Tablet (Multivits-Min/Fa/Lycopene/Lut) 1 Each Tablet 1 Each PO Preservision Areds Tablet (Vit A/Vit C/Vit E/Zinc/Copper) 1 Each Tablet 1 Each PO No Known Medications Prior To Admisstion (Info) Each 1 Each Vitals/I & O Vital Sign - Last 24 Hours 04/24/17 04/24/17 04/24/17 04/24/17 13:24 14:20 15:00 19:41 Temp 97.5 97.5 Pulse 85 Resp 20 B/P (MAP) 115/61 (79) Pulse Ox 93 93 93 O2 Delivery Room Air Room Air Room Air Room Air 04/24/17 04/24/17 04/24/17 04/25/17 19:47 22:57 23:07 00:00 Temp 97.7 98.3 97.7 98.3 Pulse 84 93 Resp 18 16 18 16 B/P (MAP) 117/64 (81) 137/69 (91) Pulse Ox 95 93 O2 Delivery Room Air Room Air Room Air Room Air 04/25/17 04/25/17 04/25/17 04/25/17 03:59 06:06 07:00 11:00 Temp 97.6 97.3 97.4 97.6 97.3 97.4 Pulse 75 77 73 Resp 18 16 16 16 B/P (MAP) 128/69 (88) 139/77 (97) 137/68 (91) Pulse Ox 95 96 96 O2 Delivery Room Air Room Air Room Air Room Air Intake and Output 04/24/17 04/24/17 04/25/17 15:00 23:00 07:00 Intake Total 920 ml 952 ml Output Total 200 ml 100 ml Balance 720 ml 852 ml Problem List Problems Medical Problems: (1) Small bowel torsion Status: Acute Assessment SBO- s/p lysis adhesion, tolerating po, delirium problematic, await disposition plans DONALD PAN MD Apr 25, 2017 13:23
[2017-04-25 15:00] VITALS: BP 127/71
[2017-04-25] MEDS: ENOXAPARIN 40 MG/0.4 ML SYRINGE. SQ SCH (16:08)
[2017-04-25 19:00] VITALS: BP 133/68
[2017-04-25] MEDS: FERROUS SULFATE 325 MG TABLET. PO SCH (21:15)
[2017-04-25 23:00] VITALS: BP 134/67
[2017-04-26 03:22] VITALS: BP 124/68
[2017-04-26] MEDS: AMINO AC 3%/ELECTROLYTE/GLYCER 1,000 ML IV SCH ×2 (05:11→17:20)
[2017-04-26 05:12] LABS: BASO # 0.1 x10^3/uL (0.0-0.2); BASO % 0 % (0-3); EOS % 1 % (0-3); HEMATOCRIT 29.5 % (39.0-53.0); HEMOGLOBIN 9.8 g/dL (13.0-17.5); LYMPH % 8 % (24-48); MEAN CORPUSCULAR HEMOGLOBIN 29 pg (25-35); MEAN CORPUSCULAR HGB CONC 33 g/dL (31-37); MEAN CORPUSCULAR VOLUME 86 fL (79-100); MONO % 5 % (0-9); NEUT % 86 % (31-73); PLATELET COUNT 500 x10^3/uL (140-400); RED BLOOD COUNT 3.43 x10^6/uL (4.30-5.70); WHITE BLOOD COUNT 12.7 x10^3/uL (4.0-11.0)
[2017-04-26 05:15] LABS: ALBUMIN 2.1 g/dL (3.4-5.0); ALBUMIN/GLOBULIN RATIO 0.5 (1.0-1.7); CALCIUM 9.5 mg/dL (8.5-10.1); GFR 72.8; POTASSIUM 4.5 mmol/L (3.5-5.1); TOTAL BILIRUBIN 0.4 mg/dL (0.2-1.0); TOTAL PROTEIN 6.3 g/dL (6.4-8.2)
[2017-04-26 07:00] VITALS: BP 154/70
[2017-04-26] MEDS: PANTOPRAZOLE IV PUSH 40 MG VIAL. IVP SCH (08:54)
[2017-04-26] MEDS: ACETAMINOPHEN 325 MG TABLET. PO PRN (08:55)
--- NOTE | 2017-04-26 08:55 | PDOC ---
Infectious Disease Note Subjective Subjective feeling ok, a bit confused, had BM. No Pain no fever, ROS ROS GEN: Denies fevers, chills, sweats HEENT: Denies blurred vision, sore throat CV: Denies chest pain RESP: Denies shortness of air, cough GI: Denies n/v/d NEURO: Denies confusion, dizziness MSK: Denies weakness, joint pain/swelling Vital Sign Vital Signs Vital Signs Date Time Temp Pulse Resp B/P (MAP) Pulse Ox O2 Delivery O2 Flow Rate FiO2 04/26/17 07:00 97.9 84 20 154/70 (98) 92 Room Air 97.9 04/25/17 08:00 2.0 Physical Exam PHYSICAL EXAM GENERAL: NAD, Alert, some confused HEENT: PERRL, OC/OP dentures -thrush NECK: Supple, no JVD, no LN LUNGS: Clear HEART: S1S2, no gallop, no murmur ABD: Soft, NT, no organomegaly, no rebound. wound is clean with michelle EXT: No edema, no cyanosis ACID ADJUSTER: Alert, oriented to person, no focal neurologic deficit SKIN: No rash IV: ok Labs Lab Laboratory Tests Test 04/26/17 04:37 White Blood Count 12.7 x10^3/uL (4.0-11.0) Red Blood Count 3.43 x10^6/uL (4.30-5.70) Hemoglobin 9.8 g/dL (13.0-17.5) Hematocrit 29.5 % (39.0-53.0) Mean Corpuscular Volume 86 fL (79-100) Mean Corpuscular Hemoglobin 29 pg (25-35) Mean Corpuscular Hemoglobin Concent 33 g/dL (31-37) Red Cell Distribution Width 13.0 % (11.5-14.5) Platelet Count 500 x10^3/uL (140-400) Neutrophils (%) (Auto) 86 % (31-73) Lymphocytes (%) (Auto) 8 % (24-48) Monocytes (%) (Auto) 5 % (0-9) Eosinophils (%) (Auto) 1 % (0-3) Basophils (%) (Auto) 0 % (0-3) Neutrophils # (Auto) 11.0 x10^3uL (1.8-7.7) Lymphocytes # (Auto) 1.0 x10^3/uL (1.0-4.8) Monocytes # (Auto) 0.6 x10^3/uL (0.0-1.1) Eosinophils # (Auto) 0.1 x10^3/uL (0.0-0.7) Basophils # (Auto) 0.1 x10^3/uL (0.0-0.2) Sodium Level 138 mmol/L (136-145) Potassium Level 4.5 mmol/L (3.5-5.1) Chloride Level 106 mmol/L (98-107) Carbon Dioxide Level 22 mmol/L (21-32) Anion Gap 10 (6-14) Blood Urea Nitrogen 22 mg/dL (8-26) Creatinine 1.0 mg/dL (0.7-1.3) Estimated GFR (Cockcroft-Gault) 72.8 BUN/Creatinine Ratio 22 (6-20) Glucose Level 120 mg/dL (70-99) Calcium Level 9.5 mg/dL (8.5-10.1) Total Bilirubin 0.4 mg/dL (0.2-1.0) Aspartate Amino Transf (AST/SGOT) 52 U/L (15-37) Alanine Aminotransferase (ALT/SGPT) 35 U/L (16-63) Alkaline Phosphatase 172 U/L (46-116) Ammonia 21 mcmol/L (11-34) Total Protein 6.3 g/dL (6.4-8.2) Albumin 2.1 g/dL (3.4-5.0) Albumin/Globulin Ratio 0.5 (1.0-1.7) Objective Assessment Acute Encephalopathy -? in part to lack of sleep Thrush Leukocytosis - ? reactive Fever resolved Hypotension, responsive to IVF bolus. stable pulmonary infiltrates with right pleural effusion SBO s/p exp lap, small bowel resection with primary anastomosis, 6/3 Metastatic colon cancer Plan Plan of Care Add Nystatin F/u labs Incentive spirometry PT/OT D/w INOCENCIO ORTIZ MD Apr 26, 2017 08:55
[2017-04-26] MEDS: POTASSIUM CHLORIDE 20 MEQ TABLET.ER. PO SCH ×2 (08:56→17:00)
[2017-04-26] MEDS: SENNOSIDES/DOCUSATE 8.6/50MG TABLET. PO SCH (09:00)
--- NOTE | 2017-04-26 09:17 | PDOC ---
Subjective: Subjective: Per - confused, not eating. Objective: Objective: Per RN, still confused, ?primary ordering head imaging. Vital Signs: Vital Signs Date Time Temp Pulse Resp B/P (MAP) Pulse Ox O2 Delivery O2 Flow Rate FiO2 04/26/17 07:00 97.9 84 20 154/70 (98) 92 Room Air 97.9 04/25/17 08:00 2.0 Labs: Laboratory Tests Test 04/26/17 04:37 White Blood Count 12.7 x10^3/uL Red Blood Count 3.43 x10^6/uL Hemoglobin 9.8 g/dL Hematocrit 29.5 % Mean Corpuscular Volume 86 fL Mean Corpuscular Hemoglobin 29 pg Mean Corpuscular Hemoglobin Concent 33 g/dL Red Cell Distribution Width 13.0 % Platelet Count 500 x10^3/uL Neutrophils (%) (Auto) 86 % Lymphocytes (%) (Auto) 8 % Monocytes (%) (Auto) 5 % Eosinophils (%) (Auto) 1 % Basophils (%) (Auto) 0 % Neutrophils # (Auto) 11.0 x10^3uL Lymphocytes # (Auto) 1.0 x10^3/uL Monocytes # (Auto) 0.6 x10^3/uL Eosinophils # (Auto) 0.1 x10^3/uL Basophils # (Auto) 0.1 x10^3/uL Sodium Level 138 mmol/L Potassium Level 4.5 mmol/L Chloride Level 106 mmol/L Carbon Dioxide Level 22 mmol/L Anion Gap 10 Blood Urea Nitrogen 22 mg/dL Creatinine 1.0 mg/dL Estimated GFR (Cockcroft-Gault) 72.8 BUN/Creatinine Ratio 22 Glucose Level 120 mg/dL Calcium Level 9.5 mg/dL Total Bilirubin 0.4 mg/dL Aspartate Amino Transf (AST/SGOT) 52 U/L Alanine Aminotransferase (ALT/SGPT) 35 U/L Alkaline Phosphatase 172 U/L Ammonia 21 mcmol/L Total Protein 6.3 g/dL Albumin 2.1 g/dL Albumin/Globulin Ratio 0.5 PE: GEN: NAD, laying in bed NEURO/PSYCH: mumbles OTHER: present A/P: SBO s/p resection 04/17/17 -metastatic colon cancer Confusion -- Mental status worse. JOEY HURLEY Apr 26, 2017 09:17
[2017-04-26 11:00] VITALS: BP 116/67
[2017-04-26] MEDS: NYSTATIN 100,000 UNITS/ML 5 ML ORAL.SUSP. SWSW SCH ×4 (11:47→21:00)
--- NOTE | 2017-04-26 13:54 | PDOC ---
PROGRESS NOTES Chief Complaint Chief Complaint malignant SBO ASSESSMENT AND PLAN: 1. SBO: s/p ex lap with tumor resection and end-to-end SB anastomosis on 04/[address] Schaefer. recovering fairly well physically 2. Pain control: good. tylenol PRN. stop narcotics 3. Encephalopathy: persisting with some visual hallucinations. need to rule out mets and possible 2/2 malignancy 4. Nutrition: advanced to soft mechanical. cont PPN for now, stop when PO intake sufficient 5. JUNO: new. poss 2/2 dehydration. NS bolus 6. Hypokalemia: borderline. monitor, replete as indicated 7. Leukocytosis: reactive borderline high, but stable. monitor 8. Anemia: chronic dz and inflammation, min component of acute blood loss. PO iron daily. stable, monitor 9. Transaminitis: mild; suspect 2/2 liver mets. monitor 10. Protein malnutrition: moderate. supplements 11. Colon CA: mets to liver and retroperitoneal adenopathy. F/U with onc post D/C 12. B renal stones: non obstructive 13. Prophylaxis: PPI, lovenox 14. Dispo: awaiting OT/PT notes, anticipate rehab placement talked to pt's insurance, pt should be able to befefits from SNF given his encephalopathy, however, his insurance refused him and said he can walk with help. talked to for 10min at bedside, is upset about the encephalopathy for the past 10days, however, refused PAT consult, refused onco consult, and refused head CT/MRI , saying his insurance might not approve for MRI image. She eventually ok after SW told her that the insurance likely would approved MRI. i will get mri brain, neurologist consult. DC pt tmr with HH if no intervention will be done. will get PAT consult as well. History of Present Illness History of Present Illness awake alert. feels ok confusion, visual hallucinations per RN Vitals Vitals Vital Signs Date Time Temp Pulse Resp B/P (MAP) Pulse Ox O2 Delivery O2 Flow Rate FiO2 04/26/17 11:00 97.4 85 20 116/67 (83) 95 Room Air 97.4 04/25/17 08:00 2.0 Physical Exam General: Cooperative, No acute distress, Other (confused to time and place) Heart: Regular rate Lungs: Clear Abdomen: Normal bowel sounds, Soft, Other (incision well healing. no TTP) Extremities: No clubbing, No edema Skin: No rashes Labs LABS Laboratory Tests Test 04/26/17 04:37 White Blood Count 12.7 x10^3/uL (4.0-11.0) Red Blood Count 3.43 x10^6/uL (4.30-5.70) Hemoglobin 9.8 g/dL (13.0-17.5) Hematocrit 29.5 % (39.0-53.0) Mean Corpuscular Volume 86 fL (79-100) Mean Corpuscular Hemoglobin 29 pg (25-35) Mean Corpuscular Hemoglobin Concent 33 g/dL (31-37) Red Cell Distribution Width 13.0 % (11.5-14.5) Platelet Count 500 x10^3/uL (140-400) Neutrophils (%) (Auto) 86 % (31-73) Lymphocytes (%) (Auto) 8 % (24-48) Monocytes (%) (Auto) 5 % (0-9) Eosinophils (%) (Auto) 1 % (0-3) Basophils (%) (Auto) 0 % (0-3) Neutrophils # (Auto) 11.0 x10^3uL (1.8-7.7) Lymphocytes # (Auto) 1.0 x10^3/uL (1.0-4.8) Monocytes # (Auto) 0.6 x10^3/uL (0.0-1.1) Eosinophils # (Auto) 0.1 x10^3/uL (0.0-0.7) Basophils # (Auto) 0.1 x10^3/uL (0.0-0.2) Sodium Level 138 mmol/L (136-145) Potassium Level 4.5 mmol/L (3.5-5.1) Chloride Level 106 mmol/L (98-107) Carbon Dioxide Level 22 mmol/L (21-32) Anion Gap 10 (6-14) Blood Urea Nitrogen 22 mg/dL (8-26) Creatinine 1.0 mg/dL (0.7-1.3) Estimated GFR (Cockcroft-Gault) 72.8 BUN/Creatinine Ratio 22 (6-20) Glucose Level 120 mg/dL (70-99) Calcium Level 9.5 mg/dL (8.5-10.1) Total Bilirubin 0.4 mg/dL (0.2-1.0) Aspartate Amino Transf (AST/SGOT) 52 U/L (15-37) Alanine Aminotransferase (ALT/SGPT) 35 U/L (16-63) Alkaline Phosphatase 172 U/L (46-116) Ammonia 21 mcmol/L (11-34) Total Protein 6.3 g/dL (6.4-8.2) Albumin 2.1 g/dL (3.4-5.0) Albumin/Globulin Ratio 0.5 (1.0-1.7) Review of Systems Review of Systems no fever, chills, sob or chest pain Assessment and Plan Assessmemt and Plan Problems Medical Problems: (1) Small bowel torsion Status: Acute Problems: Comment Review of Relevant I have reviewed the following items stephenie (where applicable) has been applied. Labs Laboratory Tests Test 04/25/17 05:45 04/26/17 04:37 White Blood Count 12.9 x10^3/uL (4.0-11.0) 12.7 x10^3/uL (4.0-11.0) Red Blood Count 3.56 x10^6/uL (4.30-5.70) 3.43 x10^6/uL (4.30-5.70) Hemoglobin 10.2 g/dL (13.0-17.5) 9.8 g/dL (13.0-17.5) Hematocrit 30.1 % (39.0-53.0) 29.5 % (39.0-53.0) Mean Corpuscular Volume 85 fL (79-100) 86 fL (79-100) Mean Corpuscular Hemoglobin 29 pg (25-35) 29 pg (25-35) Mean Corpuscular Hemoglobin Concent 34 g/dL (31-37) 33 g/dL (31-37) Red Cell Distribution Width 13.3 % (11.5-14.5) 13.0 % (11.5-14.5) Platelet Count 541 x10^3/uL (140-400) 500 x10^3/uL (140-400) Neutrophils (%) (Auto) 82 % (31-73) 86 % (31-73) Lymphocytes (%) (Auto) 8 % (24-48) 8 % (24-48) Monocytes (%) (Auto) 7 % (0-9) 5 % (0-9) Eosinophils (%) (Auto) 2 % (0-3) 1 % (0-3) Basophils (%) (Auto) 0 % (0-3) 0 % (0-3) Neutrophils # (Auto) 10.6 x10^3uL (1.8-7.7) 11.0 x10^3uL (1.8-7.7) Lymphocytes # (Auto) 1.1 x10^3/uL (1.0-4.8) 1.0 x10^3/uL (1.0-4.8) Monocytes # (Auto) 0.9 x10^3/uL (0.0-1.1) 0.6 x10^3/uL (0.0-1.1) Eosinophils # (Auto) 0.3 x10^3/uL (0.0-0.7) 0.1 x10^3/uL (0.0-0.7) Basophils # (Auto) 0.0 x10^3/uL (0.0-0.2) 0.1 x10^3/uL (0.0-0.2) Sodium Level 136 mmol/L (136-145) 138 mmol/L (136-145) Potassium Level 4.0 mmol/L (3.5-5.1) 4.5 mmol/L (3.5-5.1) Chloride Level 102 mmol/L (98-107) 106 mmol/L (98-107) Carbon Dioxide Level 25 mmol/L (21-32) 22 mmol/L (21-32) Anion Gap 9 (6-14) 10 (6-14) Blood Urea Nitrogen 24 mg/dL (8-26) 22 mg/dL (8-26) Creatinine 1.4 mg/dL (0.7-1.3) 1.0 mg/dL (0.7-1.3) Estimated GFR (Cockcroft-Gault) 49.4 72.8 BUN/Creatinine Ratio 17 (6-20) 22 (6-20) Glucose Level 116 mg/dL (70-99) 120 mg/dL (70-99) Calcium Level 9.0 mg/dL (8.5-10.1) 9.5 mg/dL (8.5-10.1) Total Bilirubin 0.6 mg/dL (0.2-1.0) 0.4 mg/dL (0.2-1.0) Aspartate Amino Transf (AST/SGOT) 63 U/L (15-37) 52 U/L (15-37) Alanine Aminotransferase (ALT/SGPT) 40 U/L (16-63) 35 U/L (16-63) Alkaline Phosphatase 172 U/L (46-116) 172 U/L (46-116) Total Protein 6.4 g/dL (6.4-8.2) 6.3 g/dL (6.4-8.2) Albumin 2.1 g/dL (3.4-5.0) 2.1 g/dL (3.4-5.0) Albumin/Globulin Ratio 0.5 (1.0-1.7) 0.5 (1.0-1.7) Ammonia 21 mcmol/L (11-34) Laboratory Tests Test 04/26/17 04:37 White Blood Count 12.7 x10^3/uL (4.0-11.0) Red Blood Count 3.43 x10^6/uL (4.30-5.70) Hemoglobin 9.8 g/dL (13.0-17.5) Hematocrit 29.5 % (39.0-53.0) Mean Corpuscular Volume 86 fL (79-100) Mean Corpuscular Hemoglobin 29 pg (25-35) Mean Corpuscular Hemoglobin Concent 33 g/dL (31-37) Red Cell Distribution Width 13.0 % (11.5-14.5) Platelet Count 500 x10^3/uL (140-400) Neutrophils (%) (Auto) 86 % (31-73) Lymphocytes (%) (Auto) 8 % (24-48) Monocytes (%) (Auto) 5 % (0-9) Eosinophils (%) (Auto) 1 % (0-3) Basophils (%) (Auto) 0 % (0-3) Neutrophils # (Auto) 11.0 x10^3uL (1.8-7.7) Lymphocytes # (Auto) 1.0 x10^3/uL (1.0-4.8) Monocytes # (Auto) 0.6 x10^3/uL (0.0-1.1) Eosinophils # (Auto) 0.1 x10^3/uL (0.0-0.7) Basophils # (Auto) 0.1 x10^3/uL (0.0-0.2) Sodium Level 138 mmol/L (136-145) Potassium Level 4.5 mmol/L (3.5-5.1) Chloride Level 106 mmol/L (98-107) Carbon Dioxide Level 22 mmol/L (21-32) Anion Gap 10 (6-14) Blood Urea Nitrogen 22 mg/dL (8-26) Creatinine 1.0 mg/dL (0.7-1.3) Estimated GFR (Cockcroft-Gault) 72.8 BUN/Creatinine Ratio 22 (6-20) Glucose Level 120 mg/dL (70-99) Calcium Level 9.5 mg/dL (8.5-10.1) Total Bilirubin 0.4 mg/dL (0.2-1.0) Aspartate Amino Transf (AST/SGOT) 52 U/L (15-37) Alanine Aminotransferase (ALT/SGPT) 35 U/L (16-63) Alkaline Phosphatase 172 U/L (46-116) Ammonia 21 mcmol/L (11-34) Total Protein 6.3 g/dL (6.4-8.2) Albumin 2.1 g/dL (3.4-5.0) Albumin/Globulin Ratio 0.5 (1.0-1.7) Microbiology 04/13/17 Urine Culture - Final, Complete 04/13/17 Urine Culture Result 1 (RASHAWN) - Final, Complete Medications Current Medications Sodium Chloride 1,000 ml @ 1,000 mls/hr 1X ONCE IV Last administered on 12:46; Start 04/13/17 at 13:00; Stop 04/13/17 at 13:59; Status DC Ondansetron HCl (Zofran) 4 mg 1X ONCE IV Last administered on 04/13/17 12:46 ; Start 04/13/17 at 13:00; Stop 04/13/17 at 13:01; Status DC Iohexol (Omnipaque 300 Mg/ml) 60 ml 1X ONCE IV Last administered on 04/13/17 13:20; Start 04/13/17 at 13:15; Stop 04/13/17 at 13:16; Status DC Info (Do NOT chart on this entry -- for MONITORING) 1 each PRN DAILY PRN MC SEE COMMENTS; Start 04/13/17 at 13:15; Stop 04/15/17 at 13:14; Status DC Ondansetron HCl (Zofran) 4 mg PRN Q8HRS PRN IV NAUSEA/VOMITING; Start 04/13/17 at 14:45; Stop 04/14/17 at 10:50; Status DC Morphine Sulfate 4 mg PRN Q2HR PRN IV PAIN Last administered on 04/14/17 03:57 ; Start 04/13/17 at 14:45; Stop 04/14/17 at 10:49; Status DC Acetaminophen (Tylenol) 650 mg PRN Q6HRS PRN PO FEVER, pain Last administered on 04/26/17 08:55; Start 04/13/17 at 15:30 Ondansetron HCl (Zofran) 4 mg PRN Q6HRS PRN IV NAUSEA/VOMITING Last administered on 04/17/17 09:00; Start 04/13/17 at 15:30 Morphine Sulfate 2 mg PRN Q2HR PRN IV MILD PAIN Last administered on 04/21/17 20:59; Start 04/13/17 at 15:30; Stop 04/23/17 at 13:39; Status DC Tramadol HCl (Ultram) 50 mg PRN Q6HRS PRN PO PAIN Last administered on 06:06; Start 04/13/17 at 15:30; Stop 04/25/17 at 09:03; Status DC Hydralazine HCl (Apresoline) 10 mg PRN Q4HRS PRN IVP ELEVATED BP, SEE COMMENTS ; Start 04/13/17 at 15:30 Docusate Sodium (Colace) 100 mg PRN DAILY PRN PO CONSTIPATION; Start 04/13/17 at 15:30; Stop 04/24/17 at 16:11; Status DC Amino Acids/ Glycerin/ Electrolytes 1,000 ml @ 80 mls/hr [id number] IV Last administered on 04/26/17 05:11; Start 04/13/17 at 16:00 Morphine Sulfate 4 mg PRN Q2HR PRN IV MOD - SEVERE PAIN Last administered on 09:01; Start 04/13/17 at 15:30; Stop 04/21/17 at 14:41; Status DC Enoxaparin Sodium (Lovenox 40mg Syringe) 40 mg Q24H SQ Last administered on 16:08; Start 04/13/17 at 16:00 Pantoprazole Sodium (Protonix Vial) 40 mg DAILYAC IVP Last administered on 04/26 08:54; Start 04/14/17 at 07:30 Throat Lozenges (Chloraseptic) 1 spray PRN Q2HR PRN PO SORE THROAT Last administered on 04/19/17 17:41; Start 04/13/17 at 17:45 Throat Lozenges (Cepacol Sore Throat Lozenge) 1 sheron PRN Q2HRS PRN PO SORE THROAT Last administered on 04/20/17 07:55; Start 04/13/17 at 17:45 Saliva Substitute (Biotene Moisturizing Mouth) 2 spray PRN Q15MIN PRN PO DRY MOUTH Last administered on 04/15/17 15:42; Start 04/15/17 at 13:15 Sodium Chloride 500 ml @ 500 mls/hr 1X ONCE IV Last administered on 04/17/17 10:50; Start 04/17/17 at 11:00; Stop 04/17/17 at 11:59; Status DC Piperacillin Sod/ Tazobactam Sod 3.375 gm/Sodium Chloride 50 ml @ 100 mls/hr Q6HRS IV Last administered on 04/21/17 06:11; Start 04/17/17 at 11:30; Stop 04/21 at 08:12; Status DC Vancomycin HCl 1 gm/Sodium Chloride 250 ml @ 250 mls/hr Q12H IV ; Start at 10:45; Status UNV Vancomycin HCl 1.5 gm/Sodium Chloride 500 ml @ 250 mls/hr 1X ONCE IV Last administered on 04/17/17 12:26; Start 04/17/17 at 11:30; Stop 04/17/17 at 13:29; Status DC Vancomycin HCl (Vanco Per Pharmacy) 1 each PRN DAILY PRN MC SEE COMMENTS Last administered on 04/18/17 13:16; Start 04/17/17 at 11:00; Stop 04/19/17 at 08:32; Status DC Iohexol (Omnipaque 300 Mg/ml) 75 ml 1X ONCE IV Last administered on 04/17/17 12:01; Start 04/17/17 at 11:00; Stop 04/17/17 at 11:01; Status DC Info (Do NOT chart on this entry -- for MONITORING) 1 each PRN DAILY PRN MC SEE COMMENTS; Start 04/17/17 at 11:00; Stop 04/19/17 at 10:59; Status DC Metronidazole 100 ml @ 100 mls/hr 1X PREOP PRN IV prophylaxis; Start 04/18/17 at 06:00; Stop 04/18/17 at 18:00; Status DC Vancomycin HCl 1 gm/Sodium Chloride 250 ml @ 250 mls/hr Q12H IV Last administered on 04/17/17 23:37; Start 04/18/17 at 00:00; Stop 04/18/17 at 12:47; Status DC Vancomycin HCl 1 each 1X ONCE MC ; Start 04/20/17 at 00:30; Stop 04/20/17 at 00: 31; Status Cancel Ondansetron HCl (Zofran) 4 mg PRN Q6HRS PRN IV NAUSEA/VOMITING; Start 04/17/17 at 14:00; Stop 04/18/17 at 13:59; Status DC Fentanyl Citrate (Fentanyl 2ml Vial) 25 mcg PRN Q5MIN PRN IV MILD PAIN; Start 04/17/17 at 14:00; Stop 04/18/17 at 13:59; Status DC Fentanyl Citrate (Fentanyl 2ml Vial) 50 mcg PRN Q5MIN PRN IV MODERATE PAIN Last administered on 04/17/17 16:59; Start 04/17/17 at 14:00; Stop 04/18/17 at 13: 59; Status DC Morphine Sulfate 1 mg PRN Q10MIN PRN IV SEVERE PAIN Last administered on 16:44; Start 04/17/17 at 14:00; Stop 04/18/17 at 13:59; Status DC Ringer's Solution 1,000 ml @ 30 mls/hr Q24H IV ; Start 04/17/17 at 13:47; Stop 04/18/17 at 01:46; Status DC Lidocaine HCl 2 ml PRN 1X PRN ID PRIOR TO IV START; Start 04/17/17 at 14:00; Stop 04/18/17 at 13:59; Status DC Hydromorphone HCl (Dilaudid) 0.5 mg PRN Q10MIN PRN IV SEV PAIN, Second choice; Start 04/17/17 at 14:00; Stop 04/18/17 at 13:59; Status DC Prochlorperazine Edisylate (Compazine) 5 mg PACU PRN PRN IV NAUSEA, MRX1; Start 04/17/17 at 14:00; Stop 04/18/17 at 13:59; Status DC Fentanyl Citrate (Fentanyl 5ml Vial) 250 mcg STK-MED ONCE .ROUTE ; Start at 13:49; Stop 04/17/17 at 13:50; Status DC Succinylcholine Chloride (Anectine) 200 mg STK-MED ONCE .ROUTE ; Start 04/17/17 at 13:50; Stop 04/17/17 at 13:51; Status DC Rocuronium [place] (Zemuron) 50 mg STK-MED ONCE .ROUTE ; Start 04/17/17 at 13:50 ; Stop 04/17/17 at 13:51; Status DC Desflurane (Suprane) 60 ml STK-MED ONCE IH ; Start 04/17/17 at 13:50; Stop at 13:51; Status DC Dexamethasone Sodium Phosphate (Decadron) 20 mg STK-MED ONCE .ROUTE ; Start 04/17 at 13:50; Stop 04/17/17 at 13:51; Status DC Propofol 20 ml @ As Directed STK-MED ONCE IV ; Start 04/17/17 at 13:50; Stop 04/17 at 13:51; Status DC Ondansetron HCl (Zofran) 4 mg STK-MED ONCE .ROUTE ; Start 04/17/17 at 13:50; Stop 04/17/17 at 13:51; Status DC Phenylephrine HCl 1 mg STK-MED ONCE IV ; Start 04/17/17 at 13:51; Stop 04/17/17 at 13:52; Status DC Lidocaine HCl (Lidocaine Pf 2% Vial) 5 ml STK-MED ONCE .ROUTE ; Start 04/17/17 at 13:51; Stop 04/17/17 at 13:52; Status DC Albumin Human 500 ml @ As Directed STK-MED ONCE IV ; Start 04/17/17 at 13:57; Stop 04/17/17 at 13:58; Status DC Esmolol HCl (Brevibloc) 100 mg STK-MED ONCE IV ; Start 04/17/17 at 14:40; Stop at 14:41; Status DC Neostigmine Methylsulfate (Bloxiverz) 10 mg STK-MED ONCE .ROUTE ; Start 04/17/17 at 15:12; Stop 04/17/17 at 15:13; Status DC Glycopyrrolate (Robinul) 1 mg STK-MED ONCE .ROUTE ; Start 04/17/17 at 15:12; Stop 04/17/17 at 15:13; Status DC Neostigmine Methylsulfate (Bloxiverz) 10 mg STK-MED ONCE .ROUTE ; Start 04/17/17 at 15:14; Stop 04/17/17 at 15:15; Status DC Diphenhydramine HCl (Benadryl) 25 mg PRN Q6HRS PRN IV ITCHING Last administered on 04/23/17 00:37; Start 04/17/17 at 16:15; Stop 04/24/17 at 16:11; Status DC Enoxaparin Sodium (Lovenox 40mg Syringe) 40 mg Q24H SQ ; Start 04/18/17 at 09:00 ; Status UNV Sodium Chloride (Normal Saline Flush) 3 ml QSHIFT PRN IV AFTER MEDS AND BLOOD DRAWS; Start 04/17/17 at 16:15 Sodium Chloride 1,000 ml @ 30 mls/hr Q24H IV ; Start 04/17/17 at 17:00; Stop 04/18/17 at 17:35; Status DC Hydromorphone HCl 30 ml @ 0 mls/hr CONT PRN PRN IV PROTOCOL Last administered on 04/19/17 06:17; Start 04/17/17 at 16:15; Stop 04/19/17 at 19:13; Status DC Ondansetron HCl (Zofran) 4 mg PRN Q6HRS PRN IV NAUESA, 1ST CHOICE; Start at 16:15; Status UNV Albumin Human 500 ml @ 50 mls/hr 1X ONCE IV Last administered on 04/18/17 10: 40; Start 04/18/17 at 10:30; Stop 04/18/17 at 20:29; Status DC Vancomycin HCl 1.25 gm/Sodium Chloride 250 ml @ 167 mls/hr Q12H IV Last administered on 04/18/17 23:51; Start 04/18/17 at 13:00; Stop 04/19/17 at 08:31; Status DC Hydromorphone HCl 30 ml @ 0 mls/hr CONT PRN PRN IV PROTOCOL; Start 04/19/17 at 19:15; Stop 04/21/17 at 14:41; Status DC Potassium Chloride 100 ml @ 100 mls/hr Q1H IV Last administered on 04/23/17 17 :33; Start 04/23/17 at 14:00; Stop 04/23/17 at 17:59; Status DC Acetaminophen/ Hydrocodone Bitart (Lortab 5/325) 1 tab PRN Q4HRS PRN PO PAIN Last administered on 04/24/17 13:24; Start 04/23/17 at 13:45; Stop 04/24/17 at 16:11; Status DC Senna/Docusate Sodium (Senna Plus) 1 tab DAILY PO Last administered on 09:24; Start 04/24/17 at 16:30 Potassium Chloride (Klor-Con) 40 meq BIDWMEALS PO Last administered on 08:56; Start 04/24/17 at 16:30 Ibuprofen (Motrin) 400 mg PRN Q8HRS PRN PO INFLAMMATION; Start 04/25/17 at 09: 15; Stop 04/25/17 at 09:15; Status DC Sodium Chloride 1,000 ml @ 1,000 mls/hr 1X ONCE IV Last administered on 09:23; Start 04/25/17 at 09:15; Stop 04/25/17 at 10:14; Status DC Ferrous Sulfate (Feosol) 325 mg QHS PO Last administered on 04/25/17 21:15; Start 04/25/17 at 21:00 Nystatin 5 ml [id number] Last administered on 04/26/17 11:47; Start at 09:00 Lorazepam (Ativan) 0.5 mg 1X ONCE IV ; Start 04/26/17 at 12:00; Stop 04/26/17 at 12:01; Status DC Active Scripts Active Zofran Odt (Ondansetron) 4 Mg Tab.rapdis 4 Mg PO Q8HRS PRN [place] 5-325 Tablet (Acetaminophen/Hydrocodone Bitart) 1 Each Tablet 1 Tab PO PRN Q6HRS PRN Reported Preservision Areds Softgel (Vit A/Vit C/Vit E/Zinc/Copper) 1 Each Capsule 2 Each PO DAILY Omeprazole 20 Mg Capsule. 1 Cap PO DAILY Centrum Silver Tablet (Multivits-Min/Fa/Lycopene/Lut) 1 Each Tablet 1 Each PO Preservision Areds Tablet (Vit A/Vit C/Vit E/Zinc/Copper) 1 Each Tablet 1 Each PO No Known Medications Prior To Admisstion (Info) Each 1 Each Vitals/I & O Vital Sign - Last 24 Hours 04/25/17 04/25/17 04/25/17 04/25/17 15:00 19:00 20:00 23:00 Temp 97.4 97.6 97.6 97.4 97.6 97.6 Pulse 69 70 71 Resp 16 18 18 B/P (MAP) 127/71 (89) 133/68 (89) 134/67 (89) Pulse Ox 96 92 93 O2 Delivery Room Air Room Air Room Air Room Air 04/26/17 04/26/17 04/26/17 04/26/17 03:22 07:00 07:48 11:00 Temp 97.7 97.9 97.4 97.7 97.9 97.4 Pulse 69 84 85 Resp 18 20 20 B/P (MAP) 124/68 (86) 154/70 (98) 116/67 (83) Pulse Ox 93 92 95 O2 Delivery Room Air Room Air Room Air Room Air Intake and Output 04/25/17 04/25/17 04/26/17 14:59 22:59 06:59 Intake Total 250 ml 912 ml Output Total 3900 ml 850 ml Balance -3650 ml 62 ml EVE LEACH MD Apr 26, 2017 13:54
[2017-04-26 15:00] VITALS: BP 129/82
[2017-04-26] MEDS ORDERED: GADOBUTROL 7.5 MMOL/7.5 ML VIAL IV ONE (15:00)
--- NOTE | 2017-04-26 15:35 | RAD ---
MRI Brain with and without contrast History: Altered mental status, stomach cancer Technique: Axial diffusion, axial gradient echo T2, axial T2, axial FLAIR, sagittal and axial T1, and postcontrast axial, sagittal, and coronal T1-weighted images were acquired of the brain. Contrast: 6 cc Gadavist Comparison: None Findings: There is motion degradation variably for all image sequences. There is no evidence of recent infarct or cytotoxic edema. Ventricular size is within normal limits. There is generalized mild supratentorial atrophy.There is no significant midline shift, intraaxial mass effect, or focal abnormal extra-axial fluid collection. There is moderate T2 and FLAIR hyperintense signal abnormality of the supratentorial white matter bilaterally. There is no significant hemosiderin deposition of the brain parenchyma. There is no nodular parenchymal or leptomeningeal enhancement. There is preservation of the major intracranial flow-voids at the skull base. The cerebellar tonsils are normal in location. There is no significant abnormality of the pineal gland or pituitary gland. There has been lens surgery bilaterally. There is a small right maxillary sinus mucous retention cyst. Mastoid air cells are mostly aerated, small focus of fluid on the right. There is preserved marrow signal of the clivus. Impression: 1. There is no evidence of recent infarct or abnormal intracranial enhancement. Moderate T2 and FLAIR hyperintense signal abnormality of the supratentorial white matter is probably due to chronic microvascular ischemic disease in a patient this age. There is generalized supratentorial atrophy. Electronically signed by: Janes Vera MD (04/26/2017 3:32 PM)
--- NOTE | 2017-04-26 17:02 | PDOC ---
Provider Note Provider Note SURG went by to see patient he was sleeping soundly I did not wake him per RN he is still confused MRI brain negative no new recs consider palliative care consult? CHELSY CADENA MD Apr 26, 2017 17:02
--- NOTE | 2017-04-26 17:08 | PDOC2 ---
NEUROLOGY CONSULT Date of Admission Date of Admission DATE: 04/26/17 TIME: 16:30 Reason for Consult Reason for Consult: IMPRESSION: Metabolic encephalopathy. Confusion. Leukocytosis. Thrombocytosis. Fever. Colon cancer with metastatic disease to the liver. Small bowel obstruction s/p partial small bowel resection. Hypotension. Pulmonary infiltrate. Right pleural effusion. RECOMMENDATIONS/PLAN: EEG Suggested brain MRI w/wo contrast, but his did not want this study at the present time due to insurance concerns. Lab: see orders. Please consult Dr. Phillips. Continue medical and surgical treatment.Consulted tax services specialist. Discussed with his at bedside. His was upset with restricted medical insurance limitations. HISTORY OF THE PRESENT ILLNESS: 76-y-old male patient with Hx of colon cancer and has been treated by Dr. Phillips. He had small bowel obstruction and received surgery this time. Post surgery, he has bben having mental status changes, and decline of cognitive function and confusion. His was upset with limited insurance coverage and did not want to further evaluations at the present time. PAST MEDICAL HISTORY: Please see above. PAST SURGERY HISTORY: Small bowel resection this time. ALLERGY: Reviewed. MEDICATIONS: Refer to [facility] FAMILY HISTORY: Non contributory. SOCIAL HISTORY: Denies smoking, drinking, and illicit drug use. REVIEW OF SYSTEMS: Constitutional: mild malnutrition. Head: No recent traumatic brain or head injury. Skin: No edema, or rash. Ear: No infection. Eyes: No vision loss or color blindness. Nose: No bleeding or purulent discharges. Hearing: Mild hearing decrease. Neck: No injury. Cardiac: No recent HI, arrhythmia. Pulmonary: No COPD. GI: Colon cancer. Urinary/genital: UTI. Endocrinologic: No cousin face, craniofacial dysmorphism, polydactyly. Skeletomuscular: No muscular atrophy, deformity Neurological: see HP. Psychiatric: Denies drug use/abuse. Otherwise, not [id number] review of systems. PHYSICAL EXAMINATION: General appearance is in subacute distress. HEENT: Normocephalic and nontraumatic. Eyes, nose, ears, and throat are unremarkable. Neck is supple. No lymphadenopathy. No crepitus. Cardiovascular: S1, S2, regular rate and rhythm. Pulmonary: Mildly decreased to auscultation bilaterally. Abdomen: Bowel sounds are positive. Extremities: No rash, lesions, or edema. No restriction of range of motion NEUROLOGICAL EXAMINATION: Sleepiness but arousable. Oriented to time, place and person. PERRL. EOMI. CN: no focal findings. Muscle tone: within normal. Muscle strength: 4 DTR: 2 Plantar reflex: Neutral response bilaterally Gait: not examined in bed. Sensory exam: no abnormal findings. No acute cerebellar signs elicited. Current Medications Current Medications Current Medications Sodium Chloride 1,000 ml @ 1,000 mls/hr 1X ONCE IV Last administered on 12:46; Start 04/13/17 at 13:00; Stop 04/13/17 at 13:59; Status DC Ondansetron HCl (Zofran) 4 mg 1X ONCE IV Last administered on 04/13/17 12:46 ; Start 04/13/17 at 13:00; Stop 04/13/17 at 13:01; Status DC Iohexol (Omnipaque 300 Mg/ml) 60 ml 1X ONCE IV Last administered on 04/13/17 13:20; Start 04/13/17 at 13:15; Stop 04/13/17 at 13:16; Status DC Info (Do NOT chart on this entry -- for MONITORING) 1 each PRN DAILY PRN MC SEE COMMENTS; Start 04/13/17 at 13:15; Stop 04/15/17 at 13:14; Status DC Ondansetron HCl (Zofran) 4 mg PRN Q8HRS PRN IV NAUSEA/VOMITING; Start 04/13/17 at 14:45; Stop 04/14/17 at 10:50; Status DC Morphine Sulfate 4 mg PRN Q2HR PRN IV PAIN Last administered on 04/14/17 03:57 ; Start 04/13/17 at 14:45; Stop 04/14/17 at 10:49; Status DC Acetaminophen (Tylenol) 650 mg PRN Q6HRS PRN PO FEVER, pain Last administered on 04/26/17 08:55; Start 04/13/17 at 15:30 Ondansetron HCl (Zofran) 4 mg PRN Q6HRS PRN IV NAUSEA/VOMITING Last administered on 04/17/17 09:00; Start 04/13/17 at 15:30 Morphine Sulfate 2 mg PRN Q2HR PRN IV MILD PAIN Last administered on 04/21/17 20:59; Start 04/13/17 at 15:30; Stop 04/23/17 at 13:39; Status DC Tramadol HCl (Ultram) 50 mg PRN Q6HRS PRN PO PAIN Last administered on 06:06; Start 04/13/17 at 15:30; Stop 04/25/17 at 09:03; Status DC Hydralazine HCl (Apresoline) 10 mg PRN Q4HRS PRN IVP ELEVATED BP, SEE COMMENTS ; Start 04/13/17 at 15:30 Docusate Sodium (Colace) 100 mg PRN DAILY PRN PO CONSTIPATION; Start 04/13/17 at 15:30; Stop 04/24/17 at 16:11; Status DC Amino Acids/ Glycerin/ Electrolytes 1,000 ml @ 80 mls/hr [id number] IV Last administered on 04/26/17 05:11; Start 04/13/17 at 16:00 Morphine Sulfate 4 mg PRN Q2HR PRN IV MOD - SEVERE PAIN Last administered on 09:01; Start 04/13/17 at 15:30; Stop 04/21/17 at 14:41; Status DC Enoxaparin Sodium (Lovenox 40mg Syringe) 40 mg Q24H SQ Last administered on 16:08; Start 04/13/17 at 16:00 Pantoprazole Sodium (Protonix Vial) 40 mg DAILYAC IVP Last administered on 04/26 08:54; Start 04/14/17 at 07:30 Throat Lozenges (Chloraseptic) 1 spray PRN Q2HR PRN PO SORE THROAT Last administered on 04/19/17 17:41; Start 04/13/17 at 17:45 Throat Lozenges (Cepacol Sore Throat Lozenge) 1 sheron PRN Q2HRS PRN PO SORE THROAT Last administered on 04/20/17 07:55; Start 04/13/17 at 17:45 Saliva Substitute (Biotene Moisturizing Mouth) 2 spray PRN Q15MIN PRN PO DRY MOUTH Last administered on 04/15/17 15:42; Start 04/15/17 at 13:15 Sodium Chloride 500 ml @ 500 mls/hr 1X ONCE IV Last administered on 04/17/17 10:50; Start 04/17/17 at 11:00; Stop 04/17/17 at 11:59; Status DC Piperacillin Sod/ Tazobactam Sod 3.375 gm/Sodium Chloride 50 ml @ 100 mls/hr Q6HRS IV Last administered on 04/21/17 06:11; Start 04/17/17 at 11:30; Stop 04/21 at 08:12; Status DC Vancomycin HCl 1 gm/Sodium Chloride 250 ml @ 250 mls/hr Q12H IV ; Start at 10:45; Status UNV Vancomycin HCl 1.5 gm/Sodium Chloride 500 ml @ 250 mls/hr 1X ONCE IV Last administered on 04/17/17 12:26; Start 04/17/17 at 11:30; Stop 04/17/17 at 13:29; Status DC Vancomycin HCl (Vanco Per Pharmacy) 1 each PRN DAILY PRN MC SEE COMMENTS Last administered on 04/18/17 13:16; Start 04/17/17 at 11:00; Stop 04/19/17 at 08:32; Status DC Iohexol (Omnipaque 300 Mg/ml) 75 ml 1X ONCE IV Last administered on 04/17/17 12:01; Start 04/17/17 at 11:00; Stop 04/17/17 at 11:01; Status DC Info (Do NOT chart on this entry -- for MONITORING) 1 each PRN DAILY PRN MC SEE COMMENTS; Start 04/17/17 at 11:00; Stop 04/19/17 at 10:59; Status DC Metronidazole 100 ml @ 100 mls/hr 1X PREOP PRN IV prophylaxis; Start 04/18/17 at 06:00; Stop 04/18/17 at 18:00; Status DC Vancomycin HCl 1 gm/Sodium Chloride 250 ml @ 250 mls/hr Q12H IV Last administered on 04/17/17 23:37; Start 04/18/17 at 00:00; Stop 04/18/17 at 12:47; Status DC Vancomycin HCl 1 each 1X ONCE MC ; Start 04/20/17 at 00:30; Stop 04/20/17 at 00: 31; Status Cancel Ondansetron HCl (Zofran) 4 mg PRN Q6HRS PRN IV NAUSEA/VOMITING; Start 04/17/17 at 14:00; Stop 04/18/17 at 13:59; Status DC Fentanyl Citrate (Fentanyl 2ml Vial) 25 mcg PRN Q5MIN PRN IV MILD PAIN; Start 04/17/17 at 14:00; Stop 04/18/17 at 13:59; Status DC Fentanyl Citrate (Fentanyl 2ml Vial) 50 mcg PRN Q5MIN PRN IV MODERATE PAIN Last administered on 04/17/17 16:59; Start 04/17/17 at 14:00; Stop 04/18/17 at 13: 59; Status DC Morphine Sulfate 1 mg PRN Q10MIN PRN IV SEVERE PAIN Last administered on 16:44; Start 04/17/17 at 14:00; Stop 04/18/17 at 13:59; Status DC Ringer's Solution 1,000 ml @ 30 mls/hr Q24H IV ; Start 04/17/17 at 13:47; Stop 04/18/17 at 01:46; Status DC Lidocaine HCl 2 ml PRN 1X PRN ID PRIOR TO IV START; Start 04/17/17 at 14:00; Stop 04/18/17 at 13:59; Status DC Hydromorphone HCl (Dilaudid) 0.5 mg PRN Q10MIN PRN IV SEV PAIN, Second choice; Start 04/17/17 at 14:00; Stop 04/18/17 at 13:59; Status DC Prochlorperazine Edisylate (Compazine) 5 mg PACU PRN PRN IV NAUSEA, MRX1; Start 04/17/17 at 14:00; Stop 04/18/17 at 13:59; Status DC Fentanyl Citrate (Fentanyl 5ml Vial) 250 mcg STK-MED ONCE .ROUTE ; Start at 13:49; Stop 04/17/17 at 13:50; Status DC Succinylcholine Chloride (Anectine) 200 mg STK-MED ONCE .ROUTE ; Start 04/17/17 at 13:50; Stop 04/17/17 at 13:51; Status DC Rocuronium Parkin (Zemuron) 50 mg STK-MED ONCE .ROUTE ; Start 04/17/17 at 13:50 ; Stop 04/17/17 at 13:51; Status DC Desflurane (Suprane) 60 ml STK-MED ONCE IH ; Start 04/17/17 at 13:50; Stop at 13:51; Status DC Dexamethasone Sodium Phosphate (Decadron) 20 mg STK-MED ONCE .ROUTE ; Start 04/17 at 13:50; Stop 04/17/17 at 13:51; Status DC Propofol 20 ml @ As Directed STK-MED ONCE IV ; Start 04/17/17 at 13:50; Stop 04/17 at 13:51; Status DC Ondansetron HCl (Zofran) 4 mg STK-MED ONCE .ROUTE ; Start 04/17/17 at 13:50; Stop 04/17/17 at 13:51; Status DC Phenylephrine HCl 1 mg STK-MED ONCE IV ; Start 04/17/17 at 13:51; Stop 04/17/17 at 13:52; Status DC Lidocaine HCl (Lidocaine Pf 2% Vial) 5 ml STK-MED ONCE .ROUTE ; Start 04/17/17 at 13:51; Stop 04/17/17 at 13:52; Status DC Albumin Human 500 ml @ As Directed STK-MED ONCE IV ; Start 04/17/17 at 13:57; Stop 04/17/17 at 13:58; Status DC Esmolol HCl (Brevibloc) 100 mg STK-MED ONCE IV ; Start 04/17/17 at 14:40; Stop at 14:41; Status DC Neostigmine Methylsulfate (Bloxiverz) 10 mg STK-MED ONCE .ROUTE ; Start 04/17/17 at 15:12; Stop 04/17/17 at 15:13; Status DC Glycopyrrolate (Robinul) 1 mg STK-MED ONCE .ROUTE ; Start 04/17/17 at 15:12; Stop 04/17/17 at 15:13; Status DC Neostigmine Methylsulfate (Bloxiverz) 10 mg STK-MED ONCE .ROUTE ; Start 04/17/17 at 15:14; Stop 04/17/17 at 15:15; Status DC Diphenhydramine HCl (Benadryl) 25 mg PRN Q6HRS PRN IV ITCHING Last administered on 04/23/17t 00:37; Start 04/17/17 at 16:15; Stop 04/24/17 at 16:11; Status DC Enoxaparin Sodium (Lovenox 40mg Syringe) 40 mg Q24H SQ ; Start 04/18/17 at 09:00 ; Status UNV Sodium Chloride (Normal Saline Flush) 3 ml QSHIFT PRN IV AFTER MEDS AND BLOOD DRAWS; Start 04/17/17 at 16:15 Sodium Chloride 1,000 ml @ 30 mls/hr Q24H IV ; Start 04/17/17 at 17:00; Stop 04/18/17 at 17:35; Status DC Hydromorphone HCl 30 ml @ 0 mls/hr CONT PRN PRN IV PROTOCOL Last administered on 04/19/17 06:17; Start 04/17/17 at 16:15; Stop 04/19/17 at 19:13; Status DC Ondansetron HCl (Zofran) 4 mg PRN Q6HRS PRN IV NAUESA, 1ST CHOICE; Start at 16:15; Status UNV Albumin Human 500 ml @ 50 mls/hr 1X ONCE IV Last administered on 04/18/17 10: 40; Start 04/18/17 at 10:30; Stop 04/18/17 at 20:29; Status DC Vancomycin HCl 1.25 gm/Sodium Chloride 250 ml @ 167 mls/hr Q12H IV Last administered on 04/18/17 23:51; Start 04/18/17 at 13:00; Stop 04/19/17 at 08:31; Status DC Hydromorphone HCl 30 ml @ 0 mls/hr CONT PRN PRN IV PROTOCOL; Start 04/19/17 at 19:15; Stop 04/21/17 at 14:41; Status DC Potassium Chloride 100 ml @ 100 mls/hr Q1H IV Last administered on 04/23/17 17 :33; Start 04/23/17 at 14:00; Stop 04/23/17 at 17:59; Status DC Acetaminophen/ Hydrocodone Bitart (Lortab 5/325) 1 tab PRN Q4HRS PRN PO PAIN Last administered on 04/24/17 13:24; Start 04/23/17 at 13:45; Stop 04/24/17 at 16:11; Status DC Senna/Docusate Sodium (Senna Plus) 1 tab DAILY PO Last administered on 09:24; Start 04/24/17 at 16:30 Potassium Chloride (Klor-Con) 40 meq BIDWMEALS PO Last administered on 08:56; Start 04/24/17 at 16:30 Ibuprofen (Motrin) 400 mg PRN Q8HRS PRN PO INFLAMMATION; Start 04/25/17 at 09: 15; Stop 04/25/17 at 09:15; Status DC Sodium Chloride 1,000 ml @ 1,000 mls/hr 1X ONCE IV Last administered on 09:23; Start 04/25/17 at 09:15; Stop 04/25/17 at 10:14; Status DC Ferrous Sulfate (Feosol) 325 mg QHS PO Last administered on 04/25/17 21:15; Start 04/25/17 at 21:00 Nystatin 5 ml [id number] Last administered on 04/26/17 11:47; Start at 09:00 Lorazepam (Ativan) 0.5 mg 1X ONCE IV Last administered on 04/26/17 14:09; Start 04/26/17 at 12:00; Stop 04/26/17 at 12:01; Status DC Gadobutrol (Gadavist) 6 mmol 1X ONCE IV Last administered on 04/26/17 15:10; Start 04/26/17 at 15:00; Stop 04/26/17 at 15:01; Status DC Active Scripts Active Zofran Odt (Ondansetron) 4 Mg Tab.rapdis 4 Mg PO Q8HRS PRN [place] 5-325 Tablet (Acetaminophen/Hydrocodone Bitart) 1 Each Tablet 1 Tab PO PRN Q6HRS PRN Reported Preservision Areds Softgel (Vit A/Vit C/Vit E/Zinc/Copper) 1 Each Capsule 2 Each PO DAILY Omeprazole 20 Mg Capsule.dr 1 Cap PO DAILY Centrum Silver Tablet (Multivits-Min/Fa/Lycopene/Lut) 1 Each Tablet 1 Each PO Preservision Areds Tablet (Vit A/Vit C/Vit E/Zinc/Copper) 1 Each Tablet 1 Each PO No Known Medications Prior To Admisstion (Info) Each 1 Each Allergies Allergies: Coded Allergies: No Known Drug Allergies (Unverified , 04/17/17) Vitals VITALS Vital Signs Date Time Temp Pulse Resp B/P (MAP) Pulse Ox O2 Delivery O2 Flow Rate FiO2 04/26/17 15:00 97.2 84 20 129/82 (98) 95 Room Air 97.2 04/25/17 08:00 2.0 Labs Labs Laboratory Tests Test 04/25/17 05:45 04/26/17 04:37 White Blood Count 12.9 x10^3/uL (4.0-11.0) 12.7 x10^3/uL (4.0-11.0) Red Blood Count 3.56 x10^6/uL (4.30-5.70) 3.43 x10^6/uL (4.30-5.70) Hemoglobin 10.2 g/dL (13.0-17.5) 9.8 g/dL (13.0-17.5) Hematocrit 30.1 % (39.0-53.0) 29.5 % (39.0-53.0) Mean Corpuscular Volume 85 fL (79-100) 86 fL (79-100) Mean Corpuscular Hemoglobin 29 pg (25-35) 29 pg (25-35) Mean Corpuscular Hemoglobin Concent 34 g/dL (31-37) 33 g/dL (31-37) Red Cell Distribution Width 13.3 % (11.5-14.5) 13.0 % (11.5-14.5) Platelet Count 541 x10^3/uL (140-400) 500 x10^3/uL (140-400) Neutrophils (%) (Auto) 82 % (31-73) 86 % (31-73) Lymphocytes (%) (Auto) 8 % (24-48) 8 % (24-48) Monocytes (%) (Auto) 7 % (0-9) 5 % (0-9) Eosinophils (%) (Auto) 2 % (0-3) 1 % (0-3) Basophils (%) (Auto) 0 % (0-3) 0 % (0-3) Neutrophils # (Auto) 10.6 x10^3uL (1.8-7.7) 11.0 x10^3uL (1.8-7.7) Lymphocytes # (Auto) 1.1 x10^3/uL (1.0-4.8) 1.0 x10^3/uL (1.0-4.8) Monocytes # (Auto) 0.9 x10^3/uL (0.0-1.1) 0.6 x10^3/uL (0.0-1.1) Eosinophils # (Auto) 0.3 x10^3/uL (0.0-0.7) 0.1 x10^3/uL (0.0-0.7) Basophils # (Auto) 0.0 x10^3/uL (0.0-0.2) 0.1 x10^3/uL (0.0-0.2) Sodium Level 136 mmol/L (136-145) 138 mmol/L (136-145) Potassium Level 4.0 mmol/L (3.5-5.1) 4.5 mmol/L (3.5-5.1) Chloride Level 102 mmol/L (98-107) 106 mmol/L (98-107) Carbon Dioxide Level 25 mmol/L (21-32) 22 mmol/L (21-32) Anion Gap 9 (6-14) 10 (6-14) Blood Urea Nitrogen 24 mg/dL (8-26) 22 mg/dL (8-26) Creatinine 1.4 mg/dL (0.7-1.3) 1.0 mg/dL (0.7-1.3) Estimated GFR (Cockcroft-Gault) 49.4 72.8 BUN/Creatinine Ratio 17 (6-20) 22 (6-20) Glucose Level 116 mg/dL (70-99) 120 mg/dL (70-99) Calcium Level 9.0 mg/dL (8.5-10.1) 9.5 mg/dL (8.5-10.1) Total Bilirubin 0.6 mg/dL (0.2-1.0) 0.4 mg/dL (0.2-1.0) Aspartate Amino Transf (AST/SGOT) 63 U/L (15-37) 52 U/L (15-37) Alanine Aminotransferase (ALT/SGPT) 40 U/L (16-63) 35 U/L (16-63) Alkaline Phosphatase 172 U/L (46-116) 172 U/L (46-116) Total Protein 6.4 g/dL (6.4-8.2) 6.3 g/dL (6.4-8.2) Albumin 2.1 g/dL (3.4-5.0) 2.1 g/dL (3.4-5.0) Albumin/Globulin Ratio 0.5 (1.0-1.7) 0.5 (1.0-1.7) Ammonia 21 mcmol/L (11-34) Laboratory Tests Test 04/26/17 04:37 White Blood Count 12.7 x10^3/uL (4.0-11.0) Red Blood Count 3.43 x10^6/uL (4.30-5.70) Hemoglobin 9.8 g/dL (13.0-17.5) Hematocrit 29.5 % (39.0-53.0) Mean Corpuscular Volume 86 fL (79-100) Mean Corpuscular Hemoglobin 29 pg (25-35) Mean Corpuscular Hemoglobin Concent 33 g/dL (31-37) Red Cell Distribution Width 13.0 % (11.5-14.5) Platelet Count 500 x10^3/uL (140-400) Neutrophils (%) (Auto) 86 % (31-73) Lymphocytes (%) (Auto) 8 % (24-48) Monocytes (%) (Auto) 5 % (0-9) Eosinophils (%) (Auto) 1 % (0-3) Basophils (%) (Auto) 0 % (0-3) Neutrophils # (Auto) 11.0 x10^3uL (1.8-7.7) Lymphocytes # (Auto) 1.0 x10^3/uL (1.0-4.8) Monocytes # (Auto) 0.6 x10^3/uL (0.0-1.1) Eosinophils # (Auto) 0.1 x10^3/uL (0.0-0.7) Basophils # (Auto) 0.1 x10^3/uL (0.0-0.2) Sodium Level 138 mmol/L (136-145) Potassium Level 4.5 mmol/L (3.5-5.1) Chloride Level 106 mmol/L (98-107) Carbon Dioxide Level 22 mmol/L (21-32) Anion Gap 10 (6-14) Blood Urea Nitrogen 22 mg/dL (8-26) Creatinine 1.0 mg/dL (0.7-1.3) Estimated GFR (Cockcroft-Gault) 72.8 BUN/Creatinine Ratio 22 (6-20) Glucose Level 120 mg/dL (70-99) Calcium Level 9.5 mg/dL (8.5-10.1) Total Bilirubin 0.4 mg/dL (0.2-1.0) Aspartate Amino Transf (AST/SGOT) 52 U/L (15-37) Alanine Aminotransferase (ALT/SGPT) 35 U/L (16-63) Alkaline Phosphatase 172 U/L (46-116) Ammonia 21 mcmol/L (11-34) Total Protein 6.3 g/dL (6.4-8.2) Albumin 2.1 g/dL (3.4-5.0) Albumin/Globulin Ratio 0.5 (1.0-1.7) JUSTIN EUBANKS MD Apr 26, 2017 17:08
[2017-04-26] MEDS: ENOXAPARIN 40 MG/0.4 ML SYRINGE. SQ SCH (17:20)
[2017-04-26 19:50] VITALS: BP 132/78
[2017-04-26] MEDS: FERROUS SULFATE 325 MG TABLET. PO SCH (21:00)
[2017-04-26 23:51] VITALS: BP 114/63
[2017-04-27 03:27] VITALS: BP 122/65
[2017-04-27] MEDS: AMINO AC 3%/ELECTROLYTE/GLYCER 1,000 ML IV SCH ×2 (04:37→16:00)
[2017-04-27 05:59] LABS: BASO % 0 % (0-3); EOS % 2 % (0-3); HEMATOCRIT 29.4 % (39.0-53.0); HEMOGLOBIN 9.9 g/dL (13.0-17.5); LYMPH % 9 % (24-48); MEAN CORPUSCULAR HEMOGLOBIN 29 pg (25-35); MEAN CORPUSCULAR HGB CONC 34 g/dL (31-37); MEAN CORPUSCULAR VOLUME 85 fL (79-100); MONO % 5 % (0-9); NEUT % 84 % (31-73); PLATELET COUNT 500 x10^3/uL (140-400); RED BLOOD COUNT 3.46 x10^6/uL (4.30-5.70); WHITE BLOOD COUNT 12.2 x10^3/uL (4.0-11.0)
[2017-04-27 06:13] LABS: CALCIUM 9.2 mg/dL (8.5-10.1); CREATININE 0.9 mg/dL (0.7-1.3); GFR 82.3; POTASSIUM 4.7 mmol/L (3.5-5.1)
[2017-04-27 07:00] VITALS: BP 118/79
[2017-04-27] MEDS: SENNOSIDES/DOCUSATE 8.6/50MG TABLET. PO SCH (09:58)
[2017-04-27] MEDS: POTASSIUM CHLORIDE 20 MEQ TABLET.ER. PO SCH ×2 (09:58→17:17)
[2017-04-27] MEDS: NYSTATIN 100,000 UNITS/ML 5 ML ORAL.SUSP. SWSW SCH ×4 (09:58→21:21)
--- NOTE | 2017-04-27 10:34 | PDOC ---
Infectious Disease Note Subjective Subjective feeling ok, a bit confused. No Pain no fever, ROS ROS GEN: Denies fevers, chills, sweats HEENT: Denies blurred vision, sore throat CV: Denies chest pain RESP: Denies shortness of air, cough GI: Denies n/v/d NEURO: Denies confusion, dizziness MSK: Denies weakness, joint pain/swelling Vital Sign Vital Signs Vital Signs Date Time Temp Pulse Resp B/P (MAP) Pulse Ox O2 Delivery O2 Flow Rate FiO2 04/27/17 07:00 98.1 75 20 118/79 (92) 96 Room Air 98.1 Physical Exam PHYSICAL EXAM GENERAL: NAD, Alert HEENT: PERRL, OC/OP - improved thrush NECK: Supple, no JVD, no LN LUNGS: Clear HEART: S1S2, no gallop, no murmur ABD: Soft, NT, no organomegaly, no rebound, Wound is clean EXT: No edema, no cyanosis PRODUCT SAFETY ASSOCIATE: Alert, oriented to person/place, no focal neurologic deficit SKIN: No rash IV: ok Labs Lab Laboratory Tests Test 04/27/17 05:15 White Blood Count 12.2 x10^3/uL (4.0-11.0) Red Blood Count 3.46 x10^6/uL (4.30-5.70) Hemoglobin 9.9 g/dL (13.0-17.5) Hematocrit 29.4 % (39.0-53.0) Mean Corpuscular Volume 85 fL (79-100) Mean Corpuscular Hemoglobin 29 pg (25-35) Mean Corpuscular Hemoglobin Concent 34 g/dL (31-37) Red Cell Distribution Width 13.0 % (11.5-14.5) Platelet Count 500 x10^3/uL (140-400) Neutrophils (%) (Auto) 84 % (31-73) Lymphocytes (%) (Auto) 9 % (24-48) Monocytes (%) (Auto) 5 % (0-9) Eosinophils (%) (Auto) 2 % (0-3) Basophils (%) (Auto) 0 % (0-3) Neutrophils # (Auto) 10.3 x10^3uL (1.8-7.7) Lymphocytes # (Auto) 1.0 x10^3/uL (1.0-4.8) Monocytes # (Auto) 0.6 x10^3/uL (0.0-1.1) Eosinophils # (Auto) 0.2 x10^3/uL (0.0-0.7) Basophils # (Auto) 0.0 x10^3/uL (0.0-0.2) Sodium Level 137 mmol/L (136-145) Potassium Level 4.7 mmol/L (3.5-5.1) Chloride Level 103 mmol/L (98-107) Carbon Dioxide Level 25 mmol/L (21-32) Anion Gap 9 (6-14) Blood Urea Nitrogen 21 mg/dL (8-26) Creatinine 0.9 mg/dL (0.7-1.3) Estimated GFR (Cockcroft-Gault) 82.3 Glucose Level 110 mg/dL (70-99) Calcium Level 9.2 mg/dL (8.5-10.1) Objective Assessment Acute Encephalopathy -? in part to lack of sleep. MRI - neg Thrush - better Leukocytosis - ? reactive Fever resolved Hypotension, responsive to IVF bolus. stable pulmonary infiltrates with right pleural effusion SBO s/p exp lap, small bowel resection with primary anastomosis, 6/ Metastatic colon cancer Plan Plan of Care Cont Nystatin Check procalcitonin Incentive spirometry PT/OT INOCENCIO ORTIZ MD Apr 27, 2017 10:34
--- NOTE | 2017-04-27 10:43 | PDOC ---
SURGICAL PROGRESS NOTE Subjective seems less confused? Vital Signs Vital Signs Date Time Temp Pulse Resp B/P (MAP) Pulse Ox O2 Delivery O2 Flow Rate FiO2 04/27/17 07:00 98.1 75 20 118/79 (92) 96 Room Air 98.1 I&O Intake and Output 04/27/17 06:59 Intake Total 1200 ml Output Total 650 ml Balance 550 ml Other 1200 ml Output Urine Total 650 ml # Voids 8 # Bowel Movements 1 PATIENT HAS A CHAVEZ: No General: Alert, Oriented X3, Cooperative, No acute distress Abdomen: Soft, Other (incision c/d) Labs Laboratory Tests Test 04/26/17 04:37 04/27/17 05:15 White Blood Count 12.7 x10^3/uL (4.0-11.0) 12.2 x10^3/uL (4.0-11.0) Red Blood Count 3.43 x10^6/uL (4.30-5.70) 3.46 x10^6/uL (4.30-5.70) Hemoglobin 9.8 g/dL (13.0-17.5) 9.9 g/dL (13.0-17.5) Hematocrit 29.5 % (39.0-53.0) 29.4 % (39.0-53.0) Mean Corpuscular Volume 86 fL (79-100) 85 fL (79-100) Mean Corpuscular Hemoglobin 29 pg (25-35) 29 pg (25-35) Mean Corpuscular Hemoglobin Concent 33 g/dL (31-37) 34 g/dL (31-37) Red Cell Distribution Width 13.0 % (11.5-14.5) 13.0 % (11.5-14.5) Platelet Count 500 x10^3/uL (140-400) 500 x10^3/uL (140-400) Neutrophils (%) (Auto) 86 % (31-73) 84 % (31-73) Lymphocytes (%) (Auto) 8 % (24-48) 9 % (24-48) Monocytes (%) (Auto) 5 % (0-9) 5 % (0-9) Eosinophils (%) (Auto) 1 % (0-3) 2 % (0-3) Basophils (%) (Auto) 0 % (0-3) 0 % (0-3) Neutrophils # (Auto) 11.0 x10^3uL (1.8-7.7) 10.3 x10^3uL (1.8-7.7) Lymphocytes # (Auto) 1.0 x10^3/uL (1.0-4.8) 1.0 x10^3/uL (1.0-4.8) Monocytes # (Auto) 0.6 x10^3/uL (0.0-1.1) 0.6 x10^3/uL (0.0-1.1) Eosinophils # (Auto) 0.1 x10^3/uL (0.0-0.7) 0.2 x10^3/uL (0.0-0.7) Basophils # (Auto) 0.1 x10^3/uL (0.0-0.2) 0.0 x10^3/uL (0.0-0.2) Sodium Level 138 mmol/L (136-145) 137 mmol/L (136-145) Potassium Level 4.5 mmol/L (3.5-5.1) 4.7 mmol/L (3.5-5.1) Chloride Level 106 mmol/L (98-107) 103 mmol/L (98-107) Carbon Dioxide Level 22 mmol/L (21-32) 25 mmol/L (21-32) Anion Gap 10 (6-14) 9 (6-14) Blood Urea Nitrogen 22 mg/dL (8-26) 21 mg/dL (8-26) Creatinine 1.0 mg/dL (0.7-1.3) 0.9 mg/dL (0.7-1.3) Estimated GFR (Cockcroft-Gault) 72.8 82.3 BUN/Creatinine Ratio 22 (6-20) Glucose Level 120 mg/dL (70-99) 110 mg/dL (70-99) Calcium Level 9.5 mg/dL (8.5-10.1) 9.2 mg/dL (8.5-10.1) Total Bilirubin 0.4 mg/dL (0.2-1.0) Aspartate Amino Transf (AST/SGOT) 52 U/L (15-37) Alanine Aminotransferase (ALT/SGPT) 35 U/L (16-63) Alkaline Phosphatase 172 U/L (46-116) Ammonia 21 mcmol/L (11-34) Total Protein 6.3 g/dL (6.4-8.2) Albumin 2.1 g/dL (3.4-5.0) Albumin/Globulin Ratio 0.5 (1.0-1.7) Vitamin B12 Level 468 pg/mL (247-911) Thyroid Stimulating Hormone (TSH) 0.368 uIU/mL (0.358-3.74) Laboratory Tests Test 04/27/17 05:15 White Blood Count 12.2 x10^3/uL (4.0-11.0) Red Blood Count 3.46 x10^6/uL (4.30-5.70) Hemoglobin 9.9 g/dL (13.0-17.5) Hematocrit 29.4 % (39.0-53.0) Mean Corpuscular Volume 85 fL (79-100) Mean Corpuscular Hemoglobin 29 pg (25-35) Mean Corpuscular Hemoglobin Concent 34 g/dL (31-37) Red Cell Distribution Width 13.0 % (11.5-14.5) Platelet Count 500 x10^3/uL (140-400) Neutrophils (%) (Auto) 84 % (31-73) Lymphocytes (%) (Auto) 9 % (24-48) Monocytes (%) (Auto) 5 % (0-9) Eosinophils (%) (Auto) 2 % (0-3) Basophils (%) (Auto) 0 % (0-3) Neutrophils # (Auto) 10.3 x10^3uL (1.8-7.7) Lymphocytes # (Auto) 1.0 x10^3/uL (1.0-4.8) Monocytes # (Auto) 0.6 x10^3/uL (0.0-1.1) Eosinophils # (Auto) 0.2 x10^3/uL (0.0-0.7) Basophils # (Auto) 0.0 x10^3/uL (0.0-0.2) Sodium Level 137 mmol/L (136-145) Potassium Level 4.7 mmol/L (3.5-5.1) Chloride Level 103 mmol/L (98-107) Carbon Dioxide Level 25 mmol/L (21-32) Anion Gap 9 (6-14) Blood Urea Nitrogen 21 mg/dL (8-26) Creatinine 0.9 mg/dL (0.7-1.3) Estimated GFR (Cockcroft-Gault) 82.3 Glucose Level 110 mg/dL (70-99) Calcium Level 9.2 mg/dL (8.5-10.1) Problem List Problems Medical Problems: (1) Small bowel torsion Status: Acute Assessment/Plan improved no new surg recs Problems: CHELSY CADENA MD Apr 27, 2017 10:43
[2017-04-27 11:00] VITALS: BP 131/68
--- NOTE | 2017-04-27 12:18 | PDOC ---
Objective: Objective: Out for neuro testing. Per RN - still confused, not eating much. Vital Signs: Vital Signs Date Time Temp Pulse Resp B/P (MAP) Pulse Ox O2 Delivery O2 Flow Rate FiO2 04/27/17 11:00 98.2 90 20 131/68 (89) 93 Room Air 98.2 Labs: Laboratory Tests Test 04/27/17 05:15 White Blood Count 12.2 x10^3/uL Red Blood Count 3.46 x10^6/uL Hemoglobin 9.9 g/dL Hematocrit 29.4 % Mean Corpuscular Volume 85 fL Mean Corpuscular Hemoglobin 29 pg Mean Corpuscular Hemoglobin Concent 34 g/dL Red Cell Distribution Width 13.0 % Platelet Count 500 x10^3/uL Neutrophils (%) (Auto) 84 % Lymphocytes (%) (Auto) 9 % Monocytes (%) (Auto) 5 % Eosinophils (%) (Auto) 2 % Basophils (%) (Auto) 0 % Neutrophils # (Auto) 10.3 x10^3uL Lymphocytes # (Auto) 1.0 x10^3/uL Monocytes # (Auto) 0.6 x10^3/uL Eosinophils # (Auto) 0.2 x10^3/uL Basophils # (Auto) 0.0 x10^3/uL Sodium Level 137 mmol/L Potassium Level 4.7 mmol/L Chloride Level 103 mmol/L Carbon Dioxide Level 25 mmol/L Anion Gap 9 Blood Urea Nitrogen 21 mg/dL Creatinine 0.9 mg/dL Estimated GFR (Cockcroft-Gault) 82.3 Glucose Level 110 mg/dL Calcium Level 9.2 mg/dL Procalcitonin 0.45 ng/mL Imaging: Brain MRI 04/26/17 Impression: 1. There is no evidence of recent infarct or abnormal intracranial enhancement. Moderate T2 and FLAIR hyperintense signal abnormality of the supratentorial white matter is probably due to chronic microvascular ischemic disease in a patient this age. There is generalized supratentorial atrophy. PE: no exam A/P: Metastatic colon cancer, SBO s/p resection, confusion -- Will follow. JOEY HURLEY Apr 27, 2017 12:18
--- NOTE | 2017-04-27 13:17 | PDOC ---
PROGRESS NOTES Chief Complaint Chief Complaint malignant SBO ASSESSMENT AND PLAN: 1. SBO: s/p ex lap with tumor resection and end-to-end SB anastomosis on 04/[address] Schaefer. recovering fairly well physically 2. Pain control: good. tylenol PRN. stop narcotics 3. Encephalopathy: persisting with some visual hallucinations. need to rule out mets and possible 2/2 malignancy 4. Nutrition: advanced to soft mechanical. cont PPN for now, stop when PO intake sufficient 5. JUNO: new. poss 2/2 dehydration. NS bolus 6. Hypokalemia: borderline. monitor, replete as indicated 7. Leukocytosis: reactive borderline high, but stable. monitor 8. Anemia: chronic dz and inflammation, min component of acute blood loss. PO iron daily. stable, monitor 9. Transaminitis: mild; suspect 2/2 liver mets. monitor 10. Protein malnutrition: moderate. supplements 11. Colon CA: mets to liver and retroperitoneal adenopathy. F/U with onc post D/C 12. B renal stones: non obstructive 13. Prophylaxis: PPI, lovenox 14. Dispo: awaiting OT/PT notes, anticipate rehab placement talked to pt's insurance, pt should be able to befefits from SNF given his encephalopathy, however, his insurance refused him and said he can walk with help. talked to for 10min at bedside on 04/26, is upset about the encephalopathy for the past 10days, however, refused PAT consult, refused onco consult, and refused head CT/MRI , saying his insurance might not approve for MRI image. She eventually ok after SW told her that the insurance likely would approved MRI. MRI neg for mets. neurologist consulted, EEG pending. DC pt tmr with HH if no intervention will be done. will get PAT consult as well. History of Present Illness History of Present Illness awake alert. feels ok confusion, visual hallucinations per RN Vitals Vitals Vital Signs Date Time Temp Pulse Resp B/P (MAP) Pulse Ox O2 Delivery O2 Flow Rate FiO2 04/27/17 11:00 98.2 90 20 131/68 (89) 93 Room Air 98.2 Physical Exam General: Alert, Oriented X3, Cooperative, No acute distress Heart: Regular rate Lungs: Clear Abdomen: Soft, Other (incision c/d) Extremities: No clubbing, No edema Skin: No rashes Labs LABS Laboratory Tests Test 04/27/17 05:15 White Blood Count 12.2 x10^3/uL (4.0-11.0) Red Blood Count 3.46 x10^6/uL (4.30-5.70) Hemoglobin 9.9 g/dL (13.0-17.5) Hematocrit 29.4 % (39.0-53.0) Mean Corpuscular Volume 85 fL (79-100) Mean Corpuscular Hemoglobin 29 pg (25-35) Mean Corpuscular Hemoglobin Concent 34 g/dL (31-37) Red Cell Distribution Width 13.0 % (11.5-14.5) Platelet Count 500 x10^3/uL (140-400) Neutrophils (%) (Auto) 84 % (31-73) Lymphocytes (%) (Auto) 9 % (24-48) Monocytes (%) (Auto) 5 % (0-9) Eosinophils (%) (Auto) 2 % (0-3) Basophils (%) (Auto) 0 % (0-3) Neutrophils # (Auto) 10.3 x10^3uL (1.8-7.7) Lymphocytes # (Auto) 1.0 x10^3/uL (1.0-4.8) Monocytes # (Auto) 0.6 x10^3/uL (0.0-1.1) Eosinophils # (Auto) 0.2 x10^3/uL (0.0-0.7) Basophils # (Auto) 0.0 x10^3/uL (0.0-0.2) Sodium Level 137 mmol/L (136-145) Potassium Level 4.7 mmol/L (3.5-5.1) Chloride Level 103 mmol/L (98-107) Carbon Dioxide Level 25 mmol/L (21-32) Anion Gap 9 (6-14) Blood Urea Nitrogen 21 mg/dL (8-26) Creatinine 0.9 mg/dL (0.7-1.3) Estimated GFR (Cockcroft-Gault) 82.3 Glucose Level 110 mg/dL (70-99) Calcium Level 9.2 mg/dL (8.5-10.1) Procalcitonin 0.45 ng/mL (0.00-0.10) Review of Systems Review of Systems no fever, chills, sob or chest pain Assessment and Plan Assessmemt and Plan Problems Medical Problems: (1) Small bowel torsion Status: Acute Problems: Comment Review of Relevant I have reviewed the following items stephenie (where applicable) has been applied. Labs Laboratory Tests Test 04/26/17 04:37 04/27/17 05:15 White Blood Count 12.7 x10^3/uL (4.0-11.0) 12.2 x10^3/uL (4.0-11.0) Red Blood Count 3.43 x10^6/uL (4.30-5.70) 3.46 x10^6/uL (4.30-5.70) Hemoglobin 9.8 g/dL (13.0-17.5) 9.9 g/dL (13.0-17.5) Hematocrit 29.5 % (39.0-53.0) 29.4 % (39.0-53.0) Mean Corpuscular Volume 86 fL (79-100) 85 fL (79-100) Mean Corpuscular Hemoglobin 29 pg (25-35) 29 pg (25-35) Mean Corpuscular Hemoglobin Concent 33 g/dL (31-37) 34 g/dL (31-37) Red Cell Distribution Width 13.0 % (11.5-14.5) 13.0 % (11.5-14.5) Platelet Count 500 x10^3/uL (140-400) 500 x10^3/uL (140-400) Neutrophils (%) (Auto) 86 % (31-73) 84 % (31-73) Lymphocytes (%) (Auto) 8 % (24-48) 9 % (24-48) Monocytes (%) (Auto) 5 % (0-9) 5 % (0-9) Eosinophils (%) (Auto) 1 % (0-3) 2 % (0-3) Basophils (%) (Auto) 0 % (0-3) 0 % (0-3) Neutrophils # (Auto) 11.0 x10^3uL (1.8-7.7) 10.3 x10^3uL (1.8-7.7) Lymphocytes # (Auto) 1.0 x10^3/uL (1.0-4.8) 1.0 x10^3/uL (1.0-4.8) Monocytes # (Auto) 0.6 x10^3/uL (0.0-1.1) 0.6 x10^3/uL (0.0-1.1) Eosinophils # (Auto) 0.1 x10^3/uL (0.0-0.7) 0.2 x10^3/uL (0.0-0.7) Basophils # (Auto) 0.1 x10^3/uL (0.0-0.2) 0.0 x10^3/uL (0.0-0.2) Sodium Level 138 mmol/L (136-145) 137 mmol/L (136-145) Potassium Level 4.5 mmol/L (3.5-5.1) 4.7 mmol/L (3.5-5.1) Chloride Level 106 mmol/L (98-107) 103 mmol/L (98-107) Carbon Dioxide Level 22 mmol/L (21-32) 25 mmol/L (21-32) Anion Gap 10 (6-14) 9 (6-14) Blood Urea Nitrogen 22 mg/dL (8-26) 21 mg/dL (8-26) Creatinine 1.0 mg/dL (0.7-1.3) 0.9 mg/dL (0.7-1.3) Estimated GFR (Cockcroft-Gault) 72.8 82.3 BUN/Creatinine Ratio 22 (6-20) Glucose Level 120 mg/dL (70-99) 110 mg/dL (70-99) Calcium Level 9.5 mg/dL (8.5-10.1) 9.2 mg/dL (8.5-10.1) Total Bilirubin 0.4 mg/dL (0.2-1.0) Aspartate Amino Transf (AST/SGOT) 52 U/L (15-37) Alanine Aminotransferase (ALT/SGPT) 35 U/L (16-63) Alkaline Phosphatase 172 U/L (46-116) Ammonia 21 mcmol/L (11-34) Total Protein 6.3 g/dL (6.4-8.2) Albumin 2.1 g/dL (3.4-5.0) Albumin/Globulin Ratio 0.5 (1.0-1.7) Vitamin B12 Level 468 pg/mL (247-911) Thyroid Stimulating Hormone (TSH) 0.368 uIU/mL (0.358-3.74) Procalcitonin 0.45 ng/mL (0.00-0.10) Laboratory Tests Test 04/27/17 05:15 White Blood Count 12.2 x10^3/uL (4.0-11.0) Red Blood Count 3.46 x10^6/uL (4.30-5.70) Hemoglobin 9.9 g/dL (13.0-17.5) Hematocrit 29.4 % (39.0-53.0) Mean Corpuscular Volume 85 fL (79-100) Mean Corpuscular Hemoglobin 29 pg (25-35) Mean Corpuscular Hemoglobin Concent 34 g/dL (31-37) Red Cell Distribution Width 13.0 % (11.5-14.5) Platelet Count 500 x10^3/uL (140-400) Neutrophils (%) (Auto) 84 % (31-73) Lymphocytes (%) (Auto) 9 % (24-48) Monocytes (%) (Auto) 5 % (0-9) Eosinophils (%) (Auto) 2 % (0-3) Basophils (%) (Auto) 0 % (0-3) Neutrophils # (Auto) 10.3 x10^3uL (1.8-7.7) Lymphocytes # (Auto) 1.0 x10^3/uL (1.0-4.8) Monocytes # (Auto) 0.6 x10^3/uL (0.0-1.1) Eosinophils # (Auto) 0.2 x10^3/uL (0.0-0.7) Basophils # (Auto) 0.0 x10^3/uL (0.0-0.2) Sodium Level 137 mmol/L (136-145) Potassium Level 4.7 mmol/L (3.5-5.1) Chloride Level 103 mmol/L (98-107) Carbon Dioxide Level 25 mmol/L (21-32) Anion Gap 9 (6-14) Blood Urea Nitrogen 21 mg/dL (8-26) Creatinine 0.9 mg/dL (0.7-1.3) Estimated GFR (Cockcroft-Gault) 82.3 Glucose Level 110 mg/dL (70-99) Calcium Level 9.2 mg/dL (8.5-10.1) Procalcitonin 0.45 ng/mL (0.00-0.10) Microbiology 04/13/17 Urine Culture - Final, Complete 04/13/17 Urine Culture Result 1 (RASHAWN) - Final, Complete Medications Current Medications Sodium Chloride 1,000 ml @ 1,000 mls/hr 1X ONCE IV Last administered on 12:46; Start 04/13/17 at 13:00; Stop 04/13/17 at 13:59; Status DC Ondansetron HCl (Zofran) 4 mg 1X ONCE IV Last administered on 04/13/17 12:46 ; Start 04/13/17 at 13:00; Stop 04/13/17 at 13:01; Status DC Iohexol (Omnipaque 300 Mg/ml) 60 ml 1X ONCE IV Last administered on 04/13/17 13:20; Start 04/13/17 at 13:15; Stop 04/13/17 at 13:16; Status DC Info (Do NOT chart on this entry -- for MONITORING) 1 each PRN DAILY PRN MC SEE COMMENTS; Start 04/13/17 at 13:15; Stop 04/15/17 at 13:14; Status DC Ondansetron HCl (Zofran) 4 mg PRN Q8HRS PRN IV NAUSEA/VOMITING; Start 04/13/17 at 14:45; Stop 04/14/17 at 10:50; Status DC Morphine Sulfate 4 mg PRN Q2HR PRN IV PAIN Last administered on 04/14/17 03:57 ; Start 04/13/17 at 14:45; Stop 04/14/17 at 10:49; Status DC Acetaminophen (Tylenol) 650 mg PRN Q6HRS PRN PO FEVER, pain Last administered on 04/26/17 08:55; Start 04/13/17 at 15:30 Ondansetron HCl (Zofran) 4 mg PRN Q6HRS PRN IV NAUSEA/VOMITING Last administered on 04/17/17 09:00; Start 04/13/17 at 15:30 Morphine Sulfate 2 mg PRN Q2HR PRN IV MILD PAIN Last administered on 04/21/17 20:59; Start 04/13/17 at 15:30; Stop 04/23/17 at 13:39; Status DC Tramadol HCl (Ultram) 50 mg PRN Q6HRS PRN PO PAIN Last administered on 06:06; Start 04/13/17 at 15:30; Stop 04/25/17 at 09:03; Status DC Hydralazine HCl (Apresoline) 10 mg PRN Q4HRS PRN IVP ELEVATED BP, SEE COMMENTS ; Start 04/13/17 at 15:30 Docusate Sodium (Colace) 100 mg PRN DAILY PRN PO CONSTIPATION; Start 04/13/17 at 15:30; Stop 04/24/17 at 16:11; Status DC Amino Acids/ Glycerin/ Electrolytes 1,000 ml @ 80 mls/hr [id number] IV Last administered on 04/26/17 17:20; Start 04/13/17 at 16:00 Morphine Sulfate 4 mg PRN Q2HR PRN IV MOD - SEVERE PAIN Last administered on 09:01; Start 04/13/17 at 15:30; Stop 04/21/17 at 14:41; Status DC Enoxaparin Sodium (Lovenox 40mg Syringe) 40 mg Q24H SQ Last administered on 17:20; Start 04/13/17 at 16:00 Pantoprazole Sodium (Protonix Vial) 40 mg DAILYAC IVP Last administered on 04/26 08:54; Start 04/14/17 at 07:30 Throat Lozenges (Chloraseptic) 1 spray PRN Q2HR PRN PO SORE THROAT Last administered on 04/19/17 17:41; Start 04/13/17 at 17:45 Throat Lozenges (Cepacol Sore Throat Lozenge) 1 sheron PRN Q2HRS PRN PO SORE THROAT Last administered on 04/20/17 07:55; Start 04/13/17 at 17:45 Saliva Substitute (Biotene Moisturizing Mouth) 2 spray PRN Q15MIN PRN PO DRY MOUTH Last administered on 04/15/17 15:42; Start 04/15/17 at 13:15 Sodium Chloride 500 ml @ 500 mls/hr 1X ONCE IV Last administered on 04/17/17 10:50; Start 04/17/17 at 11:00; Stop 04/17/17 at 11:59; Status DC Piperacillin Sod/ Tazobactam Sod 3.375 gm/Sodium Chloride 50 ml @ 100 mls/hr Q6HRS IV Last administered on 04/21/17 06:11; Start 04/17/17 at 11:30; Stop 04/21 at 08:12; Status DC Vancomycin HCl 1 gm/Sodium Chloride 250 ml @ 250 mls/hr Q12H IV ; Start at 10:45; Status UNV Vancomycin HCl 1.5 gm/Sodium Chloride 500 ml @ 250 mls/hr 1X ONCE IV Last administered on 04/17/17 12:26; Start 04/17/17 at 11:30; Stop 04/17/17 at 13:29; Status DC Vancomycin HCl (Vanco Per Pharmacy) 1 each PRN DAILY PRN MC SEE COMMENTS Last administered on 04/18/17 13:16; Start 04/17/17 at 11:00; Stop 04/19/17 at 08:32; Status DC Iohexol (Omnipaque 300 Mg/ml) 75 ml 1X ONCE IV Last administered on 04/17/17 12:01; Start 04/17/17 at 11:00; Stop 04/17/17 at 11:01; Status DC Info (Do NOT chart on this entry -- for MONITORING) 1 each PRN DAILY PRN MC SEE COMMENTS; Start 04/17/17 at 11:00; Stop 04/19/17 at 10:59; Status DC Metronidazole 100 ml @ 100 mls/hr 1X PREOP PRN IV prophylaxis; Start 04/18/17 at 06:00; Stop 04/18/17 at 18:00; Status DC Vancomycin HCl 1 gm/Sodium Chloride 250 ml @ 250 mls/hr Q12H IV Last administered on 04/17/17 23:37; Start 04/18/17 at 00:00; Stop 04/18/17 at 12:47; Status DC Vancomycin HCl 1 each 1X ONCE MC ; Start 04/20/17 at 00:30; Stop 04/20/17 at 00: 31; Status Cancel Ondansetron HCl (Zofran) 4 mg PRN Q6HRS PRN IV NAUSEA/VOMITING; Start 04/17/17 at 14:00; Stop 04/18/17 at 13:59; Status DC Fentanyl Citrate (Fentanyl 2ml Vial) 25 mcg PRN Q5MIN PRN IV MILD PAIN; Start 04/17/17 at 14:00; Stop 04/18/17 at 13:59; Status DC Fentanyl Citrate (Fentanyl 2ml Vial) 50 mcg PRN Q5MIN PRN IV MODERATE PAIN Last administered on 04/17/17 16:59; Start 04/17/17 at 14:00; Stop 04/18/17 at 13: 59; Status DC Morphine Sulfate 1 mg PRN Q10MIN PRN IV SEVERE PAIN Last administered on 16:44; Start 04/17/17 at 14:00; Stop 04/18/17 at 13:59; Status DC Ringer's Solution 1,000 ml @ 30 mls/hr Q24H IV ; Start 04/17/17 at 13:47; Stop 04/18/17 at 01:46; Status DC Lidocaine HCl 2 ml PRN 1X PRN ID PRIOR TO IV START; Start 04/17/17 at 14:00; Stop 04/18/17 at 13:59; Status DC Hydromorphone HCl (Dilaudid) 0.5 mg PRN Q10MIN PRN IV SEV PAIN, Second choice; Start 04/17/17 at 14:00; Stop 04/18/17 at 13:59; Status DC Prochlorperazine Edisylate (Compazine) 5 mg PACU PRN PRN IV NAUSEA, MRX1; Start 04/17/17 at 14:00; Stop 04/18/17 at 13:59; Status DC Fentanyl Citrate (Fentanyl 5ml Vial) 250 mcg STK-MED ONCE .ROUTE ; Start at 13:49; Stop 04/17/17 at 13:50; Status DC Succinylcholine Chloride (Anectine) 200 mg STK-MED ONCE .ROUTE ; Start 04/17/17 at 13:50; Stop 04/17/17 at 13:51; Status DC Rocuronium [place] (Zemuron) 50 mg STK-MED ONCE .ROUTE ; Start 04/17/17 at 13:50 ; Stop 04/17/17 at 13:51; Status DC Desflurane (Suprane) 60 ml STK-MED ONCE IH ; Start 04/17/17 at 13:50; Stop at 13:51; Status DC Dexamethasone Sodium Phosphate (Decadron) 20 mg STK-MED ONCE .ROUTE ; Start 04/17 at 13:50; Stop 04/17/17 at 13:51; Status DC Propofol 20 ml @ As Directed STK-MED ONCE IV ; Start 04/17/17 at 13:50; Stop 04/17 at 13:51; Status DC Ondansetron HCl (Zofran) 4 mg STK-MED ONCE .ROUTE ; Start 04/17/17 at 13:50; Stop 04/17/17 at 13:51; Status DC Phenylephrine HCl 1 mg STK-MED ONCE IV ; Start 04/17/17 at 13:51; Stop 04/17/17 at 13:52; Status DC Lidocaine HCl (Lidocaine Pf 2% Vial) 5 ml STK-MED ONCE .ROUTE ; Start 04/17/17 at 13:51; Stop 04/17/17 at 13:52; Status DC Albumin Human 500 ml @ As Directed STK-MED ONCE IV ; Start 04/17/17 at 13:57; Stop 04/17/17 at 13:58; Status DC Esmolol HCl (Brevibloc) 100 mg STK-MED ONCE IV ; Start 04/17/17 at 14:40; Stop at 14:41; Status DC Neostigmine Methylsulfate (Bloxiverz) 10 mg STK-MED ONCE .ROUTE ; Start 04/17/17 at 15:12; Stop 04/17/17 at 15:13; Status DC Glycopyrrolate (Robinul) 1 mg STK-MED ONCE .ROUTE ; Start 04/17/17 at 15:12; Stop 04/17/17 at 15:13; Status DC Neostigmine Methylsulfate (Bloxiverz) 10 mg STK-MED ONCE .ROUTE ; Start 04/17/17 at 15:14; Stop 04/17/17 at 15:15; Status DC Diphenhydramine HCl (Benadryl) 25 mg PRN Q6HRS PRN IV ITCHING Last administered on 04/23/17t 00:37; Start 04/17/17 at 16:15; Stop 04/24/17 at 16:11; Status DC Enoxaparin Sodium (Lovenox 40mg Syringe) 40 mg Q24H SQ ; Start 04/18/17 at 09:00 ; Status UNV Sodium Chloride (Normal Saline Flush) 3 ml QSHIFT PRN IV AFTER MEDS AND BLOOD DRAWS; Start 04/17/17 at 16:15 Sodium Chloride 1,000 ml @ 30 mls/hr Q24H IV ; Start 04/17/17 at 17:00; Stop 04/18/17 at 17:35; Status DC Hydromorphone HCl 30 ml @ 0 mls/hr CONT PRN PRN IV PROTOCOL Last administered on 04/19/17 06:17; Start 04/17/17 at 16:15; Stop 04/19/17 at 19:13; Status DC Ondansetron HCl (Zofran) 4 mg PRN Q6HRS PRN IV NAUESA, 1ST CHOICE; Start at 16:15; Status UNV Albumin Human 500 ml @ 50 mls/hr 1X ONCE IV Last administered on 04/18/17 10: 40; Start 04/18/17 at 10:30; Stop 04/18/17 at 20:29; Status DC Vancomycin HCl 1.25 gm/Sodium Chloride 250 ml @ 167 mls/hr Q12H IV Last administered on 04/18/17 23:51; Start 04/18/17 at 13:00; Stop 04/19/17 at 08:31; Status DC Hydromorphone HCl 30 ml @ 0 mls/hr CONT PRN PRN IV PROTOCOL; Start 04/19/17 at 19:15; Stop 04/21/17 at 14:41; Status DC Potassium Chloride 100 ml @ 100 mls/hr Q1H IV Last administered on 04/23/17 17 :33; Start 04/23/17 at 14:00; Stop 04/23/17 at 17:59; Status DC Acetaminophen/ Hydrocodone Bitart (Lortab 5/325) 1 tab PRN Q4HRS PRN PO PAIN Last administered on 04/24/17 13:24; Start 04/23/17 at 13:45; Stop 04/24/17 at 16:11; Status DC Senna/Docusate Sodium (Senna Plus) 1 tab DAILY PO Last administered on 09:58; Start 04/24/17 at 16:30 Potassium Chloride (Klor-Con) 40 meq BIDWMEALS PO Last administered on 09:58; Start 04/24/17 at 16:30 Ibuprofen (Motrin) 400 mg PRN Q8HRS PRN PO INFLAMMATION; Start 04/25/17 at 09: 15; Stop 04/25/17 at 09:15; Status DC Sodium Chloride 1,000 ml @ 1,000 mls/hr 1X ONCE IV Last administered on 09:23; Start 04/25/17 at 09:15; Stop 04/25/17 at 10:14; Status DC Ferrous Sulfate (Feosol) 325 mg QHS PO Last administered on 04/25/17 21:15; Start 04/25/17 at 21:00 Nystatin 5 ml [id number] Last administered on 04/27/17 09:58; Start at 09:00 Lorazepam (Ativan) 0.5 mg 1X ONCE IV Last administered on 04/26/17 14:09; Start 04/26/17 at 12:00; Stop 04/26/17 at 12:01; Status DC Gadobutrol (Gadavist) 6 mmol 1X ONCE IV Last administered on 04/26/17 15:10; Start 04/26/17 at 15:00; Stop 04/26/17 at 15:01; Status DC Active Scripts Active Zofran Odt (Ondansetron) 4 Mg Tab.rapdis 4 Mg PO Q8HRS PRN Simla 5-325 Tablet (Acetaminophen/Hydrocodone Bitart) 1 Each Tablet 1 Tab PO PRN Q6HRS PRN Reported Preservision Areds Softgel (Vit A/Vit C/Vit E/Zinc/Copper) 1 Each Capsule 2 Each PO DAILY Omeprazole 20 Mg Capsule.dr 1 Cap PO DAILY Centrum Silver Tablet (Multivits-Min/Fa/Lycopene/Lut) 1 Each Tablet 1 Each PO Preservision Areds Tablet (Vit A/Vit C/Vit E/Zinc/Copper) 1 Each Tablet 1 Each PO No Known Medications Prior To Admisstion (Info) Each 1 Each Vitals/I & O Vital Sign - Last 24 Hours 6/1204/26/17 04/26/17 04/26/17 15:00 19:50 20:00 23:51 Temp 97.2 98.1 97.9 97.2 98.1 97.9 Pulse 84 94 80 Resp 20 18 18 B/P (MAP) 129/82 (98) 132/78 (96) 114/63 (80) Pulse Ox 95 95 94 O2 Delivery Room Air Room Air Room Air Room Air 04/27/17 04/27/17 04/27/17 04/27/17 03:27 07:00 07:55 11:00 Temp 97.7 98.1 98.2 97.7 98.1 98.2 Pulse 85 75 90 Resp 18 20 20 B/P (MAP) 122/65 (84) 118/79 (92) 131/68 (89) Pulse Ox 96 96 93 O2 Delivery Room Air Room Air Room Air Room Air Intake and Output 04/26/17 04/26/17 04/27/17 15:00 23:00 07:00 Intake Total 1200 ml Output Total 100 ml 550 ml Balance -100 ml 650 ml EVE LEACH MD Apr 27, 2017 13:17
[2017-04-27 15:00] VITALS: BP 118/63
--- NOTE | 2017-04-27 16:23 | PDOC ---
PROGRESS NOTES Assessment Assessment Metabolic encephalopathy. Confusion. Leukocytosis. Thrombocytosis. Fever. Colon cancer with metastatic disease to the liver. Small bowel obstruction s/p partial small bowel resection. Hypotension. Pulmonary infiltrate. Right pleural effusion. No evidence of acute CVA or metastatic brain diseases at the present time. 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 Consulted Dr. Colvin, Oncology. Discussed with his at bedside. HISTORY OF THE PRESENT ILLNESS: 76-y-old male patient with Hx of colon cancer and has been treated by Dr. Phillips. He had small bowel obstruction and received surgery this time. Post surgery, he has bben having mental status changes, and decline of cognitive function and confusion. His was upset with limited insurance coverage and did not want to further evaluations at the present time. His mentation improved in some degree on 04/27. PAST MEDICAL HISTORY: Please see above. PAST SURGERY HISTORY: Small bowel resection this time. ALLERGY: Reviewed. MEDICATIONS: Refer to [facility] FAMILY HISTORY: Non contributory. SOCIAL HISTORY: Denies smoking, drinking, and illicit drug use. REVIEW OF SYSTEMS: Constitutional: mild malnutrition. Head: No recent traumatic brain or head injury. Skin: No edema, or rash. Ear: No infection. Eyes: No vision loss or color blindness. Nose: No bleeding or purulent discharges. Hearing: Mild hearing decrease. Neck: No injury. Cardiac: No recent DE, arrhythmia. Pulmonary: No COPD. GI: Colon cancer. Urinary/genital: UTI. Endocrinologic: No cousin face, craniofacial dysmorphism, polydactyly. Skeletomuscular: No muscular atrophy, deformity Neurological: see HP. Psychiatric: Denies drug use/abuse. Otherwise, not [id number] review of systems. PHYSICAL EXAMINATION: General appearance is in subacute distress. HEENT: Normocephalic and nontraumatic. Eyes, nose, ears, and throat are unremarkable. Neck is supple. No lymphadenopathy. No crepitus. Cardiovascular: S1, S2, regular rate and rhythm. Pulmonary: Mildly decreased to auscultation bilaterally. Abdomen: Bowel sounds are positive. Extremities: No rash, lesions, or edema. No restriction of range of motion NEUROLOGICAL EXAMINATION: Drowsiness but able to understand some questions. Oriented to time, place and person. PERRL. EOMI. CN: no focal findings. Muscle tone: within normal. Muscle strength: 4 DTR: 2 Plantar reflex: Neutral response bilaterally Gait: not examined in bed. Sensory exam: no abnormal findings. No acute cerebellar signs elicited. Objective Objective Vital Signs Date Time Temp Pulse Resp B/P (MAP) Pulse Ox O2 Delivery O2 Flow Rate FiO2 04/27/17 15:00 97.8 90 20 118/63 (81) 94 Room Air 97.8 Intake and Output 04/27/17 07:00 Intake Total 1200 ml Output Total 650 ml Balance 550 ml Other 1200 ml Output Urine Total 650 ml # Voids 8 # Bowel Movements 1 Vitals Signs Vitals VS - Last 72 Hours, by Label Date Time Temp Pulse Resp B/P (MAP) Pulse Ox O2 Delivery O2 Flow Rate FiO2 04/27/17 15:00 97.8 90 20 118/63 (81) 94 Room Air 97.8 04/27/17 11:00 98.2 90 20 131/68 (89) 93 Room Air 98.2 04/27/17 07:55 Room Air 04/27/17 07:00 98.1 75 20 118/79 (92) 96 Room Air 98.1 04/27/17 03:27 97.7 85 18 122/65 (84) 96 Room Air 97.7 04/26/17 23:51 97.9 80 18 114/63 (80) 94 Room Air 97.9 04/26/17 20:00 Room Air 04/26/17 19:50 98.1 94 18 132/78 (96) 95 Room Air 98.1 04/26/17 15:00 97.2 84 20 129/82 (98) 95 Room Air 97.2 04/26/17 11:00 97.4 85 20 116/67 (83) 95 Room Air 97.4 04/26/17 07:48 Room Air 04/26/17 07:00 97.9 84 20 154/70 (98) 92 Room Air 97.9 Laboratory Laboratory Laboratory Tests Test 04/27/17 05:15 White Blood Count 12.2 x10^3/uL (4.0-11.0) Red Blood Count 3.46 x10^6/uL (4.30-5.70) Hemoglobin 9.9 g/dL (13.0-17.5) Hematocrit 29.4 % (39.0-53.0) Mean Corpuscular Volume 85 fL (79-100) Mean Corpuscular Hemoglobin 29 pg (25-35) Mean Corpuscular Hemoglobin Concent 34 g/dL (31-37) Red Cell Distribution Width 13.0 % (11.5-14.5) Platelet Count 500 x10^3/uL (140-400) Neutrophils (%) (Auto) 84 % (31-73) Lymphocytes (%) (Auto) 9 % (24-48) Monocytes (%) (Auto) 5 % (0-9) Eosinophils (%) (Auto) 2 % (0-3) Basophils (%) (Auto) 0 % (0-3) Neutrophils # (Auto) 10.3 x10^3uL (1.8-7.7) Lymphocytes # (Auto) 1.0 x10^3/uL (1.0-4.8) Monocytes # (Auto) 0.6 x10^3/uL (0.0-1.1) Eosinophils # (Auto) 0.2 x10^3/uL (0.0-0.7) Basophils # (Auto) 0.0 x10^3/uL (0.0-0.2) Sodium Level 137 mmol/L (136-145) Potassium Level 4.7 mmol/L (3.5-5.1) Chloride Level 103 mmol/L (98-107) Carbon Dioxide Level 25 mmol/L (21-32) Anion Gap 9 (6-14) Blood Urea Nitrogen 21 mg/dL (8-26) Creatinine 0.9 mg/dL (0.7-1.3) Estimated GFR (Cockcroft-Gault) 82.3 Glucose Level 110 mg/dL (70-99) Calcium Level 9.2 mg/dL (8.5-10.1) Procalcitonin 0.45 ng/mL (0.00-0.10) Microbiology 04/13/17 Urine Culture - Final, Complete 04/13/17 Urine Culture Result 1 (RASHAWN) - Final, Complete Medication Medications Current Medications Pantoprazole Sodium (Protonix) 40 mg DAILYAC PO ; Start 04/28/17 at 07:30 Comment Review of Relevant I have reviewed the following items stephenie (where applicable) has been applied. JUSTIN EUBANKS MD Apr 27, 2017 16:23
[2017-04-27] MEDS: ENOXAPARIN 40 MG/0.4 ML SYRINGE. SQ SCH (17:17)
[2017-04-27 19:30] VITALS: BP 117/62
[2017-04-27] MEDS: FERROUS SULFATE 325 MG TABLET. PO SCH (21:21)
[2017-04-27 23:14] VITALS: BP 123/66
--- NOTE | 2017-04-27 23:16 | EEG ---
DATE OF SERVICE: 04/27/2017 EEG NUMBER: [id number] OBJECTIVE: This is a 77-year-old male patient with history of seizure or seizure-like episodes. EEG was requested to evaluate seizure activity. METHODS: Twenty electrodes were applied according to the international 10-20 electrode placement system. EKG monitoring, hyperventilation, intermittent photic stimulation, monopolar and bipolar montages are routinely utilized. The record was obtained on a digital system with video monitoring. FINDINGS: 1. Background: The patient was recorded in the awake, drowsy, and sleep states. The overall background amplitude is 10-30 microvolts. A posterior dominant rhythm of 8 Hz is observed with superimposed mixture in the theta and delta frequencies. 2. Abnormalities: No specific epileptiform discharge or electrographic seizure is seen. The superimposed slowing in the theta and delta frequencies noted. 3. Activation: Hyperventilation was performed with fair efforts and normal response. Intermittent photic stimulation was performed with photic driving. No specific epileptiform discharge or electrographic seizure induced by hyperventilation or intermittent photic stimulation. IMPRESSION: This EEG is an abnormal study for the awake, drowsy, and sleep states. There is superimposed slowing in the theta and delta frequencies. No focal, lateralizing, specific epileptiform discharge, or electrographic seizure is seen. This pattern of EEG may suggest [id number] encephalopathy. JUSTIN EUBANKS MD DR: Jacqueline JOB#: [id number] / [id number] RAY
[2017-04-28] MEDS: ACETAMINOPHEN 325 MG TABLET. PO PRN ×4 (03:15→21:26)
[2017-04-28] MEDS: AMINO AC 3%/ELECTROLYTE/GLYCER 1,000 ML IV SCH ×2 (03:15→18:16)
[2017-04-28 03:49] VITALS: BP 115/57
[2017-04-28 07:00] VITALS: BP 125/68
[2017-04-28] MEDS: NYSTATIN 100,000 UNITS/ML 5 ML ORAL.SUSP. SWSW SCH ×4 (08:37→21:26)
[2017-04-28] MEDS: PANTOPRAZOLE 40 MG TABLET.DR. PO SCH (08:37)
[2017-04-28] MEDS: SENNOSIDES/DOCUSATE 8.6/50MG TABLET. PO SCH (08:37)
[2017-04-28] MEDS: POTASSIUM CHLORIDE 20 MEQ TABLET.ER. PO SCH ×2 (08:37→16:49)
--- NOTE | 2017-04-28 08:55 | PDOC ---
Infectious Disease Note Subjective Subjective feeling better. Is less confused. No Pain no fever, Appetite is better but having a hard time eating without his dentures that no longer fit well ROS ROS GEN: Denies fevers, chills, sweats HEENT: Denies blurred vision, sore throat CV: Denies chest pain RESP: Denies shortness of air, cough GI: Denies n/v/d NEURO: Denies confusion, dizziness MSK: Denies weakness, joint pain/swelling Vital Sign Vital Signs Vital Signs Date Time Temp Pulse Resp B/P (MAP) Pulse Ox O2 Delivery O2 Flow Rate FiO2 04/28/17 07:00 97.2 88 22 125/68 (87) 96 Room Air 97.2 Physical Exam PHYSICAL EXAM GENERAL: NAD, Alert, coop HEENT: PERRL, OC/OP - improved thrush NECK: Supple, no JVD, no LN LUNGS: Clear HEART: S1S2, no gallop, no murmur ABD: Soft, NT, no organomegaly, no rebound, Wound is clean EXT: No edema, no cyanosis TAILER OFF: Alert, oriented to person/place, no focal neurologic deficit SKIN: No rash IV: ok Objective Assessment Acute Encephalopathy -? in part to lack of sleep. MRI - neg. Much better this am Thrush - better Leukocytosis - ? reactive. Procal min elevation ? reactive given recent abd surgery Fever resolved Hypotension, responsive to IVF bolus. stable pulmonary infiltrates with right pleural effusion SBO s/p exp lap, small bowel resection with primary anastomosis, / Metastatic colon cancer Plan Plan of Care Cont Nystatin thru 05/05 Incentive spirometry PT/OT INOCENCIO ORTIZ MD Apr 28, 2017 08:55
[2017-04-28] MEDS ORDERED: SENN-22 PO (09:28)
[2017-04-28] MEDS ORDERED: NYST100054 SWSW (09:28)
[2017-04-28] MEDS ORDERED: FERR325T72 PO (09:28)
[2017-04-28 11:00] VITALS: BP 109/60
--- NOTE | 2017-04-28 12:02 | PDOC ---
PROGRESS NOTES Chief Complaint Chief Complaint malignant SBO ASSESSMENT AND PLAN: 1. SBO: s/p ex lap with tumor resection and end-to-end SB anastomosis on 04/[address] Schaefer. 2. Pain contro 3. Encephalopathy: persisting with some visual hallucinations. possible 2/2 malignancy 4. Nutrition: advanced to soft mechanical. 5. JUNO: new. poss 2/2 dehydration. 6. Hypokalemia: 7. Leukocytosis: 2/2 malignancy 8. Anemia: chronic dz and inflammation, min component of acute blood loss. 9. Transaminitis: mild; suspect 2/2 liver mets. 10. Protein malnutrition: moderate. 11. Colon CA: mets to liver and retroperitoneal adenopathy. F/U with onc post D/C 12. B renal stones: non obstructive talked to pt's insurance, pt should be able to befefits from SNF given his encephalopathy, however, his insurance refused him and said he can walk with help. talked to for 10min at bedside on 04/26, is upset about the encephalopathy for the past 10days, however, refused PAT consult, refused onco consult, and refused head CT/MRI , saying his insurance might not approve for MRI image. She eventually ok after SW told her that the insurance likely would approved MRI. MRI neg for mets. neurologist consulted, EEG neg for epilepsy, but + mild to moderate encephalopathy PAT consult pending today, dr. Wade got dr. Colvin consulted (pt's refused me twice when i brought it up), felt better after talking to dr. Colvin, waiting to get plan for home environment, dc today or tmr, will fu with SW. History of Present Illness History of Present Illness awake alert. feels ok better confusion, visual hallucinations per RN Vitals Vitals Vital Signs Date Time Temp Pulse Resp B/P (MAP) Pulse Ox O2 Delivery O2 Flow Rate FiO2 04/28/17 11:00 97.6 81 22 109/60 (76) 93 Room Air 97.6 Physical Exam General: Alert, Oriented X3, Cooperative, No acute distress Heart: Regular rate Lungs: Clear Abdomen: Soft, Other (incision c/d) Extremities: No clubbing, No edema Skin: No rashes Review of Systems Review of Systems no fever, chills, sob or chest pain Assessment and Plan Assessmemt and Plan Problems Medical Problems: (1) Small bowel torsion Status: Acute Problems: Comment Review of Relevant I have reviewed the following items stephenie (where applicable) has been applied. Labs Laboratory Tests Test 04/27/17 05:15 White Blood Count 12.2 x10^3/uL (4.0-11.0) Red Blood Count 3.46 x10^6/uL (4.30-5.70) Hemoglobin 9.9 g/dL (13.0-17.5) Hematocrit 29.4 % (39.0-53.0) Mean Corpuscular Volume 85 fL (79-100) Mean Corpuscular Hemoglobin 29 pg (25-35) Mean Corpuscular Hemoglobin Concent 34 g/dL (31-37) Red Cell Distribution Width 13.0 % (11.5-14.5) Platelet Count 500 x10^3/uL (140-400) Neutrophils (%) (Auto) 84 % (31-73) Lymphocytes (%) (Auto) 9 % (24-48) Monocytes (%) (Auto) 5 % (0-9) Eosinophils (%) (Auto) 2 % (0-3) Basophils (%) (Auto) 0 % (0-3) Neutrophils # (Auto) 10.3 x10^3uL (1.8-7.7) Lymphocytes # (Auto) 1.0 x10^3/uL (1.0-4.8) Monocytes # (Auto) 0.6 x10^3/uL (0.0-1.1) Eosinophils # (Auto) 0.2 x10^3/uL (0.0-0.7) Basophils # (Auto) 0.0 x10^3/uL (0.0-0.2) Sodium Level 137 mmol/L (136-145) Potassium Level 4.7 mmol/L (3.5-5.1) Chloride Level 103 mmol/L (98-107) Carbon Dioxide Level 25 mmol/L (21-32) Anion Gap 9 (6-14) Blood Urea Nitrogen 21 mg/dL (8-26) Creatinine 0.9 mg/dL (0.7-1.3) Estimated GFR (Cockcroft-Gault) 82.3 Glucose Level 110 mg/dL (70-99) Calcium Level 9.2 mg/dL (8.5-10.1) Procalcitonin 0.45 ng/mL (0.00-0.10) Microbiology 04/13/17 Urine Culture - Final, Complete 04/13/17 Urine Culture Result 1 (RASHAWN) - Final, Complete Medications Current Medications Sodium Chloride 1,000 ml @ 1,000 mls/hr 1X ONCE IV Last administered on 12:46; Start 04/13/17 at 13:00; Stop 04/13/17 at 13:59; Status DC Ondansetron HCl (Zofran) 4 mg 1X ONCE IV Last administered on 04/13/17 12:46 ; Start 04/13/17 at 13:00; Stop 04/13/17 at 13:01; Status DC Iohexol (Omnipaque 300 Mg/ml) 60 ml 1X ONCE IV Last administered on 04/13/17 13:20; Start 04/13/17 at 13:15; Stop 04/13/17 at 13:16; Status DC Info (Do NOT chart on this entry -- for MONITORING) 1 each PRN DAILY PRN MC SEE COMMENTS; Start 04/13/17 at 13:15; Stop 04/15/17 at 13:14; Status DC Ondansetron HCl (Zofran) 4 mg PRN Q8HRS PRN IV NAUSEA/VOMITING; Start 04/13/17 at 14:45; Stop 04/14/17 at 10:50; Status DC Morphine Sulfate 4 mg PRN Q2HR PRN IV PAIN Last administered on 04/14/17 03:57 ; Start 04/13/17 at 14:45; Stop 04/14/17 at 10:49; Status DC Acetaminophen (Tylenol) 650 mg PRN Q6HRS PRN PO FEVER, pain Last administered on 04/28/17 11:11; Start 04/13/17 at 15:30 Ondansetron HCl (Zofran) 4 mg PRN Q6HRS PRN IV NAUSEA/VOMITING Last administered on 04/17/17 09:00; Start 04/13/17 at 15:30 Morphine Sulfate 2 mg PRN Q2HR PRN IV MILD PAIN Last administered on 04/21/17 20:59; Start 04/13/17 at 15:30; Stop 04/23/17 at 13:39; Status DC Tramadol HCl (Ultram) 50 mg PRN Q6HRS PRN PO PAIN Last administered on 06:06; Start 04/13/17 at 15:30; Stop 04/25/17 at 09:03; Status DC Hydralazine HCl (Apresoline) 10 mg PRN Q4HRS PRN IVP ELEVATED BP, SEE COMMENTS ; Start 04/13/17 at 15:30 Docusate Sodium (Colace) 100 mg PRN DAILY PRN PO CONSTIPATION; Start 04/13/17 at 15:30; Stop 04/24/17 at 16:11; Status DC Amino Acids/ Glycerin/ Electrolytes 1,000 ml @ 80 mls/hr [id number] IV Last administered on 04/28/17 03:15; Start 04/13/17 at 16:00 Morphine Sulfate 4 mg PRN Q2HR PRN IV MOD - SEVERE PAIN Last administered on 09:01; Start 04/13/17 at 15:30; Stop 04/21/17 at 14:41; Status DC Enoxaparin Sodium (Lovenox 40mg Syringe) 40 mg Q24H SQ Last administered on 17:17; Start 04/13/17 at 16:00 Pantoprazole Sodium (Protonix Vial) 40 mg DAILYAC IVP Last administered on 04/26 08:54; Start 04/14/17 at 07:30; Stop 04/27/17 at 13:16; Status DC Throat Lozenges (Chloraseptic) 1 spray PRN Q2HR PRN PO SORE THROAT Last administered on 04/19/17 17:41; Start 04/13/17 at 17:45 Throat Lozenges (Cepacol Sore Throat Lozenge) 1 sheron PRN Q2HRS PRN PO SORE THROAT Last administered on 04/20/17 07:55; Start 04/13/17 at 17:45 Saliva Substitute (Biotene Moisturizing Mouth) 2 spray PRN Q15MIN PRN PO DRY MOUTH Last administered on 04/15/17 15:42; Start 04/15/17 at 13:15 Sodium Chloride 500 ml @ 500 mls/hr 1X ONCE IV Last administered on 04/17/17 10:50; Start 04/17/17 at 11:00; Stop 04/17/17 at 11:59; Status DC Piperacillin Sod/ Tazobactam Sod 3.375 gm/Sodium Chloride 50 ml @ 100 mls/hr Q6HRS IV Last administered on 04/21/17 06:11; Start 04/17/17 at 11:30; Stop 04/21 at 08:12; Status DC Vancomycin HCl 1 gm/Sodium Chloride 250 ml @ 250 mls/hr Q12H IV ; Start at 10:45; Status UNV Vancomycin HCl 1.5 gm/Sodium Chloride 500 ml @ 250 mls/hr 1X ONCE IV Last administered on 04/17/17 12:26; Start 04/17/17 at 11:30; Stop 04/17/17 at 13:29; Status DC Vancomycin HCl (Vanco Per Pharmacy) 1 each PRN DAILY PRN MC SEE COMMENTS Last administered on 04/18/17 13:16; Start 04/17/17 at 11:00; Stop 04/19/17 at 08:32; Status DC Iohexol (Omnipaque 300 Mg/ml) 75 ml 1X ONCE IV Last administered on 04/17/17 12:01; Start 04/17/17 at 11:00; Stop 04/17/17 at 11:01; Status DC Info (Do NOT chart on this entry -- for MONITORING) 1 each PRN DAILY PRN MC SEE COMMENTS; Start 04/17/17 at 11:00; Stop 04/19/17 at 10:59; Status DC Metronidazole 100 ml @ 100 mls/hr 1X PREOP PRN IV prophylaxis; Start 04/18/17 at 06:00; Stop 04/18/17 at 18:00; Status DC Vancomycin HCl 1 gm/Sodium Chloride 250 ml @ 250 mls/hr Q12H IV Last administered on 04/17/17 23:37; Start 04/18/17 at 00:00; Stop 04/18/17 at 12:47; Status DC Vancomycin HCl 1 each 1X ONCE MC ; Start 04/20/17 at 00:30; Stop 04/20/17 at 00: 31; Status Cancel Ondansetron HCl (Zofran) 4 mg PRN Q6HRS PRN IV NAUSEA/VOMITING; Start 04/17/17 at 14:00; Stop 04/18/17 at 13:59; Status DC Fentanyl Citrate (Fentanyl 2ml Vial) 25 mcg PRN Q5MIN PRN IV MILD PAIN; Start 04/17/17 at 14:00; Stop 04/18/17 at 13:59; Status DC Fentanyl Citrate (Fentanyl 2ml Vial) 50 mcg PRN Q5MIN PRN IV MODERATE PAIN Last administered on 04/17/17 16:59; Start 04/17/17 at 14:00; Stop 04/18/17 at 13: 59; Status DC Morphine Sulfate 1 mg PRN Q10MIN PRN IV SEVERE PAIN Last administered on 16:44; Start 04/17/17 at 14:00; Stop 04/18/17 at 13:59; Status DC Ringer's Solution 1,000 ml @ 30 mls/hr Q24H IV ; Start 04/17/17 at 13:47; Stop 04/18/17 at 01:46; Status DC Lidocaine HCl 2 ml PRN 1X PRN ID PRIOR TO IV START; Start 04/17/17 at 14:00; Stop 04/18/17 at 13:59; Status DC Hydromorphone HCl (Dilaudid) 0.5 mg PRN Q10MIN PRN IV SEV PAIN, Second choice; Start 04/17/17 at 14:00; Stop 04/18/17 at 13:59; Status DC Prochlorperazine Edisylate (Compazine) 5 mg PACU PRN PRN IV NAUSEA, MRX1; Start 04/17/17 at 14:00; Stop 04/18/17 at 13:59; Status DC Fentanyl Citrate (Fentanyl 5ml Vial) 250 mcg STK-MED ONCE .ROUTE ; Start at 13:49; Stop 04/17/17 at 13:50; Status DC Succinylcholine Chloride (Anectine) 200 mg STK-MED ONCE .ROUTE ; Start 04/17/17 at 13:50; Stop 04/17/17 at 13:51; Status DC Rocuronium Atkinson (Zemuron) 50 mg STK-MED ONCE .ROUTE ; Start 04/17/17 at 13:50 ; Stop 04/17/17 at 13:51; Status DC Desflurane (Suprane) 60 ml STK-MED ONCE IH ; Start 04/17/17 at 13:50; Stop at 13:51; Status DC Dexamethasone Sodium Phosphate (Decadron) 20 mg STK-MED ONCE .ROUTE ; Start 04/17 at 13:50; Stop 04/17/17 at 13:51; Status DC Propofol 20 ml @ As Directed STK-MED ONCE IV ; Start 04/17/17 at 13:50; Stop 04/17 at 13:51; Status DC Ondansetron HCl (Zofran) 4 mg STK-MED ONCE .ROUTE ; Start 04/17/17 at 13:50; Stop 04/17/17 at 13:51; Status DC Phenylephrine HCl 1 mg STK-MED ONCE IV ; Start 04/17/17 at 13:51; Stop 04/17/17 at 13:52; Status DC Lidocaine HCl (Lidocaine Pf 2% Vial) 5 ml STK-MED ONCE .ROUTE ; Start 04/17/17 at 13:51; Stop 04/17/17 at 13:52; Status DC Albumin Human 500 ml @ As Directed STK-MED ONCE IV ; Start 04/17/17 at 13:57; Stop 04/17/17 at 13:58; Status DC Esmolol HCl (Brevibloc) 100 mg STK-MED ONCE IV ; Start 04/17/17 at 14:40; Stop at 14:41; Status DC Neostigmine Methylsulfate (Bloxiverz) 10 mg STK-MED ONCE .ROUTE ; Start 04/17/17 at 15:12; Stop 04/17/17 at 15:13; Status DC Glycopyrrolate (Robinul) 1 mg STK-MED ONCE .ROUTE ; Start 04/17/17 at 15:12; Stop 04/17/17 at 15:13; Status DC Neostigmine Methylsulfate (Bloxiverz) 10 mg STK-MED ONCE .ROUTE ; Start 04/17/17 at 15:14; Stop 04/17/17 at 15:15; Status DC Diphenhydramine HCl (Benadryl) 25 mg PRN Q6HRS PRN IV ITCHING Last administered on 04/23/17t 00:37; Start 04/17/17 at 16:15; Stop 04/24/17 at 16:11; Status DC Enoxaparin Sodium (Lovenox 40mg Syringe) 40 mg Q24H SQ ; Start 04/18/17 at 09:00 ; Status UNV Sodium Chloride (Normal Saline Flush) 3 ml QSHIFT PRN IV AFTER MEDS AND BLOOD DRAWS; Start 04/17/17 at 16:15 Sodium Chloride 1,000 ml @ 30 mls/hr Q24H IV ; Start 04/17/17 at 17:00; Stop 04/18/17 at 17:35; Status DC Hydromorphone HCl 30 ml @ 0 mls/hr CONT PRN PRN IV PROTOCOL Last administered on 04/19/17 06:17; Start 04/17/17 at 16:15; Stop 04/19/17 at 19:13; Status DC Ondansetron HCl (Zofran) 4 mg PRN Q6HRS PRN IV NAUESA, 1ST CHOICE; Start at 16:15; Status UNV Albumin Human 500 ml @ 50 mls/hr 1X ONCE IV Last administered on 04/18/17 10: 40; Start 04/18/17 at 10:30; Stop 04/18/17 at 20:29; Status DC Vancomycin HCl 1.25 gm/Sodium Chloride 250 ml @ 167 mls/hr Q12H IV Last administered on 04/18/17 23:51; Start 04/18/17 at 13:00; Stop 04/19/17 at 08:31; Status DC Hydromorphone HCl 30 ml @ 0 mls/hr CONT PRN PRN IV PROTOCOL; Start 04/19/17 at 19:15; Stop 04/21/17 at 14:41; Status DC Potassium Chloride 100 ml @ 100 mls/hr Q1H IV Last administered on 04/23/17 17 :33; Start 04/23/17 at 14:00; Stop 04/23/17 at 17:59; Status DC Acetaminophen/ Hydrocodone Bitart (Lortab 5/325) 1 tab PRN Q4HRS PRN PO PAIN Last administered on 04/24/17 13:24; Start 04/23/17 at 13:45; Stop 04/24/17 at 16:11; Status DC Senna/Docusate Sodium (Senna Plus) 1 tab DAILY PO Last administered on 08:37; Start 04/24/17 at 16:30 Potassium Chloride (Klor-Con) 40 meq BIDWMEALS PO Last administered on 08:37; Start 04/24/17 at 16:30 Ibuprofen (Motrin) 400 mg PRN Q8HRS PRN PO INFLAMMATION; Start 04/25/17 at 09: 15; Stop 04/25/17 at 09:15; Status DC Sodium Chloride 1,000 ml @ 1,000 mls/hr 1X ONCE IV Last administered on 09:23; Start 04/25/17 at 09:15; Stop 04/25/17 at 10:14; Status DC Ferrous Sulfate (Feosol) 325 mg QHS PO Last administered on 04/27/17 21:21; Start 04/25/17 at 21:00 Nystatin 5 ml [id number] Last administered on 04/28/17 08:37; Start at 09:00 Lorazepam (Ativan) 0.5 mg 1X ONCE IV Last administered on 04/26/17 14:09; Start 04/26/17 at 12:00; Stop 04/26/17 at 12:01; Status DC Gadobutrol (Gadavist) 6 mmol 1X ONCE IV Last administered on 04/26/17 15:10; Start 04/26/17 at 15:00; Stop 04/26/17 at 15:01; Status DC Pantoprazole Sodium (Protonix) 40 mg DAILYAC PO Last administered on 04/28/17 08:37; Start 04/28/17 at 07:30 Active Scripts Active Senna-Time S Tablet (Sennosides/Docusate Sodium) 1 Each Tablet 1 Tab PO PRN DAILY PRN Nystatin 100,000 Unit/1 Ml Oral.susp 5 Ml SWSW [id number] Days Feosol (Ferrous Sulfate) 325 Mg Tablet 325 Mg PO QHS 30 Days Zofran Odt (Ondansetron) 4 Mg Tab.rapdis 4 Mg PO Q8HRS PRN [place] 5-325 Tablet (Acetaminophen/Hydrocodone Bitart) 1 Each Tablet 1 Tab PO PRN Q6HRS PRN Reported Preservision Areds Softgel (Vit A/Vit C/Vit E/Zinc/Copper) 1 Each Capsule 2 Each PO DAILY Omeprazole 20 Mg Capsule. 1 Cap PO DAILY Centrum Silver Tablet (Multivits-Min/Fa/Lycopene/Lut) 1 Each Tablet 1 Each PO Preservision Areds Tablet (Vit A/Vit C/Vit E/Zinc/Copper) 1 Each Tablet 1 Each PO No Known Medications Prior To Admisstion (Info) Each 1 Each Vitals/I & O Vital Sign - Last 24 Hours 04/27/17 04/27/17 04/27/17 04/27/17 15:00 19:30 20:00 23:14 Temp 97.8 97.9 97.5 97.8 97.9 97.5 Pulse 90 78 71 Resp 20 20 20 B/P (MAP) 118/63 (81) 117/62 (80) 123/66 (85) Pulse Ox 94 94 94 O2 Delivery Room Air Room Air Room Air Room Air 04/28/17 04/28/17 04/28/17 04/28/17 03:49 07:00 08:20 11:00 Temp 97.9 97.2 97.6 97.9 97.2 97.6 Pulse 71 88 81 Resp 20 22 22 B/P (MAP) 115/57 (76) 125/68 (87) 109/60 (76) Pulse Ox 93 96 93 O2 Delivery Room Air Room Air Room Air Room Air Intake and Output 04/27/17 04/27/17 04/28/17 15:00 23:00 07:00 Output Total 450 ml 450 ml Balance -450 ml -450 ml EVE LEACH MD Apr 28, 2017 12:02
--- NOTE | 2017-04-28 12:42 | PDOC ---
Subjective: Subjective: In shower when I stopped by. Objective: Objective: Per RN - less confused today, still not eating much w/ denture issues. Palliative care consulted, Dr. Colvin has seen, ?DC soon Vital Signs: Vital Signs Date Time Temp Pulse Resp B/P (MAP) Pulse Ox O2 Delivery O2 Flow Rate FiO2 04/28/17 11:00 97.6 81 22 109/60 (76) 93 Room Air 97.6 PE: no exam A/P: Metastatic colon cancer, SBO s/p resection Confusion - improved per staff -neuro following, EEG abnormal -- DC per primary. JOEY HURLEY Apr 28, 2017 12:42
--- NOTE | 2017-04-28 12:42 | PDOC ---
SURGICAL PROGRESS NOTE Subjective seems a little less confused states hard to eat without his dentures per staff, he has lost enough weight his dentures no longer fit Vital Signs Vital Signs Date Time Temp Pulse Resp B/P (MAP) Pulse Ox O2 Delivery O2 Flow Rate FiO2 04/28/17 11:00 97.6 81 22 109/60 (76) 93 Room Air 97.6 I&O Intake and Output 04/28/17 07:00 Output Total 900 ml Balance -900 ml Output Urine Total 900 ml # Bowel Movements 3 PATIENT HAS A CHAVEZ: No General: Alert, No acute distress Abdomen: Soft, Other (incision c/d) Labs Laboratory Tests Test 04/27/17 05:15 White Blood Count 12.2 x10^3/uL (4.0-11.0) Red Blood Count 3.46 x10^6/uL (4.30-5.70) Hemoglobin 9.9 g/dL (13.0-17.5) Hematocrit 29.4 % (39.0-53.0) Mean Corpuscular Volume 85 fL (79-100) Mean Corpuscular Hemoglobin 29 pg (25-35) Mean Corpuscular Hemoglobin Concent 34 g/dL (31-37) Red Cell Distribution Width 13.0 % (11.5-14.5) Platelet Count 500 x10^3/uL (140-400) Neutrophils (%) (Auto) 84 % (31-73) Lymphocytes (%) (Auto) 9 % (24-48) Monocytes (%) (Auto) 5 % (0-9) Eosinophils (%) (Auto) 2 % (0-3) Basophils (%) (Auto) 0 % (0-3) Neutrophils # (Auto) 10.3 x10^3uL (1.8-7.7) Lymphocytes # (Auto) 1.0 x10^3/uL (1.0-4.8) Monocytes # (Auto) 0.6 x10^3/uL (0.0-1.1) Eosinophils # (Auto) 0.2 x10^3/uL (0.0-0.7) Basophils # (Auto) 0.0 x10^3/uL (0.0-0.2) Sodium Level 137 mmol/L (136-145) Potassium Level 4.7 mmol/L (3.5-5.1) Chloride Level 103 mmol/L (98-107) Carbon Dioxide Level 25 mmol/L (21-32) Anion Gap 9 (6-14) Blood Urea Nitrogen 21 mg/dL (8-26) Creatinine 0.9 mg/dL (0.7-1.3) Estimated GFR (Cockcroft-Gault) 82.3 Glucose Level 110 mg/dL (70-99) Calcium Level 9.2 mg/dL (8.5-10.1) Procalcitonin 0.45 ng/mL (0.00-0.10) Problem List Problems Medical Problems: (1) Small bowel torsion Status: Acute Assessment/Plan POD 11 continue supportive care Problems: CHELSY CADENA MD Apr 28, 2017 12:42
[2017-04-28 15:00] VITALS: BP 105/60
[2017-04-28] MEDS: ENOXAPARIN 40 MG/0.4 ML SYRINGE. SQ SCH (16:49)
--- NOTE | 2017-04-28 17:01 | PDOC ---
PROGRESS NOTES Assessment Assessment Metabolic encephalopathy. Confusion. Leukocytosis. Thrombocytosis. Fever. Colon cancer with metastatic disease to the liver. Small bowel obstruction s/p partial small bowel resection. Hypotension. Pulmonary infiltrate. Right pleural effusion. No evidence of acute CVA or metastatic brain diseases at the present time. RECOMMENDATIONS/PLAN: Continue medical and surgical treatment.Consulted services coordinator. Consulted Dr. Colvin, Oncology. Discussed with his at bedside on 04/26 and 04/27. EEG on 04/27/17: Encephalopathy. HISTORY OF THE PRESENT ILLNESS: 76-y-old male patient with Hx of colon cancer and has been treated by Dr. Phillips. He had small bowel obstruction and received surgery this time. Post surgery, he has bben having mental status changes, and decline of cognitive function and confusion. His was upset with limited insurance coverage and did not want to further evaluations at the present time. His mentation improved since 04/27. PAST MEDICAL HISTORY: Please see above. PAST SURGERY HISTORY: Small bowel resection this time. ALLERGY: Reviewed. MEDICATIONS: Refer to [facility] FAMILY HISTORY: Non contributory. SOCIAL HISTORY: Denies smoking, drinking, and illicit drug use. REVIEW OF SYSTEMS: Constitutional: mild malnutrition. Head: No recent traumatic brain or head injury. Skin: No edema, or rash. Ear: No infection. Eyes: No vision loss or color blindness. Nose: No bleeding or purulent discharges. Hearing: Mild hearing decrease. Neck: No injury. Cardiac: No recent SC, arrhythmia. Pulmonary: No COPD. GI: Colon cancer. Urinary/genital: UTI. Endocrinologic: No cousin face, craniofacial dysmorphism, polydactyly. Skeletomuscular: No muscular atrophy, deformity Neurological: see HP. Psychiatric: Denies drug use/abuse. Otherwise, not [id number] review of systems. PHYSICAL EXAMINATION: General appearance is in subacute distress. HEENT: Normocephalic and nontraumatic. Eyes, nose, ears, and throat are unremarkable. Neck is supple. No lymphadenopathy. No crepitus. Cardiovascular: S1, S2, regular rate and rhythm. Pulmonary: Mildly decreased to auscultation bilaterally. Abdomen: Bowel sounds are positive. Extremities: No rash, lesions, or edema. No restriction of range of motion NEUROLOGICAL EXAMINATION: Awake. Understand questions. Oriented to time, place and person. PERRL. EOMI. CN: no focal findings. Muscle tone: within normal. Muscle strength: 4+ DTR: 2 Plantar reflex: Neutral response bilaterally Gait: not examined in bed. Sensory exam: no abnormal findings. No acute cerebellar signs elicited. Objective Objective Vital Signs Date Time Temp Pulse Resp B/P (MAP) Pulse Ox O2 Delivery O2 Flow Rate FiO2 04/28/17 15:00 97.3 81 22 105/60 (75) 95 Room Air 97.3 Intake and Output 04/28/17 07:00 Output Total 900 ml Balance -900 ml Output Urine Total 900 ml # Bowel Movements 3 Vitals Signs Vitals VS - Last 72 Hours, by Label Date Time Temp Pulse Resp B/P (MAP) Pulse Ox O2 Delivery O2 Flow Rate FiO2 04/28/17 15:00 97.3 81 22 105/60 (75) 95 Room Air 97.3 04/28/17 11:00 97.6 81 22 109/60 (76) 93 Room Air 97.6 04/28/17 08:20 Room Air 04/28/17 07:00 97.2 88 22 125/68 (87) 96 Room Air 97.2 04/28/17 03:49 97.9 71 20 115/57 (76) 93 Room Air 97.9 04/27/17 23:14 97.5 71 20 123/66 (85) 94 Room Air 97.5 04/27/17 20:00 Room Air 04/27/17 19:30 97.9 78 20 117/62 (80) 94 Room Air 97.9 04/27/17 15:00 97.8 90 20 118/63 (81) 94 Room Air 97.8 04/27/17 11:00 98.2 90 20 131/68 (89) 93 Room Air 98.2 04/27/17 07:55 Room Air 04/27/17 07:00 98.1 75 20 118/79 (92) 96 Room Air 98.1 Laboratory Laboratory Microbiology 04/13/17 Urine Culture - Final, Complete 04/13/17 Urine Culture Result 1 (RASHAWN) - Final, Complete Medication Medications Current Medications Pantoprazole Sodium (Protonix) 40 mg DAILYAC PO Last administered on 04/28/17t 08:37; Start 04/28/17 at 07:30 Comment Review of Relevant I have reviewed the following items stephenie (where applicable) has been applied. JUSTIN EUBANKS MD Apr 28, 2017 17:01
--- NOTE | 2017-04-28 17:58 | PDOC2 ---
PALLIATIVE CARE Palliative Care Note Palliative Care Consult requested by Dr. Colvin to address plan of care. Diagnosis: S/P exploratory lap with tumor resection--end to end anastomosis on 04/17; encephalopathy --improved; color cancer with mets to liver and retroperitoneal adenopathy; bilateral renal stones--non obstructive; Patient alert. Discomfort when moving in bed. Does not qualify for SNU for rehab. Received permission to discuss options for care with Lana. Options discussed with ; Home with Hospice vs home with HH. [facility] Was under the understanding that she would have 35 hours of home health care. She spoke at length with [facility]. Also discussed with [facility]. After long discussion patient and have selected [facility]. Discussed Code status: Patient does not want resuscitation. Understands without this attempt patient likely would . Dr Biggs is patient's primary physician. Plan: Home with Hospice tomorrow.---mid-late afternoon. Transport home per ambulance. DME: [facility]; light weight small W/C. Outside the Hospital DNR/DNI form signed by patient. ADRIAN WALLS Apr 28, 2017 17:58
[2017-04-28 19:00] VITALS: BP 107/58
[2017-04-28] MEDS: FERROUS SULFATE 325 MG TABLET. PO SCH (21:26)
[2017-04-28 23:35] VITALS: BP 117/63
[2017-04-29] MEDS: ACETAMINOPHEN 325 MG TABLET. PO PRN ×2 (02:51→07:54)
[2017-04-29 03:00] VITALS: BP 119/64
[2017-04-29 07:00] VITALS: BP 124/72
[2017-04-29] MEDS: NYSTATIN 100,000 UNITS/ML 5 ML ORAL.SUSP. SWSW SCH ×2 (07:53→12:46)
[2017-04-29] MEDS: SENNOSIDES/DOCUSATE 8.6/50MG TABLET. PO SCH (07:54)
[2017-04-29] MEDS: PANTOPRAZOLE 40 MG TABLET.DR. PO SCH (07:54)
[2017-04-29] MEDS: AMINO AC 3%/ELECTROLYTE/GLYCER 1,000 ML IV SCH (07:54)
[2017-04-29] MEDS: POTASSIUM CHLORIDE 20 MEQ TABLET.ER. PO SCH (07:55)
[2017-04-29] MEDS ORDERED: traMADol 50 MG TABLET PO PRN (10:00)
[2017-04-29 11:00] VITALS: BP 117/63
--- NOTE | 2017-04-29 11:45 | PDOC ---
PROGRESS NOTES Assessment Assessment Metabolic encephalopathy. Confusion. Leukocytosis. Thrombocytosis. Fever. Colon cancer with metastatic disease to the liver. Small bowel obstruction s/p partial small bowel resection. Hypotension. Pulmonary infiltrate. Right pleural effusion. No evidence of acute CVA or metastatic brain diseases at the present time. RECOMMENDATIONS/PLAN: Continue medical and surgical treatment.Consulted client services representative. Consulted Dr. Colvin, Oncology. Palliative care discussed. Discussed with his at bedside on 04/26 and 04/27. EEG on 04/27/17: Encephalopathy. Brain MRI on 04/26: No acute CVA or metastatic disease. HISTORY OF THE PRESENT ILLNESS: 76-y-old male patient with Hx of colon cancer and has been treated by Dr. Phillips. He had small bowel obstruction and received surgery this time. Post surgery, he has bben having mental status changes, and decline of cognitive function and confusion. His was upset with limited insurance coverage and did not want to further evaluations at the present time. His mentation improved since 04/27. PAST MEDICAL HISTORY: Please see above. PAST SURGERY HISTORY: Small bowel resection this time. ALLERGY: Reviewed. MEDICATIONS: Refer to [facility] FAMILY HISTORY: Non contributory. SOCIAL HISTORY: Denies smoking, drinking, and illicit drug use. REVIEW OF SYSTEMS: Constitutional: mild malnutrition. Head: No recent traumatic brain or head injury. Skin: No edema, or rash. Ear: No infection. Eyes: No vision loss or color blindness. Nose: No bleeding or purulent discharges. Hearing: Mild hearing decrease. Neck: No injury. Cardiac: No recent IL, arrhythmia. Pulmonary: No COPD. GI: Colon cancer. Urinary/genital: UTI. Endocrinologic: No cousin face, craniofacial dysmorphism, polydactyly. Skeletomuscular: No muscular atrophy, deformity Neurological: see HP. Psychiatric: Denies drug use/abuse. Otherwise, not [id number] review of systems. PHYSICAL EXAMINATION: General appearance is in subacute distress. HEENT: Normocephalic and nontraumatic. Eyes, nose, ears, and throat are unremarkable. Neck is supple. No lymphadenopathy. No crepitus. Cardiovascular: S1, S2, regular rate and rhythm. Pulmonary: Mildly decreased to auscultation bilaterally. Abdomen: Bowel sounds are positive. Extremities: No rash, lesions, or edema. No restriction of range of motion NEUROLOGICAL EXAMINATION: Awake. Understand questions. Oriented to time, place and person. PERRL. EOMI. CN: no focal findings. Muscle tone: within normal. Muscle strength: 4+ DTR: 2 Plantar reflex: Neutral response bilaterally Gait: not examined in bed. Sensory exam: no abnormal findings. No acute cerebellar signs elicited. Objective Objective Vital Signs Date Time Temp Pulse Resp B/P (MAP) Pulse Ox O2 Delivery O2 Flow Rate FiO2 04/29/17 10:23 Room Air 04/29/17 07:00 95.7 79 18 124/72 (89) 93 95.7 Intake and Output 04/29/17 07:00 Intake Total 120 ml Output Total 1075 ml Balance -955 ml Intake Oral 120 ml Output Urine Total 1075 ml Vitals Signs Vitals VS - Last 72 Hours, by Label Date Time Temp Pulse Resp B/P (MAP) Pulse Ox O2 Delivery O2 Flow Rate FiO2 04/29/17 10:23 Room Air 04/29/17 07:00 95.7 79 18 124/72 (89) 93 Room Air 95.7 04/29/17 03:00 97.7 64 18 119/64 (82) 96 Room Air 97.7 04/28/17 23:35 96.6 64 18 117/63 (81) 97 Room Air 96.6 04/28/17 19:50 Room Air 04/28/17 19:00 96.6 65 18 107/58 (74) 96 Room Air 96.6 04/28/17 15:00 97.3 81 22 105/60 (75) 95 Room Air 97.3 04/28/17 11:00 97.6 81 22 109/60 (76) 93 Room Air 97.6 04/28/17 08:20 Room Air 04/28/17 07:00 97.2 88 22 125/68 (87) 96 Room Air 97.2 Laboratory Laboratory Microbiology 04/13/17 Urine Culture - Final, Complete 04/13/17 Urine Culture Result 1 (RASHAWN) - Final, Complete Medication Medications Current Medications Tramadol HCl (Ultram) 50 mg PRN Q6HRS PRN PO PAIN Last administered on t 10:23; Start 04/29/17 at 10:00 Comment Review of Relevant I have reviewed the following items stephenie (where applicable) has been applied. JUSTIN EUBANKS MD Apr 29, 2017 11:45
--- NOTE | 2017-04-29 11:57 | PDOC ---
PROGRESS NOTES Subjective Subjective c/c - f/u of Colon cancer stage 4 ROS - no abdominal pain Objective Objective Vital Signs Date Time Temp Pulse Resp B/P (MAP) Pulse Ox O2 Delivery O2 Flow Rate FiO2 04/29/17 10:23 Room Air 04/29/17 07:00 95.7 79 18 124/72 (89) 93 95.7 04/25/17 08:00 2.0 Intake and Output 04/29/17 07:00 Intake Total 120 ml Output Total 1075 ml Balance -955 ml Intake Oral 120 ml Output Urine Total 1075 ml Physical Exam Heart: Normal S1, Normal S2 General: Alert, Oriented X3 Lungs: Clear to auscultation Assessment Assessment Problems Medical Problems: (1) Small bowel torsion Status: Acute A/P: 1. Colon cancer stage 4. Appreciate palliative care consult. Agree with hospice plans. 2. SBO - s/p surgery Comment Review of Relevant I have reviewed the following items stephenie (where applicable) has been applied. Labs Microbiology 04/13/17 Urine Culture - Final, Complete 04/13/17 Urine Culture Result 1 (RASHAWN) - Final, Complete Medications Current Medications Sodium Chloride 1,000 ml @ 1,000 mls/hr 1X ONCE IV Last administered on 12:46; Start 04/13/17 at 13:00; Stop 04/13/17 at 13:59; Status DC Ondansetron HCl (Zofran) 4 mg 1X ONCE IV Last administered on 04/13/17 12:46 ; Start 04/13/17 at 13:00; Stop 04/13/17 at 13:01; Status DC Iohexol (Omnipaque 300 Mg/ml) 60 ml 1X ONCE IV Last administered on 04/13/17 13:20; Start 04/13/17 at 13:15; Stop 04/13/17 at 13:16; Status DC Info (Do NOT chart on this entry -- for MONITORING) 1 each PRN DAILY PRN MC SEE COMMENTS; Start 04/13/17 at 13:15; Stop 04/15/17 at 13:14; Status DC Ondansetron HCl (Zofran) 4 mg PRN Q8HRS PRN IV NAUSEA/VOMITING; Start 04/13/17 at 14:45; Stop 04/14/17 at 10:50; Status DC Morphine Sulfate 4 mg PRN Q2HR PRN IV PAIN Last administered on 04/14/17 03:57 ; Start 04/13/17 at 14:45; Stop 04/14/17 at 10:49; Status DC Acetaminophen (Tylenol) 650 mg PRN Q6HRS PRN PO FEVER, pain Last administered on 04/29/17 07:54; Start 04/13/17 at 15:30 Ondansetron HCl (Zofran) 4 mg PRN Q6HRS PRN IV NAUSEA/VOMITING Last administered on 04/17/17 09:00; Start 04/13/17 at 15:30 Morphine Sulfate 2 mg PRN Q2HR PRN IV MILD PAIN Last administered on 04/21/17 20:59; Start 04/13/17 at 15:30; Stop 04/23/17 at 13:39; Status DC Tramadol HCl (Ultram) 50 mg PRN Q6HRS PRN PO PAIN Last administered on 06:06; Start 04/13/17 at 15:30; Stop 04/25/17 at 09:03; Status DC Hydralazine HCl (Apresoline) 10 mg PRN Q4HRS PRN IVP ELEVATED BP, SEE COMMENTS ; Start 04/13/17 at 15:30 Docusate Sodium (Colace) 100 mg PRN DAILY PRN PO CONSTIPATION; Start 04/13/17 at 15:30; Stop 04/24/17 at 16:11; Status DC Amino Acids/ Glycerin/ Electrolytes 1,000 ml @ 80 mls/hr [id number] IV Last administered on 04/29/17 07:54; Start 04/13/17 at 16:00 Morphine Sulfate 4 mg PRN Q2HR PRN IV MOD - SEVERE PAIN Last administered on 09:01; Start 04/13/17 at 15:30; Stop 04/21/17 at 14:41; Status DC Enoxaparin Sodium (Lovenox 40mg Syringe) 40 mg Q24H SQ Last administered on 16:49; Start 04/13/17 at 16:00 Pantoprazole Sodium (Protonix Vial) 40 mg DAILYAC IVP Last administered on 04/26 08:54; Start 04/14/17 at 07:30; Stop 04/27/17 at 13:16; Status DC Throat Lozenges (Chloraseptic) 1 spray PRN Q2HR PRN PO SORE THROAT Last administered on 04/19/17 17:41; Start 04/13/17 at 17:45 Throat Lozenges (Cepacol Sore Throat Lozenge) 1 sheron PRN Q2HRS PRN PO SORE THROAT Last administered on 04/20/17 07:55; Start 04/13/17 at 17:45 Saliva Substitute (Biotene Moisturizing Mouth) 2 spray PRN Q15MIN PRN PO DRY MOUTH Last administered on 04/15/17 15:42; Start 04/15/17 at 13:15 Sodium Chloride 500 ml @ 500 mls/hr 1X ONCE IV Last administered on 04/17/17 10:50; Start 04/17/17 at 11:00; Stop 04/17/17 at 11:59; Status DC Piperacillin Sod/ Tazobactam Sod 3.375 gm/Sodium Chloride 50 ml @ 100 mls/hr Q6HRS IV Last administered on 04/21/17 06:11; Start 04/17/17 at 11:30; Stop 04/21 at 08:12; Status DC Vancomycin HCl 1 gm/Sodium Chloride 250 ml @ 250 mls/hr Q12H IV ; Start at 10:45; Status UNV Vancomycin HCl 1.5 gm/Sodium Chloride 500 ml @ 250 mls/hr 1X ONCE IV Last administered on 04/17/17 12:26; Start 04/17/17 at 11:30; Stop 04/17/17 at 13:29; Status DC Vancomycin HCl (Vanco Per Pharmacy) 1 each PRN DAILY PRN MC SEE COMMENTS Last administered on 04/18/17 13:16; Start 04/17/17 at 11:00; Stop 04/19/17 at 08:32; Status DC Iohexol (Omnipaque 300 Mg/ml) 75 ml 1X ONCE IV Last administered on 04/17/17 12:01; Start 04/17/17 at 11:00; Stop 04/17/17 at 11:01; Status DC Info (Do NOT chart on this entry -- for MONITORING) 1 each PRN DAILY PRN MC SEE COMMENTS; Start 04/17/17 at 11:00; Stop 04/19/17 at 10:59; Status DC Metronidazole 100 ml @ 100 mls/hr 1X PREOP PRN IV prophylaxis; Start 04/18/17 at 06:00; Stop 04/18/17 at 18:00; Status DC Vancomycin HCl 1 gm/Sodium Chloride 250 ml @ 250 mls/hr Q12H IV Last administered on 04/17/17 23:37; Start 04/18/17 at 00:00; Stop 04/18/17 at 12:47; Status DC Vancomycin HCl 1 each 1X ONCE MC ; Start 04/20/17 at 00:30; Stop 04/20/17 at 00: 31; Status Cancel Ondansetron HCl (Zofran) 4 mg PRN Q6HRS PRN IV NAUSEA/VOMITING; Start 04/17/17 at 14:00; Stop 04/18/17 at 13:59; Status DC Fentanyl Citrate (Fentanyl 2ml Vial) 25 mcg PRN Q5MIN PRN IV MILD PAIN; Start 04/17/17 at 14:00; Stop 04/18/17 at 13:59; Status DC Fentanyl Citrate (Fentanyl 2ml Vial) 50 mcg PRN Q5MIN PRN IV MODERATE PAIN Last administered on 04/17/17 16:59; Start 04/17/17 at 14:00; Stop 04/18/17 at 13: 59; Status DC Morphine Sulfate 1 mg PRN Q10MIN PRN IV SEVERE PAIN Last administered on 16:44; Start 04/17/17 at 14:00; Stop 04/18/17 at 13:59; Status DC Ringer's Solution 1,000 ml @ 30 mls/hr Q24H IV ; Start 04/17/17 at 13:47; Stop 04/18/17 at 01:46; Status DC Lidocaine HCl 2 ml PRN 1X PRN ID PRIOR TO IV START; Start 04/17/17 at 14:00; Stop 04/18/17 at 13:59; Status DC Hydromorphone HCl (Dilaudid) 0.5 mg PRN Q10MIN PRN IV SEV PAIN, Second choice; Start 04/17/17 at 14:00; Stop 04/18/17 at 13:59; Status DC Prochlorperazine Edisylate (Compazine) 5 mg PACU PRN PRN IV NAUSEA, MRX1; Start 04/17/17 at 14:00; Stop 04/18/17 at 13:59; Status DC Fentanyl Citrate (Fentanyl 5ml Vial) 250 mcg STK-MED ONCE .ROUTE ; Start at 13:49; Stop 04/17/17 at 13:50; Status DC Succinylcholine Chloride (Anectine) 200 mg STK-MED ONCE .ROUTE ; Start 04/17/17 at 13:50; Stop 04/17/17 at 13:51; Status DC Rocuronium [place] (Zemuron) 50 mg STK-MED ONCE .ROUTE ; Start 04/17/17 at 13:50 ; Stop 04/17/17 at 13:51; Status DC Desflurane (Suprane) 60 ml STK-MED ONCE IH ; Start 04/17/17 at 13:50; Stop at 13:51; Status DC Dexamethasone Sodium Phosphate (Decadron) 20 mg STK-MED ONCE .ROUTE ; Start 04/17 at 13:50; Stop 04/17/17 at 13:51; Status DC Propofol 20 ml @ As Directed STK-MED ONCE IV ; Start 04/17/17 at 13:50; Stop 04/17 at 13:51; Status DC Ondansetron HCl (Zofran) 4 mg STK-MED ONCE .ROUTE ; Start 04/17/17 at 13:50; Stop 04/17/17 at 13:51; Status DC Phenylephrine HCl 1 mg STK-MED ONCE IV ; Start 04/17/17 at 13:51; Stop 04/17/17 at 13:52; Status DC Lidocaine HCl (Lidocaine Pf 2% Vial) 5 ml STK-MED ONCE .ROUTE ; Start 04/17/17 at 13:51; Stop 04/17/17 at 13:52; Status DC Albumin Human 500 ml @ As Directed STK-MED ONCE IV ; Start 04/17/17 at 13:57; Stop 04/17/17 at 13:58; Status DC Esmolol HCl (Brevibloc) 100 mg STK-MED ONCE IV ; Start 04/17/17 at 14:40; Stop at 14:41; Status DC Neostigmine Methylsulfate (Bloxiverz) 10 mg STK-MED ONCE .ROUTE ; Start 04/17/17 at 15:12; Stop 04/17/17 at 15:13; Status DC Glycopyrrolate (Robinul) 1 mg STK-MED ONCE .ROUTE ; Start 04/17/17 at 15:12; Stop 04/17/17 at 15:13; Status DC Neostigmine Methylsulfate (Bloxiverz) 10 mg STK-MED ONCE .ROUTE ; Start 04/17/17 at 15:14; Stop 04/17/17 at 15:15; Status DC Diphenhydramine HCl (Benadryl) 25 mg PRN Q6HRS PRN IV ITCHING Last administered on 04/23/17 00:37; Start 04/17/17 at 16:15; Stop 04/24/17 at 16:11; Status DC Enoxaparin Sodium (Lovenox 40mg Syringe) 40 mg Q24H SQ ; Start 04/18/17 at 09:00 ; Status UNV Sodium Chloride (Normal Saline Flush) 3 ml QSHIFT PRN IV AFTER MEDS AND BLOOD DRAWS; Start 04/17/17 at 16:15 Sodium Chloride 1,000 ml @ 30 mls/hr Q24H IV ; Start 04/17/17 at 17:00; Stop 04/18/17 at 17:35; Status DC Hydromorphone HCl 30 ml @ 0 mls/hr CONT PRN PRN IV PROTOCOL Last administered on 04/19/17 06:17; Start 04/17/17 at 16:15; Stop 04/19/17 at 19:13; Status DC Ondansetron HCl (Zofran) 4 mg PRN Q6HRS PRN IV NAUESA, 1ST CHOICE; Start at 16:15; Status UNV Albumin Human 500 ml @ 50 mls/hr 1X ONCE IV Last administered on 04/18/17 10: 40; Start 04/18/17 at 10:30; Stop 04/18/17 at 20:29; Status DC Vancomycin HCl 1.25 gm/Sodium Chloride 250 ml @ 167 mls/hr Q12H IV Last administered on 04/18/17 23:51; Start 04/18/17 at 13:00; Stop 04/19/17 at 08:31; Status DC Hydromorphone HCl 30 ml @ 0 mls/hr CONT PRN PRN IV PROTOCOL; Start 04/19/17 at 19:15; Stop 04/21/17 at 14:41; Status DC Potassium Chloride 100 ml @ 100 mls/hr Q1H IV Last administered on 04/23/17 17 :33; Start 04/23/17 at 14:00; Stop 04/23/17 at 17:59; Status DC Acetaminophen/ Hydrocodone Bitart (Lortab 5/325) 1 tab PRN Q4HRS PRN PO PAIN Last administered on 04/24/17 13:24; Start 04/23/17 at 13:45; Stop 04/24/17 at 16:11; Status DC Senna/Docusate Sodium (Senna Plus) 1 tab DAILY PO Last administered on 07:54; Start 04/24/17 at 16:30 Potassium Chloride (Klor-Con) 40 meq BIDWMEALS PO Last administered on 07:55; Start 04/24/17 at 16:30 Ibuprofen (Motrin) 400 mg PRN Q8HRS PRN PO INFLAMMATION; Start 04/25/17 at 09: 15; Stop 04/25/17 at 09:15; Status DC Sodium Chloride 1,000 ml @ 1,000 mls/hr 1X ONCE IV Last administered on 09:23; Start 04/25/17 at 09:15; Stop 04/25/17 at 10:14; Status DC Ferrous Sulfate (Feosol) 325 mg QHS PO Last administered on 04/28/17 21:26; Start 04/25/17 at 21:00 Nystatin 5 ml [id number] SWSW Last administered on 04/29/17 07:53; Start at 09:00 Lorazepam (Ativan) 0.5 mg 1X ONCE IV Last administered on 04/26/17 14:09; Start 04/26/17 at 12:00; Stop 04/26/17 at 12:01; Status DC Gadobutrol (Gadavist) 6 mmol 1X ONCE IV Last administered on 04/26/17 15:10; Start 04/26/17 at 15:00; Stop 04/26/17 at 15:01; Status DC Pantoprazole Sodium (Protonix) 40 mg DAILYAC PO Last administered on 04/29/17 07:54; Start 04/28/17 at 07:30 Tramadol HCl (Ultram) 50 mg PRN Q6HRS PRN PO PAIN Last administered on 10:23; Start 04/29/17 at 10:00 Active Scripts Active Senna-Time S Tablet (Sennosides/Docusate Sodium) 1 Each Tablet 1 Tab PO PRN DAILY PRN Nystatin 100,000 Unit/1 Ml Oral.susp 5 Ml SWSW [id number] Days Feosol (Ferrous Sulfate) 325 Mg Tablet 325 Mg PO QHS 30 Days Zofran Odt (Ondansetron) 4 Mg Tab.rapdis 4 Mg PO Q8HRS PRN [place] 5-325 Tablet (Acetaminophen/Hydrocodone Bitart) 1 Each Tablet 1 Tab PO PRN Q6HRS PRN Reported Preservision Areds Softgel (Vit A/Vit C/Vit E/Zinc/Copper) 1 Each Capsule 2 Each PO DAILY Omeprazole 20 Mg Capsule.dr 1 Cap PO DAILY Centrum Silver Tablet (Multivits-Min/Fa/Lycopene/Lut) 1 Each Tablet 1 Each PO Preservision Areds Tablet (Vit A/Vit C/Vit E/Zinc/Copper) 1 Each Tablet 1 Each PO No Known Medications Prior To Admisstion (Info) Each 1 Each Vitals/I & O Vital Sign - Last 24 Hours 04/28/17 04/28/17 04/28/17 04/28/17 15:00 19:00 19:50 23:35 Temp 97.3 96.6 96.6 97.3 96.6 96.6 Pulse 81 65 64 Resp 22 18 18 B/P (MAP) 105/60 (75) 107/58 (74) 117/63 (81) Pulse Ox 95 96 97 O2 Delivery Room Air Room Air Room Air Room Air 04/29/17 04/29/17 04/29/17 03:00 07:00 10:23 Temp 97.7 95.7 97.7 95.7 Pulse 64 79 Resp 18 18 B/P (MAP) 119/64 (82) 124/72 (89) Pulse Ox 96 93 O2 Delivery Room Air Room Air Room Air Intake and Output 6/04/28/17 04/29/17 15:00 23:00 07:00 Intake Total 120 ml Output Total 600 ml 475 ml Balance -480 ml -475 ml SOLEDAD NORTH MD Apr 29, 2017 11:57
--- NOTE | 2017-04-29 12:09 | PDOC ---
PIYUSH ECHEVERRIA [employer] 04/29/17 1209: SURGICAL PROGRESS NOTE Subjective denies pain reviewed notes plans for home with hospice today Vital Signs Vital Signs Date Time Temp Pulse Resp B/P (MAP) Pulse Ox O2 Delivery O2 Flow Rate FiO2 04/29/17 11:00 98.2 68 18 117/63 (81) 96 Room Air 98.2 I&O Intake and Output 04/29/17 07:00 Intake Total 120 ml Output Total 1075 ml Balance -955 ml Intake Oral 120 ml Output Urine Total 1075 ml General: Cooperative, No acute distress Abdomen: Soft, Other (incision c/d/i, no erythema) Problem List Problems Medical Problems: (1) Small bowel torsion Status: Acute Assessment/Plan s/p xlap dc michelle Problems: CHELSY CADENA MD 04/29/17 1456: SURGICAL PROGRESS NOTE Assessment/Plan pt seen agree with plan f/u as outpatient Problems: PIYUSH ECHEVERRIA [employer] Apr 29, 2017 12:09 CHELSY CADENA MD Apr 29, 2017 14:56
--- NOTE | 2017-04-29 12:37 | PDOC ---
Subjective: Subjective: "Okay I guess." Objective: Objective: D/w RN - mental status better, home w/ Hospice today. Reviewed other notes. Vital Signs: Vital Signs Date Time Temp Pulse Resp B/P (MAP) Pulse Ox O2 Delivery O2 Flow Rate FiO2 04/29/17 12:23 Room Air 04/29/17 11:00 98.2 68 18 117/63 (81) 96 98.2 PE: GEN: NAD ABD: soft, non-tender NEURO/PSYCH: A & O 3 A/P: Metastatic colon cancer, SBO s/p resection Confusion - improved -- Dc plans noted. JOEY HURLEY Apr 29, 2017 12:37
--- NOTE | 2017-04-29 13:00 | PDOC3 ---
Discharge Summary [facility] Date of Admission: April 13, 2017 Discharge Date: Apr 29, 2017 Admitting Diagnosis 1. SBO: s/p ex lap with tumor resection and end-to-end SB anastomosis on 04/[address] Schaefer. 2. Pain control 3. Encephalopathy: persisting with some visual hallucinations. possible 2/2 malignancy 4. Nutrition: advanced to soft mechanical. 5. JUNO: new. poss 2/2 dehydration. resolved, vasomotor 6. Hypokalemia: 7. Leukocytosis: 2/2 malignancy 8. Anemia: chronic dz and inflammation, min component of acute blood loss. 9. Transaminitis: mild; suspect 2/2 liver mets. 10. Protein malnutrition: moderate. 11. Colon CA: mets to liver and retroperitoneal adenopathy. 12. B renal stones: non obstructive Problems: Final Diagnosis CONSULTS sx onco id Procedures ex lap with tumor resection Brief Hospital Course Patient is a 77 year old male who presents with who presents with constant abdominal pain for 3 days. Pt did colostomy for colon Ca 02/2016, then was found liver mets in 10/2016, pt was on chemo for a short time, then could not tolerate it. Currently not on any treatment. Pt said he got a recent CT but i could not find it in the computer. Since last Oct, pt has been having low po intake, lost 10 pounds, has N/V sometimes, and intermittent abd pain. In the past 3 days, the abd pain has been constant, middle abd, 10/10, with Vomiting 2 times today wo blood. Pt still pass gas, last BM was 1 week ago, baseline BM every 4-5ds. CT showed High level SBO, and advanced liver mets and abd adenopathy. Pt got ex lap with tumor resection and end to end SB anastomosis on 04/17, wound heals well. However, pt developed acute encephalopathy. has been refusing head ct, MRI with concern about insurance, refused PAT, and ONco consult. Eventually we got everything for her, there is no brain mets, DNR now, home with home hospice. low po intake, on ivf in hosp. Pt can walk with help, insurance denies to go to SNF. dc time 45min General: Alert, Oriented X3, Cooperative, No acute distress Heart: Regular rate Lungs: Clear Abdomen: Soft, Other (incision c/d) Extremities: No clubbing, No edema Skin: No rashes Problems: Disposition home hospice CONDITION AT DISCHARGE: Improved Diet regular Scheduled Ferrous Sulfate (Feosol), 325 MG PO QHS Nystatin (Nystatin), 5 ML SWSW [id number] Omeprazole (Omeprazole), 1 CAP PO DAILY, (Reported) Vit A/Vit C/Vit E/Zinc/Copper (Preservision Areds Softgel), 2 EACH PO DAILY, ( Reported) Scheduled PRN Hydrocodone/Apap 5-325 ([place] 5-325 Tablet), 1 TAB PO PRN Q6HRS PRN for PAIN Ondansetron (Zofran Odt), 4 MG PO Q8HRS PRN for NAUSEA/VOMITING Sennosides/Docusate Sodium (Senna-Time S Tablet), 1 TAB PO PRN DAILY PRN for CONSTIPATION Miscellaneous Medications Info (No Known Medications Prior To Admisstion), 1 EACH MC, (Reported) Multivits-Min/Fa/Lycopene/Lut (Centrum Silver Tablet), 1 EACH PO, (Reported) Vit A/Vit C/Vit E/Zinc/Copper (Preservision Areds Tablet), 1 EACH PO, (Reported) EVE LEACH MD Apr 29, 2017 13:00
[2017-04-29] MEDS ORDERED: HYDROcodone/APAP 5/325MG 1 TAB TABLET PO PRN (13:45)
[2017-04-29 15:00] VITALS: BP 125/66
== END 2017-04-29 16:10 | disposition hospice, home (50) | DRG 329 ==
LOC: ER 12:24 → 4 NORTH 14:35
PROVIDERS: ADMIT Internal Medicine; ATTEND Internal Medicine
PROC: 0DT80ZZ Resection of Small Intestine, Open Approach (ICD-10-PCS; principal; 2017-04-17 14:45)
DX: C78.6 Secondary malignant neoplasm of retroperitoneum and peritoneum (principal); G93.41 Metabolic encephalopathy; K56.2 Volvulus; K56.69 Other intestinal obstruction; C17.9 Malignant neoplasm of small intestine, unspecified; C78.7 Secondary malignant neoplasm of liver and intrahepatic bile duct; D62 Acute posthemorrhagic anemia; E44.0 Moderate protein-calorie malnutrition; J90 Pleural effusion, not elsewhere classified; K91.89 Other postprocedural complications and disorders of digestive system; N17.9 Acute kidney failure, unspecified; N20.0 Calculus of kidney; B37.9 Candidiasis, unspecified; C44.90 Unspecified malignant neoplasm of skin, unspecified; D75.89 Other specified diseases of blood and blood-forming organs; E87.6 Hypokalemia; K21.0 Gastro-esophageal reflux disease with esophagitis; K22.70 Barrett's esophagus without dysplasia; K29.50 Unspecified chronic gastritis without bleeding; Z80.0 Family history of malignant neoplasm of digestive organs; Z80.7 Family history of other malignant neoplasms of lymphoid, hematopoietic and related tissues; Z83.3 Family history of diabetes mellitus; Z85.038 Personal history of other malignant neoplasm of large intestine; Z87.442 Personal history of urinary calculi; Z93.3 Colostomy status; G89.29 Other chronic pain
CPT/HCPCS: 36415; 70553; 74000; 74020; 74022; 74177; 80048; 80053; 80202; 81001; 82040; 82140; 82607; 83605; 83690; 83735; 84100; 84145; 84443; 85007; 85027; 87086; 88305; 88307; 88309; 95816; 96361; 96374; 96375; 96376; C9113; J0330; J1100; J1170; J1200; J1650; J2060; J2270; J2370; J2405; J2543; J2704; J2710; J3010; J3370; J3480; J3490; J7030; J7040; J7050; P9045; Q9967; 97110; 97116; 97530; 97535; 99285-25; A9585